=== PATIENT | female | born 1940 | race Caucasian/White ===

== ENCOUNTER → 2016-11-21 | Outpatient (REF) | payer MEDICARE ==
[2016-11-21 19:37] LABS: IMMUNOGLOBULIN G 602 MG/DL (681-1648); TOTAL PROTEIN 6.2 GM/DL (6.4-8.2)
[2016-11-21 20:01] LABS: IMMUNOGLOBULIN A 19.4 MG/DL (70-400); IMMUNOGLOBULIN M 18.2 MG/DL (40-230)
[2016-11-22 12:05] LABS: ALBUMIN 4.05 GM/DL (3.29-5.55); ALBUMIN % 65.3 % (55.8-66.1); GAMMA GLOBULIN % 8.8 % (11.1-18.8)
[2016-11-24 00:15] LABS: FREE LAMBDA LIGHT CHAINS SERUM 16.92 mg/L (5.71-26.30); KAPPA/LAMBDA RATIO SERUM 67.38 (0.26-1.65)
== END ==
LOC: M LAB REF 16:50
PROVIDERS: ATTEND Internal Medicine Medical Oncology
DX: D47.2 Monoclonal gammopathy (principal)

== ENCOUNTER → 2017-03-21 | Outpatient (REF) | payer MEDICARE ==
[2017-03-21 17:51] LABS: IMMUNOGLOBULIN G 506 MG/DL (681-1648); TOTAL PROTEIN 6.1 GM/DL (6.4-8.2)
[2017-03-21 18:40] LABS: IMMUNOGLOBULIN A 19.8 MG/DL (70-400)
[2017-03-21 18:41] LABS: IMMUNOGLOBULIN M 17.5 MG/DL (40-230)
[2017-03-22 10:06] LABS: ALBUMIN 3.89 GM/DL (3.29-5.55); ALBUMIN % 63.8 % (55.8-66.1); GAMMA GLOBULIN % 8.9 % (11.1-18.8)
[2017-03-24 00:06] LABS: FREE KAPPA LIGHT CHAINS SERUM 955.2 mg/L (3.3-19.4); FREE LAMBDA LIGHT CHAINS SERUM 16.8 mg/L (5.7-26.3); KAPPA/LAMBDA RATIO SERUM 56.86 (0.26-1.65)
== END ==
LOC: M LAB REF 16:48
PROVIDERS: ATTEND Internal Medicine Medical Oncology
DX: D47.2 Monoclonal gammopathy (principal)

== ENCOUNTER → 2017-07-08 | Outpatient (CLI) | payer MEDICARE ==
--- NOTE | 2017-07-08 13:51 | REP ---
WHOLE BODY BONE SCAN: Following the intravenous administration of 22 millicuries technetium 99m MDP, the patient's whole body is imaged in the anterior and posterior projections with additional oblique images of the thoracic and pelvis regions performed as well as lateral views of calvarium, knees, and feet. Periarticular increased uptake at the knees and in the feet are compatible with arthritic changes. There is no focal area of increased or decreased radiotracer activity that would suggest the presence of osseous metastases. Renal and bladder activity are seen. IMPRESSION: Arthritic uptake in the knees and feet. No compelling scintigraphic evidence of osseous metastases. Signed by Gianni Jenkins MD 07/09/2017 07:54 P
== END ==
LOC: M RAD 10:00
PROVIDERS: ATTEND Orthopaedic Surgery
DX: C49.22 Malignant neoplasm of connective and soft tissue of left lower limb, including hip (principal)
CPT/HCPCS: 78306; A9503

== ENCOUNTER → 2017-09-30 | Outpatient (REF) | payer MEDICARE ==
[2017-09-30 14:51] LABS: IMMUNOGLOBULIN G 505 MG/DL (681-1648); TOTAL PROTEIN 6.1 GM/DL (6.4-8.2)
[2017-09-30 14:53] LABS: IMMUNOGLOBULIN A 17.6 MG/DL (70-400); IMMUNOGLOBULIN M 16.4 MG/DL (40-230)
[2017-10-02 14:19] LABS: ALBUMIN 3.67 GM/DL (3.29-5.55); ALBUMIN % 60.2 % (55.8-66.1); ALPHA-1-GLOBULIN % 5.5 % (2.9-4.9); ALPHA-2-GLOBULINS % 15.6 % (7.1-11.8); BETA-1-GLOBULINS % 5.5 % (4.7-7.2); BETA-2-GLOBULINS % 4.9 % (3.2-6.5); GAMMA GLOBULIN % 8.3 % (11.1-18.8)
[2017-10-02 14:20] LABS: ALPHA-1-GLOBULINS 0.34 GM/DL (0.17-0.41); ALPHA-2-GLOBULINS 0.95 GM/DL (0.42-0.99); BETA-1-GLOBULINS 0.34 GM/DL (0.28-0.60); GAMMA GLOBULINS 0.51 GM/DL (0.65-1.58)
[2017-10-03 00:06] LABS: FREE KAPPA LIGHT CHAINS SERUM 1061.6 mg/L (3.3-19.4); FREE LAMBDA LIGHT CHAINS SERUM 17.9 mg/L (5.7-26.3); KAPPA/LAMBDA RATIO SERUM 59.31 (0.26-1.65)
== END ==
LOC: M LAB REF 13:35
DX: D47.2 Monoclonal gammopathy (principal)
CPT/HCPCS: 84165

== ENCOUNTER → 2017-10-23 | Outpatient (REF) | payer MEDICARE | LOC: M LAB REF 16:47 | DX: D47.2 Monoclonal gammopathy (principal); D64.9 Anemia, unspecified | CPT/HCPCS: 88300 ==

== ENCOUNTER → 2017-11-04 | Outpatient (REF) | payer MEDICARE ==
[2017-11-05 17:13] LABS: TOTAL PROTEIN,RANDOM URINE 48.2 MG/DL (0.0-12.0); URINE TOTAL PROTEIN 48.2 MG/DL (0-12)
[2017-11-06 13:52] LABS: UPEP INTERPRETATION 2 M-SPIKES IN GAMMA; URINE VOLUME 1800 ML
== END ==
LOC: M LAB REF 11-05 15:55
DX: C90.00 Multiple myeloma not having achieved remission (principal)
CPT/HCPCS: 84166

== ENCOUNTER → 2017-11-05 | Outpatient (CLI) | payer MEDICARE | LOC: M PLARAD 13:55 | DX: C90.00 Multiple myeloma not having achieved remission (principal) | CPT/HCPCS: 78815 ==

== ENCOUNTER → 2017-11-15 | Outpatient (REF) | payer MEDICARE ==
[2017-11-15 14:31] LABS: FERRITIN 246 NG/ML (8-252); IRON (FE) 89 UG/DL (50-170); PERCENT SATURATION 29.4 % (13.2-45.0); TOTAL IRON BINDING CAPACITY 303 UG/DL (250-450)
== END ==
LOC: M LAB REF 13:45
DX: C90.00 Multiple myeloma not having achieved remission (principal)
CPT/HCPCS: 83550

== ENCOUNTER → 2018-01-21 | Outpatient (REF) | payer MEDICARE ==
[2018-01-21 14:16] LABS: FERRITIN 350 NG/ML (8-252); IRON (FE) 133 UG/DL (50-170); PERCENT SATURATION 49.1 % (13.2-45.0); TOTAL IRON BINDING CAPACITY 271 UG/DL (250-450)
== END ==
LOC: M LAB REF 13:39
DX: C90.00 Multiple myeloma not having achieved remission (principal)
CPT/HCPCS: 83550

== ENCOUNTER 2018-02-26 15:21 | Outpatient (CLI) | payer MEDICARE ==
[2018-02-26] MEDS: ACETAMINOPHEN TAB 650MG DOSE (2X325MG) PO (16:45)
[2018-02-26] MEDS: diphenhydrAMINE 25 MG CAP PO (16:45)
[2018-02-26 19:23] LABS: IMMEDIATE SPIN CROSSMATCH 1 2
== END 2018-02-26 22:18 | disposition home or self-care (01) ==
LOC: M OPCLI4PV 15:21 → M MSPAV 15:31 → M OPCLI4PV 22:18
PROVIDERS: Emergency Medicine Pediatric Emergency Medicine
DX: C90.00 Multiple myeloma not having achieved remission (principal); D64.9 Anemia, unspecified
CPT/HCPCS: 36430

== ENCOUNTER → 2018-03-06 | Outpatient (REF) | payer MEDICARE ==
[2018-03-06 17:39] LABS: INR 1.07; PROTHROMBIN TIME 14.1 SECONDS (12.4-14.5)
== END ==
LOC: M LAB REF 16:52
DX: C90.00 Multiple myeloma not having achieved remission (principal); Z79.01 Long term (current) use of anticoagulants
CPT/HCPCS: 85610

== ENCOUNTER 2018-03-12 16:16 | Outpatient (CLI) | payer MEDICARE ==
[2018-03-12] MEDS: ACETAMINOPHEN TAB 650MG DOSE (2X325MG) PO ×2 (17:46)
[2018-03-12] MEDS: diphenhydrAMINE 25 MG CAP PO ×2 (17:46)
[2018-03-12 18:08] LABS: IMMEDIATE SPIN CROSSMATCH 1 2
[2018-03-13] MEDS: SODIUM CHLORIDE 0.9% INJ 10 ML SYR IV ×2 (00:37)
[2018-03-13] MEDS ORDERED: SODIUM CHLORIDE 0.9% INJ 10 ML SYR IV ×2 (09:00)
== END 2018-03-13 00:40 | disposition home or self-care (01) ==
LOC: M OPCLI4PV 03-13 00:40 → M OPCLIPED 16:16 → M MSPAV 16:43
DX: D64.9 Anemia, unspecified (principal); C90.00 Multiple myeloma not having achieved remission; Z88.1 Allergy status to other antibiotic agents; N17.9 Acute kidney failure, unspecified
CPT/HCPCS: 36430

== ENCOUNTER → 2018-03-12 | Outpatient (REF) | payer MEDICARE ==
[2018-03-12 18:50] LABS: RETIC HEMOGLOBIN EQUIVALENT 37.4 pg (24-36); RETICULOCYTE # 126.5 10^9/L (17-77); RETICULOCYTE % 5.8 % (0.5-1.5)
[2018-03-12 19:08] LABS: IMMUNOGLOBULIN A 25.2 MG/DL (70-400); IMMUNOGLOBULIN G 488 MG/DL (681-1648); TOTAL PROTEIN 5.7 GM/DL (6.4-8.2)
[2018-03-12 19:25] LABS: IMMUNOGLOBULIN M 14.8 MG/DL (40-230)
[2018-03-13 12:57] LABS: ALBUMIN % 63.1 % (55.8-66.1); ALPHA-1-GLOBULINS 0.34 GM/DL (0.17-0.41); ALPHA-2-GLOBULINS 0.71 GM/DL (0.42-0.99); ALPHA-2-GLOBULINS % 12.5 % (7.1-11.8); BETA-1-GLOBULINS % 5.7 % (4.7-7.2); BETA-2-GLOBULINS % 4.6 % (3.2-6.5); GAMMA GLOBULIN % 8.1 % (11.1-18.8)
[2018-03-13 12:58] LABS: BETA-1-GLOBULINS 0.32 GM/DL (0.28-0.60); BETA-2-GLOBULINS 0.26 GM/DL (0.19-0.55); GAMMA GLOBULINS 0.46 GM/DL (0.65-1.58)
[2018-03-15 00:12] LABS: HAPTOGLOBIN < 10 mg/dL (34-200)
[2018-03-15 00:12] LABS: FREE KAPPA LIGHT CHAINS SERUM 137.6 mg/L (3.3-19.4); FREE LAMBDA LIGHT CHAINS SERUM 19.7 mg/L (5.7-26.3); KAPPA/LAMBDA RATIO SERUM 6.98 (0.26-1.65)
== END ==
LOC: M LAB REF 17:26
DX: C90.00 Multiple myeloma not having achieved remission (principal); Z88.1 Allergy status to other antibiotic agents

== ENCOUNTER → 2018-03-15 | Outpatient (REF) | payer MEDICARE | LOC: M LAB REF 13:30 | DX: C90.00 Multiple myeloma not having achieved remission (principal) | CPT/HCPCS: 82270 ==

== ENCOUNTER → 2018-03-27 | Outpatient (REF) | payer MEDICARE | LOC: M LAB REF 16:22 | DX: C90.00 Multiple myeloma not having achieved remission (principal) | CPT/HCPCS: 86334 ==

== ENCOUNTER → 2018-04-09 | Outpatient (REF) | payer MEDICARE ==
[2018-04-09 19:33] LABS: FERRITIN 807 NG/ML (8-252); IMMUNOGLOBULIN A 31.3 MG/DL (70-400); IMMUNOGLOBULIN G 480 MG/DL (681-1648); IRON (FE) 98 UG/DL (50-170); PERCENT SATURATION 38.9 % (13.2-45.0); TOTAL IRON BINDING CAPACITY 252 UG/DL (250-450); TOTAL PROTEIN 5.5 GM/DL (6.4-8.2)
[2018-04-09 19:57] LABS: IMMUNOGLOBULIN M 15.3 MG/DL (40-230)
[2018-04-10 12:02] LABS: ALBUMIN 3.44 GM/DL (3.29-5.55); ALBUMIN % 62.5 % (55.8-66.1); ALPHA-1-GLOBULINS 0.33 GM/DL (0.17-0.41); ALPHA-2-GLOBULINS 0.69 GM/DL (0.42-0.99); ALPHA-2-GLOBULINS % 12.5 % (7.1-11.8); BETA-1-GLOBULINS 0.29 GM/DL (0.28-0.60); BETA-1-GLOBULINS % 5.3 % (4.7-7.2); BETA-2-GLOBULINS 0.26 GM/DL (0.19-0.55); BETA-2-GLOBULINS % 4.8 % (3.2-6.5); GAMMA GLOBULIN % 8.9 % (11.1-18.8); GAMMA GLOBULINS 0.49 GM/DL (0.65-1.58)
[2018-04-12 00:06] LABS: FREE KAPPA LIGHT CHAINS SERUM 36.2 mg/L (3.3-19.4); FREE LAMBDA LIGHT CHAINS SERUM 18.5 mg/L (5.7-26.3); KAPPA/LAMBDA RATIO SERUM 1.96 (0.26-1.65)
== END ==
LOC: M LAB REF 17:36
DX: C90.00 Multiple myeloma not having achieved remission (principal)
CPT/HCPCS: 83550

== ENCOUNTER → 2018-04-11 | Outpatient (CLI) | payer MEDICARE ==
[2018-04-11 13:25] LABS: VITAMIN B12 LEVEL 251 PG/ML (247-911)
== END ==
LOC: M LAB 12:12
DX: R19.5 Other fecal abnormalities (principal)
CPT/HCPCS: 82607

== ENCOUNTER → 2018-04-14 | Outpatient (REF) | payer MEDICARE ==
[2018-04-14 14:08] LABS: VITAMIN B12 LEVEL 249 PG/ML
[2018-04-14 14:09] LABS: FOLATE 9.7 NG/ML
[2018-04-14 14:11] LABS: FERRITIN 788 NG/ML (8-252); IRON (FE) 82 UG/DL (50-170); PERCENT SATURATION 34.3 % (13.2-45.0); TOTAL IRON BINDING CAPACITY 239 UG/DL (250-450)
== END ==
LOC: M LAB REF 13:39
DX: D64.9 Anemia, unspecified (principal)
CPT/HCPCS: 82746

== ENCOUNTER 2018-04-17 08:27 | Outpatient (CLI) | payer MEDICARE ==
[2018-04-17] MEDS: ACETAMINOPHEN 500 MG TAB PO (09:15)
[2018-04-17 09:21] LABS: IMMEDIATE SPIN CROSSMATCH 1 1
[2018-04-17] MEDS: FUROSEMIDE 20 MG/2 ML VIAL (J1940) IV (11:22)
[2018-04-17] MEDS: SODIUM CHLORIDE 0.9% INJ 10 ML SYR IV (11:22)
== END 2018-04-17 11:45 | disposition home or self-care (01) ==
LOC: M INFU 08:27
DX: D64.9 Anemia, unspecified (principal); C90.00 Multiple myeloma not having achieved remission; Z98.84 Bariatric surgery status; Z88.1 Allergy status to other antibiotic agents; Z79.82 Long term (current) use of aspirin; Z79.899 Other long term (current) drug therapy
CPT/HCPCS: 36430

== ENCOUNTER → 2018-04-24 | Outpatient (REF) | payer MEDICARE ==
[2018-04-24 19:11] LABS: MAGNESIUM LEVEL 1.1 MG/DL (1.8-2.4)
== END ==
LOC: M LAB REF 17:40
DX: C90.00 Multiple myeloma not having achieved remission (principal)
CPT/HCPCS: 83735

== ENCOUNTER → 2018-05-07 | Outpatient (REF) | payer MEDICARE ==
[2018-05-07 20:26] LABS: IMMUNOGLOBULIN A 43.3 MG/DL (70-400); IMMUNOGLOBULIN G 489 MG/DL (681-1648); TOTAL PROTEIN 5.5 GM/DL (6.4-8.2)
[2018-05-08 11:52] LABS: ALBUMIN % 62.1 % (55.8-66.1); ALPHA-1-GLOBULIN % 6.4 % (2.9-4.9); ALPHA-2-GLOBULINS % 12.4 % (7.1-11.8); BETA-1-GLOBULINS % 5.3 % (4.7-7.2); BETA-2-GLOBULINS % 4.8 % (3.2-6.5)
[2018-05-08 11:53] LABS: ALBUMIN 3.42 GM/DL (3.29-5.55); ALPHA-1-GLOBULINS 0.35 GM/DL (0.17-0.41); ALPHA-2-GLOBULINS 0.68 GM/DL (0.42-0.99); BETA-1-GLOBULINS 0.29 GM/DL (0.28-0.60); BETA-2-GLOBULINS 0.26 GM/DL (0.19-0.55)
[2018-05-10 00:07] LABS: FREE KAPPA LIGHT CHAINS SERUM 33.7 mg/L (3.3-19.4); FREE LAMBDA LIGHT CHAINS SERUM 21.7 mg/L (5.7-26.3); KAPPA/LAMBDA RATIO SERUM 1.55 (0.26-1.65)
== END ==
LOC: M LAB REF 17:04
DX: C90.00 Multiple myeloma not having achieved remission (principal)
CPT/HCPCS: 84165

== ENCOUNTER → 2018-06-04 | Outpatient (REF) | payer MEDICARE ==
[2018-06-04 22:45] LABS: IMMUNOGLOBULIN G 581 MG/DL (681-1648); IMMUNOGLOBULIN M 21 MG/DL (40-230); TOTAL PROTEIN 5.3 GM/DL (6.4-8.2)
[2018-06-07 00:06] LABS: FREE KAPPA LIGHT CHAINS SERUM 31.7 mg/L (3.3-19.4); FREE LAMBDA LIGHT CHAINS SERUM 23.6 mg/L (5.7-26.3); KAPPA/LAMBDA RATIO SERUM 1.34 (0.26-1.65)
[2018-06-09 15:11] LABS: ALBUMIN % 58.4 % (55.8-66.1); ALPHA-1-GLOBULIN % 9.1 % (2.9-4.9); ALPHA-1-GLOBULINS 0.48 GM/DL (0.17-0.41); ALPHA-2-GLOBULINS 0.69 GM/DL (0.42-0.99); BETA-1-GLOBULINS % 3.7 % (4.7-7.2); BETA-2-GLOBULINS 0.26 GM/DL (0.19-0.55); BETA-2-GLOBULINS % 4.9 % (3.2-6.5); GAMMA GLOBULIN % 10.9 % (11.1-18.8); GAMMA GLOBULINS 0.58 GM/DL (0.65-1.58)
== END ==
LOC: M LAB REF 17:27
DX: C90.00 Multiple myeloma not having achieved remission (principal)
CPT/HCPCS: 84165

== ENCOUNTER → 2018-06-06 | Outpatient (CLI) | payer MEDICARE | LOC: M CARPUL 10:55 | DX: C90.00 Multiple myeloma not having achieved remission (principal); R53.83 Other fatigue; Z79.899 Other long term (current) drug therapy | CPT/HCPCS: 93306 ==

== ENCOUNTER 2018-06-10 10:21 | Day surgery (SDC) | payer MEDICARE ==
[~2018-06-10 10:21] MED LIST: LIDOCAINE 2% INJ 100 MG/5 ML SDV (FOR ANES.) As Ordered; PROPOFOL 200 MG/20 ML VIAL As Ordered; fentaNYL 100 MCG/2 ML INJECTION (J3010) As Ordered
[2018-06-10] MEDS: NS 1,000 ML IV (10:30)
[2018-06-10 11:03] LABS: HEMATOCRIT 32.7 % (36.0-47.0); HEMOGLOBIN 10.2 g/dl (12.0-15.5); MEAN CORPUSCULAR HGB CONC 31.2 g/dl (32.0-36.5); MEAN CORPUSCULAR VOLUME 105.8 fl (80.0-96.0); PLATELET COUNT, AUTOMATED 187 10^3/uL (150-450); RED BLOOD COUNT 3.09 10^6/uL (4.00-5.40); RED CELL DISTRIBUTION WIDTH 16.2 % (11.5-14.5)
[2018-06-10 11:15] LABS: INR 1.04; PROTHROMBIN TIME 13.7 SECONDS (12.1-14.4)
[2018-06-10] MEDS ORDERED: PROPOFOL 200 MG/20 ML VIAL As Ordered (12:06)
== END 2018-06-10 13:05 | disposition home or self-care (01) ==
LOC: M OPP 10:21
DX: D50.9 Iron deficiency anemia, unspecified (principal); R19.5 Other fecal abnormalities; K59.00 Constipation, unspecified; K64.8 Other hemorrhoids; R13.10 Dysphagia, unspecified; C90.00 Multiple myeloma not having achieved remission; Z92.21 Personal history of antineoplastic chemotherapy; K21.9 Gastro-esophageal reflux disease without esophagitis; E03.9 Hypothyroidism, unspecified; M79.7 Fibromyalgia; N18.9 Chronic kidney disease, unspecified; Z88.1 Allergy status to other antibiotic agents; Z79.82 Long term (current) use of aspirin; Z79.899 Other long term (current) drug therapy; Z80.8 Family history of malignant neoplasm of other organs or systems
CPT/HCPCS: 45378

== ENCOUNTER → 2018-07-22 | Outpatient (REF) | payer MEDICARE | LOC: M LAB REF 17:00 | DX: E85.9 Amyloidosis, unspecified (principal) | CPT/HCPCS: 88305; 88313 ==

== ENCOUNTER 2018-07-23 12:37 | Day surgery (SDC) | payer MEDICARE ==
[2018-07-23] MEDS ORDERED: MIDAZOLAM INJ 2 MG/2 ML VIAL (J2250) As Ordered ×2 (13:52)
[2018-07-23] MEDS ORDERED: fentaNYL 100 MCG/2 ML INJECTION (J3010) As Ordered (13:53)
[2018-07-23] MEDS ORDERED: MIDAZOLAM INJ 2 MG/2 ML VIAL (J2250) IV (15:00)
== END 2018-07-23 15:15 | disposition home or self-care (01) ==
LOC: M OPP 12:37
DX: I34.0 Nonrheumatic mitral (valve) insufficiency (principal); I42.9 Cardiomyopathy, unspecified; R94.31 Abnormal electrocardiogram [ECG] [EKG]; R06.02 Shortness of breath; R07.9 Chest pain, unspecified; E66.09 Other obesity due to excess calories; Z79.899 Other long term (current) drug therapy; Z88.8 Allergy status to other drugs, medicaments and biological substances
CPT/HCPCS: J2250

== ENCOUNTER 2018-08-01 11:52 | Observation (INO) | payer MEDICARE ==
[~2018-08-01] VITALS: Ht 165.1 cm; Wt 96.5 kg
[~2018-08-01 11:52] MED LIST changes: +ACYC400T PO; +ASPI1TAB15 PO; +CALC600T68 PO; +DEXA4TA PO; +DULO1CAP2; +DULO1CAP2 PO; +DULO1CAP3; +DULO1CAP3 PO; +EXCETAB80 PO; +FISH1000 PO; +GABA-1171 PO; +GABA-845; +GABA-845 PO; +HYDR-4514 PO; +IRON18TA PO; +IRON325T7 PO; +KLOR20TA42; +KLOR20TA42 PO; +LASI20TA3 PO; +LEVO112T2; +LEVO112T25 PO; -LIDOCAINE 2% INJ 100 MG/5 ML SDV (FOR ANES.) As Ordered; +MAG400TA PO; +NORC7.5T35; +NORC7.5T35 PO; +OMEP20CA3; +OMEP20CA3 PO; +POTA50TAB PO; +PROC20004 SC; -PROPOFOL 200 MG/20 ML VIAL As Ordered; +REVL10CA2 PO; +REVLIMID; +REVLIMID PO; +SODI325T9 PO; +TORS20TA2 PO; +VITA200015 PO; +VITA400C7 PO; +ZOFR4TAB14 SL; -fentaNYL 100 MCG/2 ML INJECTION (J3010) As Ordered
[2018-08-01] MEDS ORDERED: CALC600T68 PO (12:12)
[2018-08-01] MEDS ORDERED: PRIL20TA2 PO (12:12)
[2018-08-01 13:05] LABS: BASO % 0.6 % (0.0-1.0); EOS % 0.2 % (0.0-3.0); HEMATOCRIT 34.4 % (36.0-47.0); HEMOGLOBIN 11.1 g/dl (12.0-15.5); LYMPH # 0.5 10^3/uL (1.5-4.5); LYMPH % 10.8 % (24.0-44.0); MEAN CORPUSCULAR HEMOGLOBIN 31.2 pg (27.0-33.0); MEAN CORPUSCULAR HGB CONC 32.3 g/dl (32.0-36.5); MEAN CORPUSCULAR VOLUME 96.6 fl (80.0-96.0); MONO # 0.6 10^3/uL (0.0-0.8); MONO % 11.6 % (0.0-5.0); NEUTROPHILS # 3.8 10^3/uL (1.8-7.7); NEUTROPHILS % 76.4 % (36.0-66.0); PLATELET COUNT, AUTOMATED 203 10^3/uL (150-450); RED BLOOD COUNT 3.56 10^6/uL (4.00-5.40); WHITE BLOOD COUNT 4.9 10^3/uL (4.0-10.0)
[2018-08-01] MEDS ORDERED: NS 500 ML IV ONE (13:15)
[2018-08-01 13:22] LABS: ALBUMIN 3.1 GM/DL (3.2-5.2); ALT/SGPT 69 U/L (12-78); BILIRUBIN,DIRECT 0.4 MG/DL (0.0-0.2); BLOOD UREA NITROGEN 20 MG/DL (7-18); CALCIUM LEVEL 10.6 MG/DL (8.8-10.2); CARBON DIOXIDE LEVEL 23 MEQ/L (21-32); CHLORIDE LEVEL 106 MEQ/L (98-107); CK-MB VALUE MASS < 1.0 NG/ML (<3.6); CPK CREATINE PHOSPHOKINASE 20 U/L (26-192); CREATININE FOR GFR 1.11 MG/DL (0.55-1.30); GLOMERULAR FILTRATION RATE 50.9 (>39); GLUCOSE, FASTING 109 MG/DL (70-100); POTASSIUM SERUM 4.5 MEQ/L (3.5-5.1); SODIUM LEVEL 138 MEQ/L (136-145); TOTAL PROTEIN 5.5 GM/DL (6.4-8.2); TROPONIN I 0.02 NG/ML (< 0.10)
[2018-08-01] MEDS ORDERED: NS 1,000 ML IV ONE (15:15)
[2018-08-01] MEDS: NS 1,000 ML IV SCH ×2 (16:08→22:47)
[2018-08-01] MEDS ORDERED: ONDANSETRON 4MG/2ML VIAL (J2405) IV PRN (16:15)
[2018-08-01] MEDS ORDERED: CALC600T57 PO (16:30)
[2018-08-01] MEDS ORDERED: ACYC400T PO (16:30)
[2018-08-01] MEDS ORDERED: DECA4TAB PO (16:33)
[2018-08-01] MEDS ORDERED: MAGN400T2 PO (16:33)
[2018-08-01] MEDS ORDERED: DEXA4TA PO ×2 (16:33→17:10)
[2018-08-01] MEDS ORDERED: DULO1CAP3 PO (16:34)
--- NOTE | 2018-08-01 16:41 | HPE ---
DATE OF ADMISSION: 08/01/2018 PRIMARY CARE PROVIDER: Erich Fulton. ONCOLOGIST: Akila Villegas. NEPHROLOGY: Dr. Knox. STAND UP COMEDIAN: Dr. Jasso. HISTORY OF PRESENT ILLNESS: The patient is a 78-year-old female was sent to [facility] from the visual c developer office for hyptension. Patient had an office visit with the visual c developer, patient was found to have significant hypotension with symptoms, therefore patient was sent here for further evaluation. Patient has exertion intolerance. Patient has been dry heaving for some time, intermittent vomiting. Usually those GI symptoms occur first early in the morning that resulted in generalized poor oral intake. In the emergency room patient was found to have significant orthostatic hypotension with full resuscitation initiated and the hospitalist team is called for service. ALLERGIES: LEVAQUIN. PAST MEDICAL HISTORY: Multiple sclerosis. Fibromyalgia. Skin cancer of left leg with chronic wound. PAST SURGICAL HISTORY: Leg tumor removal. Hysterectomy. Ileogastric bypass. Cholecystectomy. SOCIAL HISTORY: Denied smoking. Drinks alcohol very rarely. No recreational drug use. REVIEW OF SYSTEMS: GENERAL; Denied any fever or chill but patient complained of dry heaving symptoms usually only in the morning resulted in poor oral intake. HEENT: No vision change or auditory changes. CARDIOVASCULAR: No chest pain, no palpitations. RESPIRATORY: Patient denied shortness of breath, denied cough or sputum production. GI: Dry heaving symptom usually early in the morning, intermittent vomiting. No abdominal pain. Denied any diarrhea. MUSCULOSKELETAL: Fibromyalgia, lower extremity usually tender to palpation. NEURO: No numbness or tingling. OBJECTIVE: Vital signs temperature is 97.6, pulse is 75, respirations 16, blood pressure 98/56, pulse ox 98% on room air. GENERAL: Pale, fatigue, awake, alert, and oriented times three. HEENT: Normocephalic, atraumatic, extraocular motor grossly intact. CARDIOVASCULAR: Positive S1, S2. Regular rate. LUNGS: Clear to auscultation bilaterally. ABDOMEN: Soft, non-tender, non-distended. Bowel sounds present. EXTREMITIES: Some tenderness to palpitation of bilateral lower extremities from her fibromyalgia. No significant swelling noted. LABORATORY DATA: WBC is 4.9, hemoglobin 11.1, hematocrit 34.4, platelet count is 203, sodium 138, potassium 4.5, chloride 108, carbon dioxide 23, BUN 20, creatinine 1.11. Glomerular filtration rate (GFR) 50.9, fasting glucose 109, calcium 10.6. Total bilirubin 1, direct bilirubin 0.4. AST 78, ALT 69, Alkaline phosphatase 149. Troponin I is 0.02, total protein 5.5, albumin 3.1, TSH is 1.74. ASSESSMENT AND PLAN: 1. Orthostatic hypotension. Patient admitted to PCU under observation status. Baseline history patient has been having poor oral intake resulted in severe dehydration that will lead to the orthostatic hypotension. Patient received IV bolus in the emergency room. Will continue with IV resuscitation. Will follow with the orthostatic measurements and patient will be followed by physical therapy for activity evaluation. 2. Multiple myeloma. Followed with Dr. Villegas in the outpatient setting previously. Patient could not tolerate chemotherapy due to the adverse side effect. Skin cancer at the lower extremity with history of chronic wound. Patient wound healed. 3. Deep vein thrombosis prophylaxis. On Heparin.
[2018-08-01 20:00] VITALS: BP 106/57
[2018-08-01 21:00] VITALS: BP 101/65
[2018-08-01] MEDS: GABAPENTIN 100 MG CAP PO SCH (21:00)
[2018-08-01] MEDS: ASPIRIN 81 MG ENTERIC TAB PO SCH (21:00)
[2018-08-01] MEDS: MAGNESIUM OXIDE 400 MG TAB (MAG-OX) PO SCH (21:00)
[2018-08-01] MEDS: K-PHOS ORIGINAL (POT.ACID PHOSPHATE) 500MG TAB PO SCH (21:00)
[2018-08-01] MEDS: VITAMIN E 400 INTERNATIONAL UNITS CAP PO SCH (21:01)
[2018-08-01] MEDS: HEPARIN SOD (PORCINE) 5000 UNITS/ML VIAL SC SCH (21:01)
[2018-08-01] MEDS: ACYCLOVIR 200 MG CAPSULE PO SCH (21:01)
[2018-08-01] MEDS: RAMELTEON 8 MG TAB (ROZEREM) PO SCH (22:47)
[2018-08-02] VITALS (9 sets, daily range): BP systolic 91–128; BP diastolic 51–77
[2018-08-02 04:54] LABS: HEMATOCRIT 24.3 % (36.0-47.0); MEAN CORPUSCULAR HEMOGLOBIN 30.8 pg (27.0-33.0); MEAN CORPUSCULAR HGB CONC 32.1 g/dl (32.0-36.5); PLATELET COUNT, AUTOMATED 139 10^3/uL (150-450); RED BLOOD COUNT 2.53 10^6/uL (4.00-5.40); WHITE BLOOD COUNT 2.7 10^3/uL (4.0-10.0)
[2018-08-02 05:04] LABS: HEMOGLOBIN 7.8 g/dl (12.0-15.5)
[2018-08-02 05:17] LABS: BLOOD UREA NITROGEN 14 MG/DL (7-18); CALCIUM LEVEL 8.7 MG/DL (8.8-10.2); CARBON DIOXIDE LEVEL 21 MEQ/L (21-32); CHLORIDE LEVEL 113 MEQ/L (98-107); CREATININE FOR GFR 0.72 MG/DL (0.55-1.30); GLOMERULAR FILTRATION RATE > 60.0 (>39); GLUCOSE, FASTING 84 MG/DL (70-100); MAGNESIUM LEVEL 1.7 MG/DL (1.8-2.4); POTASSIUM SERUM 3.6 MEQ/L (3.5-5.1); SODIUM LEVEL 142 MEQ/L (136-145)
[2018-08-02] MEDS: LEVOTHYROXINE 112MCG TABLET (0.112MG) PO SCH (06:20)
[2018-08-02] MEDS: NS 1,000 ML IV SCH ×2 (06:20→20:59)
[2018-08-02] MEDS: HEPARIN SOD (PORCINE) 5000 UNITS/ML VIAL SC SCH ×3 (06:20→20:58)
[2018-08-02 06:56] LABS: FERRITIN 801 NG/ML (8-252); IRON (FE) 96 UG/DL (50-170); PERCENT SATURATION 103.2 % (13.2-45.0); TOTAL IRON BINDING CAPACITY 93 UG/DL (250-450)
[2018-08-02] MEDS ORDERED: MAG SULF 1GM/100ML (MAG RUN) 1 GM in APPROPRIATE DILUENT 1 EA IV ONE (08:00)
[2018-08-02] MEDS: OMEPRAZOLE 20 MG CAP PO SCH (08:13)
[2018-08-02] MEDS: MAGNESIUM OXIDE 400 MG TAB (MAG-OX) PO SCH ×2 (08:14→20:58)
[2018-08-02] MEDS: DULoxetine 30 MG CAP (CYMBALTA) PO SCH (08:14)
[2018-08-02] MEDS: ACYCLOVIR 200 MG CAPSULE PO SCH ×2 (08:14→20:57)
[2018-08-02] MEDS ORDERED: PILL CRUSHER/CUTTER 1 EACH XX PRN (08:30)
[2018-08-02] MEDS ORDERED: DULoxetine 30 MG CAP (CYMBALTA) PO SCH (09:00)
[2018-08-02] MEDS: EXCEDRIN MIGRAINE TABLET PO PRN ×2 (12:35→20:58)
[2018-08-02] MEDS ORDERED: IBUPROFEN 800 MG TAB PO ONE (16:30)
[2018-08-02] MEDS: RAMELTEON 8 MG TAB (ROZEREM) PO SCH (20:57)
[2018-08-02] MEDS: ASPIRIN 81 MG ENTERIC TAB PO SCH (20:57)
[2018-08-02] MEDS: VITAMIN E 400 INTERNATIONAL UNITS CAP PO SCH (20:57)
[2018-08-02] MEDS: K-PHOS ORIGINAL (POT.ACID PHOSPHATE) 500MG TAB PO SCH (20:57)
[2018-08-02] MEDS: GABAPENTIN 100 MG CAP PO SCH (20:58)
[2018-08-03] MEDS: HEPARIN SOD (PORCINE) 5000 UNITS/ML VIAL SC SCH (05:41)
[2018-08-03] MEDS: LEVOTHYROXINE 112MCG TABLET (0.112MG) PO SCH (05:41)
[2018-08-03 05:59] LABS: HEMATOCRIT 26.4 % (36.0-47.0); HEMOGLOBIN 8.5 g/dl (12.0-15.5); MEAN CORPUSCULAR HEMOGLOBIN 31.1 pg (27.0-33.0); MEAN CORPUSCULAR HGB CONC 32.2 g/dl (32.0-36.5); MEAN CORPUSCULAR VOLUME 96.7 fl (80.0-96.0); PLATELET COUNT, AUTOMATED 155 10^3/uL (150-450); RED BLOOD COUNT 2.73 10^6/uL (4.00-5.40); WHITE BLOOD COUNT 3.2 10^3/uL (4.0-10.0)
[2018-08-03 06:00] VITALS: BP_SYST 106; BP_SYST 92; BP_SYST 98; BP_DIAS 58; BP_DIAS 62
[2018-08-03 06:20] LABS: BLOOD UREA NITROGEN 15 MG/DL (7-18); CALCIUM LEVEL 8.7 MG/DL (8.8-10.2); CARBON DIOXIDE LEVEL 21 MEQ/L (21-32); CHLORIDE LEVEL 114 MEQ/L (98-107); CREATININE FOR GFR 0.87 MG/DL (0.55-1.30); GLOMERULAR FILTRATION RATE > 60.0 (>39); GLUCOSE, FASTING 80 MG/DL (70-100); MAGNESIUM LEVEL 1.9 MG/DL (1.8-2.4); POTASSIUM SERUM 3.7 MEQ/L (3.5-5.1); SODIUM LEVEL 143 MEQ/L (136-145)
--- NOTE | 2018-08-03 06:28 | IPNPDOC ---
Text Note Date of Service The patient was seen on 08/02/18. NOTE SUBJECTIVE: Feels a little better but still very weak . No dizziness or light headedness. But says has no appetite. OBJECTIVE: Vital signs: as below. GENERAL: Pale, fatigue, awake, alert, and oriented times three. HEENT: Normocephalic, atraumatic, extraocular motor grossly intact. CARDIOVASCULAR: Positive S1, S2. Regular rate. LUNGS: Clear to auscultation bilaterally. ABDOMEN: Soft, non-tender, non-distended. Bowel sounds present. EXTREMITIES: Some tenderness to palpitation of bilateral lower extremities from her fibromyalgia. No significant swelling noted. 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 Patient had an office visit with the certified respiratory therapist, patient was found to have significant hypotension with symptoms, therefore patient was sent here for further evaluati on. Patient has exertion intolerance. Patient has been dry heaving for some time, intermittent vomiting. Usually those GI symptoms occur first early in the morning that resulted in generalized poor oral intake. In the emergency room patient was found to have significant orthostatic hypotension, hypercalcemia, with full resuscitation initiated and the hospitalist team is called for service. Hypotension due to dehydration from poor oral intake due to nausea and dry heaves. orthostats positive on presentation , now negative will decrease IVF Multiple myeloma [place] light chain myeloma with anemia and renal insufficiency 01/2018 with bone marrow aspiration and biopsy 09/2017 showing 16% plasma cells. Started carfilzomib/lenalidomide/dexamethasone chemotherapy 01/2018 with improvement in renal insufficiency and decrease in kappa light chains. Hypercalcemia possibly due to dehydration now resolved. Chronic Anemia, started epoetin injections 04/2018. Also on vitamin B12 injections for B12 deficiency. Her baseline Hb is around 9.0 Now hh low after hydration will consider prbc transfusion if drops below 7.0 Mitral valve prolapse with mod mitral regurgitation. will watch for fluid overload as may precipitate chf. Hypothyroid continue Synthroid fibromyalgia H/o ileogastric bypass. DVT prophylaxis in place. VS,Fishbone, I+O VS, Fishbone, I+O Laboratory Tests 08/01/18 12:16 Red Blood Count 3.56 L, Mean Corpuscular Volume 96.6 H, Mean Corpuscular Hemoglobin 31.2, Mean Corpuscular Hemoglobin Concent 32.3, Red Cell Distribution Width 21.2 H, Neutrophils (%) (Auto) 76.4 H, Lymphocytes (%) (Auto) 10.8 L, Monocytes (%) (Auto) 11.6 H, Eosinophils (%) (Auto) 0.2, Basophils (%) (Auto) 0.6, Neutrophils # (Auto) 3.8, Lymphocytes # (Auto) 0.5 L, Monocytes # (Auto) 0.6, Eosinophils # (Auto) 0.0, Basophils # (Auto) 0.0 08/01/18 12:58 08/02/18 04:20 Red Blood Count 2.53 L, Mean Corpuscular Volume 96.0, Mean Corpuscular Hemoglobin 30.8, Mean Corpuscular Hemoglobin Concent 32.1, Red Cell Distribution Width 21.1 H, Calcium Level 8.7 #L Vital Signs Date Time Temp Pulse Resp B/P (MAP) Pulse Ox O2 Delivery O2 Flow Rate FiO2 08/02/18 07:43 65 99/61 (74) 75 98/65 (76) 102 96/77 (83) 08/02/18 07:35 16 97 Room Air 08/02/18 04:00 97.7 I&O- Last 24 Hours up to 6 AM 08/02/18 06:00 Intake Total 4350 ml Output Total 500 ml Balance 3850 ml WALTER BAUMAN MD Aug 02, 2018 08:07
[2018-08-03] MEDS: DULoxetine 30 MG CAP (CYMBALTA) PO SCH (08:35)
[2018-08-03] MEDS: MAGNESIUM OXIDE 400 MG TAB (MAG-OX) PO SCH (08:35)
[2018-08-03] MEDS: OMEPRAZOLE 20 MG CAP PO SCH (08:35)
[2018-08-03] MEDS: ACYCLOVIR 200 MG CAPSULE PO SCH (08:35)
[2018-08-03] MEDS ORDERED: SODIUM CHLORIDE 0.9% INJ 10 ML SYR IV PRN (13:30)
--- NOTE | 2018-08-04 05:49 | DS.PDOC ---
Discharge Summary General Date of Admission Aug 01, 2018 at 16:08 Date of Discharge 08/03/18 Primary Care Physician: Erich Fulton MD Attending Physician: WALTER BAUMAN MD Discharge Summary PROCEDURES PERFORMED DURING STAY: [None]. DISCHARGE DIAGNOSES: Dehydration with hypotension [place] light chain Myeloma Mitral valve prolapse with moderate mitral regurgitation Fibromyalgia Hypothyroid Chronic anemia due to malignancy Vit B12 deficiency COMPLICATIONS/CHIEF COMPLAINT: Dehydration Orthostatic Hypotension. 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 Patient had an office visit with the title specialist, patient was found to have significant hypotension with symptoms, therefore patient was sent here for further evaluation. Patient has exertion intolerance. Patient has been dry heaving for some time, intermittent vomiting. Usually those GI symptoms occur first early in the morning that resulted in generalized poor oral intake. In the emergency room patient was found to have significant orthostatic hypotension, hypercalcemia, with full resuscitation initiated and the hospitalist team is called for service. Hypotension due to dehydration from poor oral intake due to nausea and dry heaves. orthostats positive on presentation , now negative after IV hydration Multiple myeloma [place] light chain myeloma with anemia and renal insufficiency 01/2018 with bone marrow aspiration and biopsy 09/2017 showing 16% plasma cells. Started carfilzomib/lenalidomide/dexamethasone chemotherapy 01/2018 with improvement in renal insufficiency and decrease in kappa light chains. Hypercalcemia possibly due to dehydration now resolved. Chronic Anemia, started epoetin injections 04/2018. Also on vitamin B12 injections for B12 deficiency. Her baseline Hb is around 9.0 Now hh low after hydration will consider prbc transfusion if drops below 7.0 Mitral valve prolapse with mod mitral regurgitation. will watch for fluid overload as may precipitate chf. Hypothyroid continue Synthroid fibromyalgia H/o ileogastric bypass. DISCHARGE MEDICATIONS: Please see below. ALLERGIES: Please see below. PHYSICAL EXAMINATION ON DISCHARGE: VITAL SIGNS: Please see below. GENERAL: Pale, fatigue, awake, alert, and oriented times three. HEENT: Normocephalic, atraumatic, extraocular motor grossly intact. CARDIOVASCULAR: Positive S1, S2. Regular rate. Systolic murmur present. LUNGS: Clear to auscultation bilaterally. ABDOMEN: Soft, non-tender, non-distended. Bowel sounds present. EXTREMITIES: Some tenderness to palpitation of bilateral lower extremities from her fibromyalgia. No significant swelling noted. LABORATORY DATA: Please see below. ACTIVITY: [As tolerated]. DIET: as tolerated DISPOSITION: 01 Home, Self-Care. DISCHARGE INSTRUCTIONS: 1. Follow up with Oncology as per schedule 2. Follo wup with PMD in 1 to 2 weeks. 3. Follow up Cardiology as per outpatient schedule DISCHARGE CONDITION: [Stable]. TIME SPENT ON DISCHARGE: Greater than 30 minutes. Vital Signs/I&Os Vital Signs Date Time Temp Pulse Resp B/P (MAP) Pulse Ox O2 Delivery O2 Flow Rate FiO2 08/03/18 06:00 97.6 66 18 106/62 (77) 97 Room Air I&O- Last 24 Hours up to 6 AM 08/04/18 06:00 Intake Total 650 ml Output Total 300 ml Balance 350 ml Laboratory Data Labs 24H Laboratory Tests 2 08/03/18 05:47: Nucleated Red Blood Cells % (auto) 0.0, Anion Gap 8, Glomerular Filtration Rate > 60.0, Blood Urea Nitrogen 15, Creatinine 0.87, Sodium Level 143, Potassium Level 3.7, Chloride Level 114H, Carbon Dioxide Level 21, Calcium Level 8.7L, Magnesium Level 1.9 CBC/BMP Laboratory Tests 08/03/18 05:47 Red Blood Count 2.73 L, Mean Corpuscular Volume 96.7 H, Mean Corpuscular Hemoglobin 31.1, Mean Corpuscular Hemoglobin Concent 32.2, Red Cell Distribution Width 21.6 H, Calcium Level 8.7 L Discharge Medications Scheduled (Calcium + D3 600-200 mg-Unit) 1 Tab Tab, 1 TAB PO DAILY, (Reported) Acyclovir (Acyclovir) 400 Mg Tab, 400 MG PO BID, (Reported) Aspirin (Aspirin) 81 Mg Tab, 81 MG PO QHS, (Reported) Dexamethasone (Decadron) 4 Mg Tab, 2 MG PO DAILY, (Reported) EXCEPT WEDNESDAYS Dexamethasone (Dexamethasone) 4 Mg Tab, 12 MG PO QWEEK, (Reported) WEDNESDAYS Duloxetine Hcl (Duloxetine HCl) 30 Mg Cap, 30 MG PO DAILY, (Reported) TAKES WITH 60MG TO TOTAL 90MG Duloxetine Hcl (Duloxetine HCl) 60 Mg Cap, 60 MG PO DAILY, (Reported) TAKES WITH 30MG TO TOTAL 90MG Gabapentin (Gabapentin) 100 Mg Cap, 100 MG PO QHS, (Reported) Levothyroxine Sodium (Levoxyl) 112 Mcg Tab, 112 MCG PO DAILY, (Reported) Magnesium Oxide (Magnesium Oxide) 400 Mg Tab, 800 MG PO BID, (Reported) Omeprazole Magnesium (Prilosec Otc) 20 Mg Tab, 20 MG PO DAILY, (Reported) Potassium Chloride (Klor-Con M20) 20 Meq Tabcr, 20 MEQ PO DAILY, (Reported) Potassium Phosphate Monobasic (K-Phos) 500 Mg Tab, 500 MG PO QHS, (Reported) Vitamin E (Vitamin E) 400 Unit Cap, 400 UNIT PO QHS, (Reported) Scheduled PRN (Hydrocodone Bitartrate/AC 7.5-325 mg) 1 Tab Tab, 1 TAB PO TID PRN for PAIN, (Reported) Allergies Coded Allergies: Levofloxacin (Verified Adverse Reaction, Mild, muscle spasm, 05/30/18) WALTER BAUMAN MD Aug 04, 2018 05:49
[2018-08-04] MEDS ORDERED: SODIUM CHLORIDE 0.9% INJ 10 ML SYR IV SCH (09:00)
[2018-08-07] MEDS ORDERED: CALC1CAP31 PO (15:10)
[2018-08-21] MEDS ORDERED: DEXA4TA PO (16:56)
[2018-09-04] MEDS ORDERED: DECA4TAB PO (14:00)
[2018-09-04] MEDS ORDERED: PRIL20TA2 PO (14:03)
[2018-09-04] MEDS ORDERED: POTA50TAB PO (14:04)
[2018-09-04] MEDS ORDERED: ACYC400T PO (14:24)
[2018-09-29] MEDS ORDERED: PROC10TA4 PO (18:04)
== END 2018-08-03 14:30 | disposition home or self-care (01) ==
LOC: M ED 11:52 → M ED INP 16:08 → M ICU 19:53 → M MSPAV 08-02 14:17
PROVIDERS: ADMIT Internal Medicine; ATTEND Internal Medicine Nephrology
DX: E86.0 Dehydration (principal); I95.9 Hypotension, unspecified; C90.00 Multiple myeloma not having achieved remission; I35.8 Other nonrheumatic aortic valve disorders; M79.7 Fibromyalgia; E03.9 Hypothyroidism, unspecified; D64.9 Anemia, unspecified; E53.8 Deficiency of other specified B group vitamins; Z79.82 Long term (current) use of aspirin; Z79.899 Other long term (current) drug therapy; Z88.8 Allergy status to other drugs, medicaments and biological substances
CPT/HCPCS: 80048; 80076; 82550; 82553; 82728; 83735; 84443; 84466; 84484; 85025; 85027; 96360; 96361; 96372; 97116; 97161; 99285; G0378; G8978; G8979; G8980; J3475

== ENCOUNTER → 2018-09-02 | Outpatient (REF) | payer MEDICARE ==
[2018-09-02 19:17] LABS: CORTISOL BASELINE 12.2 UG/DL (4.3-22.4)
== END ==
LOC: M LAB REF 17:30
DX: I95.9 Hypotension, unspecified (principal)
CPT/HCPCS: 82533

== ENCOUNTER → 2018-10-06 | Outpatient (REF) | payer MEDICARE ==
[~2018-10-06] MED LIST changes: +CALC1CAP31 PO; +CALC600T57 PO; +DECA4TAB PO; +MAGN400T2 PO; +POTA1TAB23 PO; +PRIL20TA2 PO; +PROC10TA4 PO
[2018-10-06 13:42] LABS: TOTAL PROTEIN,RANDOM URINE 9.1 MG/DL (0.0-12.0); URINE TOTAL PROTEIN 9.1 MG/DL (0-12)
[2018-10-09 15:58] LABS: UPEP INTERPRETATION NO M-SPIKE NOTED; URINE VOLUME 1400 ML
== END ==
LOC: M LAB REF 13:14
PROVIDERS: ATTEND Internal Medicine Medical Oncology
DX: N39.9 Disorder of urinary system, unspecified (principal)

== ENCOUNTER 2018-12-11 11:56 | Inpatient (IN) | payer MEDICARE ==
[~2018-12-11] VITALS: Ht 165.1 cm; Wt 67.6 kg
[2018-12-11] MEDS ORDERED: ELIQ5TAB PO (12:11)
[2018-12-11] MEDS ORDERED: DIGO0.12 PO (12:11)
[2018-12-11] MEDS ORDERED: POTA50TAB PO (12:11)
[2018-12-11] MEDS ORDERED: ASPI1TAB15 PO (12:11)
[2018-12-11] MEDS ORDERED: AMIO200T PO (12:11)
[2018-12-11] MEDS ORDERED: PROC5TA PO (12:11)
--- NOTE | 2018-12-11 13:43 | REP ---
PORTABLE CHEST X-RAY: Single view. HISTORY: Chest pain. COMPARISON CHEST X-RAY: November 10, 2018. FINDINGS: A right-sided Xbojwb-W-Tohf catheter is seen in the expected location of the internal jugular vein unchanged from November 10, 2018. There is an annular density superimposed on the heart suggesting a valvular replacement. EKG electrodes are seen. The patient is rotated somewhat to the right. Lung miles are clear. Heart is not enlarged. IMPRESSION: No active cardiopulmonary disease. Question valve replacement. Right-sided Lloiqg-A-Kejv catheter with its tip in the expected location of the internal jugular vein. Electronically Signed by Olayinka Ha MD 12/11/2018 03:10 P
[2018-12-11 14:15] LABS: BASO % 0.3 % (0.0-1.0); EOS % 0.3 % (0.0-3.0); HEMATOCRIT 34.6 % (36.0-47.0); HEMOGLOBIN 11.6 g/dl (12.0-15.5); LYMPH # 0.7 10^3/uL (1.5-4.5); MEAN CORPUSCULAR HEMOGLOBIN 33.6 pg (27.0-33.0); MEAN CORPUSCULAR HGB CONC 33.5 g/dl (32.0-36.5); MEAN CORPUSCULAR VOLUME 100.3 fl (80.0-96.0); MONO # 0.6 10^3/uL (0.0-0.8); MONO % 19.4 % (0.0-5.0); NEUTROPHILS % 59.7 % (36.0-66.0); PLATELET COUNT, AUTOMATED 163 10^3/uL (150-450); RED BLOOD COUNT 3.45 10^6/uL (4.00-5.40); WHITE BLOOD COUNT 3.3 10^3/uL (4.0-10.0)
[2018-12-11] MEDS ORDERED: ONDANSETRON 4MG/2ML VIAL (J2405) IV PRN (14:15)
[2018-12-11 14:30] LABS: INR 1.3; PROTHROMBIN TIME 16.4 SECONDS (12.1-14.4)
[2018-12-11 15:11] LABS: ALBUMIN 2.7 GM/DL (3.2-5.2); ALT/SGPT 31 U/L (12-78); BILIRUBIN,DIRECT 0.1 MG/DL (0.0-0.2); BILIRUBIN,TOTAL 0.6 MG/DL (0.2-1.0); BLOOD UREA NITROGEN 15 MG/DL (7-18); CALCIUM LEVEL 7.8 MG/DL (8.8-10.2); CARBON DIOXIDE LEVEL 22 MEQ/L (21-32); CHLORIDE LEVEL 107 MEQ/L (98-107); CK-MB VALUE MASS < 1.0 NG/ML (<3.6); CPK CREATINE PHOSPHOKINASE 52 U/L (26-192); CREATININE FOR GFR 0.82 MG/DL (0.55-1.30); GLOMERULAR FILTRATION RATE > 60.0 (>39); GLUCOSE, FASTING 86 MG/DL (70-100); LIPASE 185 U/L (73-393); MB/CK RELATIVE INDEX 1.92 (< OR =4); NT-PRO BNP 626 PG/ML (<450); POTASSIUM SERUM 4.4 MEQ/L (3.5-5.1); SODIUM LEVEL 136 MEQ/L (136-145); TOTAL PROTEIN 5.6 GM/DL (6.4-8.2); TROPONIN I 0.02 NG/ML (< 0.10)
[2018-12-11] MEDS ORDERED: ISOVUE-370 76% 125ML VIAL (Q9967 PER ML) As Ordered ONE (15:39)
[2018-12-11 16:22] LABS: DIGOXIN LEVEL 0.8 NG/ML (0.5-2.0)
--- NOTE | 2018-12-11 16:56 | REP ---
CT ANGIOGRAM CHEST: TECHNIQUE: Axial contrast enhanced images from the thoracic inlet to the upper abdomen using 100 mL Isovue 370 intravenous contrast material with multiplanar reformations. There is no CT evidence of pulmonary embolism. There is no thoracic aortic aneurysm or dissection. The heart is not enlarged. There is no pericardial effusion. There does appear to be mild fluid in the inferior aspect of the right major fissure. There is mild adjacent atelectatic change. There is slight elevation of the right hemidiaphragm. There is no mediastinal, hilar, or chest wall lymphadenopathy. However in the right inferior axillary region there is an oval fluid collection which measures 3.8 x 1.5 cm of uncertain significance. There is mild diffuse interstitial fibrosis. Patient has had a prior cholecystectomy. There is diffuse fatty infiltration of the liver. There are degenerative changes of the spine. IMPRESSION: No CT evidence of pulmonary embolism or aortic dissection. Mild fluid in the inferior aspect of the right major fissure with adjacent mild atelectatic change in the right lung base. There is slight elevation of the right hemidiaphragm. There is a nonspecific oval fluid collection in the right inferior axilla measuring 3.8 x 1.5 cm. Electronically Signed by Gianni Jenkins MD 12/11/2018 04:59 P
[2018-12-11] MEDS ORDERED: EXCE38TA PO (17:56)
[2018-12-11] MEDS ORDERED: PROC10TA4 PO (17:56)
[2018-12-11] MEDS ORDERED: KPHOS50TA PO (17:56)
[2018-12-11 18:40] LABS: INFLUENZA A AMPLIFICATION POSITIVE (NEGATIVE); INFLUENZA B AMPLIFICATION NEGATIVE (NEGATIVE)
[2018-12-11] MEDS ORDERED: ACETAMINOPHEN 325 MG TAB PO ONE (23:30)
[2018-12-12] MEDS ORDERED: PROCHLORPERAZINE 5 MG TAB (S0183) PO PRN (03:45)
[2018-12-12] MEDS ORDERED: ACETAMINOPHEN TAB 650MG DOSE (2X325MG) PO PRN (03:45)
[2018-12-12] MEDS ORDERED: BISACODYL 5 MG TAB PO PRN (03:45)
[2018-12-12] MEDS ORDERED: ANEXSIA, NORCO 7.5MG/325MG TABLET(HYDROCODONE/APAP) PO PRN (04:00)
[2018-12-12 05:48] LABS: BASO % 0.3 % (0.0-1.0); EOS % 0.9 % (0.0-3.0); HEMATOCRIT 32.5 % (36.0-47.0); LYMPH # 0.7 10^3/uL (1.5-4.5); LYMPH % 19.3 % (24.0-44.0); MEAN CORPUSCULAR HEMOGLOBIN 32.5 pg (27.0-33.0); MEAN CORPUSCULAR HGB CONC 33.8 g/dl (32.0-36.5); MEAN CORPUSCULAR VOLUME 96.2 fl (80.0-96.0); MONO # 0.7 10^3/uL (0.0-0.8); MONO % 20.2 % (0.0-5.0); PLATELET COUNT, AUTOMATED 177 10^3/uL (150-450); RED BLOOD COUNT 3.38 10^6/uL (4.00-5.40); WHITE BLOOD COUNT 3.4 10^3/uL (4.0-10.0)
[2018-12-12] MEDS: LEVOTHYROXINE 112MCG TABLET (0.112MG) PO SCH (05:55)
[2018-12-12 06:00] VITALS: BP 103/61
--- NOTE | 2018-12-12 06:21 | ECGEPIP ---
Stationary ECG Study [facility] - ED Test Date: 2018-12-11 Pat Name: JULIO CHILDERS Department: Room: - Gender: F Marketing Specialist: : [id number] Requested By: Daria Costa Order Number: [id number] Reading MD: Will Armas Measurements Intervals [place] Rate: 110 P: 34 SD: 172 QRS: -34 QRSD: 98 T: 83 QT: 333 QTc: 452 Interpretive Statements SINUS TACHYCARDIA POSSIBLE LEFT ATRIAL ENLARGEMENT LEFT AXIS DEVIATION LOW QRS VOLTAGE IN PRECORDIAL LEADS SEPTAL MYOCARDIAL INFARCTION, PROBABLY OLD SIMILAR TO 01/28/18 Electronically Signed On 12-12-2018 6:21:26 EDT by Will Armas
--- NOTE | 2018-12-12 06:30 | ECHO ---
DATE OF STUDY: 12/12/2018 REFERRING PHYSICIAN: Emergency room physician on assistant shift supervisor at verbal request of Dr. Benita Oneill INDICATION: Status post mitral valve repair. 2-D MEASUREMENTS: Ventricular septum: 0.79 cm Posterior wall: 0.82 cm Left ventricle diastole: 4.2 cm Left atrium: 4.3 cm Aortic root: 3.0 cm Inferior vena cava: 2.0 cm DOPPLER MEASUREMENTS: Aortic valve velocity: 123 cm/sec LVOT velocity: 91.6 cm/sec Trace mitral regurgitation No tricuspid regurgitation DESCRIPTION: The rhythm was sinus rhythm to mild sinus tachycardia. Image quality was fair. This was a 2-D, M-mode, color flow Doppler and pulse wave Doppler examination and included mitral annular tissue Doppler. CONCLUSIONS: 1. Status post mitral valve repair with mitral annular sewing ring. No mitral stenosis. Trace mitral regurgitation. 2. Normal left ventricle internal dimensions and wall thickness. Normal regional LV wall motion and wall thickening. Normal LV systolic function. LVEF 65% by visual estimate. Extensive fusion of the early rapid filling phase with the atrial filling phase at 96 beats per minute in the setting of status post mitral valve repair; therefore, unable to adequately assess LV diastolic function. 3. No vegetations on any of the cardiac valves. 4. No pericardial effusion. 5. Normal right ventricle size and systolic function. 6. Mild left atrial dilatation. Results of this echocardiogram Doppler were communicated to Dr. Benita Oneill via the hospitalist patient observation assistant cell phone.
[2018-12-12 06:38] LABS: BLOOD UREA NITROGEN 14 MG/DL (7-18); CALCIUM LEVEL 7.8 MG/DL (8.8-10.2); CARBON DIOXIDE LEVEL 23 MEQ/L (21-32); CHLORIDE LEVEL 105 MEQ/L (98-107); CREATININE FOR GFR 0.82 MG/DL (0.55-1.30); DIGOXIN LEVEL 0.6 NG/ML (0.5-2.0); GLOMERULAR FILTRATION RATE > 60.0 (>39); GLUCOSE, FASTING 88 MG/DL (70-100); MAGNESIUM LEVEL 1.9 MG/DL (1.8-2.4); POTASSIUM SERUM 2.9 MEQ/L (3.5-5.1); SODIUM LEVEL 137 MEQ/L (136-145)
[2018-12-12] MEDS ORDERED: POTASSIUM CHLORIDE 10 MEQ SR TABLET PO ONE ×2 (06:45→07:45)
--- NOTE | 2018-12-12 08:31 | HPE ---
DATE OF ADMISSION: 12/12/2018 PRIMARY CARE PROVIDER: Dr. Erich Fulton. HISTORY OF PRESENT ILLNESS: Patient is a 78-year-old female who presented to the emergency department earlier today with chief complaint of some difficulty breathing and feeling weak. Patient says last Saturday evening, she began feeling quite weak and run down. Over the next few days, she did experience a fever as high as 101. She slowly began to improve, however today she did have an episode of vomiting and felt even weaker so she was brought into the emergency room. Patient reports having surgery about 6 weeks ago to fix patient's mitral valve. Patient had a leaky mitral valve as reported by oncology. Patient went to [facility] for a cardiac catheterization and a placement of according to the patient's family a ring to tighten up the valve. Patient has not had any adverse effects from that procedure at this time. Patient in the emergency was found to be positive for influenza A. Patient states that she has started to feel slightly better, however, she is still feeling quite weak. Patient was in rehabilitation after her surgery and had just recently gotten home and was doing quite well before starting to feel ill about a week ago. Right now, patient denies any shortness of breath or chest pain. Patient also denies any nausea or vomiting at this time. She did have the one episode of vomiting which was clear to yellowy liquid but did not have any blood or coffee ground materials in it. Patient is coughing clear phlegm which also does not have any blood in it. PAST MEDICAL HISTORY: Multiple sclerosis. Fibromyalgia. Multiple myeloma. Skin cancer of the left leg with a chronic wound. PAST SURGICAL HISTORY: Skin cancer removal on left leg. Hysterectomy. Ileogastric bypass. Cholecystectomy. Mitral valve repair. ALLERGIES: LEVAQUIN. FAMILY HISTORY: Noncontributory. SOCIAL HISTORY: Denies smoking. Drink alcohol very rarely. No recreational drug use. Patient just recently was discharged from rehabilitation and was back living with her . REVIEW OF SYSTEMS: General: Patient had a fever on Saturday of 101 but denies any other fevers since then. She denies having chills. HEENT: The patient denies headache, runny nose or sore throat. Cardiovascular: Patient denies chest pain. Respiratory: Patient denies shortness of breath. Patient does endorse a cough as described above in history of present illness. Abdomen: Patient denies nausea or vomiting at this time. Did have one episode of vomiting previous. Patient denies abdominal pain. : Patient denies any pain or difficulty with urination. Neurological: Patient denies numbness or tingling in her extremities. Extremities: Patient denies pain or swelling in her extremities. Skin: Patient does feel a lump under her right breast in her skin which goes along with a scar from where she had chest tubes placed. Lymphatics: Patient denies any lumps or bumps in her neck. PHYSICAL EXAMINATION: Temperature 97.6, pulse 96, respiratory rate 17, blood pressure 104/65, pulse oximetry 96% on room air. General: Alert and oriented female patient who was lying on the stretcher in the emergency room when I walked in. Patient did not appear to be in any acute distress. HEENT: Normocephalic, atraumatic. Anicteric sclera. Moist mucous membranes. Neck: Supple with no lymphadenopathy. Cardiovascular: Regular rate and rhythm with a normal S1 and a normal S2. No murmurs auscultated. Respirations: Crackles heard at the right base, clear to auscultation in other lung miles. Abdomen was soft, nontender with normoactive bowel sounds in all four quadrants. Extremities: No pretibial edema. Radial and posterior tibial pulses are equal bilaterally. Neurological: Cranial nerves II-XII grossly intact bilaterally. Patient had 5/5 strength in upper and lower extremities bilaterally. Skin: There was a firm mobile mass under the right breast associated with a scar. This mass was also seen on CT. There was no overlying erythema or warmth coming from the area. LABORATORY: CBC: White blood cells 3.3, hemoglobin 11.6, hematocrit 34.6, platelet count 163. CMP: Sodium 136, potassium 4.4, chloride 107, bicarbonate 22, BUN 15, creatinine 0.82, glucose 86, calcium 7.8, total bilirubin 0.6, direct bilirubin 0.1, AST 73, ALT 31, alkaline phosphatase 108, total protein count 6, albumin 2.7. Total creatinine count is 52, CK-MB less than 1.0. CK-MB relative index 1.92. Troponin I 0.02. Lipase 185, TSH 3.9. NT Pro-B natruretic peptide 626. PT 16.4, INR 1.30. Digoxin level 0.8. Influenza A positive. Influenza B negative. IMAGING: A chest x-ray performed on 12/11/2018 showed no active cardiopulmonary disease. Question valve replacement. Right sided Shbrfv-I-[id number] catheter with its tip in the expected location of the internal jugular vein. A CT angiography of the chest performed on 12/11/[address] evidence of pulmonary embolism or aortic dissection. There is mild fluid in the inferior aspect of the right major fissure with adjacent mild atelectatic change in the right lung base. There is a slight elevation of the right hemidiaphragm. There is a nonspecific oval fluid collection in the right inferior axilla measuring 3.8 x 1.5 cm. ASSESSMENT AND PLAN: Patient is a 78-year-old female who presents to the emergency room with complaints of difficulty breathing and generalized weakness who was diagnosed with influenza A. 1. Influenza A. At this time, I do not believe Tamiflu will benefit the patient as the patient seems to have been having these symptoms for about a week at this time. Patient says that most of her flu-like symptoms have resolved and she is more dealing with weakness at this time than flu-like symptoms. We will continue to monitor with the patient. 2. Generalized weakness. Patient has a history of multiple myeloma and just had recent cardiac surgery. I believe the weakness is secondary to her influenza infection. I believe the patient will need physical therapy. Physical therapy consult has been placed. I believe the patient will need some sort of outpatient rehabilitation upon discharge. 3. Fibromyalgia. Will continue with patient's home medication. 4. Hypothyroidism. Will continue with patient's home medications. 5. Gastroesophageal reflux disease (GERD). We will continue with the patient's home medications. 6. Deep venous thrombosis (DVT) prophylaxis. Patient is on Eliquis. PLAN: Plan is to admit the patient to the medical/surgical floor for observation and for physical therapy consultation. Physical therapy will work with the patient and we will continue to monitor until she has been deemed safe for discharge and discharge has been set up. My faculty preceptor for this patient encounter was physically present during the encounter and was fully available. All aspects of the patient interview, examination, medical decision making process, and medical care plan development were reviewed and approved by the faculty preceptor. The faculty preceptor is aware and concurs with the plan as stated in the body of this note and will attest to such by his/her cosignature. I have both independently examined this patient as well as reviewed H and P. I have discussed in detail with the resident the findings and plan of treatment as documented in the residents note. HELENE
[2018-12-12] MEDS: OMEPRAZOLE 20 MG CAP PO SCH (08:42)
[2018-12-12] MEDS: AMIODARONE 200 MG TAB (PACERONE) PO SCH (08:42)
[2018-12-12] MEDS: ACYCLOVIR 200 MG CAPSULE PO SCH ×2 (08:43→20:31)
[2018-12-12] MEDS: APIXABAN 5 MG TAB (ELIQUIS) PO SCH ×2 (08:43→20:30)
[2018-12-12] MEDS: DULoxetine 30 MG CAP (CYMBALTA) PO SCH ×2 (08:43)
[2018-12-12] MEDS: MAGNESIUM OXIDE 400 MG TAB (MAG-OX) PO SCH ×2 (08:43→20:30)
[2018-12-12 14:00] VITALS: BP 104/64
[2018-12-12] MEDS: DIGOXIN 0.125 MG TAB PO SCH (20:30)
[2018-12-12] MEDS: K-PHOS ORIGINAL (POT.ACID PHOSPHATE) 500MG TAB PO SCH (20:30)
[2018-12-12] MEDS: POTASSIUM CHLORIDE 10 MEQ SR TABLET PO SCH (20:31)
[2018-12-12] MEDS: GABAPENTIN 100 MG CAP PO SCH (20:31)
[2018-12-12] MEDS: VITAMIN E 400 INTERNATIONAL UNITS CAP PO SCH (20:31)
[2018-12-12] MEDS: ASPIRIN 81 MG ENTERIC TAB PO SCH (20:31)
[2018-12-12 22:00] VITALS: BP 102/65
[2018-12-13] MEDS: LEVOTHYROXINE 112MCG TABLET (0.112MG) PO SCH (05:27)
[2018-12-13 05:47] LABS: BASO % 0.7 % (0.0-1.0); EOS % 1.1 % (0.0-3.0); HEMATOCRIT 31.2 % (36.0-47.0); HEMOGLOBIN 10.3 g/dl (12.0-15.5); LYMPH # 0.7 10^3/uL (1.5-4.5); LYMPH % 26.1 % (24.0-44.0); MEAN CORPUSCULAR HEMOGLOBIN 32.3 pg (27.0-33.0); MEAN CORPUSCULAR VOLUME 97.8 fl (80.0-96.0); MONO # 0.5 10^3/uL (0.0-0.8); MONO % 18.8 % (0.0-5.0); NEUTROPHILS # 1.4 10^3/uL (1.8-7.7); NEUTROPHILS % 52.9 % (36.0-66.0); PLATELET COUNT, AUTOMATED 158 10^3/uL (150-450); RED BLOOD COUNT 3.19 10^6/uL (4.00-5.40); WHITE BLOOD COUNT 2.7 10^3/uL (4.0-10.0)
[2018-12-13 06:00] VITALS: BP 103/53
[2018-12-13 06:07] LABS: BLOOD UREA NITROGEN 13 MG/DL (7-18); CALCIUM LEVEL 8.4 MG/DL (8.8-10.2); CARBON DIOXIDE LEVEL 24 MEQ/L (21-32); CHLORIDE LEVEL 109 MEQ/L (98-107); CREATININE FOR GFR 0.68 MG/DL (0.55-1.30); GLOMERULAR FILTRATION RATE > 60.0 (>39); GLUCOSE, FASTING 83 MG/DL (70-100); POTASSIUM SERUM 5.1 MEQ/L (3.5-5.1); SODIUM LEVEL 138 MEQ/L (136-145)
[2018-12-13] MEDS ORDERED: PNEUMOCOCCAL VACCINE 0.5ML SYRINGE(90732) PNEUMOVAX 23 IM ONE (09:00)
[2018-12-13] MEDS: OMEPRAZOLE 20 MG CAP PO SCH (09:03)
[2018-12-13] MEDS: ACYCLOVIR 200 MG CAPSULE PO SCH ×2 (09:03→20:56)
[2018-12-13] MEDS: APIXABAN 5 MG TAB (ELIQUIS) PO SCH ×2 (09:03→20:57)
[2018-12-13] MEDS: DULoxetine 30 MG CAP (CYMBALTA) PO SCH ×2 (09:04)
[2018-12-13] MEDS: MAGNESIUM OXIDE 400 MG TAB (MAG-OX) PO SCH ×2 (09:04→20:56)
[2018-12-13] MEDS: AMIODARONE 200 MG TAB (PACERONE) PO SCH (09:05)
[2018-12-13] MEDS ORDERED: PNEUMOCOCCAL VACCINE 0.5ML SYRINGE(90732) PNEUMOVAX 23 IM PRN (09:45)
[2018-12-13 13:40] LABS: CK-MB VALUE MASS < 1.0 NG/ML (<3.6); CPK CREATINE PHOSPHOKINASE 20 U/L (26-192); TROPONIN I < 0.02 NG/ML (< 0.10)
[2018-12-13 14:00] VITALS: BP 99/55
--- NOTE | 2018-12-13 16:43 | IPN ---
DATE: 12/13/2018 The patient is seen and examined. Reported feeling much better. Denies any chest pain, pressure or discomfort. Denies any fever or chills. Mild cough. VITAL SIGNS: Temperature 98.5, pulse 99, respirations 16, blood pressure 99/55, pulse oximetry 96% on room air. LABORATORY DATA: WBC 2.7, hemoglobin and hematocrit 10.3/31.2, platelets 158. Chemistry: Sodium 138, potassium 5.1, chloride 109, bicarbonate 24, BUN 13, creatinine 0.68, cardiac enzymes negative times two. PHYSICAL EXAMINATION: GENERAL: THe patient is comfortable, in no acute distress. HEENT: Normocephalic, atraumatic. PULMONARY: Minimal rhonchi bilaterally. CARDIAC: Regular S1, S2. ABDOMEN: Soft, nontender. EXTREMITIES: No edema in bilateral lower extremities. ASSESSMENT AND PLAN: This is a 78-year-old female patient with underlying medical history of multiple sclerosis, fibromyalgia, multiple myeloma, and also valvular heart disease, recently underwent mitral valve repair, not on chemotherapy recently. The patient was recently discharged from rehabilitation, presented with shortness of breath, weak and cough productive of yellow phlegm for the past 5 days and found to have influenza A. 1. Influenza A. Symptoms have been present for about a week. The patient is not a candidate for Tamiflu. We will monitor closely. The patient's symptoms are much improved. Supportive care. 2. Generalized weakness and deconditioning. Physical therapy (PT). 3. History of multiple myeloma and recent influenza and recent surgery. Physical therapy (PT) has been ordered. Needs outpatient followup with oncologist. 4. Fibromyalgia. Continue home medication. 5. Hypothyroidism. Followup thyroid profile. Continue current medications. 6. Suspected paroxysmal atrial fibrillation. Continue Eliquis and digoxin. Continue amiodarone as ordered. 7. Gastroesophageal reflux disease (GERD). Continue home medications. Continue proton pump inhibitor. 8. Valvular heart disease with recent repair. Echo has been appreciated during this admission. 9. Deep vein thrombosis (DVT) prophylaxis. The patient is on Eliquis. DISPOSITION: Pending clinical improvement, physical therapy (PT). The patient feels much better, likely discharge in the next 24 hours.
[2018-12-13] MEDS: VITAMIN E 400 INTERNATIONAL UNITS CAP PO SCH (20:56)
[2018-12-13] MEDS: POTASSIUM CHLORIDE 10 MEQ SR TABLET PO SCH (20:56)
[2018-12-13] MEDS: K-PHOS ORIGINAL (POT.ACID PHOSPHATE) 500MG TAB PO SCH (20:56)
[2018-12-13] MEDS: GABAPENTIN 100 MG CAP PO SCH (20:56)
[2018-12-13] MEDS: DIGOXIN 0.125 MG TAB PO SCH (20:57)
[2018-12-13] MEDS: ASPIRIN 81 MG ENTERIC TAB PO SCH (20:57)
[2018-12-13 22:00] VITALS: BP 99/52
[2018-12-14] MEDS: LEVOTHYROXINE 112MCG TABLET (0.112MG) PO SCH (05:57)
[2018-12-14 05:58] LABS: BASO % 0.3 % (0.0-1.0); EOS % 1.2 % (0.0-3.0); HEMATOCRIT 29.8 % (36.0-47.0); LYMPH # 0.8 10^3/uL (1.5-4.5); LYMPH % 25.1 % (24.0-44.0); MEAN CORPUSCULAR HEMOGLOBIN 32.5 pg (27.0-33.0); MEAN CORPUSCULAR HGB CONC 33.6 g/dl (32.0-36.5); MEAN CORPUSCULAR VOLUME 96.8 fl (80.0-96.0); MONO # 0.6 10^3/uL (0.0-0.8); MONO % 18.7 % (0.0-5.0); NEUTROPHILS # 1.8 10^3/uL (1.8-7.7); NEUTROPHILS % 54.7 % (36.0-66.0); PLATELET COUNT, AUTOMATED 183 10^3/uL (150-450); RED BLOOD COUNT 3.08 10^6/uL (4.00-5.40); WHITE BLOOD COUNT 3.3 10^3/uL (4.0-10.0)
[2018-12-14 06:00] VITALS: BP 106/58
[2018-12-14 06:48] LABS: BLOOD UREA NITROGEN 14 MG/DL (7-18); CALCIUM LEVEL 8.2 MG/DL (8.8-10.2); CARBON DIOXIDE LEVEL 24 MEQ/L (21-32); CHLORIDE LEVEL 109 MEQ/L (98-107); CREATININE FOR GFR 0.69 MG/DL (0.55-1.30); FREE THYROXINE INDEX 4.3 % (1.3-4.8); GLOMERULAR FILTRATION RATE > 60.0 (>39); GLUCOSE, FASTING 78 MG/DL (70-100); MAGNESIUM LEVEL 1.9 MG/DL (1.8-2.4); POTASSIUM SERUM 4.5 MEQ/L (3.5-5.1); SODIUM LEVEL 139 MEQ/L (136-145); T UPTAKE 38 % (30-39); THYROXINE (T4) 11.3 UG/DL (4.5-12.0)
[2018-12-14] MEDS: AMIODARONE 200 MG TAB (PACERONE) PO SCH (08:17)
[2018-12-14] MEDS: DULoxetine 30 MG CAP (CYMBALTA) PO SCH ×2 (08:17)
[2018-12-14] MEDS: OMEPRAZOLE 20 MG CAP PO SCH (08:17)
[2018-12-14] MEDS: ACYCLOVIR 200 MG CAPSULE PO SCH ×2 (08:17→20:39)
[2018-12-14] MEDS: APIXABAN 5 MG TAB (ELIQUIS) PO SCH ×2 (08:17→20:39)
[2018-12-14] MEDS: MAGNESIUM OXIDE 400 MG TAB (MAG-OX) PO SCH ×2 (08:18→20:39)
[2018-12-14 14:00] VITALS: BP 104/63
--- NOTE | 2018-12-14 14:58 | IPNPDOC ---
Text Note Date of Service The patient was seen on 12/14/18. NOTE The patient is seen and examined. Reported feeling much better. Denies any chest pain, pressure or discomfort. Denies any fever or chills. able to ambulate PHYSICAL EXAMINATION: GENERAL: THe patient is comfortable, in no acute distress. HEENT: Normocephalic, atraumatic. PULMONARY: Minimal rhonchi bilaterally. CARDIAC: Regular S1, S2. ABDOMEN: Soft, nontender. EXTREMITIES: No edema in bilateral lower extremities. ASSESSMENT AND PLAN: This is a 78-year-old female patient with underlying medical history of multiple sclerosis, fibromyalgia, multiple myeloma, and also valvular heart disease, recently underwent mitral valve repair, not on chemotherapy recently. The patient was recently discharged from rehabilitation, presented with shortness of breath, weak and cough productive of yellow phlegm for the past 5 days and found to have influenza A. 1. Influenza A. Symptoms have been present for about a week. The patient is not a candidate for Tamiflu. We will monitor closely. The patient's symptoms are much improved. Supportive care. 2. Generalized weakness and deconditioning. Physical therapy (PT). 3. History of multiple myeloma and recent influenza and recent surgery. Physical therapy (PT) has been ordered. Needs outpatient followup with oncologist. 4. Fibromyalgia. Continue home medication. 5. Hypothyroidism. Followup thyroid profile. Continue current medications. 6. Suspected paroxysmal atrial fibrillation. Continue Eliquis and digoxin. Continue amiodarone as ordered. 7. Gastroesophageal reflux disease (GERD). Continue home medications. Continue proton pump inhibitor. 8. Valvular heart disease with recent repair. Echo has been appreciated during this admission. 9. Deep vein thrombosis (DVT) prophylaxis. The patient is on Eliquis. DISPOSITION: Pending clinical improvement, physical therapy (PT). The patient feels much better, likely discharge in the next 24 hours. VS,Fishbone, I+O VS, Fishbone, I+O Laboratory Tests 12/14/18 05:26 Red Blood Count 3.08 L, Mean Corpuscular Volume 96.8 H, Mean Corpuscular Hemoglobin 32.5, Mean Corpuscular Hemoglobin Concent 33.6, Red Cell Distribution Width 17.6 H, Neutrophils (%) (Auto) 54.7, Lymphocytes (%) (Auto) 25.1, Monocytes (%) (Auto) 18.7 H, Eosinophils (%) (Auto) 1.2, Basophils (%) (Auto) 0.3, Neutrophils # (Auto) 1.8, Lymphocytes # (Auto) 0.8 L, Monocytes # (Auto) 0.6, Eosinophils # (Auto) 0.0, Basophils # (Auto) 0.0, Calcium Level 8.2 L Vital Signs Date Time Temp Pulse Resp B/P (MAP) Pulse Ox O2 Delivery O2 Flow Rate FiO2 12/14/18 06:00 98.2 94 15 106/58 (74) 100 12/11/18 12:02 Room Air I&O- Last 24 Hours up to 6 AM 12/14/18 06:00 Intake Total 1160 ml Output Total 800 ml Balance 360 ml SYDNEE COTTON MD Dec 14, 2018 14:58
[2018-12-14] MEDS: K-PHOS ORIGINAL (POT.ACID PHOSPHATE) 500MG TAB PO SCH (20:38)
[2018-12-14] MEDS: DIGOXIN 0.125 MG TAB PO SCH (20:39)
[2018-12-14] MEDS: GABAPENTIN 100 MG CAP PO SCH (20:39)
[2018-12-14] MEDS: ASPIRIN 81 MG ENTERIC TAB PO SCH (20:39)
[2018-12-14] MEDS: VITAMIN E 400 INTERNATIONAL UNITS CAP PO SCH (20:39)
[2018-12-14] MEDS: POTASSIUM CHLORIDE 10 MEQ SR TABLET PO SCH (20:39)
[2018-12-14 22:00] VITALS: BP 106/58
[2018-12-15] MEDS: LEVOTHYROXINE 112MCG TABLET (0.112MG) PO SCH (05:24)
[2018-12-15 05:52] LABS: BASO % 0.3 % (0.0-1.0); EOS % 1.1 % (0.0-3.0); HEMATOCRIT 29.7 % (36.0-47.0); HEMOGLOBIN 9.9 g/dl (12.0-15.5); LYMPH # 0.7 10^3/uL (1.5-4.5); LYMPH % 19.6 % (24.0-44.0); MEAN CORPUSCULAR HEMOGLOBIN 32.5 pg (27.0-33.0); MEAN CORPUSCULAR HGB CONC 33.3 g/dl (32.0-36.5); MEAN CORPUSCULAR VOLUME 97.4 fl (80.0-96.0); MONO # 0.7 10^3/uL (0.0-0.8); MONO % 19.3 % (0.0-5.0); NEUTROPHILS # 2.1 10^3/uL (1.8-7.7); NEUTROPHILS % 59.1 % (36.0-66.0); PLATELET COUNT, AUTOMATED 204 10^3/uL (150-450); RED BLOOD COUNT 3.05 10^6/uL (4.00-5.40); WHITE BLOOD COUNT 3.5 10^3/uL (4.0-10.0)
[2018-12-15 06:00] VITALS: BP 93/55
[2018-12-15 06:24] LABS: BLOOD UREA NITROGEN 16 MG/DL (7-18); CALCIUM LEVEL 8.5 MG/DL (8.8-10.2); CARBON DIOXIDE LEVEL 25 MEQ/L (21-32); CHLORIDE LEVEL 110 MEQ/L (98-107); CREATININE FOR GFR 0.74 MG/DL (0.55-1.30); GLOMERULAR FILTRATION RATE > 60.0 (>39); GLUCOSE, FASTING 82 MG/DL (70-100); MAGNESIUM LEVEL 1.8 MG/DL (1.8-2.4); POTASSIUM SERUM 4.5 MEQ/L (3.5-5.1); SODIUM LEVEL 141 MEQ/L (136-145)
[2018-12-15] MEDS: AMIODARONE 200 MG TAB (PACERONE) PO SCH (08:41)
[2018-12-15] MEDS: ACYCLOVIR 200 MG CAPSULE PO SCH (08:41)
[2018-12-15] MEDS: MAGNESIUM OXIDE 400 MG TAB (MAG-OX) PO SCH (08:41)
[2018-12-15] MEDS: OMEPRAZOLE 20 MG CAP PO SCH (08:42)
[2018-12-15] MEDS: DULoxetine 30 MG CAP (CYMBALTA) PO SCH ×2 (08:42→08:43)
[2018-12-15] MEDS: APIXABAN 5 MG TAB (ELIQUIS) PO SCH (08:42)
[2018-12-15] MEDS ORDERED: KEFL500C17 PO (11:27)
--- NOTE | 2018-12-15 16:13 | DSES ---
DATE OF ADMISSION: 12/12/2018 DATE OF DISCHARGE: 12/15/2018 PRIMARY CARE PROVIDER: Erich Fulton FINAL DIAGNOSES: Influenza A. Generalized weakness. Deconditioning. History of multiple myeloma. Fibromyalgia. Hypothyroidism. Suspected paroxysmal atrial fibrillation. Gastroesophageal reflux disease (GERD). Valvular heart disease with recent repair. Urinary tract infection (UTI). HISTORY OF PRESENT ILLNESS: This is a 78-year-old female patient with underlying medical history of multiple sclerosis, fibromyalgia, multiple myeloma, history of skin cancer, valvular heart disease with recent repair, presented to [facility] with complaints of shortness of breath and feeling weak. Patient stated that on Saturday prior to admission, patient has been feeling weak, reported fever of 101, which has been slow to improve, reported episode of vomiting, brought to the emergency room. Patient had valvular heart disease with surgery about 6 weeks ago to fix patient's mitral valve at [facility] ([facility]), was sent to short-term rehab, was recently discharged from short-term rehab. In the emergency room, the patient was found to have influenza A. Given generalized weakness, coughing, shortness of breath, patient was admitted to the hospital for further observation, supportive care. HOSPITAL COURSE: Patient not a candidate for Tamiflu given patient is already 5 days out of onset of symptoms. Supportive care, physical therapy has been ordered. Patient's home medication was continued. Patient's condition generally improved. He was reporting some urinary frequency and dysuria, showing positive urinalysis (UA). Oral antibiotics were sent to the pharmacy. Electrolytes were also supplemented. Currently the patient is tolerating oral, passed physical therapy with normal electrolytes, ready to be discharged for further care as an outpatient. VITAL SIGNS: Temperature 98, pulse 94, respirations 18, blood pressure 106/58, pulse oximetry 99% on room air. LABORATORY: WBC 3.5, hemoglobin and hematocrit 9.9 over 29.7, platelets 204. Chemistry: Sodium 141, potassium 4.5, chloride 110, bicarbonate 25, BUN 16, creatinine 0.74. GENERAL: Patient frail, in no acute distress. HEENT: Normocephalic, atraumatic. PULMONARY: Bilaterally clear. CARDIAC: Regular, S1, S2. ABDOMEN: Soft, nontender. Positive bowel sounds. EXTREMITIES: No clubbing, cyanosis, or edema. DISCHARGE MEDICATIONS: - Keflex 500 mg by mouth twice a day for 3 days - acyclovir 400 mg by mouth twice a day - amiodarone 200 mg by mouth daily - Eliquis 5 mg by mouth twice a day - aspirin 81 mg by mouth nightly - digoxin 125 mcg by mouth nightly - duloxetine 90 mg by mouth daily - Excedrin PM nightly as needed - gabapentin 100 mg by mouth nightly - hydrocodone bitartrate acetaminophen 7.5/325 mg one tablet by mouth three times a day as needed - levothyroxine 112 mcg by mouth daily - magnesium oxide 800 mg by mouth twice a day - Prilosec 20 mg by mouth daily - potassium chloride 10 mEq by mouth nightly - potassium phosphate 500 mg by mouth nightly - prochlorperazine 10 mg by mouth every 6 hours as needed - vitamin E 400 units by mouth nightly DISCHARGE INSTRUCTIONS: Please see primary care provider in 7 days. Please see oncologist in 10 days for further treatment. Encourage oral intake. Return to the hospital if symptoms worsen.
== END 2018-12-15 14:49 | disposition home or self-care (01) | DRG 194 ==
LOC: M ED 11:56 → M ED INP 12-12 03:44 → M MSPAV 12-12 04:50
PROVIDERS: ADMIT Internal Medicine; ATTEND Hospitalist
DX: J10.1 Influenza due to other identified influenza virus with other respiratory manifestations (principal); N39.0 Urinary tract infection, site not specified; C90.00 Multiple myeloma not having achieved remission; M79.7 Fibromyalgia; E03.9 Hypothyroidism, unspecified; I48.0 Paroxysmal atrial fibrillation; K21.9 Gastro-esophageal reflux disease without esophagitis; G35 Multiple sclerosis; Z79.899 Other long term (current) drug therapy

== ENCOUNTER → 2019-03-16 | Outpatient (CLI) | payer MEDICARE ==
[~2019-03-16] MED LIST changes: +AMIO200T PO; +CALC1TAB8 PO; -CALC600T68 PO; +DIGO0.12 PO; +ELIQ5TAB PO; +EXCE38TA PO; +FERR325T82 PO; -IRON325T7 PO; +KEFL500C17 PO; +KPHOS50TA PO; +NORC1TAB8; +NORC1TAB8 PO; -NORC7.5T35; -NORC7.5T35 PO; +PROC5TA PO; +[UNRECOGNIZED DRUG - CODE] PO
--- NOTE | 2019-03-16 13:15 | REP ---
Skeletal survey: Comparison is 06/14/2015. Calvarium: AP lateral views: There are no punched out lytic lesions. No change from the prior study. Cervical thoracic and lumbar spine AP and lateral views: There are no punched out lytic lesions. There is degenerative disc disease in the cervical spine, thoracic spine and lumbar spine, not significantly changed. There is thoracic scoliosis convex left, unchanged. There has been interval placement of a right IJ central venous catheter and cardiac valve. AP pelvis: There are no punched out lytic lesions. Bilateral humeri and bilateral femurs,: There are no punched out lytic lesions. There are numerous pelvic calcifications, unchanged, likely phleboliths. Impression: No change from the prior study. No punched out lytic lesions are identified. Electronically Signed by Gianni Ortega MD 03/16/2019 01:06 P
== END ==
LOC: M RAD 11:22
PROVIDERS: ATTEND Internal Medicine Medical Oncology
DX: Z85.79 Personal history of other malignant neoplasms of lymphoid, hematopoietic and related tissues (principal)

== ENCOUNTER → 2019-04-17 | Outpatient (CLI) | payer MEDICARE ==
[~2019-04-17] MED LIST changes: -DULO1CAP2; -DULO1CAP2 PO; -DULO1CAP3; -DULO1CAP3 PO; +DULO1CAP5; +DULO1CAP5 PO; +DULO1CAP6; +DULO1CAP6 PO; -OMEP20CA3; -OMEP20CA3 PO; +OMEP20CA4; +OMEP20CA4 PO; +PROHANCE 279.3MG/ML 15ML VIAL (A9576) As Ordered ONE
--- NOTE | 2019-04-17 15:51 | REPVR ---
EXAM: MR Lumbar Spine Without and With Contrast. EXAM DATE/TIME: 04/17/2019 1:03 PM CLINICAL HISTORY: 78 years old, female; Condition or disease; Other: Multiple myloma; Additional info: Radicular RT leg pain, multiple myloma TECHNIQUE: Imaging protocol: Multiplanar magnetic resonance images of the lumbar spine without and with intravenous contrast. Contrast material: PROHANCE;Contrast volume: 14 ml;Contrast route: IV; COMPARISON: No relevant prior studies available. FINDINGS: Vertebrae: Unremarkable. Spinal cord: Normal signal. No cord compression. L1-L2: No significant disc disease. No significant spinal stenosis. L2-L3: There is disc space narrowing and desiccation. There are moderate degenerative end plate changes at this level. There is a moderate disc bulge with a small superimposed broad based central disc herniation. There is moderate bilateral neural foraminal narrowing. There is facet arthropathy and ligamentum flavum hypertrophy. There is mild spinal canal stenosis. L3-L4: There is a small left paracentral disc protrusion. There is facet arthropathy and ligamentum flavum hypertrophy. There is mild left-sided neuroforaminal narrowing. L4-L5: There is a moderate disc bulge with a small superimposed central disc herniation. Disc bulging extends into both neural foramen causing mild/moderate bilateral neural foraminal narrowing, right worse than leftThere is facet arthropathy and ligamentum flavum hypertrophy. There is moderate transverse spinal canal stenosis. L5-S1: There is disc space narrowing and desiccation. There are moderate degenerative end plate changes at this level. There is mild disc bulging. Disc bulging extends into both neural foramen causing mild/moderate bilateral neural foraminal narrowing. There is facet arthropathy and ligamentum flavum hypertrophy. Soft tissues: Unremarkable. IMPRESSION: Multilevel degenerative changes causing variable degrees of spinal canal and neuroforaminal narrowing as described above. Electronically signed by: Sudeep Barraza On 04/17/2019 15:51:20 PM
== END ==
LOC: M RAD 12:59
PROVIDERS: ATTEND Internal Medicine Medical Oncology
DX: M79.604 Pain in right leg (principal); C90.00 Multiple myeloma not having achieved remission
CPT/HCPCS: 72158; A9576

== ENCOUNTER 2019-06-07 18:45 | Inpatient (IN) | payer MEDICARE ==
[~2019-06-07] VITALS: Ht 165.1 cm; Wt 76.7 kg
[~2019-06-07 18:45] MED LIST changes: -PROHANCE 279.3MG/ML 15ML VIAL (A9576) As Ordered ONE
[2019-06-07 20:45] VITALS: BP 101/58
[2019-06-07] MEDS ORDERED: APIXABAN 5 MG TAB (ELIQUIS) PO SCH (21:00)
[2019-06-07] MEDS: MAGNESIUM OXIDE 400 MG TAB (MAG-OX) PO SCH (21:00)
[2019-06-07] MEDS ORDERED: MAALOX 30 ML SUSP *UDC PO PRN (22:00)
[2019-06-07] MEDS ORDERED: MOM 30ML SUSPENSION UDC PO PRN (22:00)
[2019-06-07] MEDS ORDERED: MORPHINE 4 MG/ML 1ML VIAL/SYRINGE (J2270) IV ONE ×2 (22:00→22:45)
[2019-06-07] MEDS ORDERED: ACETAMINOPHEN TAB 650MG DOSE (2X325MG) PO PRN (22:00)
[2019-06-07] MEDS ORDERED: MORPHINE 4 MG/ML 1ML VIAL/SYRINGE (J2270) As Ordered ONE (22:04)
[2019-06-07] MEDS ORDERED: AMIO200T PO (23:06)
[2019-06-07] MEDS ORDERED: NITROFURANTOIN (MACROBID) 100 MG CAP PO SCH (23:15)
[2019-06-07] MEDS ORDERED: OMEPRAZOLE 20 MG CAP PO ONE (23:15)
[2019-06-07] MEDS: DOCUSATE SODIUM 100 MG CAP PO SCH (23:33)
[2019-06-07] MEDS: traMADol 50 MG TAB PO PRN (23:34)
[2019-06-07 23:59] VITALS: BP 95/53
[2019-06-08] VITALS (18 sets, daily range): BP systolic 88–105; BP diastolic 48–61; O2SAT 89–94
[2019-06-08] MEDS ORDERED: CIPROFLOXACIN 500 MG TAB PO ONE (00:15)
[2019-06-08] MEDS: GABAPENTIN 100 MG CAP PO SCH ×2 (00:39→20:08)
--- NOTE | 2019-06-08 00:47 | HPEPDOC ---
General Date of Admission 06/07/19 Date of Service: Jun 07, [address] Garcia- Orthopedic Surgeon consult/manage Attending Physician: CARLO PERDOMO DO Chief Complaint The patient is a 79-year-old female admitted with a reason for visit of Left Hip Fracture. History of Present Illness 79 year old elderly female arrives to [facility] ED via EMS transport from [facility] after she had mechanical fall while she was cleaning her b athroom and she tripped over her room that was slanted landing on her left side. She reports she doesn't remember losing consciousness or hitting her head on the floor, but does complain of minor head pain on the left side. She is currently taking a request 5 mg twice a day for atrial fibrillation. She has significant medical history of Atrial fibrillation, multiple myeloma in remission, skin canc er removed, fibromyalgia, valvular heart disease, short bowel, varicose veins, skin cancer, hypothyroidism, GERD, neuropathy. Dr. Garcia- Orthopedic Surgeon consult/manage-spoke to @[phone] he will speak with patient and her family 06/08/19 with plans for surgery Saturday (06/09/19)afternoon depending on patient's clinical condition. Due to patients current condition of left femoral neck fracture, co-morbidities with the potential for her health to decompensate rapidly she will be admitted to PCU telemetry with continuous pulse oximetry under Hospitalist services. Home Medications Scheduled Amiodarone HCl (Amiodarone HCl) 200 Mg Tablet, 200 MG PO DAILY, (Reported) Apixaban (Eliquis) 5 Mg Tab, 5 MG PO BID, (Reported) Duloxetine Hcl (Duloxetine HCl) 30 Mg Cap, 30 MG PO DAILY, (Reported) TAKES WITH 60MG TO TOTAL 90MG Duloxetine Hcl (Duloxetine HCl) 60 Mg Cap, 60 MG PO DAILY, (Reported) TAKES WITH 30MG TO TOTAL 90MG Gabapentin (Gabapentin) 100 Mg Cap, 100 MG PO QHS, (Reported) Levothyroxine Sodium (Levoxyl) 112 Mcg Tab, 112 MCG PO DAILY, (Reported) Magnesium Oxide (Magnesium Oxide) 400 Mg Tab, 800 MG PO BID, (Reported) Omeprazole Magnesium (Prilosec Otc) 20 Mg Tab, 20 MG PO DAILY, (Reported) Potassium Chloride (Potassium Chloride) 10 Meq Tab, 10 MEQ PO QHS, (Reported) Potassium Phosphate Monobasic (K-Phos Original) 500 Mg Tab, 500 MG PO QHS, (Reported) Vitamin E Mixed (Vitamin E) 400 Unit Capsule, 400 UNIT PO QHS, (Reported) Allergies Coded Allergies: levofloxacin (Verified Adverse Reaction, Intermediate, muscle spasm, 12/18/18) Past Medical History Medical History Atrial fibrillation, multiple myeloma in remission, skin cancer removed, fibromyalgia, valvular heart disease, short bowel, varicose veins, skin cancer, hypothyroidism, GERD, neuropathy Surgical History Skin cancer removal, foot surgery, varicose vein stripping, cholecystectomy, partial hysterectomy, shorten small bowel surgery, cardiac valve replacement Social History * Smoker: Denies Alcohol: Denies Drugs: denies Recent Travel/Sick Contacts: Denies: Recent travel, Recent sick contacts Psychosocial History: [place] and [place] A-FIB/CHADSVASC A-FIB History Current/History of A-Fib/PAF?: Yes Current PO Anticoag Therapy: Yes Age/Risk Factor Scoring CHADSVASC: CHADSVASC Response (Comments) Value Age Risk Factor Age >/= 75 years old 2 Gender Risk Factor Female 1 Hx of CHF No 0 Hx of HTN No 0 Hx of Stroke/TIA/or VTE No 0 Hx of Diabetes No 0 Hx of Vascular Disease No 0 Total 3 Treatment Treatment ordered: Apixaban (on hold due to upcoming surgery) Other anticoagulant ordered: Heparin 5000 IU TID ordered Reason Anticoagulant not given: Recent/upcomin procedure (fractured left femur s/p mechanical fall) Review of Systems Constitutional: Reports: Weakness Eyes: Reports: Pain (10 out of 10 left hip) ENT: Denies: Head Aches, Ear Pain, Dysphagia, Sinus Congestion, Post Nasal Drip, Sore Throat, Epistaxis, Other Symptoms Skin: Denies: Rash, Lesions, Jaundice, Bruising, Itching, Dry, Breakdown, Nail Changes, Other Pulmonary: Denies: Dyspnea, Cough, Pleuritic Chest Pain, Other Symptoms Cardiovascular: Reports: Edema Genitourinary: Reports: Other Symptoms (catheter); Denies: Dysuria, Frequency, Incontinence, Hematuria, Retention Endocrine: Denies: Polydipsia, Polyphagia, Polyuria, Heat Intolerance, Cold Intolerance, Other Endocrine Sx Musculoskeletal: Reports: Leg Pain (left hip and thigh) Neurological: Reports: Weakness Psych: Reports: Anxiety Physical Examination General Exam: Positive: Alert, Cooperative, Moderate Distress (pain, 10 out of 10. Morphine 2 mg given slow IV push. Pain decreased, 6 out of 10) Eye Exam: Positive: PERRLA, Conjunctiva & lids normal ENT Exam: Positive: Atraumatic, Pharynx Normal, Tongue Midline Neck Exam: Positive: Supple, +2 carotid pulse wo bruit Chest Exam: Positive: Clear to auscultation, Normal air movement Heart Exam: Positive: Irregular Rhythm (Regular), Normal S1, Normal S2 Telemetry: Positive: Atrial fibrillation Abdomen Exam: Positive: Normal bowel sounds, Soft, Other (16 Fr Indwelling Fol ey Catheter (admitted with it-from [facility])) Extremity Exam: Positive: Tenderness (left hip/thigh), Swelling (left hip/thigh) Skin Exam: Positive: Nl turgor and temperature Neuro Exam: Positive: Normal Speech Psych Exam: Positive: Mental status NL, Oriented x 3 Vital Signs Vital Signs Date Time Temp Pulse Resp B/P (MAP) Pulse Ox O2 Delivery O2 Flow Rate FiO2 06/07/19 20:30 18 06/07/19 20:45 97.1 79 101/58 (72) 94 Laboratory Tests 2 06/08/19 05:04: Nucleated Red Blood Cells % (auto) 0.0, Anion Gap 4L, Glomerular Filtration Rate > 60.0, Blood Urea Nitrogen 14, Creatinine 0.69, Sodium Level 139, Potassium Level 3.5, Chloride Level 109H, Carbon Dioxide Level 26, Calcium Level 9.7, Aspartate Amino Transf (AST/SGOT) 98H, Alanine Aminotransferase (ALT/SGPT) 88H, Alkaline Phosphatase 85, Total Bilirubin 0.8, Total Protein 5.7L, Albumin 2.8L, Magnesium Level 1.6L, Albumin/Globulin Ratio 0.97L Height (in): 65 Weight (kg): 74.1 BMI (kg): 27.2 Laboratory Data Labs 24H Vital Signs Date Time Temp Pulse Resp B/P (MAP) Pulse Ox O2 Delivery O2 Flow Rate FiO2 06/08/19 08:12 97.7 83 18 94/56 92 06/08/19 07:42 97.7 83 18 94/56 92 06/08/19 06:46 18 06/08/19 06:36 18 06/08/19 06:30 94/56 (69) 06/08/19 06:00 92 06/08/19 05:00 93 06/08/19 04:00 91 06/08/19 04:00 97.7 83 16 88/51 (63) 94 06/08/19 04:00 18 06/08/19 03:00 89 06/08/19 02:00 92 06/08/19 01:40 18 06/08/19 01:00 91 06/08/19 00:43 18 06/08/19 00:00 91 06/07/19 23:59 97.5 88 16 95/53 (67) 94 06/07/19 23:34 18 06/07/19 22:56 18 06/07/19 22:48 18 06/07/19 22:46 18 06/07/19 20:45 97.1 79 18 101/58 (72) 94 06/07/19 20:30 18 Intake & Output 06/08/19 06:00 Intake Total 300 ml Output Total 600 ml Balance -300 ml Laboratory Tests 06/08/19 05:04: White Blood Count 4.6, Red Blood Count 3.38L, Hemoglobin 10.9L, Hematocrit 34.0L, Mean Corpuscular Volume 100.6H, Mean Corpuscular Hemoglobin 32.2, Mean Corpuscular Hemoglobin Concent 32.1, Red Cell Distribution Width 13.4, Platelet Count 121L, Nucleated Red Blood Cells % (auto) 0.0, Blood Urea Nitrogen 14, Creatinine 0.69, Sodium Level 139, Potassium Level 3.5, Chloride Level 109H, Carbon Dioxide Level 26, Calcium Level 9.7, Aspartate Amino Transf (AST/SGOT) 98H, Alanine Aminotransferase (ALT/SGPT) 88H, Alkaline Phosphatase 85, Total Bilirubin 0.8, Total Protein 5.7L, Albumin 2.8L, Anion Gap 4L, Glomerular Filtration Rate > 60.0, Fasting Glucose 111H, Magnesium Level 1.6L, Albumin/Glob ulin Ratio 0.97L Current Medications Medications (Trade) Dose Ordered Sig/Shira Route PRN Reason Start Time Stop Time Status Last Admin Dose Admin Docusate Sodium (Colace) 100 mg BID PO 06/07/19 21:00 06/07/19 23:33 100 MG Gabapentin (Neurontin) 100 mg QHS PO 06/07/19 21:00 06/08/19 00:39 100 MG Heparin Sodium (Porcine) (Heparin) 5,000 units Q8H SQ 06/08/19 06:00 06/08/19 23:55 06/08/19 06:36 5,000 UNITS Lidocaine (Lidoderm Patch) 1 patch DAILY TD 06/08/19 04:45 06/08/19 04:52 1 PATCH Morphine Sulfate (Morphine Sulfate Inj) 2 mg Q3HP PRN IV PAIN7-10 06/08/19 00:45 06/08/19 06:36 2 MG Tramadol HCl (Ultram) 50 mg Q6HP PRN PO MODERATE PAIN (PS 5-7) 06/07/19 23:15 06/08/19 07:42 50 MG CBC/BMP Laboratory Tests 06/08/19 05:04: White Blood Count 4.6, Red Blood Count 3.38L, Hemoglobin 10.9L, Hematocrit 34.0L, Mean Corpuscular Volume 100.6H, Mean Corpuscular Hemoglobin 32.2, Mean Corpuscular Hemoglobin Concent 32.1, Red Cell Distribution Width 13.4, Platelet Count 121L, Nucleated Red Blood Cells % (auto) 0.0, Blood Urea Nitrogen 14, Creatinine 0.69, Sodium Level 139, Potassium Level 3.5, Chloride Level 109H, Carbon Dioxide Level 26, Calcium Level 9.7, Aspartate Amino Transf (AST/SGOT) 98H, Alanine Aminotransferase (ALT/SGPT) 88H, Alkaline Phosphatase 85, Total Bilirubin 0.8, Total Protein 5.7L, Albumin 2.8L, Anion Gap 4L, Glomerular Filtration Rate > 60.0, Fasting Glucose 111H, Magnesium Level 1.6L, Albumin/Globulin Ratio 0.97L Laboratory Tests 06/08/19 05:04 Red Blood Count 3.38 L, Mean Corpuscular Volume 100.6 H, Mean Corpuscular Hemoglobin 32.2, Mean Corpuscular Hemoglobin Concent 32.1, Red Cell Distribution Width 13.4, Calcium Level 9.7, Aspartate Amino Transf (AST/SGOT) 98 H, Alanine Aminotransferase (ALT/SGPT) 88 H, Alkaline Phosphatase 85, Total Bilirubin 0.8, Total Protein 5.7 L, Albumin 2.8 L Microbiology Urinalysis at [facility] shows acute urinary tract infection: Clarity hazy, specific gravity 1.010, bacteria 3+ large calcium oxalate 1+ WBC, 1-3, leukocyte esterase 25, epithelial, few RAD Interpretation STUDY: CT Head w/o IV contrast from from [place]: No fracture or acute hemorrhage. Left hip x-ray/left knee: Displaced, transverse femoral neck fracture of left hip Assessment/Plan 79 year old elderly female arrives to [facility] ED via EMS transport from [facility] after she had mechanical fall while she was cleaning her bathroom and she tripped over her room that was slanted landing on her left side. She reports she doesn't remember losing consciousness or hitting her head on the floor, but does complain of minor head pain on the left side. She is currently taking a request 5 mg twice a day for atrial fibrillation. Left hip/thigh pain, acute, status post fall at home for one level to the next- acute Plan Telemetry with continuous pulse oximetry. Pain control, morphine 2 mg Slow IV every 3 hours as needed for pain. 8 through 10: Ultram 50 mg 1 by mouth every 6 hours as needed for pain 4-7; lidocaine patch topical to left thigh every 12 hours scheduled and then remove for 12 hours for pain; acetaminophen 650 mg by mouth every 4 hours as needed for pain. 13 and/or fever. Monitor labs. The CBC, CMP, UA, PT, INR, magnesium, lactic acid Monitor weight, I&O's, Melton care. Maintain Melton. The patient is immobile. Orthopedic surgery referral/consultation manage completed. Spoke to orthopedic surgeon, Dr. Garcia. He will speak with patient's family in the morning and decide which surgery options would be available for patient and schedule patient for surgery possibly as early as 06/09/2019 in the evening. Patient's Eliquis on hold. We'll start heparin injection. Nothing by mouth after breakfast, 06/09/2019 for even surgery Acute urinary tract infectionacute Start ciprofloxacin 500 mg by mouth twice a day Mechanical fallacute. PT/ OT to evaluate gait imbalance treate appropriately Atrial fibrillationchronic. Continue amiodarone 20 mg daily; hold the Eliquis 5 mg twice a day Low-salt, no salt diet Continue magnesium oxide 400 mg 2 tablets twice a day and: Vitamin D 400 mg 1 capsule daily Valvular heart diseasechronic. Potassium chloride oral 10 mEq a day by mouth; K Pro 500 mg daily Hypothyroidismchronic. TSH monitoring. Continue with thyroxine 112 g daily by mouth on empty stomach. GERDchronic. Continue probably sick 20 mg by mouth daily Fibromyalgiachronic. Continued duloxetine 90 mg by mouth daily (patient is taking 30 mg capsules and 60 mg capsules to make up 90); gabapentin 100 mg by mouth daily Prognosis: Fair DVT prophylaxis: Heparin 5000 IUs 3 times a day; SUSSY hose and SCDs BLE, alternating. Discharge: Pending (may benefit from rehabilitation inpatient on discharge) Problems (1) Fracture of femoral neck, left Status: Acute Response to Treatment: Worse Problem Specific Plan: Monitor Clinically Plan / VTE VTE Prophylaxis Ordered?: Yes VTE Exclusion Mechanical Proph: Slick Lower Ex DVT VTE Exclusion Pharmacological: N/A:VTE Prophy Ordered Plan / Urinary Catheter Urinary Catheter: Other Catheter: (direct admit with Indwelling Melton catheter in place) Plan IVF: Initiate (06/09/2019 for surgery) Diet: Make NPO (on 06/09/2019 after breakfast for surgery) Activity: Bedrest Therapy: PT, OT Medications: Bowel Regimen, Decrease pain Meds (Has taken a lot of Morphine will decrease frequency and amount) Diagnostics: Check Labs, Repeat Labs in AM, Xrays, CT, EKG Anticipated Discharge: Home JOSE LANDRY Jun 07, 2019 22:27
[2019-06-08] MEDS: MORPHINE 4 MG/ML 1ML VIAL/SYRINGE (J2270) IV PRN ×3 (01:40→09:36)
[2019-06-08] MEDS: LIDOCAINE 5% (LIDODERM) PATCH TD SCH (04:52)
[2019-06-08 05:37] LABS: HEMOGLOBIN 10.9 g/dl (12.0-15.5); MEAN CORPUSCULAR HEMOGLOBIN 32.2 pg (27.0-33.0); MEAN CORPUSCULAR HGB CONC 32.1 g/dl (32.0-36.5); MEAN CORPUSCULAR VOLUME 100.6 fl (80.0-96.0); PLATELET COUNT, AUTOMATED 121 10^3/uL (150-450); RED BLOOD COUNT 3.38 10^6/uL (4.00-5.40); WHITE BLOOD COUNT 4.6 10^3/uL (4.0-10.0)
[2019-06-08 06:00] LABS: ALBUMIN 2.8 GM/DL (3.2-5.2); ALT/SGPT 88 U/L (12-78); BILIRUBIN,TOTAL 0.8 MG/DL (0.2-1.0); BLOOD UREA NITROGEN 14 MG/DL (7-18); CALCIUM LEVEL 9.7 MG/DL (8.8-10.2); CARBON DIOXIDE LEVEL 26 MEQ/L (21-32); CHLORIDE LEVEL 109 MEQ/L (98-107); CREATININE FOR GFR 0.69 MG/DL (0.55-1.30); GLOMERULAR FILTRATION RATE > 60.0 (>39); GLUCOSE, FASTING 111 MG/DL (70-100); MAGNESIUM LEVEL 1.6 MG/DL (1.8-2.4); POTASSIUM SERUM 3.5 MEQ/L (3.5-5.1); SODIUM LEVEL 139 MEQ/L (136-145); TOTAL PROTEIN 5.7 GM/DL (6.4-8.2)
[2019-06-08] MEDS ORDERED: LEVOTHYROXINE 112MCG TABLET (0.112MG) PO SCH (06:00)
[2019-06-08] MEDS ORDERED: HEPARIN SOD (PORCINE) 5000 UNITS/ML VIAL SQ SCH (06:00)
[2019-06-08] MEDS: traMADol 50 MG TAB PO PRN ×3 (07:42→20:09)
[2019-06-08] MEDS ORDERED: MAGNESIUM OXIDE 400 MG TAB (MAG-OX) PO SCH (09:00)
[2019-06-08] MEDS ORDERED: AMIODARONE 200 MG TAB (PACERONE) PO SCH (09:00)
[2019-06-08] MEDS ORDERED: DULoxetine 30 MG CAP (CYMBALTA) PO SCH ×2 (09:00)
--- NOTE | 2019-06-08 09:56 | REP ---
AP pelvis single view: There is a fracture of the left femoral neck with cephalic migration of the distal fracture fragment. No other pelvic fracture is identified. There are surgical clips in the right inguinal area. There transversely oriented surgical wire sutures across the lower abdomen. The patient is rotated. Impression: Left femoral neck fracture as described. No other pelvic fracture. Electronically Signed by Gianni Ortega MD 06/08/2019 09:47 A
--- NOTE | 2019-06-08 09:58 | REP ---
Knee two views: There is no fracture or dislocation. There is demineralization. There is no hemarthrosis. There is patellofemoral osteoarthritis. Impression: No fracture or dislocation. Electronically Signed by Gianni Ortega MD 06/08/2019 09:49 A
[2019-06-08] MEDS ORDERED: SLF 3 ML SYR IV PRN (10:45)
[2019-06-08] MEDS: PERCOCET 5MG/325MG TAB PO PRN ×3 (10:53→23:43)
[2019-06-08] MEDS: AMIODARONE 200 MG TAB (PACERONE) PO SCH (10:54)
[2019-06-08] MEDS: LEVOTHYROXINE 112MCG TABLET (0.112MG) PO SCH (10:54)
[2019-06-08] MEDS: DOCUSATE SODIUM 100 MG CAP PO SCH ×2 (10:55→20:08)
[2019-06-08] MEDS: OMEPRAZOLE 20 MG CAP PO SCH (10:55)
[2019-06-08] MEDS: DULoxetine 30 MG CAP (CYMBALTA) PO SCH (10:55)
[2019-06-08] MEDS: MAGNESIUM OXIDE 400 MG TAB (MAG-OX) PO SCH ×2 (10:56→20:08)
--- NOTE | 2019-06-08 11:25 | CR ---
DATE OF CONSULTATION: 06/08/2019 CHIEF COMPLAINT: Left hip pain. This is a pleasant 79-year-old female who was admitted to the hospital as a transfer from [facility] with left hip pain. The patient states she was at home when she tripped and fell and immediately suffered sharp severe 10 out of 10 left hip pain. The pain was made worse with movement, alleviated with rest, unable to ambulate. She denies any pain elsewhere in her body. The patient is currently taking Eliquis 5 mg twice a day for atrial fibrillation. The patient has a significant past medical history for atrial fibrillation, multiple myeloma in remission, skin cancer removal, fibromyalgia, valvular heart disease, short bowel disease, varicose veins, skin cancer, hypothyroidism, gastroesophageal reflux disease (GERD) and neuropathy. She denies any other fevers, chills, nausea or vomiting. HOME MEDICATIONS: The patient is on amiodarone, Eliquis 5 mg, duloxetine, gabapentin, levothyroxine, magnesium oxide, omeprazole, potassium chloride and potassium phosphate, and vitamin E. ALLERGIES: The patient has allergies to LEVOFLOXACIN. PAST MEDICAL HISTORY: The patient has a past medical history of: Atrial fibrillation. Multiple myeloma in remission. Skin cancer removal. Fibromyalgia. Valvular heart disease. Short bowel disease. Varicose veins. Skin cancer. Hypothyroidism. GERD. Neuropathy. SURGICAL HISTORY: Skin cancer removal. Foot surgery. Varicose vein stripping. Cholecystectomy. Partial hysterectomy. Shortened bowel syndrome surgery. Cardiac valve replacement. SOCIAL HISTORY: The patient denies smoking, alcohol and drugs. Lives at home with her . REVIEW OF SYSTEMS: A complete 10 system review was conducted. Pertinent positives and negatives as in the HPI. All other systems negative. PHYSICAL EXAMINATION: Patient is awake, alert and oriented, breathing well on room air. Well dressed, appropriate affect. Bilateral upper extremities no tenderness to palpation. Full active range of motion of her shoulders, elbows, wrists and hands. Radial pulse 2+. Skin is intact. Sensation intact to light touch in superficial sensory branch, radial nerve, median nerve and ulnar nerve. Positive AIN, PIN, and ulnar motor nerve function. No swelling or ecchymosis. Right lower extremity no tenderness to palpation. Full range of motion of the hip, knee, ankle and foot. Posterior tibial pulse 2+, regular rate, skin intact. No swelling or ecchymosis. No tenderness to palpation. Positive extensor hallucis longus (EHL), flexor hallucis longus (FHL), tibialis, gastroc motor function. Sensation is intact to light touch in superficial, peroneal, deep peroneal, sural, saphenous, and tibial distributions. Left leg: Positive log roll. Tenderness to palpation about the hip. There is tenderness to palpation about the knee as well. No tenderness to palpation about the ankle or foot. Positive EHL, FHL, tibialis, and gastroc motor function. Posterior tibial pulse is 2+, regular rate. Skin is intact. There is ecchymosis anteriorly over the knee. No lacerations present. Posterior tibial pulses 2+, regular rate. Imaging reviewed, AP of the pelvis along with x-rays of the hip, femur and knee, shows an acute displaced subcapital femoral neck fracture. Significant OA of left hip. No signs of any osseous lesions down the femur. No fractures or issues about the knee. DIAGNOSIS: Left femoral neck fracture. I discussed with the patient at great length that in order to get the patient ambulating we need to do a hemiarthroplasty versus total hip arthroplasty. The patient states that she had some mild hip pain to begin with and she is quite active. Therefore given her activity level and significant osteoarthritis, I think the best thing to get her moving is actually a total hip arthroplasty. We will plan to proceed with this on Saturday afternoon. The patient will be nothing by mouth at midnight. Workup and pain control. We will hold her Eliquis as of now. We can restart this postoperatively. Will work on pain control. She can be bedrest, non-weightbearing left lower extremity. All questions and concerns were answered and addressed with the patient. Consent was obtained for shannon versus total hip arthroplasty of the left side. Risks and benefits especially including but not limited to infection, blood loss, deep vein thrombosis (DVT) and dislocations. The patient expressed understanding and agreed with this plan. HELENE
[2019-06-08] MEDS ORDERED: MORPHINE 4 MG/ML 1ML VIAL/SYRINGE (J2270) IV PRN (11:30)
--- NOTE | 2019-06-08 12:39 | IPNPDOC ---
Subjective Date Seen The patient was seen on 06/08/19. Subjective Chief Complaint/HPI Complains of severe pain in the left hip. denies any fever or chills, denies any SOB , denies any leg swelling, denies any chest pain or palpitation, denies any abdominal pain , nausea or vomiting or diarrhea Objective Physical Examination General Exam: Positive: Alert, Cooperative, No Acute Distress Eye Exam: Positive: PERRLA, Conjunctiva & lids normal, EOMI; Negative: Sclera icteric ENT Exam: Positive: Atraumatic, Mucous membr. moist/pink, Pharynx Normal Neck Exam: Positive: Supple; Negative: JVD, thyromegaly Chest Exam: Positive: Clear to auscultation, Normal air movement Heart Exam: Positive: Tachycardic, Regular Rhythm, Normal S1, Normal S2; Negative: Murmurs, Rubs Telemetry: Positive: Sinus, Tachycardia Abdomen Exam: Positive: Normal bowel sounds, Soft; Negative: Tenderness, Hepatospenomegaly Extremity Exam: Positive: Normal pulses; Negative: Clubbing, Cyanosis, Edema Skin Exam: Positive: Nl turgor and temperature; Negative: Rash, Breakdown Assessment /Plan Assessment Medical Clearance patient has h/o Mitral regurgitation and CHF but valve has been repaired in oct this year, no signs of CHF now. No history of DM or CKD or CVA or TIA No symptoms of angina or regular chest pain Her activity is limited by knee pain. EKG in sinus rhythm She moderate cardiac risk for the proposed procedure. At present she is medically optimized for surgery. Mechanical fall She tripped over the handle of a mop fracture left femoral neck planned for surgery on 06/09/19 continue morphine and Percocet for pain control. Paroxysmal A fib now in sinus rhythm continue amiodarone hold eliquis Chronic hypotension patient always with Bps in 90s . She is asymptomatic. 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 Now in clinical remission off treatment after complications in spring 2018. Fibromyalgia continue cymbalta and gabapentin. Hypothyroid continue synthroid Macrocytic anemia diagnosed 2017, multifactorial, treated at least on one occasion with erythropoietin. The anemia emerged after completing 5 months of Chemo follows with hematology stable at this time. B12 deficiency status post ileal surgery on monthly B12 injections. Plan/VTE VTE Prophylaxis Ordered?: Yes Plan Medications: Bowel Regimen, Increase Pain Meds Anticipated Discharge: Home VS, I&O, 24H, Fishbone Vital Signs/I&O Vital Signs Date Time Temp Pulse Resp B/P (MAP) Pulse Ox O2 Delivery O2 Flow Rate FiO2 06/08/19 08:12 97.7 83 18 94/56 92 I&O- Last 24 Hours up to 6 AM 06/08/19 06:00 Intake Total 300 ml Output Total 600 ml Balance -300 ml Laboratory Data 24H LABS Laboratory Tests 2 06/08/19 05:04: Nucleated Red Blood Cells % (auto) 0.0, Anion Gap 4L, Glomerular Filtration Rate > 60.0, Blood Urea Nitrogen 14, Creatinine 0.69, Sodium Level 139, Potassium Level 3.5, Chloride Level 109H, Carbon Dioxide Level 26, Calcium Level 9.7, Aspartate Amino Transf (AST/SGOT) 98H, Alanine Aminotransferase (ALT/SGPT) 88H, Alkaline Phosphatase 85, Total Bilirubin 0.8, Total Protein 5.7L, Albumin 2.8L, Magnesium Level 1.6L, Albumin/Globulin Ratio 0.97L CBC/BMP Laboratory Tests 06/08/19 05:04 Red Blood Count 3.38 L, Mean Corpuscular Volume 100.6 H, Mean Corpuscular Hemoglobin 32.2, Mean Corpuscular Hemoglobin Concent 32.1, Red Cell Distribution Width 13.4, Calcium Level 9.7, Aspartate Amino Transf (AST/SGOT) 98 H, Alanine Aminotransferase (ALT/SGPT) 88 H, Alkaline Phosphatase 85, Total Bilirubin 0.8, Total Protein 5.7 L, Albumin 2.8 L WALTER BAUMAN MD Jun 08, 2019 08:29
--- NOTE | 2019-06-08 12:58 | REP ---
Left femur three views There is a fracture of the left femoral neck with cephalic migration of the distal fracture fragment. No other femur fracture is identified. There are no calcifications or foreign bodies. Electronically Signed by Gianni Ortega MD 06/08/2019 12:49 P
--- NOTE | 2019-06-08 12:58 | REP ---
The left hip six views: There is a fracture of the femoral neck with cephalad migration of the distal fracture fragment. There is no dislocation. No femoral head deformity. Electronically Signed by Gianni Ortega MD 06/08/2019 12:49 P
[2019-06-08] MEDS: SLF 3 ML SYR IV SCH ×2 (14:03→20:09)
[2019-06-09] VITALS (25 sets, daily range): BP systolic 88–113; BP diastolic 50–61; O2SAT 89–96
[2019-06-09] MEDS: traMADol 50 MG TAB PO PRN (02:23)
[2019-06-09] MEDS: SLF 3 ML SYR IV SCH ×3 (05:05→22:00)
[2019-06-09 05:42] LABS: BASO % 0.7 % (0.0-1.0); EOS # 0.2 10^3/uL (0.0-0.5); EOS % 2.8 % (0.0-3.0); HEMATOCRIT 32.9 % (36.0-47.0); HEMOGLOBIN 10.5 g/dl (12.0-15.5); LYMPH # 0.4 10^3/uL (1.5-5.0); LYMPH % 6.6 % (24.0-44.0); MEAN CORPUSCULAR HEMOGLOBIN 31.4 pg (27.0-33.0); MEAN CORPUSCULAR HGB CONC 31.9 g/dl (32.0-36.5); MEAN CORPUSCULAR VOLUME 98.5 fl (80.0-96.0); MONO # 0.8 10^3/uL (0.0-0.8); MONO % 13.8 % (0.0-5.0); NEUTROPHILS # 4.6 10^3/uL (1.5-8.5); NEUTROPHILS % 75.9 % (36.0-66.0); PLATELET COUNT, AUTOMATED 109 10^3/uL (150-450); RED BLOOD COUNT 3.34 10^6/uL (4.00-5.40); WHITE BLOOD COUNT 6.1 10^3/uL (4.0-10.0)
[2019-06-09] MEDS: PERCOCET 5MG/325MG TAB PO PRN (05:44)
[2019-06-09 05:56] LABS: BLOOD UREA NITROGEN 14 MG/DL (7-18); CALCIUM LEVEL 9.6 MG/DL (8.8-10.2); CARBON DIOXIDE LEVEL 26 MEQ/L (21-32); CHLORIDE LEVEL 104 MEQ/L (98-107); CREATININE FOR GFR 0.66 MG/DL (0.55-1.30); GLOMERULAR FILTRATION RATE > 60.0 (>39); GLUCOSE, FASTING 97 MG/DL (70-100); POTASSIUM SERUM 3.6 MEQ/L (3.5-5.1); SODIUM LEVEL 135 MEQ/L (136-145)
[2019-06-09] MEDS: LEVOTHYROXINE 112MCG TABLET (0.112MG) PO SCH (07:36)
[2019-06-09] MEDS: LIDOCAINE 5% (LIDODERM) PATCH TD SCH (07:36)
[2019-06-09] MEDS: DULoxetine 30 MG CAP (CYMBALTA) PO SCH (07:36)
[2019-06-09] MEDS: MAGNESIUM OXIDE 400 MG TAB (MAG-OX) PO SCH (07:37)
[2019-06-09] MEDS: OMEPRAZOLE 20 MG CAP PO SCH (07:37)
[2019-06-09] MEDS: AMIODARONE 200 MG TAB (PACERONE) PO SCH (07:37)
[2019-06-09] MEDS: DOCUSATE SODIUM 100 MG CAP PO SCH (07:37)
[2019-06-09] MEDS: MORPHINE 4 MG/ML 1ML VIAL/SYRINGE (J2270) IV PRN ×2 (08:26→11:51)
[2019-06-09] MEDS ORDERED: MORPHINE 4 MG/ML 1ML VIAL/SYRINGE (J2270) IV ONE (11:00)
--- NOTE | 2019-06-09 11:02 | IPNPDOC ---
Subjective Date Seen The patient was seen on 06/09/19. Subjective Chief Complaint/HPI Patient is complaining of pain in his left hip is scheduled for surgery today General: Denies: ROS Unobtainable, Chills, Night Sweats, Fatigue, Malaise, Normal Appetite, Other Symptoms Constitutional: Denies: Chills, Fever, Malaise, Night Sweats, Weakness, Fatigue, Weight Loss, Lethargy, Other Eyes: Denies: Pain, Vision change, Conjunctivae inflammation, Eyelid inflammation, Redness, Other ENT: Denies: Head Aches, Ear Pain, Dysphagia, Sinus Congestion, Post Nasal Drip, Sore Throat, Epistaxis, Other Symptoms Skin: Denies: Rash, Lesions, Jaundice, Bruising, Itching, Dry, Breakdown, Nail Changes, Other Pulmonary: Denies: Dyspnea, Cough, Pleuritic Chest Pain, Other Symptoms Cardiovascular: Denies: Chest Pain, Palpitations, Orthopnea, Paroxysmal Noc. Dyspnea, Edema, Lt Headedness, Other Symptoms Gastrointestinal: Denies: Nausea, Vomiting, Abdominal Pain, Diarrhea, Constipation, Melena, Hematochezia, Other Symptoms Musculoskeletal: Reports: Other Symptoms (() Neurological: Denies: Weakness, Numbness, Incoordination, Change in speech, Confusion, Seizures, Other Symptoms Objective Physical Examination Eye Exam: Positive: EOMI, Sclera icteric Neck Exam: Positive: Supple, thyromegaly Chest Exam: Positive: Clear to auscultation, Normal air movement Heart Exam: Positive: Tachycardic, Regular Rhythm, Normal S1, Normal S2 Telemetry: Positive: Sinus, Tachycardia Abdomen Exam: Positive: Normal bowel sounds, Soft Extremity Exam: Positive: Normal pulses, Other (positive tenderness at the left hip on palpation) Skin Exam: Positive: Nl turgor and temperature Neuro Exam: Positive: Normal Speech Psych Exam: Positive: Mental status NL, Oriented x 3 Assessment /Plan Problems (1) Fracture of femoral neck, left Status: Acute Response to Treatment: Worse Problem Specific Plan: Monitor Clinically Problem Text: Pain management Bed rest Scheduled for surgery today Further, as per orthopedic (2) Multiple myeloma Status: Chronic Problem Text: presented with anemia and renal insufficiency January 2018, BM BX positive for 16% plasma cells,, mini monoclonal M spike on SPEP, serum free kappa 2800, kappa lambda 84. Now in clinical remission off treatment after complications in spring 2018. (3) Fibromyalgia Status: Chronic Problem Text: (4) Atrial fibrillation Status: Chronic Problem Text: In sinus rhythm Continue amiodarone hold eliquis for sx (5) B12 deficiency Onset Date: Unknown Status: Chronic Problem Text: B12 deficiency status post ileal surgery on monthly B12 injections. (6) Anemia Onset Date: ~ 2018 Status: Chronic Problem Text: Macrocytic anemia diagnosed 2018, multifactorial, treated at least on one occasion with erythropoietin. The anemia emerged after completing 5 months of Chemo follows with hematology stable at this time. Plan/VTE VTE Prophylaxis Ordered?: Yes VTE Exclusion Pharmacological: N/A:VTE Prophy Ordered Plan/Urinary Catheter Urinary Catheter: Other Catheter: (direct admit with Indwelling Melton catheter in place) Plan IVF: Initiate (06/09/2019 for surgery) Diet: Make NPO (on 06/09/2019 after breakfast for surgery) Activity: Bedrest Therapy: PT, OT Medications: Bowel Regimen, Increase Pain Meds Diagnostics: Check Labs, Repeat Labs in AM, Xrays, CT, EKG Anticipated Discharge: Home VS, I&O, 24H, [facility] Vital Signs/I&O Vital Signs Date Time Temp Pulse Resp B/P (MAP) Pulse Ox O2 Delivery O2 Flow Rate FiO2 06/09/19 09:00 92 Room Air 06/09/19 08:36 18 06/09/19 08:00 97.0 77 98/52 (67) I&O- Last 24 Hours up to 6 AM 06/09/19 06:00 Intake Total 930 ml Output Total 750 ml Balance 180 ml Laboratory Data 24H LABS Laboratory Tests 2 06/09/19 04:52: Immature Granulocyte % (Auto) 0.2, White Blood Count 6.1, Red Blood Count 3.34L, Hemoglobin 10.5L, Hematocrit 32.9L, Mean Corpuscular Volume 98.5H, Mean Corpuscular Hemoglobin 31.4, Mean Corpuscular Hemoglobin Concent 31.9L, Red Cell Distribution Width 13.4, Platelet Count 109L, Neutrophils (%) (Auto) 75.9H, Lymphocytes (%) (Auto) 6.6L, Monocytes (%) (Auto) 13.8H, Eosinophils (%) (Auto) 2.8, Basophils (%) (Auto) 0.7, Neutrophils # (Auto) 4.6, Lymphocytes # (Auto) 0.4L, Monocytes # (Auto) 0.8, Eosinophils # (Auto) 0.2, Basophils # (Auto) 0.0, Nucleated Red Blood Cells % (auto) 0.0, Anion Gap 5L, Glomerular Filtration Rate > 60.0, Blood Urea Nitrogen 14, Creatinine 0.66, Sodium Level 135L, Potassium Level 3.6, Chloride Level 104, Carbon Dioxide Level 26, Calcium Level 9.6 CBC/BMP Laboratory Tests 06/09/19 04:52 Red Blood Count 3.34 L, Mean Corpuscular Volume 98.5 H, Mean Corpuscular Hemoglobin 31.4, Mean Corpuscular Hemoglobin Concent 31.9 L, Red Cell Distribution Width 13.4, Neutrophils (%) (Auto) 75.9 H, Lymphocytes (%) (Auto) 6.6 L, Monocytes (%) (Auto) 13.8 H, Eosinophils (%) (Auto) 2.8, Basophils (%) (Auto) 0.7, Neutrophils # (Auto) 4.6, Lymphocytes # (Auto) 0.4 L, Monocytes # (Auto) 0.8, Eosinophils # (Auto) 0.2, Basophils # (Auto) 0.0, Calcium Level 9.6 YIMI VENCES MD Jun 09, 2019 11:02
[2019-06-09] MEDS ORDERED: PROPOFOL 200 MG/20 ML VIAL As Ordered ONE (14:47)
[2019-06-09] MEDS ORDERED: ceFAZolin 1GM INJ (J0690 PER 500MG) As Ordered ONE (15:29)
[2019-06-09] MEDS ORDERED: EPINEPHrine INJ 1 MG/ML 1ML AMP As Ordered ONE ×2 (15:29→18:49)
[2019-06-09] MEDS ORDERED: BUPIVACAINE/EPIN 0.25% 30 ML VIAL As Ordered ONE (15:29)
[2019-06-09] MEDS ORDERED: TRANEXAMIC ACID 100 MG/ML 10ML VIAL As Ordered ONE ×2 (15:29→18:49)
[2019-06-09] MEDS ORDERED: LIDOCAINE 2% INJ 100 MG/5 ML SDV (FOR ANES.) As Ordered ONE (15:36)
[2019-06-09] MEDS ORDERED: MIDAZOLAM INJ 2 MG/2 ML VIAL (J2250) As Ordered ONE (15:37)
[2019-06-09] MEDS ORDERED: PROPOFOL 500 MG/50 ML VIAL As Ordered ONE (15:37)
[2019-06-09] MEDS ORDERED: fentaNYL 100 MCG/2 ML INJECTION (J3010) As Ordered ONE (15:37)
[2019-06-09] MEDS ORDERED: ONDANSETRON 4MG/2ML VIAL (J2405) As Ordered ONE (15:37)
[2019-06-09] MEDS ORDERED: dexameTHASONE 4 MG/ML 1ML VIAL (J1100) As Ordered ONE (15:37)
[2019-06-09] MEDS ORDERED: ceFAZolin 2 GM/D5W 50 ML IV BAG (J0690 PER 500MG) As Ordered ONE (15:49)
[2019-06-09] MEDS ORDERED: BUPIVACAINE LIPOSOME/PF 1.3% 20ML VIAL (13.3MG/ML)(EXPAREL)(C9290 PER1MG) As Ordered ONE (15:58)
[2019-06-09] MEDS ORDERED: ROCURONIUM BROMIDE 50 MG/5 ML VIAL As Ordered ONE (16:05)
[2019-06-09] MEDS ORDERED: PHENYLephrine HCL 500 MCG/5 ML (100MCG/ML) SYRINGE (J2370) As Ordered ONE ×2 (16:46→17:41)
[2019-06-09] MEDS ORDERED: SUGAMMADEX SODIUM 500 MG/5 ML VIAL (BRIDION) As Ordered ONE (18:28)
[2019-06-09] MEDS ORDERED: ACETAMINOPHEN 1000MG 100ML IV BTL (OFIRMEV) (J0131 PER 10MG) As Ordered ONE (18:37)
[2019-06-09] MEDS ORDERED: oxyCODONE 5MG TAB PO PRN (19:00)
[2019-06-09] MEDS ORDERED: ONDANSETRON 4MG/2ML VIAL (J2405) IV PRN (19:00)
[2019-06-09] MEDS ORDERED: fentaNYL 100 MCG/2 ML INJECTION (J3010) IV PRN (19:00)
[2019-06-09] MEDS ORDERED: LR 1,000 ML IV SCH (19:00)
--- NOTE | 2019-06-09 20:36 | REP ---
PELVIS: Two AP views of the pelvis are performed. There is a total left hip prosthesis. Visualized osseous structures are intact. The superior aspect of the pelvis is not visualized. Metallic clips are seen in the right inguinal region. Multiple phleboliths are seen in the pelvis. Electronically Signed by Gianni Jenkins MD 06/11/2019 04:37 P
[2019-06-10] VITALS (9 sets, daily range): BP systolic 90–97; BP diastolic 50–59; O2SAT 93–96
[2019-06-10] MEDS: GABAPENTIN 100 MG CAP PO SCH (00:05)
[2019-06-10] MEDS: MAGNESIUM OXIDE 400 MG TAB (MAG-OX) PO SCH ×2 (00:05→08:03)
[2019-06-10] MEDS: DOCUSATE SODIUM 100 MG CAP PO SCH ×2 (00:06→08:03)
[2019-06-10] MEDS: ceFAZolin SOD 1 GM in D5W MINI-BAG PLUS 50 ML IV SCH ×2 (00:06→08:01)
[2019-06-10 05:22] LABS: BASO % 0.2 % (0.0-1.0); EOS % 0.1 % (0.0-3.0); HEMATOCRIT 30.4 % (36.0-47.0); LYMPH # 0.5 10^3/uL (1.5-5.0); LYMPH % 4.5 % (24.0-44.0); MEAN CORPUSCULAR HEMOGLOBIN 31.6 pg (27.0-33.0); MEAN CORPUSCULAR HGB CONC 32.9 g/dl (32.0-36.5); MEAN CORPUSCULAR VOLUME 96.2 fl (80.0-96.0); MONO # 1.3 10^3/uL (0.0-0.8); MONO % 11.8 % (0.0-5.0); RED BLOOD COUNT 3.16 10^6/uL (4.00-5.40); WHITE BLOOD COUNT 10.8 10^3/uL (4.0-10.0)
[2019-06-10 05:47] LABS: PLATELET COUNT, AUTOMATED 91 10^3/uL (150-450)
[2019-06-10 05:49] LABS: BLOOD UREA NITROGEN 14 MG/DL (7-18); CALCIUM LEVEL 9.6 MG/DL (8.8-10.2); CARBON DIOXIDE LEVEL 25 MEQ/L (21-32); CHLORIDE LEVEL 104 MEQ/L (98-107); CREATININE FOR GFR 0.65 MG/DL (0.55-1.30); GLOMERULAR FILTRATION RATE > 60.0 (>39); GLUCOSE, FASTING 105 MG/DL (70-100); SODIUM LEVEL 136 MEQ/L (136-145)
[2019-06-10] MEDS: SLF 3 ML SYR IV SCH ×2 (05:58→14:00)
[2019-06-10] MEDS ORDERED: traMADol 50 MG TAB PO PRN (07:00)
[2019-06-10] MEDS: LEVOTHYROXINE 112MCG TABLET (0.112MG) PO SCH (08:01)
[2019-06-10] MEDS: LIDOCAINE 5% (LIDODERM) PATCH TD SCH (08:01)
[2019-06-10] MEDS: AMIODARONE 200 MG TAB (PACERONE) PO SCH (08:02)
[2019-06-10] MEDS: traMADol 50 MG TAB PO PRN ×2 (08:02→13:02)
[2019-06-10] MEDS: OMEPRAZOLE 20 MG CAP PO SCH (08:03)
[2019-06-10] MEDS: DULoxetine 30 MG CAP (CYMBALTA) PO SCH (08:04)
[2019-06-10] MEDS ORDERED: MIRALAX *UNIT DOSE* 17GM PACKET PO SCH (09:00)
--- NOTE | 2019-06-10 10:19 | IPNPDOC ---
Subjective Date Seen The patient was seen on 06/10/19. Subjective Chief Complaint/HPI Patient feeling much better. Pain is much improved status post ORIF left hip Constitutional: Denies: Chills, Fever, Malaise, Night Sweats, Weakness, Fatigue, Weight Loss, Lethargy, Other Pulmonary: Denies: Dyspnea, Cough, Pleuritic Chest Pain, Other Symptoms Cardiovascular: Denies: Chest Pain, Palpitations, Orthopnea, Paroxysmal Noc. Dyspnea, Edema, Lt Headedness, Other Symptoms Gastrointestinal: Denies: Nausea, Vomiting, Abdominal Pain, Diarrhea, Cons tipation, Melena, Hematochezia, Other Symptoms Musculoskeletal: Reports: Other Symptoms (mild to moderate pain at the surgical site) Neurological: Denies: Weakness, Numbness, Incoordination, Change in speech, Confusion, Seizures, Other Symptoms Psych: Denies: Mood Normal, Anxiety, Depression, Memory Issues, Thoughts of Self Harm, Anger, Thoughts of Harming Other, Other Psych Objective Physical Examination Eye Exam: Positive: EOMI, Sclera icteric Neck Exam: Positive: Supple, thyromegaly Chest Exam: Positive: Clear to auscultation, Normal air movement Heart Exam: Positive: Tachycardic, Regular Rhythm, Normal S1, Normal S2 Telemetry: Positive: Sinus, Tachycardia Abdomen Exam: Positive: Normal bowel sounds, Soft Extremity Exam: Positive: Normal pulses, Other (positive tenderness at the left hip on palpation) Skin Exam: Positive: Nl turgor and temperature Neuro Exam: Positive: Normal Speech Psych Exam: Positive: Mental status NL, Oriented x 3 Assessment /Plan Problems (1) Fracture of femoral neck, left Status: Acute Response to Treatment: Worse Problem Specific Plan: Monitor Clinically Problem Text: Status post ORIF of left hip Postop day #1 Continue pain management Physical therapy in progress Possible transfer to rehabilitation once cleared by orthopedic (2) Multiple myeloma Status: Chronic Problem Text: presented with anemia and renal insufficiency January 2018, BM BX positive for 16% plasma cells,, mini monoclonal M spike on SPEP, serum free kappa 2800, kappa lambda 84. Now in clinical remission off treatment after complications in spring 2018. (3) Fibromyalgia Status: Chronic Problem Text: (4) Atrial fibrillation Status: Chronic Problem Text: In sinus rhythm Continue amiodarone hold eliquis for sx (5) B12 deficiency Onset Date: Unknown Status: Chronic Problem Text: B12 deficiency status post ileal surgery on monthly B12 injections. (6) Anemia Onset Date: ~ 2018 Status: Chronic Problem Text: Macrocytic anemia diagnosed 2018, multifactorial, treated at least on one occasion with erythropoietin. The anemia emerged after completing 5 months of Chemo follows with hematology stable at this time. (7) Thrombocytopenia Status: Chronic Problem Text: Etiology unknown Patient is not on aspirin or Plavix . We'll continue monitoring closely Plan/VTE VTE Prophylaxis Ordered?: Yes VTE Exclusion Pharmacological: N/A:VTE Prophy Ordered Plan/Urinary Catheter Urinary Catheter: Other Catheter: (direct admit with Indwelling Melton catheter in place) Plan IVF: Initiate (06/09/2019 for surgery) Diet: Make NPO (on 06/09/2019 after breakfast for surgery) Activity: Bedrest Therapy: PT, OT Medications: Bowel Regimen, Increase Pain Meds Diagnostics: Check Labs, Repeat Labs in AM, Xrays, CT, EKG Anticipated Discharge: Home VS, I&O, 24H, [facility] Vital Signs/I&O Vital Signs Date Time Temp Pulse Resp B/P (MAP) Pulse Ox O2 Delivery O2 Flow Rate FiO2 06/10/19 08:32 18 06/10/19 08:02 1.0 06/10/19 08:00 98.9 90 95/52 (66) 92 06/09/19 15:00 Room Air I&O- Last 24 Hours up to 6 AM 06/10/19 06:00 Intake Total 1544 ml Output Total 1500 ml Balance 44 ml Laboratory Data 24H LABS Laboratory Tests 2 06/09/19 18:30: POC pH (Misc Panel) 7.348L, POC Base Excess (Misc Panel) 1.0, POC Saturated Percent O2 (Misc) 33L, POC pO2 (Misc Panel) 22.0*L, POC pCO2 (Misc Panel) 48.5H, POC HCO3 (Misc Panel) 26.7H, POC Glucose (Misc Panel) 113H, POC Sodium (Misc Panel) 134L, POC Potassium (Misc Panel) 3.9, POC Total CO2 (Misc Panel) 28.0H, POC Ionized Calcium (Misc Panel) 5.8H, POC Hemoglobin (Calculated)(Misc) 8.8L, POC Hematocrit (Misc Panel) 26.0L 06/10/19 04:53: Immature Granulocyte % (Auto) 0.4, White Blood Count 10.8H, Red Blood Count 3.16L, Hemoglobin 10.0L, Hematocrit 30.4L, Mean Corpuscular Volume 96.2H, Mean Corpuscular Hemoglobin 31.6, Mean Corpuscular Hemoglobin Concent 32.9, Red Cell Distribution Width 13.6, Platelet Count 91L, Neutrophils (%) (Auto) 83.0H, Lymphocytes (%) (Auto) 4.5L, Monocytes (%) (Auto) 11.8H, Eosinophils (%) (Auto) 0.1, Basophils (%) (Auto) 0.2, Neutrophils # (Auto) 9.0H, Lymphocytes # (Auto) 0.5L, Monocytes # (Auto) 1.3H, Eosinophils # (Auto) 0.0, Basophils # (Auto) 0.0, Nucleated Red Blood Cells % (auto) 0.0, Immature Platelet Fraction 6.9, Anion Gap 7L, Glomerular Filtration Rate > 60.0, Blood Urea Nitrogen 14, Creatinine 0.65, Sodium Level 136, Potassium Level 4.0, Chloride Level 104, Carbon Dioxide Level 25, Calcium Level 9.6 CBC/BMP Laboratory Tests 06/10/19 04:53 Red Blood Count 3.16 L, Mean Corpuscular Volume 96.2 H, Mean Corpuscular Hemoglobin 31.6, Mean Corpuscular Hemoglobin Concent 32.9, Red Cell Distribution Width 13.6, Neutrophils (%) (Auto) 83.0 H, Lymphocytes (%) (Auto) 4.5 L, Monocytes (%) (Auto) 11.8 H, Eosinophils (%) (Auto) 0.1, Basophils (%) (Auto) 0.2, Neutrophils # (Auto) 9.0 H, Lymphocytes # (Auto) 0.5 L, Monocytes # (Auto) 1.3 H, Eosinophils # (Auto) 0.0, Basophils # (Auto) 0.0, Calcium Level 9.6 YIMI VENCES MD Jun 10, 2019 10:19
--- NOTE | 2019-06-10 10:22 | REP ---
Left hip two views postoperative study: There is a total hip arthroplasty. The components are tightly applied and in satisfactory positions alignment. Electronically Signed by Gianni Ortega MD 06/10/2019 10:14 A
--- NOTE | 2019-06-10 10:32 | ECGEPIP ---
[facility] Test Date: 2019-06-09 Pat Name: JULIO CHILDERS Department: Room: [place] [address] Gender: Female Second Operator: SEBASTIEN : 1940 Requested By: Fer Hylton Order Number: [id number] Reading MD: Nazario Hopkins Measurements Intervals Lena Rate: 85 P: 50 NC: 174 QRS: -44 QRSD: 108 T: 72 QT: 346 QTc: 413 Interpretive Statements SINUS RHYTHM MARKED LEFT AXIS DEVIATION SEPTAL MYOCARDIAL INFARCTION, OF INDETERMINATE AGE Nonspecific T wave abnormality Similar to tracing done 12-11-18 with decreased rate Electronically Signed on 06-10-2019 10:32:45 EDT by Nazario Hopkins
[2019-06-10] MEDS ORDERED: TRAM50TA2 PO ×2 (10:53→10:54)
[2019-06-10] MEDS ORDERED: PEG1POW PO (10:53)
[2019-06-10] MEDS ORDERED: MYLASSUD PO (10:53)
[2019-06-10] MEDS ORDERED: ACET1TAB55 PO (10:53)
[2019-06-10] MEDS ORDERED: COLA100C5 PO (10:53)
--- NOTE | 2019-06-10 11:03 | RO ---
DATE OF PROCEDURE: 06/09/2019 PREPROCEDURE DIAGNOSIS: Left femoral neck fracture. POSTPROCEDURE DIAGNOSIS: Left femoral neck fracture. SURGEON: Solitario Garcia MD INDUSTRIAL RELATIONS REPRESENTATIVE: PATRIA Serrano, who was instrumental during retraction and agsoto portions of the procedure. ANESTHESIA: General. ANTIBIOTICS: 2 grams of Ancef. ESTIMATED BLOOD LOSS: 500 mL. COMPLICATIONS: None. IMPLANTS: 54 cup with a posterior lip insert, size 7 femoral stem and a 1.5 mm neck and 32 head. OPERATIVE INDICATION: This is a 79-year-old female who is in remission from multiple myeloma, suffered a left femoral neck fracture, and we discussed hemiarthroplasty. Due to the patient's high activity level and moderate/severe osteoarthritic changes, we recommended total hip replacement. We consented the patient with risks and benefits that included, but not limited to dislocation, infection, damage to surrounding structures and she understood. DESCRIPTION OF PROCEDURE: The patient was brought back to the operating room and placed supine on the table. She underwent general anesthesia, at which point she was put in the lateral decubitus position with the left side up. At which point, she was prepped and draped to the left hip in the usual fashion. A time out was had. We then made a sharp incision directly over the greater trochanter down to the IT band. We incised the IT band along with gluteus mark proximally. We used the Charnley retractor at this point. We removed the synovium from the lateral trochanter, exposing the gluteus medius, vastus lateralis. We then elevated the vastus lateralis while doing gluteus medius peel to the level of the trochanter and then cutting towards the stem through the gluteus minimus, elevating the capsule along with it. We then placed blunt retractors around the underside of the remaining femoral neck and made a femoral neck cut and that was removed. We then used the corkscrew to remove the femoral head. We then placed our inferior, anterior and posterior retractors surrounding the acetabulum and removing the labrum. We then started reaming, starting with a 48. We used this to medialize. Once adequate medialization, we started upsizing and ended up with a 53 reamer that was trialed and had a good fit. At which point, we inserted the acetabulum. We inserted two screws in the posterior and superior quadrants, 20 mm in length. We then inserted the posterior lip poly liner, malleted it into place until it was secure. We then turned our attention to the femur, flexing it and externally rotating it off the table. To present the femur, we used the femoral elevator and blunt Mila. We then used the canal finder and the lateralizer to lateralize. We then sequentially hand reamed up to a 7. We then broached sequentially up to a 7, we felt that this would fit well. We trialed a 7 with a neutral 1.5 mm neck and a 32 head. We felt this provided excellent stability, as it did not dislocate or shuck on examination. We then dislocated the hip, removed the trial components and inserted the femoral stem 7 and the 32 head. We reduced the hip. We were happy with our stability. We then closed the capsule through the bone tunnels, along with the gluteus medius. At which point, we continued to irrigate the wound. We used Exparel deep in the capsule. We used TXA as well. We then closed the IT band with 0 Vicryl, subcutaneous tissue with 2-0 Vicryl and nathaniel for skin. Placed the bandage. She was awoken from anesthesia, placed in a hip abduction brace and taken to the postanesthesia care unit (PACU) in stable condition. At which point, we got x-rays that demonstrated adequate alignment of total hip prosthesis. POSTOPERATIVE PLAN: The patient will have antibiotics, pain control and be weightbearing as tolerated with abduction pillow while in bed. Otherwise, we will see the patient back in 2 weeks in the clinic where she will have suture removal and skin check. HELENE
--- NOTE | 2019-06-10 14:32 | DS.PDOC ---
Discharge Summary General Date of Admission Jun 07, 2019 at 22:00 Date of Discharge 06/10/19 Attending Physician: YIMI VENCES MD Discharge Summary PROCEDURES PERFORMED DURING STAY: None. ADMITTING DIAGNOSES: 1. Left femoral neck fracture, atrial fibrillation, fall, fibromyalgia. DISCHARGE DIAGNOSES: 1. Left femoral neck fracture, atrial fibrillation, fall, fibromyalgia. COMPLICATIONS/CHIEF COMPLAINT: Atrial Fibrillation,Fall,Fibromyalgia,Fracture Of. HISTORY OF PRESENT ILLNESS: 79 year old elderly female arrives to [facility] via EMS transport from [facility] after she had mechanical fall while she was cleaning her bathroom and she tripped over her room that was slanted landing on her left side. She reports she doesn't remember losing consciousness or hitting her head on the floor, but does complain of minor head pain on the left side. She is currently taking a request 5 mg twice a day for atrial fibrillation. She has significant medical history of Atrial fibrillation, multiple myeloma in remission, skin cancer removed, fibromyalgia, valvular heart disease, short bowel, varicose veins, skin cancer, hypothyroidism, GERD, neuropathy. Dr. Garcia- Orthopedic Surgeon consult/manage-spoke to @[phone] he will speak with patient and her family 06/08/19 with plans for surgery Saturday (06/09/19)afternoon depending on patient's clinical condition. Due to patients current condition of left femoral neck fracture, co-morbidities with the potential for her health to decompensate rapidly she will be admitted to PCU telemetry with continuous pulse oximetry under Hospitalist services.. HOSPITAL COURSE: Patient was admitted with the femoral neck fracture on the left side. Patient initially was placed on bedrest started on pain management with morphine sulfate and Zofran when necessary for nausea, vomiting. Patient seen by orthopedic and was scheduled for surgery. Patient had ORIF of left hip done yesterday and physical therapy was started this morning. Patient is tolerating physical therapy very well and can be discharged to AIU for further care. Patient remained stable during her stay in the hospital and all the home meds were continued as well. Patient will be discharged to AIU today on all current medications and intensive physical therapy as per ARU protocol.. DISCHARGE MEDICATIONS: Please see below. ALLERGIES: Please see below. PHYSICAL EXAMINATION ON DISCHARGE: VITAL SIGNS: Please see below. GENERAL: Within normal limits HEENT: PERRLA extra ocular muscles intact NECK: Supple CARDIOVASCULAR EXAMINATION: S1, S2, regular RESPIRATORY EXAMINATION: Clear to A&P ABDOMINAL EXAMINATION: Benign EXTREMITIES: No clubbing, cyanosis, edema. Dressing of the left leg SKIN: Normal NEUROLOGICAL EXAMINATION: Normal PSYCHIATRIC EXAMINATION: Normal LABORATORY DATA: Please see below. IMAGING: X-ray of left femur fracture of the neck of left-sided femur PROGNOSIS: Good ACTIVITY: As per physical therapy. DIET: As tolerated DISCHARGE PLAN: [Discharged to ARU DISPOSITION: ARU DISCHARGE INSTRUCTIONS: 1. As per discharge instruction. ITEMS TO FOLLOWUP ON ON OUTPATIENT: 1. Follow with orthopedics 1-2 weeks. DISCHARGE CONDITION: Stable. TIME SPENT ON DISCHARGE: 35 minutes. Vital Signs/I&Os Vital Signs Date Time Temp Pulse Resp B/P (MAP) Pulse Ox O2 Delivery O2 Flow Rate FiO2 06/10/19 13:32 18 06/10/19 12:00 98.6 97 94/50 (65) 95 06/10/19 11:00 Room Air 06/10/19 08:02 1.0 I&O- Last 24 Hours up to 6 AM 06/10/19 06:00 Intake Total 1544 ml Output Total 1500 ml Balance 44 ml Laboratory Data Labs 24H Laboratory Tests 2 06/09/19 18:30: POC pH (Misc Panel) 7.348L, POC Base Excess (Misc Panel) 1.0, POC Saturated Percent O2 (Misc) 33L, POC pO2 (Misc Panel) 22.0*L, POC pCO2 (Misc Panel) 48.5H, POC HCO3 (Misc Panel) 26.7H, POC Glucose (Misc Panel) 113H, POC Sodium (Misc Panel) 134L, POC Potassium (Misc Panel) 3.9, POC Total CO2 (Misc Panel) 28.0H, POC Ionized Calcium (Misc Panel) 5.8H, POC Hemoglobin (Calculated)(Misc) 8.8L, POC Hematocrit (Misc Panel) 26.0L 06/10/19 04:53: Immature Granulocyte % (Auto) 0.4, White Blood Count 10.8H, Red Blood Count 3.16L, Hemoglobin 10.0L, Hematocrit 30.4L, Mean Corpuscular Volume 96.2H, Mean Corpuscular Hemoglobin 31.6, Mean Corpuscular Hemoglobin Concent 32.9, Red Cell Distribution Width 13.6, Platelet Count 91L, Neutrophils (%) (Auto) 83.0H, Lymphocytes (%) (Auto) 4.5L, Monocytes (%) (Auto) 11.8H, Eosinophils (%) (Auto) 0.1, Basophils (%) (Auto) 0.2, Neutrophils # (Auto) 9.0H, Lymphocytes # (Auto) 0.5L, Monocytes # (Auto) 1.3H, Eosinophils # (Auto) 0.0, Basophils # (Auto) 0.0, Nucleated Red Blood Cells % (auto) 0.0, Immature Platelet Fraction 6.9, Anion Gap 7L, Glomerular Filtration Rate > 60.0, Blood Urea Nitrogen 14, Creatinine 0.65, Sodium Level 136, Potassium Level 4.0, Chloride Level 104, Carbon Dioxide Level 25, Calcium Level 9.6 CBC/BMP Laboratory Tests 06/10/19 04:53 Red Blood Count 3.16 L, Mean Corpuscular Volume 96.2 H, Mean Corpuscular Hemoglobin 31.6, Mean Corpuscular Hemoglobin Concent 32.9, Red Cell Distribution Width 13.6, Neutrophils (%) (Auto) 83.0 H, Lymphocytes (%) (Auto) 4.5 L, Monocytes (%) (Auto) 11.8 H, Eosinophils (%) (Auto) 0.1, Basophils (%) (Auto) 0.2, Neutrophils # (Auto) 9.0 H, Lymphocytes # (Auto) 0.5 L, Monocytes # (Auto) 1.3 H, Eosinophils # (Auto) 0.0, Basophils # (Auto) 0.0, Calcium Level 9.6 Discharge Medications Scheduled Amiodarone HCl (Amiodarone HCl) 200 Mg Tablet, 200 MG PO DAILY, (Reported) Apixaban (Eliquis) 5 Mg Tab, 5 MG PO BID, (Reported) Docusate Sodium (Colace) 100 Mg Capsule, 100 MG PO BID Duloxetine Hcl (Duloxetine HCl) 30 Mg Cap, 30 MG PO DAILY, (Reported) TAKES WITH 60MG TO TOTAL 90MG Duloxetine Hcl (Duloxetine HCl) 60 Mg Cap, 60 MG PO DAILY, (Reported) TAKES WITH 30MG TO TOTAL 90MG Gabapentin (Gabapentin) 100 Mg Cap, 100 MG PO QHS, (Reported) Levothyroxine Sodium (Levoxyl) 112 Mcg Tab, 112 MCG PO DAILY, (Reported) Magnesium Oxide (Magnesium Oxide) 400 Mg Tab, 800 MG PO BID, (Reported) Omeprazole Magnesium (Prilosec Otc) 20 Mg Tab, 20 MG PO DAILY, (Reported) Polyethylene Glycol 3350 (Polyethylene Glycol 3350) 17 Gm Powd.pack, 1 PKT PO DAILY Potassium Chloride (Potassium Chloride) 10 Meq Tab, 10 MEQ PO QHS, (Reported) Potassium Phosphate Monobasic (K-Phos Original) 500 Mg Tab, 500 MG PO QHS, (Reported) Vitamin E Mixed (Vitamin E) 400 Unit Capsule, 400 UNIT PO QHS, (Reported) Scheduled PRN Acetaminophen (Acetaminophen) 325 Mg Tablet, 650 MG PO Q4H PRN for PAIN OR FEVER Aluminum/Magnesium/Simeth (Mag-Al Plus Suspension) 30 Ml Oral.susp, 30 ML PO DAILY PRN for DYSPEPSIA Tramadol HCl (Tramadol HCl) 50 Mg Tablet, 50 MG PO Q4HP PRN for MODERATE PAIN (PS 5-7) Tramadol HCl (Tramadol HCl) 50 Mg Tablet, 100 MG PO Q6HP PRN for SEVERE PAIN (PS 8-10) Allergies Coded Allergies: levofloxacin (Verified Adverse Reaction, Intermediate, muscle spasm, 12/18/18) YIMI VENCES MD Jun 10, 2019 14:32
[2019-06-10] MEDS ORDERED: RIVAROXABAN 10 MG TAB (XARELTO) PO SCH (18:00)
== END 2019-06-10 15:04 | DRG 470 ==
LOC: M PCU 22:00
PROVIDERS: ADMIT Internal Medicine; ATTEND Internal Medicine
PROC: 30233N1 Transfusion of Nonautologous Red Blood Cells into Peripheral Vein, Percutaneous Approach (ICD-10-PCS; 2019-06-09)
PROC: 0SRB0JZ Replacement of Left Hip Joint with Synthetic Substitute, Open Approach (ICD-10-PCS; principal; 2019-06-09 16:45)
DX: S72.002A Fracture of unspecified part of neck of left femur, initial encounter for closed fracture (principal); C90.01 Multiple myeloma in remission; M79.7 Fibromyalgia; I48.0 Paroxysmal atrial fibrillation; E03.9 Hypothyroidism, unspecified; K21.9 Gastro-esophageal reflux disease without esophagitis; Z85.828 Personal history of other malignant neoplasm of skin; Z79.899 Other long term (current) drug therapy; G62.9 Polyneuropathy, unspecified; E53.8 Deficiency of other specified B group vitamins; D64.9 Anemia, unspecified; D69.6 Thrombocytopenia, unspecified

== ENCOUNTER 2019-06-10 15:15 | Inpatient (IN) | payer MEDICARE ==
[~2019-06-10] VITALS: Ht 165.1 cm; Wt 78.5 kg
[~2019-06-10 15:15] MED LIST changes: +ACET1TAB55 PO; +COLA100C5 PO; +MYLASSUD PO; +PEG1POW PO; +TRAM50TA2 PO
[2019-06-10 15:20] VITALS: BP 109/59
[2019-06-10] MEDS ORDERED: oxyCODONE 5MG TAB PO PRN (17:30)
[2019-06-10] MEDS ORDERED: BISACODYL 10 MG SUPP PR PRN (17:30)
--- NOTE | 2019-06-10 17:55 | HPEPDOC ---
Chief Radiologic Technologist Note DATE OF ADMISSION: 06/10/19 SOURCE OF ADMISSION INFORMATION: patient and [facility] records CHIEF COMPLAINT: hip fracture s/p THR HISTORY OF PRESENT ILLNESS: 79F pmh Afib, multiple myeloma in remission, fibromyalgia, hypothyroidism, GERD, short bowel disease, valvular replacement who fell onto her left side at home without presyncopal symptoms then transported from [facility] to [facility] ED on 06/07/19 with left leg pain and difficulty walking. Xrays showed, fracture of the left femoral neck with cephalic migration of the distal fracture fragment. She was evaluated by orthopedic surgery who recommended a total hip replacement which was performed on 06/09/19 from a posterior-lateral approach and made WBAT with hip precautions post-operatively. She had post-op leukocytosis with mild hyponatremia on day of surgery, and difficulty with pain management. She was evaluated by therapy found to be well below her prior level of function for mobility and ADL management and deemed medically appropriate for discharge to ARU on 06/10/19. REVIEW OF SYSTEMS: The following is a completed review of systems and has been reviewed. Review of systems otherwise unremarkable. PAIN: Patient self reports left hip pain EYES: No recent vision changes EARS, NOSE, & THROAT: No throat pain, or dysphagia, or rhinorrhea CARDIOVASCULAR: Denies chest pain or palpitations PULMONARY: Denies shortness of breath GASTROINTESTINAL: Denies constipation/diarrhea GENITOURINARY: denies dysuria MUSCULOSKELETAL: left hip fracture NEUROLOGICAL:no tremor or seizure activity HEMATOLOGICAL: +anemia SKIN: surgical incision PSYCHIATRIC: Unremarkable All other review of systems found to be negative. PAST MEDICAL HISTORY: as per HPI PAST SURGICAL HISTORY: Skin cancer removal, foot surgery, varicose vein stripping, cholecystectomy, partial hysterectomy, cardiac valve replacement ALLERGIES: Please see below. MEDICATIONS: Please see below. SOCIAL HISTORY: No etoh, smoking, or illicit drugs DIET: regular PHYSICAL EXAMINATION: VITAL SIGNS: Please see below. GENERAL: Pleasant and cooperative. No acute distress. HEENT: PERRL. Extraocular movements intact. Clear conjunctiva CARDIOVASCULAR: Regular rate and rhythm. No murmurs, rubs, or gallops LUNGS: Clear to auscultation bilaterally. No wheezes. No rhonchi ABDOMEN: Soft, nontender, nondistended. Positive bowel sounds. Normal active bowel sounds NEUROLOGICAL: Alert and oriented times three. Cranial nerves II through XII grossly intact. Sensation grossly intact in all 4 extremities including 1st web space of left dorsal foot EXTREMITIES: 5\5 strength bilateral upper extremities. 5\5 strength right lower extremity. 5/5 strength in left ankle Df, EHL and PF (limited due to surgery) SKIN: left hip incision without induration, mild swelling and ecchymosis LABORATORY DATA: Please see below. IMAGING:Imaging documentation personally reviewed by record FUNCTIONAL STATUS: Premorbid: Independent with all activities of daily life as well as mobility On Admission: Max-Total assist for functional transfers and standing and ADL management GOALS: Mod-I household distances for ambulation, functional transfers, supervision dressing, bathing, Mod-I toileting. assess for DME needs, medical o ptimization ASSESSMENT:79-year-old F with past medical history of fibromyalgia, who presents status post left hip fracture resulting in a left THR. PLAN: 1. Rehab: PT strengthen/stretch/maintain bilat LE maintain total hip precautions, advance gait and improve endurance, may consider trial of platform walker OT- strengthen/stretch/maintain bilat UE maintain total hip precautions for ADL management 2. Neuro: pmh fibromyalgia c/u Cymbalta 3. Cardio: Afib with valvular replacmenet on Eliquis, c/u Amdiodarone- medicine consulted to assist in management 4. Resp: encourage incentive spiroemtry, monitor for infectio 5. Ortho: s/p left hip fracture s/p total hip arthroplasty with THR, hip precautions, ortho consulted 6. Endo: pmh hypothyroidism c/u synthroid 7. GI ppx: omeprazole 8. DVT ppx: Eliquis and TEDs 9. Pain: Oxycodone 5mg q4h prn, Tylenol standing, on Cymbalta, c/u lidoderm patch and ice, evening Gabapentin 100mg, avoid Tramadol while on Cymbalta to prevent serotonin syndrome 10. Dispo: TBD POST ADMISSION PHYSICIAN EVALUATION: Medical and functional status: Description of medical status, medical assessm ent: As above. Rehabilitation diagnosis and current and prior cold morbid medical conditions as above. Risk of complications and plans to mitigate them as above. Description of functional status current status is as above. Prior status as above. Status compared to preadmission: There are no clinically significant differences between the patient's current status and the information described on the preadmission screening document. Treatment plan anticipated: Treatment plan is as described above. Required disciplines including physical therapy, occupational therapy, others as noted above Intensity of services: 3 hours a day, 6 days a week. Special considerations: There are no specific special or safety considerations that would likely preclude immediate implementation of an intensive re habilitation program or subsequently influence the plan of care ATTESTATION: Considering all the information above, it is my best judgment that this patient requires intensive rehabilitation therapy as described above and an inpatient hospital environment due to the complexity of nursing, medical, and rehabilitation needs required by the patient. Furthermore, this patient can reas onably be expected to participate in an benefit from an inpatient rehabilitation stay with an interdisciplinary team approach to the delivery of rehabilitation care under the direction and supervision of rehabilitation physician PROGNOSIS: Excellent ESTIMATED LENGTH OF STAY:21-24 days. PROJECTED DISCHARGE DESTINATION: Home with family support and any durable medical equipment required to increase functional safety and mobility TIME SPENT COUNSELING AND COORDINATING INITIAL CARE: Greater than 70 minutes. Vital Signs Vital Signs Date Time Temp Pulse Resp B/P (MAP) Pulse Ox O2 Delivery O2 Flow Rate FiO2 06/10/19 15:20 98.5 92 20 109/59 (76) 93 Home Medications Scheduled Amiodarone HCl (Amiodarone HCl) 200 Mg Tablet, 200 MG PO DAILY, (Reported) Apixaban (Eliquis) 5 Mg Tab, 5 MG PO BID, (Reported) Docusate Sodium (Colace) 100 Mg Capsule, 100 MG PO BID Duloxetine Hcl (Duloxetine HCl) 30 Mg Cap, 30 MG PO DAILY, (Reported) TAKES WITH 60MG TO TOTAL 90MG Duloxetine Hcl (Duloxetine HCl) 60 Mg Cap, 60 MG PO DAILY, (Reported) TAKES WITH 30MG TO TOTAL 90MG Gabapentin (Gabapentin) 100 Mg Cap, 100 MG PO QHS, (Reported) Levothyroxine Sodium (Levoxyl) 112 Mcg Tab, 112 MCG PO DAILY, (Reported) Magnesium Oxide (Magnesium Oxide) 400 Mg Tab, 800 MG PO BID, (Reported) Omeprazole Magnesium (Prilosec Otc) 20 Mg Tab, 20 MG PO DAILY, (Reported) Polyethylene Glycol 3350 (Polyethylene Glycol 3350) 17 Gm Powd.pack, 1 PKT PO DAILY Potassium Chloride (Potassium Chloride) 10 Meq Tab, 10 MEQ PO QHS, (Reported) Potassium Phosphate Monobasic (K-Phos Original) 500 Mg Tab, 500 MG PO QHS, (Reported) Vitamin E Mixed (Vitamin E) 400 Unit Capsule, 400 UNIT PO QHS, (Reported) Scheduled PRN Acetaminophen (Acetaminophen) 325 Mg Tablet, 650 MG PO Q4H PRN for PAIN OR FEVER Aluminum/Magnesium/Simeth (Mag-Al Plus Suspension) 30 Ml Oral.susp, 30 ML PO DAILY PRN for DYSPEPSIA Tramadol HCl (Tramadol HCl) 50 Mg Tablet, 50 MG PO Q4HP PRN for MODERATE PAIN (PS 5-7) Tramadol HCl (Tramadol HCl) 50 Mg Tablet, 100 MG PO Q6HP PRN for SEVERE PAIN (PS 8-10) Allergies Coded Allergies: levofloxacin (Verified Adverse Reaction, Intermediate, muscle spasm, 12/18/18) A-FIB/CHADSVASC A-FIB History Current/History of A-Fib/PAF?: Yes Current PO Anticoag Therapy: Yes SUNITA URRUTIA MD Jun 10, 2019 17:55
[2019-06-10 20:00] VITALS: BP 93/60
[2019-06-10] MEDS: SENNA 8.6 MG TAB (SENOKOT) PO SCH (20:30)
[2019-06-10] MEDS: GABAPENTIN 100 MG CAP PO SCH (20:30)
[2019-06-10] MEDS: BACLOFEN 5MG PER 1/2 TABLET PO SCH (20:30)
[2019-06-10] MEDS: APIXABAN 5 MG TAB (ELIQUIS) PO SCH (20:30)
[2019-06-10] MEDS: DOCUSATE SODIUM 100 MG CAP PO SCH (20:30)
[2019-06-10] MEDS: ACETAMINOPHEN 500 MG TAB PO SCH (20:31)
[2019-06-10] MEDS: POTASSIUM CHLORIDE 10 MEQ SR TABLET PO SCH (20:31)
[2019-06-10] MEDS: MAGNESIUM OXIDE 400 MG TAB (MAG-OX) PO SCH (20:31)
[2019-06-10] MEDS: **NOTE PATIENT COMMENT** MISC XX SCH (20:31)
[2019-06-10 20:40] VITALS: BP 108/68
[2019-06-11 06:00] VITALS: BP 89/49
[2019-06-11] MEDS: LEVOTHYROXINE 112MCG TABLET (0.112MG) PO SCH (06:07)
[2019-06-11 06:12] VITALS: BP 102/60
[2019-06-11 07:09] LABS: BASO % 0.2 % (0.0-1.0); EOS # 0.1 10^3/uL (0.0-0.5); EOS % 0.8 % (0.0-3.0); HEMOGLOBIN 9.6 g/dl (12.0-15.5); LYMPH # 0.5 10^3/uL (1.5-5.0); LYMPH % 5.6 % (24.0-44.0); MEAN CORPUSCULAR HEMOGLOBIN 32.2 pg (27.0-33.0); MEAN CORPUSCULAR HGB CONC 33.1 g/dl (32.0-36.5); MEAN CORPUSCULAR VOLUME 97.3 fl (80.0-96.0); MONO # 1.7 10^3/uL (0.0-0.8); MONO % 18.2 % (0.0-5.0); NEUTROPHILS # 6.8 10^3/uL (1.5-8.5); NEUTROPHILS % 74.8 % (36.0-66.0); RED BLOOD COUNT 2.98 10^6/uL (4.00-5.40); WHITE BLOOD COUNT 9.1 10^3/uL (4.0-10.0)
[2019-06-11 07:11] LABS: PLATELET COUNT, AUTOMATED 91 10^3/uL (150-450)
[2019-06-11 07:34] LABS: ALBUMIN 2.3 GM/DL (3.2-5.2); ALT/SGPT 29 U/L (12-78); BILIRUBIN,TOTAL 0.8 MG/DL (0.2-1.0); BLOOD UREA NITROGEN 18 MG/DL (7-18); CALCIUM LEVEL 10.3 MG/DL (8.8-10.2); CARBON DIOXIDE LEVEL 27 MEQ/L (21-32); CHLORIDE LEVEL 100 MEQ/L (98-107); CREATININE FOR GFR 0.71 MG/DL (0.55-1.30); GLOMERULAR FILTRATION RATE > 60.0 (>39); GLUCOSE, FASTING 95 MG/DL (70-100); POTASSIUM SERUM 4.4 MEQ/L (3.5-5.1); SODIUM LEVEL 134 MEQ/L (136-145); TOTAL PROTEIN 5.3 GM/DL (6.4-8.2)
[2019-06-11] MEDS: DULoxetine 30 MG CAP (CYMBALTA) PO SCH (08:55)
[2019-06-11] MEDS: FERROUS GLUCONATE 324 MG TAB PO SCH (08:55)
[2019-06-11] MEDS: OMEPRAZOLE 20 MG CAP PO SCH (08:55)
[2019-06-11] MEDS: APIXABAN 5 MG TAB (ELIQUIS) PO SCH ×2 (08:55→20:29)
[2019-06-11] MEDS: LIDOCAINE 5% (LIDODERM) PATCH TD SCH (08:55)
[2019-06-11] MEDS: ACETAMINOPHEN 500 MG TAB PO SCH ×3 (08:55→20:29)
[2019-06-11] MEDS: MAGNESIUM OXIDE 400 MG TAB (MAG-OX) PO SCH ×2 (08:55→20:29)
[2019-06-11] MEDS: BACLOFEN 5MG PER 1/2 TABLET PO SCH (08:55)
[2019-06-11] MEDS: AMIODARONE 200 MG TAB (PACERONE) PO SCH (08:55)
[2019-06-11] MEDS: DOCUSATE SODIUM 100 MG CAP PO SCH ×2 (08:55→20:28)
[2019-06-11] MEDS ORDERED: BACLOFEN 5MG PER 1/2 TABLET PO PRN (09:15)
--- NOTE | 2019-06-11 10:50 | IPNPDOC ---
PM&R Progress Note DATE OF SERVICE: Jun 11, 2019 Operator Maintainer Progress Note Subjective: Patient repros she had difficulty sleeping and woke up due to pain, but feels better overall this morning. She is still constipated. REVIEW OF SYSTEMS: The following is a completed review of systems and has been reviewed. Review of systems otherwise unremarkable. PAIN: Patient self reports left hip pain EYES: No recent vision changes EARS, NOSE, & THROAT: No throat pain, or dysphagia, or rhinorrhea CARDIOVASCULAR: Denies chest pain or palpitations PULMONARY: Denies shortness of breath GASTROINTESTINAL: +constipation GENITOURINARY: denies dysuria MUSCULOSKELETAL: left hip fracture NEUROLOGICAL:no tremor or seizure activity HEMATOLOGICAL: +anemia SKIN: surgical incision PSYCHIATRIC: Unremarkable All other review of systems found to be negative. PHYSICAL EXAMINATION: VITAL SIGNS: Please see below. GENERAL: Pleasant and cooperative. No acute distress. HEENT: PERRL. Extraocular movements intact. Clear conjunctiva CARDIOVASCULAR: Regular rate and rhythm. No murmurs, rubs, or gallops LUNGS: Clear to auscultation bilaterally. No wheezes. No rhonchi ABDOMEN: Soft, nontender, nondistended. Positive bowel sounds. Normal active bowel sounds NEUROLOGICAL: Alert and oriented times three. Cranial nerves II through XII grossly intact. Sensation grossly intact in all 4 extremities including 1st web space of left dorsal foot EXTREMITIES: 5\5 strength bilateral upper extremities. 5\5 strength right lower extremity. 5/5 strength in left ankle Df, EHL and PF (limited due to surgery) SKIN: left hip incision without induration, mild swelling and ecchymosis ASSESSMENT:79-year-old F with past medical history of fibromyalgia, who presents status post left hip fracture resulting in a left THR. PLAN: 1. Rehab: PT strengthen/stretch/maintain bilat LE maintain total hip precautions, advance gait and improve endurance, may consider trial of platform walker OT- strengthen/stretch/maintain bilat UE maintain total hip precautions for ADL management 2. Neuro: pmh fibromyalgia c/u Cymbalta 3. Cardio: Afib with valvular replacmenet on Eliquis, c/u Amdiodarone- medicine consulted to assist in management 4. Resp: encourage incentive spiroemtry, monitor for infectio 5. Ortho: s/p left hip fracture s/p total hip arthroplasty with THR, hip precau tions, ortho consulted 6. Endo: pmh hypothyroidism c/u synthroid 7. GI ppx: omeprazole, optimize bowel care, will give lactulose followed by suppository 8. DVT ppx: Eliquis and TEDs 9. Pain: Oxycodone 5mg q4h prn, Tylenol standing, on Cymbalta, c/u lidoderm patch and ice, evening Gabapentin 100mg, avoid Tramadol while on Cymbalta to prevent serotonin syndrome, baclofen BID prn muscle spasm 10. Dispo: TBD Allergies Coded Allergies: levofloxacin (Verified Adverse Reaction, Intermediate, muscle spasm, 12/18/18) Vital Signs Vital Signs Date Time Temp Pulse Resp B/P (MAP) Pulse Ox O2 Delivery O2 Flow Rate FiO2 06/11/19 06:12 102/60 (74) 06/11/19 06:00 97.8 78 18 95 Laboratory Data CBC/BMP Laboratory Tests 06/11/19 06:33 Red Blood Count 2.98 L, Mean Corpuscular Volume 97.3 H, Mean Corpuscular Hemoglobin 32.2, Mean Corpuscular Hemoglobin Concent 33.1, Red Cell Distribution Width 13.7, Neutrophils (%) (Auto) 74.8 H, Lymphocytes (%) (Auto) 5.6 L, Monocytes (%) (Auto) 18.2 H, Eosinophils (%) (Auto) 0.8, Basophils (%) (Auto) 0.2, Neutrophils # (Auto) 6.8, Lymphocytes # (Auto) 0.5 L, Monocytes # (Auto) 1.7 H, Eosinophils # (Auto) 0.1, Basophils # (Auto) 0.0, Calcium Level 10.3 H, Aspartate Amino Transf (AST/SGOT) 31, Alanine Aminotransferase (ALT/SGPT) 29, Alkaline Phosphatase 98, Total Bilirubin 0.8, Total Protein 5.3 L, Albumin 2.3 L Labs 24H Laboratory Tests 2 06/11/19 06:33: Immature Granulocyte % (Auto) 0.4, White Blood Count 9.1, Red Blood Count 2.98L, Hemoglobin 9.6L, Hematocrit 29.0L, Mean Corpuscular Volume 97.3H, Mean Corpuscular Hemoglobin 32.2, Mean Corpuscular Hemoglobin Concent 33.1, Red Cell Distribution Width 13.7, Platelet Count 91L, Neutrophils (%) (Auto) 74.8H, Lymphocytes (%) (Auto) 5.6L, Monocytes (%) (Auto) 18.2H, Eosinophils (%) (Auto) 0.8, Basophils (%) (Auto) 0.2, Neutrophils # (Auto) 6.8, Lymphocytes # (Auto) 0.5L, Monocytes # (Auto) 1.7H, Eosinophils # (Auto) 0.1, Basophils # (Auto) 0.0, Nucleated Red Blood Cells % (auto) 0.0, Immature Platelet Fraction 9.1, Anion Gap 7L, Glomerular Filtration Rate > 60.0, Blood Urea Nitrogen 18, Creatinine 0.71, Sodium Level 134L, Potassium Level 4.4, Chloride Level 100, Carbon Dioxide Level 27, Calcium Level 10.3H, Aspartate Amino Transf (AST/SGOT) 31, Alanine Aminotransferase (ALT/SGPT) 29, Alkaline Phosphatase 98, Total Bilirubin 0.8, Total Protein 5.3L, Albumin 2.3L, Albumin/Globulin Ratio 0.77L Current Medications Current Medications Current Medications Medications (Trade) Dose Ordered Sig/Shira Route PRN Reason Start Time Stop Time Status Last Admin Dose Admin Acetaminophen (Tylenol Tab) 1,000 mg TID PO 06/10/19 21:00 06/11/19 08:55 Amiodarone HCl (Pacerone, Cordarone) 200 mg DAILY PO 06/11/19 09:00 06/11/19 08:55 Apixaban (Eliquis) 5 mg BID PO 06/10/19 21:00 06/11/19 08:55 Baclofen (Lioresal) 5 mg BID PO 06/10/19 21:00 06/11/19 09:02 DC 06/11/19 08:55 Baclofen (Lioresal) 5 mg BID PRN PO SPASMS 06/11/19 09:15 Bisacodyl (Dulcolax Suppository) 10 mg DAILYPRN PRN MA CONSTIPATION 06/10/19 17:30 Docusate Sodium (Colace) 100 mg BID PO 06/10/19 21:00 06/11/19 08:55 Duloxetine HCl (Cymbalta) 90 mg DAILY PO 06/11/19 09:00 06/11/19 08:55 Ferrous Gluconate (Fergon) 324 mg DAILY PO 06/11/19 09:00 06/11/19 08:55 Gabapentin (Neurontin) 100 mg QHS PO 06/10/19 21:00 06/10/19 20:30 Levothyroxine Sodium (Synthroid) 112 mcg DAILY@06 PO 06/11/19 06:00 06/11/19 06:07 Lidocaine (Lidoderm Patch) 1 patch DAILY TD 06/11/19 09:00 06/11/19 08:55 Magnesium Hydroxide (Milk Of Magnesia) 30 ml DAILYPRN PRN PO CONSTIPATION 06/10/19 17:30 Magnesium Oxide (Mag-Ox) 800 mg BID PO 06/10/19 21:00 06/11/19 08:55 Non-Formulary Medication ( See Comment Field Below ) REMOVE LIDODERM PATCH DAILY@21 XX 06/10/19 21:00 06/10/19 20:31 Omeprazole (PriLOSEC) 20 mg DAILY PO 06/11/19 09:00 06/11/19 08:55 Oxycodone HCl (Roxicodone, Oxyir) 5 mg Q4HP PRN PO PAIN 06/10/19 17:30 Oxycodone HCl (Roxicodone, Oxyir) 10 mg Q4HP PRN PO SEVERE PAIN (PS 8-10) 06/10/19 17:30 06/11/19 09:02 DC 06/10/19 18:04 Potassium Chloride (Micro-K Extencaps) 10 meq QHS PO 06/10/19 21:00 06/10/19 20:31 Senna (Senokot) 1 tab QHS PO 06/10/19 21:00 06/10/19 20:30 SUNITA URRUTIA MD Jun 11, 2019 10:50
--- NOTE | 2019-06-11 12:06 | CR.PDOC ---
General Date of Consultation: Jun 11, 2019 Referring Provider: Brenda Cortez DO Attending Physician: YIMI VENCES MD Consultation REASON FOR CONSULTATION/CHIEF COMPLAINT: Medical management. HISTORY OF PRESENT ILLNESS: This is 79 years old white female with past medical history of atrial fibrillation, multiple myeloma in remission skin cancer removed fibromyalgia along with her heart disease short bowel syndrome, varicose veins, hypothyroidism, GERD, neuropathy, was recently admitted with a fall and fracture of the left hip. Patient had a left hip ORIF done and was sent to ARU. for rehabilitation . Patient complains of pain at the left hip on the rehabilitation. Otherwise no other new complaints. No chest pain, shortness of breath, nausea, vomiting, diarrhea, etc.. ALLERGIES: Please see below. HOME MEDICATIONS: Please see below. PAST MEDICAL HISTORY: A. fib, multiple myeloma skin cancer, fibromyalgia, valvular heart disease short bowel syndrome, varicose veins, hypothyroidism PAST SURGICAL HISTORY: Status post ischial cancer removal, foot surgery, medical management stripping, cholecystectomy, partial hysterectomy, small bowel short and surgery cardiac valve replacement FAMILY HISTORY: No significant family history Hereditary Diseases: None Unexpected deaths due to medical reasons: SOCIAL HISTORY: Marital status and/or living arrangements: , with children. Lives with her aspirin Employment: Retired Tobacco use:No ETOH: No Illicit drug use: No IV drug use: No Other relevant social factors: None REVIEW OF SYSTEMS: CONSTITUTIONAL: No fever, headache. HEENT: No eyes, ear, nose problem. CARDIOVASCULAR: [Chest pain or shortness of breath. RESPIRATORY: Cough or shortness of breath. GENITOURINARY: No dysuria or frequency. MUSCULOSKELETAL: [Plating of pain in her left hip. GASTROINTESTINAL: , No nausea, vomiting, diarrhea. SKIN: No rash rash. NEUROLOGICAL: [No motor or sensory weakness. PSYCHIATRIC: No depression or anxiety. ENDOCRINE: History of hypothyroidism. HEMATOLOGIC/LYMPHATIC: None. ALLERGIC/IMMUNOLOGIC: Complaints. PHYSICAL EXAMINATION: VITAL SIGNS: Please see below. GENERAL APPEARANCE: Alert, awake 3, in no apparent distress. HEENT: PERRLA. Extraocular muscles intact. RESPIRATORY: Clear to A&P. CARDIOVASCULAR: S1, S2, regular. ABDOMEN: , Soft, nontender, bowel sound present. EXTREMITIES: No clubbing, cyanosis, edema. NEUROLOGICAL: . No focal motor sensory deficit. PSYCHIATRIC: No anxiety, depression. LABORATORY DATA: Please see below. ASSESSMENT/PLAN: #1 status post left hip arthroplasty #2. Chronic A. fib #3 chronic valvular heart disease #4 hypothyroidism # 5. GERD #6. Fibromyalgia Patient admitted to acute rehabilitation unit for physical therapy after left hip arthroplasty Physical therapy is in progress Pain management as per orders Will review patient's meds and renewed as needed Continue home meds Thank you for calling this consult, , will follow patient closely with you Vital Signs/I&O Vital Signs Date Time Temp Pulse Resp B/P (MAP) Pulse Ox O2 Delivery O2 Flow Rate FiO2 06/11/19 06:12 102/60 (74) 06/11/19 06:00 97.8 78 18 95 I&O- Last 24 Hours up to 6 AM 06/11/19 06:00 Intake Total 300 ml Output Total 0 ml Balance 300 ml Laboratory Data Labs 24H Laboratory Tests 2 06/11/19 06:33: Immature Granulocyte % (Auto) 0.4, White Blood Count 9.1, Red Blood Count 2.98L, Hemoglobin 9.6L, Hematocrit 29.0L, Mean Corpuscular Volume 97.3H, Mean Corpuscular Hemoglobin 32.2, Mean Corpuscular Hemoglobin Concent 33.1, Red Cell Distribution Width 13.7, Platelet Count 91L, Neutrophils (%) (Auto) 74.8H, Lymphocytes (%) (Auto) 5.6L, Monocytes (%) (Auto) 18.2H, Eosinophils (%) (Auto) 0.8, Basophils (%) (Auto) 0.2, Neutrophils # (Auto) 6.8, Lymphocytes # (Auto) 0.5L, Monocytes # (Auto) 1.7H, Eosinophils # (Auto) 0.1, Basophils # (Auto) 0.0, Nucleated Red Blood Cells % (auto) 0.0, Immature Platelet Fraction 9.1, Anion Gap 7L, Glomerular Filtration Rate > 60.0, Blood Urea Nitrogen 18, Creatinine 0.71, Sodium Level 134L, Potassium Level 4.4, Chloride Level 100, Carbon Dioxide Level 27, Calcium Level 10.3H, Aspartate Amino Transf (AST/SGOT) 31, Alanine Aminotransferase (ALT/SGPT) 29, Alkaline Phosphatase 98, Total Bilirubin 0.8, Total Protein 5.3L, Albumin 2.3L, Albumin/Globulin Ratio 0.77L CBC/BMP Laboratory Tests 06/11/19 06:33 Red Blood Count 2.98 L, Mean Corpuscular Volume 97.3 H, Mean Corpuscular Hemoglobin 32.2, Mean Corpuscular Hemoglobin Concent 33.1, Red Cell Distribution Width 13.7, Neutrophils (%) (Auto) 74.8 H, Lymphocytes (%) (Auto) 5.6 L, Monocytes (%) (Auto) 18.2 H, Eosinophils (%) (Auto) 0.8, Basophils (%) (Auto) 0.2, Neutrophils # (Auto) 6.8, Lymphocytes # (Auto) 0.5 L, Monocytes # (Auto) 1.7 H, Eosinophils # (Auto) 0.1, Basophils # (Auto) 0.0, Calcium Level 10.3 H, Aspartate Amino Transf (AST/SGOT) 31, Alanine Aminotransferase (ALT/SGPT) 29, Alkaline Phosphatase 98, Total Bilirubin 0.8, Total Protein 5.3 L, Albumin 2.3 L Allergies Coded Allergies: levofloxacin (Verified Adverse Reaction, Intermediate, muscle spasm, 12/18/18) Home Medications Scheduled Amiodarone HCl (Amiodarone HCl) 200 Mg Tablet, 200 MG PO DAILY, (Reported) Apixaban (Eliquis) 5 Mg Tab, 5 MG PO BID, (Reported) Docusate Sodium (Colace) 100 Mg Capsule, 100 MG PO BID, #30 Duloxetine Hcl (Duloxetine HCl) 30 Mg Cap, 30 MG PO DAILY, (Reported) TAKES WITH 60MG TO TOTAL 90MG Duloxetine Hcl (Duloxetine HCl) 60 Mg Cap, 60 MG PO DAILY, (Reported) TAKES WITH 30MG TO TOTAL 90MG Gabapentin (Gabapentin) 100 Mg Cap, 100 MG PO QHS, (Reported) Levothyroxine Sodium (Levoxyl) 112 Mcg Tab, 112 MCG PO DAILY, (Reported) Magnesium Oxide (Magnesium Oxide) 400 Mg Tab, 800 MG PO BID, (Reported) Omeprazole Magnesium (Prilosec Otc) 20 Mg Tab, 20 MG PO DAILY, (Reported) Polyethylene Glycol 3350 (Polyethylene Glycol 3350) 17 Gm Powd.pack, 1 PKT PO DAILY, #30 Potassium Chloride (Potassium Chloride) 10 Meq Tab, 10 MEQ PO QHS, (Reported) Potassium Phosphate Monobasic (K-Phos Original) 500 Mg Tab, 500 MG PO QHS, (Reported) Vitamin E Mixed (Vitamin E) 400 Unit Capsule, 400 UNIT PO QHS, (Reported) Scheduled PRN Acetaminophen (Acetaminophen) 325 Mg Tablet, 650 MG PO Q4H PRN for PAIN OR FEVER, #30 Aluminum/Magnesium/Simeth (Mag-Al Plus Suspension) 30 Ml Oral.susp, 30 ML PO DAILY PRN for DYSPEPSIA, #120 Tramadol HCl (Tramadol HCl) 50 Mg Tablet, 50 MG PO Q4HP PRN for MODERATE PAIN (PS 5-7), #30 Tramadol HCl (Tramadol HCl) 50 Mg Tablet, 100 MG PO Q6HP PRN for SEVERE PAIN (PS 8-10), #30 YIMI VENCES MD Jun 11, 2019 12:06
[2019-06-11] MEDS: oxyCODONE 5MG TAB PO PRN (13:00)
[2019-06-11] MEDS: MOM 30ML SUSPENSION UDC PO PRN (13:00)
[2019-06-11 14:00] VITALS: BP_SYST 108; BP_SYST 115; BP_DIAS 64; BP_DIAS 80
[2019-06-11] MEDS ORDERED: LACTULOSE 20 GM/30 ML SYRUP UD PO ONE (16:00)
[2019-06-11] MEDS ORDERED: BISACODYL 10 MG SUPP PR ONE (19:00)
[2019-06-11 20:00] VITALS: BP 93/54
[2019-06-11] MEDS: POTASSIUM CHLORIDE 10 MEQ SR TABLET PO SCH (20:29)
[2019-06-11] MEDS: SENNA 8.6 MG TAB (SENOKOT) PO SCH (20:29)
[2019-06-11] MEDS: GABAPENTIN 100 MG CAP PO SCH (20:29)
[2019-06-11] MEDS: **NOTE PATIENT COMMENT** MISC XX SCH (21:00)
[2019-06-11 21:20] VITALS: BP 98/50
[2019-06-12] MEDS: oxyCODONE 5MG TAB PO PRN (06:01)
[2019-06-12] MEDS: LEVOTHYROXINE 112MCG TABLET (0.112MG) PO SCH (06:01)
[2019-06-12 06:22] VITALS: BP 122/66
[2019-06-12 07:25] LABS: BASO % 0.2 % (0.0-1.0); EOS # 0.1 10^3/uL (0.0-0.5); EOS % 1.1 % (0.0-3.0); HEMATOCRIT 28.9 % (36.0-47.0); HEMOGLOBIN 9.7 g/dl (12.0-15.5); LYMPH # 0.4 10^3/uL (1.5-5.0); LYMPH % 4.6 % (24.0-44.0); MEAN CORPUSCULAR HEMOGLOBIN 32.7 pg (27.0-33.0); MEAN CORPUSCULAR HGB CONC 33.6 g/dl (32.0-36.5); MEAN CORPUSCULAR VOLUME 97.3 fl (80.0-96.0); MONO # 1.4 10^3/uL (0.0-0.8); MONO % 16.7 % (0.0-5.0); NEUTROPHILS # 6.5 10^3/uL (1.5-8.5); PLATELET COUNT, AUTOMATED 116 10^3/uL (150-450); RED BLOOD COUNT 2.97 10^6/uL (4.00-5.40); WHITE BLOOD COUNT 8.4 10^3/uL (4.0-10.0)
[2019-06-12 07:46] LABS: BLOOD UREA NITROGEN 21 MG/DL (7-18); CALCIUM LEVEL 10.6 MG/DL (8.8-10.2); CARBON DIOXIDE LEVEL 27 MEQ/L (21-32); CHLORIDE LEVEL 99 MEQ/L (98-107); GLOMERULAR FILTRATION RATE > 60.0 (>39); GLUCOSE, FASTING 92 MG/DL (70-100); SODIUM LEVEL 134 MEQ/L (136-145)
[2019-06-12] MEDS: MAGNESIUM OXIDE 400 MG TAB (MAG-OX) PO SCH ×2 (09:09→21:27)
[2019-06-12] MEDS: DOCUSATE SODIUM 100 MG CAP PO SCH ×3 (09:09→21:26)
[2019-06-12] MEDS: LIDOCAINE 5% (LIDODERM) PATCH TD SCH (09:09)
[2019-06-12] MEDS: ACETAMINOPHEN 500 MG TAB PO SCH ×3 (09:10→21:26)
[2019-06-12] MEDS: FERROUS GLUCONATE 324 MG TAB PO SCH (09:10)
[2019-06-12] MEDS: OMEPRAZOLE 20 MG CAP PO SCH (09:10)
[2019-06-12] MEDS: AMIODARONE 200 MG TAB (PACERONE) PO SCH (09:10)
[2019-06-12] MEDS: APIXABAN 5 MG TAB (ELIQUIS) PO SCH ×2 (09:11→21:26)
[2019-06-12] MEDS: DULoxetine 30 MG CAP (CYMBALTA) PO SCH (09:11)
[2019-06-12] MEDS: BISACODYL 5 MG TAB PO SCH (12:00)
[2019-06-12] MEDS ORDERED: ONDANSETRON 4 MG ORAL DISINTEGRATING TAB (Q0162 PER 1MG) PO ONE (12:00)
[2019-06-12 14:33] VITALS: BP 108/60
[2019-06-12 20:00] VITALS: BP 116/59
[2019-06-12] MEDS: **NOTE PATIENT COMMENT** MISC XX SCH (21:00)
[2019-06-12] MEDS: GABAPENTIN 100 MG CAP PO SCH (21:26)
[2019-06-12] MEDS: POTASSIUM CHLORIDE 10 MEQ SR TABLET PO SCH (21:26)
[2019-06-12] MEDS: SENNA 8.6 MG TAB (SENOKOT) PO SCH (21:26)
[2019-06-13 04:00] VITALS: BP 99/57
[2019-06-13] MEDS: LEVOTHYROXINE 112MCG TABLET (0.112MG) PO SCH (06:01)
[2019-06-13] MEDS: FERROUS GLUCONATE 324 MG TAB PO SCH (09:01)
[2019-06-13] MEDS: LIDOCAINE 5% (LIDODERM) PATCH TD SCH (09:01)
[2019-06-13] MEDS: APIXABAN 5 MG TAB (ELIQUIS) PO SCH ×2 (09:01→22:16)
[2019-06-13] MEDS: OMEPRAZOLE 20 MG CAP PO SCH (09:01)
[2019-06-13] MEDS: BISACODYL 5 MG TAB PO SCH (09:01)
[2019-06-13] MEDS: DOCUSATE SODIUM 100 MG CAP PO SCH ×3 (09:01→22:15)
[2019-06-13] MEDS: DULoxetine 30 MG CAP (CYMBALTA) PO SCH (09:02)
[2019-06-13] MEDS: MAGNESIUM OXIDE 400 MG TAB (MAG-OX) PO SCH ×2 (09:02→22:16)
[2019-06-13] MEDS: ACETAMINOPHEN 500 MG TAB PO SCH ×3 (09:02→22:15)
[2019-06-13] MEDS: AMIODARONE 200 MG TAB (PACERONE) PO SCH (09:02)
[2019-06-13 14:00] VITALS: BP 95/51
[2019-06-13 20:00] VITALS: BP 97/55
[2019-06-13] MEDS: **NOTE PATIENT COMMENT** MISC XX SCH (21:00)
[2019-06-13] MEDS: GABAPENTIN 100 MG CAP PO SCH (22:15)
[2019-06-13] MEDS: POTASSIUM CHLORIDE 10 MEQ SR TABLET PO SCH (22:15)
[2019-06-13] MEDS: SENNA 8.6 MG TAB (SENOKOT) PO SCH (22:16)
[2019-06-14] MEDS: LEVOTHYROXINE 112MCG TABLET (0.112MG) PO SCH (05:23)
[2019-06-14 05:39] VITALS: BP 102/60
[2019-06-14] MEDS: DULoxetine 30 MG CAP (CYMBALTA) PO SCH (08:15)
[2019-06-14] MEDS: BISACODYL 5 MG TAB PO SCH ×2 (08:15→08:19)
[2019-06-14] MEDS: ACETAMINOPHEN 500 MG TAB PO SCH ×3 (08:15→21:51)
[2019-06-14] MEDS: DOCUSATE SODIUM 100 MG CAP PO SCH ×3 (08:15→21:50)
[2019-06-14] MEDS: AMIODARONE 200 MG TAB (PACERONE) PO SCH (08:16)
[2019-06-14] MEDS: FERROUS GLUCONATE 324 MG TAB PO SCH (08:16)
[2019-06-14] MEDS: OMEPRAZOLE 20 MG CAP PO SCH (08:16)
[2019-06-14] MEDS: LIDOCAINE 5% (LIDODERM) PATCH TD SCH (08:16)
[2019-06-14] MEDS: APIXABAN 5 MG TAB (ELIQUIS) PO SCH ×2 (08:16→21:50)
[2019-06-14] MEDS: MAGNESIUM OXIDE 400 MG TAB (MAG-OX) PO SCH ×2 (08:16→21:51)
--- NOTE | 2019-06-14 13:43 | IPNPDOC ---
Subjective Date Seen The patient was seen on 06/14/19. Subjective Chief Complaint/HPI Patient is comfortable lying in bed, offers no new complaints. is at bedside General: Denies: ROS Unobtainable, Chills, Night Sweats, Fatigue, Malaise, Normal Appetite, Other Symptoms Constitutional: Denies: Chills, Fever, Malaise, Night Sweats, Weakness, Fatigue, Weight Loss, Lethargy, Other Skin: Denies: Rash, Lesions, Jaundice, Bruising, Itching, Dry, Breakdown, Nail Changes, Other Pulmonary: Denies: Dyspnea, Cough, Pleuritic Chest Pain, Other Symptoms Cardiovascular: Denies: Chest Pain, Palpitations, Orthopnea, Paroxysmal Noc. Dyspnea, Edema, Lt Headedness, Other Symptoms Gastrointestinal: Denies: Nausea, Vomiting, Abdominal Pain, Diarrhea, Constipation, Melena, Hematochezia, Other Symptoms Musculoskeletal: Denies: Neck Pain, Back Pain, Shoulder Pain, Arm Pain, Hand Pain, Leg Pain, Foot Pain, Joint Pain, Muscle Pain, Spasms, Other Symptoms Neurological: Denies: Weakness, Numbness, Incoordination, Change in speech, Confusion, Seizures, Other Symptoms Psych: Denies: Mood Normal, Anxiety, Depression, Memory Issues, Thoughts of Stephanie f Harm, Anger, Thoughts of Harming Other, Other Psych Objective Physical Examination General Exam: Positive: Alert, Cooperative Eye Exam: Positive: PERRLA, Conjunctiva & lids normal ENT Exam: Positive: Atraumatic, Mucous membr. moist/pink Chest Exam: Positive: Clear to auscultation, Normal air movement Heart Exam: Positive: Rate Normal, Normal S1, Normal S2 Abdomen Exam: Positive: Normal bowel sounds, Soft Extremity Exam: Positive: Normal pulses Skin Exam: Positive: Nl turgor and temperature Neuro Exam: Positive: Normal Gait, Strength at 5/5 X4 ext, Sensation Intact Assessment /Plan Problems (1) Fracture of femoral neck, left Status: Acute Problem Text: Left hip fracture Status post left total hip replacement Pain management and oxycodone Physical therapy in progress Patient slowly is improving on left hip function and mobility Further, as per physical therapy (2) Multiple myeloma Status: Chronic Problem Text: Stable (3) Fibromyalgia Status: Chronic Problem Text: Stable (4) Atrial fibrillation Status: Chronic Problem Text: Rate is under control Continue amiodarone Plan/VTE VTE Prophylaxis Ordered?: Yes VS, I&O, 24H, Fishbone Vital Signs/I&O Vital Signs Date Time Temp Pulse Resp B/P (MAP) Pulse Ox O2 Delivery O2 Flow Rate FiO2 06/14/19 05:39 102/60 (74) 06/14/19 04:00 97.9 71 18 97 I&O- Last 24 Hours up to 6 AM 06/14/19 06:00 Intake Total 840 ml Balance 840 ml YIMI VENCES MD Jun 14, 2019 13:43
[2019-06-14 14:00] VITALS: BP 107/59
[2019-06-14 20:00] VITALS: BP 95/51
[2019-06-14] MEDS: SENNA 8.6 MG TAB (SENOKOT) PO SCH (21:50)
[2019-06-14] MEDS: POTASSIUM CHLORIDE 10 MEQ SR TABLET PO SCH (21:50)
[2019-06-14] MEDS: GABAPENTIN 100 MG CAP PO SCH (21:50)
[2019-06-14] MEDS: **NOTE PATIENT COMMENT** MISC XX SCH (21:51)
[2019-06-15] MEDS: LEVOTHYROXINE 112MCG TABLET (0.112MG) PO SCH (05:39)
[2019-06-15 06:00] VITALS: BP 92/53
[2019-06-15 06:51] LABS: BASO % 0.6 % (0.0-1.0); EOS # 0.1 10^3/uL (0.0-0.5); EOS % 2.4 % (0.0-3.0); HEMATOCRIT 26.7 % (36.0-47.0); HEMOGLOBIN 8.6 g/dl (12.0-15.5); LYMPH # 0.6 10^3/uL (1.5-5.0); LYMPH % 12.2 % (24.0-44.0); MEAN CORPUSCULAR HEMOGLOBIN 31.2 pg (27.0-33.0); MEAN CORPUSCULAR HGB CONC 32.2 g/dl (32.0-36.5); MEAN CORPUSCULAR VOLUME 96.7 fl (80.0-96.0); MONO % 20.6 % (0.0-5.0); NEUTROPHILS # 2.9 10^3/uL (1.5-8.5); NEUTROPHILS % 62.9 % (36.0-66.0); PLATELET COUNT, AUTOMATED 224 10^3/uL (150-450); RED BLOOD COUNT 2.76 10^6/uL (4.00-5.40); WHITE BLOOD COUNT 4.7 10^3/uL (4.0-10.0)
[2019-06-15 07:09] LABS: BLOOD UREA NITROGEN 26 MG/DL (7-18); CALCIUM LEVEL 10.3 MG/DL (8.8-10.2); CARBON DIOXIDE LEVEL 23 MEQ/L (21-32); CHLORIDE LEVEL 107 MEQ/L (98-107); CREATININE FOR GFR 0.63 MG/DL (0.55-1.30); GLOMERULAR FILTRATION RATE > 60.0 (>39); GLUCOSE, FASTING 84 MG/DL (70-100); POTASSIUM SERUM 3.5 MEQ/L (3.5-5.1); SODIUM LEVEL 137 MEQ/L (136-145)
[2019-06-15] MEDS: APIXABAN 5 MG TAB (ELIQUIS) PO SCH ×2 (09:50→21:27)
[2019-06-15] MEDS: BISACODYL 5 MG TAB PO SCH (09:50)
[2019-06-15] MEDS: AMIODARONE 200 MG TAB (PACERONE) PO SCH (09:50)
[2019-06-15] MEDS: MAGNESIUM OXIDE 400 MG TAB (MAG-OX) PO SCH ×2 (09:50→21:26)
[2019-06-15] MEDS: DOCUSATE SODIUM 100 MG CAP PO SCH ×3 (09:50→21:26)
[2019-06-15] MEDS: DULoxetine 30 MG CAP (CYMBALTA) PO SCH (09:51)
[2019-06-15] MEDS: ACETAMINOPHEN 500 MG TAB PO SCH ×3 (09:51→21:27)
[2019-06-15] MEDS: OMEPRAZOLE 20 MG CAP PO SCH (09:51)
[2019-06-15] MEDS: FERROUS GLUCONATE 324 MG TAB PO SCH (09:51)
[2019-06-15] MEDS: LIDOCAINE 5% (LIDODERM) PATCH TD SCH (09:52)
[2019-06-15 14:00] VITALS: BP 109/60
--- NOTE | 2019-06-15 14:13 | IPNPDOC ---
PM&R Progress Note DATE OF SERVICE: Jun 12, 2019 [employer] Supervisor Progress Note Subjective: Patient reporting she feels nauseous and still feels like she needs to have a bowel movement. REVIEW OF SYSTEMS: The following is a completed review of systems and has been reviewed. Review of systems otherwise unremarkable. PAIN: Patient self reports left hip pain EYES: No recent vision changes EARS, NOSE, & THROAT: No throat pain, or dysphagia, or rhinorrhea CARDIOVASCULAR: Denies chest pain or palpitations PULMONARY: Denies shortness of breath GASTROINTESTINAL: +constipation GENITOURINARY: denies dysuria MUSCULOSKELETAL: left hip fracture NEUROLOGICAL:no tremor or seizure activity HEMATOLOGICAL: +anemia SKIN: surgical incision PSYCHIATRIC: Unremarkable All other review of systems found to be negative. PHYSICAL EXAMINATION: VITAL SIGNS: Please see below. GENERAL: Pleasant and cooperative. No acute distress. HEENT: PERRL. Extraocular movements intact. Clear conjunctiva CARDIOVASCULAR: Regular rate and rhythm. No murmurs, rubs, or gallops LUNGS: Clear to auscultation bilaterally. No wheezes. No rhonchi ABDOMEN: Soft, nontender, nondistended. Positive bowel sounds. Normal active bowel sounds NEUROLOGICAL: Alert and oriented times three. Cranial nerves II through XII grossly intact. Sensation grossly intact in all 4 extremities including 1st web space of left dorsal foot EXTREMITIES: 5\5 strength bilateral upper extremities. 5\5 strength right lower extremity. 5/5 strength in left ankle Df, EHL and PF (limited due to surgery) SKIN: left hip incision without induration, mild swelling and ecchymosis ASSESSMENT:79-year-old F with past medical history of fibromyalgia, who presents status post left hip fracture resulting in a left THR. PLAN: 1. Rehab: PT strengthen/stretch/maintain bilat LE maintain total hip precautions, advance gait and improve endurance, may consider trial of platform walker OT- strengthen/stretch/maintain bilat UE maintain total hip precautions for ADL management 2. Neuro: pmh fibromyalgia c/u Cymbalta 3. Cardio: Afib with valvular replacmenet on Eliquis, c/u Amdiodarone- medicine consulted to assist in management 4. Resp: encourage incentive spiroemtry, monitor for infectio 5. Ortho: s/p left hip fracture s/p total hip arthroplasty with THR, hip precautions, ortho consulted 6. Endo: pmh hypothyroidism c/u synthroid 7. GI ppx: omeprazole, optimize bowel care, will give lactulose followed by suppository 8. DVT ppx: Eliquis and TEDs 9. Pain: Oxycodone 5mg q4h prn, Tylenol standing, on Cymbalta, c/u lidoderm patch and ice, evening Gabapentin 100mg, avoid Tramadol while on Cymbalta to prevent serotonin syndrome, baclofen BID prn muscle spasm 10. Dispo: TBD Allergies Coded Allergies: levofloxacin (Verified Adverse Reaction, Intermediate, muscle spasm, 12/18/18) Vital Signs Vital Signs Date Time Temp Pulse Resp B/P (MAP) Pulse Ox O2 Delivery O2 Flow Rate FiO2 06/15/19 10:17 18 06/15/19 06:00 98.1 75 92/53 (66) 97 Laboratory Data CBC/BMP Laboratory Tests 06/15/19 06:17 Red Blood Count 2.76 L, Mean Corpuscular Volume 96.7 H, Mean Corpuscular Hemog lobin 31.2, Mean Corpuscular Hemoglobin Concent 32.2, Red Cell Distribution Width 13.6, Neutrophils (%) (Auto) 62.9, Lymphocytes (%) (Auto) 12.2 L, Monocytes (%) (Auto) 20.6 H, Eosinophils (%) (Auto) 2.4, Basophils (%) (Auto) 0.6, Neutrophils # (Auto) 2.9, Lymphocytes # (Auto) 0.6 L, Monocytes # (Auto) 1.0 H, Eosinophils # (Auto) 0.1, Basophils # (Auto) 0.0, Calcium Level 10.3 H Labs 24H Laboratory Tests 2 06/15/19 06:17: Immature Granulocyte % (Auto) 1.3, White Blood Count 4.7, Red Blood Count 2.76L, Hemoglobin 8.6L, Hematocrit 26.7L, Mean Corpuscular Volume 96.7H, Mean Corpuscular Hemoglobin 31.2, Mean Corpuscular Hemoglobin Concent 32.2, Red Cell Distribution Width 13.6, Platelet Count 224, Neutrophils (%) (Auto) 62.9, Lymphocytes (%) (Auto) 12.2L, Monocytes (%) (Auto) 20.6H, Eosinophils (%) (Auto) 2.4, Basophils (%) (Auto) 0.6, Neutrophils # (Auto) 2.9, Lymphocytes # (Auto) 0.6L, Monocytes # (Auto) 1.0H, Eosinophils # (Auto) 0.1, Basophils # (Auto) 0.0, Nucleated Red Blood Cells % (auto) 0.0, Anion Gap 7L, Glomerular Filtration Rate > 60.0, Blood Urea Nitrogen 26H, Creatinine 0.63, Sodium Level 137, Potassium Level 3.5, Chloride Level 107, Carbon Dioxide Level 23, Calcium Level 10.3H Current Medications Current Medications Current Medications Medications (Trade) Dose Ordered Sig/Shira Route PRN Reason Start Time Stop Time Status Last Admin Dose Admin Acetaminophen (Tylenol Tab) 1,000 mg TID PO 06/10/19 21:00 06/15/19 09:51 Amiodarone HCl (Pacerone, Cordarone) 200 mg DAILY PO 06/11/19 09:00 06/15/19 09:50 Apixaban (Eliquis) 5 mg BID PO 06/10/19 21:00 06/15/19 09:50 Baclofen (Lioresal) 5 mg BID PO 06/10/19 21:00 06/11/19 09:02 DC 06/11/19 08:55 Baclofen (Lioresal) 5 mg BID PRN PO SPASMS 06/11/19 09:15 06/15/19 08:46 DC 06/14/19 21:51 Bisacodyl (Dulcolax Suppository) 10 mg DAILYPRN PRN [place] CONSTIPATION 06/10/19 17:30 Bisacodyl (Dulcolax Tab) 5 mg DAILY PO 06/12/19 09:00 06/15/19 09:50 Docusate Sodium (Colace) 100 mg BID PO 06/10/19 21:00 06/12/19 11:51 DC 06/12/19 09:09 Docusate Sodium (Colace) 100 mg TID PO 06/12/19 16:00 06/15/19 09:50 Duloxetine HCl (Cymbalta) 90 mg DAILY PO 06/11/19 09:00 06/15/19 09:51 Ferrous Gluconate (Fergon) 324 mg DAILY PO 06/11/19 09:00 06/15/19 09:51 Gabapentin (Neurontin) 100 mg QHS PO 06/10/19 21:00 06/14/19 21:50 Levothyroxine Sodium (Synthroid) 112 mcg DAILY@06 PO 06/11/19 06:00 06/15/19 05:39 Lidocaine (Lidoderm Patch) 1 patch DAILY TD 06/11/19 09:00 06/15/19 09:52 Magnesium Hydroxide (Milk Of Magnesia) 30 ml DAILYPRN PRN PO CONSTIPATION 06/10/19 17:30 06/11/19 13:00 Magnesium Oxide (Mag-Ox) 800 mg BID PO 06/10/19 21:00 06/15/19 09:50 Non-Formulary Medication ( See Comment Field Below ) REMOVE LIDODERM PATCH DAILY@21 XX 06/10/19 21:00 06/14/19 21:51 Omeprazole (PriLOSEC) 20 mg DAILY PO 06/11/19 09:00 06/15/19 09:51 Oxycodone HCl (Roxicodone, Oxyir) 5 mg Q4HP PRN PO PAIN 06/10/19 17:30 06/15/19 08:46 DC 06/12/19 06:01 Oxycodone HCl (Roxicodone, Oxyir) 10 mg Q4HP PRN PO SEVERE PAIN (PS 8-10) 06/10/19 17:30 06/11/19 09:02 DC 06/10/19 18:04 Potassium Chloride (Micro-K Extencaps) 10 meq QHS PO 06/10/19 21:00 06/14/19 21:50 Senna (Senokot) 1 tab QHS PO 06/10/19 21:00 06/14/19 21:50 SUNITA URRUTIA MD Jun 15, 2019 14:13
--- NOTE | 2019-06-15 14:14 | IPNPDOC ---
PM&R Progress Note DATE OF SERVICE: Jun 15, 2019 [employer] Supervisor Progress Note Subjective: Patient reporting she has hip pain, but is able to participate in therapy. She did not realize she has prn pain medications she can ask for. REVIEW OF SYSTEMS: The following is a completed review of systems and has been reviewed. Review of systems otherwise unremarkable. PAIN: Patient self reports left hip pain EYES: No recent vision changes EARS, NOSE, & THROAT: No throat pain, or dysphagia, or rhinorrhea CARDIOVASCULAR: Denies chest pain or palpitations PULMONARY: Denies shortness of breath GASTROINTESTINAL: +constipation (resolved) GENITOURINARY: denies dysuria MUSCULOSKELETAL: left hip fracture NEUROLOGICAL:no tremor or seizure activity HEMATOLOGICAL: +anemia SKIN: surgical incision PSYCHIATRIC: Unremarkable All other review of systems found to be negative. PHYSICAL EXAMINATION: VITAL SIGNS: Please see below. GENERAL: Pleasant and cooperative. No acute distress. HEENT: PERRL. Extraocular movements intact. Clear conjunctiva CARDIOVASCULAR: Regular rate and rhythm. No murmurs, rubs, or gallops LUNGS: Clear to auscultation bilaterally. No wheezes. No rhonchi ABDOMEN: Soft, nontender, nondistended. Positive bowel sounds. Normal active bowel sounds NEUROLOGICAL: Alert and oriented times three. Cranial nerves II through XII grossly intact. Sensation grossly intact in all 4 extremities including 1st web space of left dorsal foot EXTREMITIES: 5\5 strength bilateral upper extremities. 5\5 strength right lower extremity. 5/5 strength in left ankle Df, EHL and PF (limited due to surgery) SKIN: left hip incision without induration, mild swelling and ecchymosis ASSESSMENT:79-year-old F with past medical history of fibromyalgia, who presents status post left hip fracture resulting in a left THR. PLAN: 1. Rehab: PT strengthen/stretch/maintain bilat LE maintain total hip precautions, advance gait and improve endurance, walking with RW OT- strengthen/stretch/maintain bilat UE maintain total hip precautions for ADL management 2. Neuro: pmh fibromyalgia c/u Cymbalta 3. Cardio: Afib with valvular replacmenet on Eliquis, c/u Amdiodarone- medicine consulted to assist in management 4. Resp: encourage incentive spiroemtry, monitor for infectio 5. Ortho: s/p left hip fracture s/p total hip arthroplasty with THR, hip precautions, ortho consulted 6. Endo: pmh hypothyroidism c/u synthroid 7. GI ppx: omeprazole, optimize bowel care, will give lactulose followed by suppository 8. DVT ppx: Eliquis and TEDs 9. Pain: Oxycodone 5mg q4h prn, Tylenol standing, on Cymbalta, c/u lidoderm patch and ice, evening Gabapentin 100mg, avoid Tramadol while on Cymbalta to prevent serotonin syndrome, baclofen BID prn muscle spasm 10. Dispo: TBD Allergies Coded Allergies: levofloxacin (Verified Adverse Reaction, Intermediate, muscle spasm, 12/18/18) Vital Signs Vital Signs Date Time Temp Pulse Resp B/P (MAP) Pulse Ox O2 Delivery O2 Flow Rate FiO2 06/15/19 10:17 18 06/15/19 06:00 98.1 75 92/53 (66) 97 Laboratory Data CBC/BMP Laboratory Tests 06/15/19 06:17 Red Blood Count 2.76 L, Mean Corpuscular Volume 96.7 H, Mean Corpuscular Hemoglobin 31.2, Mean Corpuscular Hemoglobin Concent 32.2, Red Cell Distribution Width 13.6, Neutrophils (%) (Auto) 62.9, Lymphocytes (%) (Auto) 12.2 L, Monocytes (%) (Auto) 20.6 H, Eosinophils (%) (Auto) 2.4, Basophils (%) (Auto) 0.6, Neutrophils # (Auto) 2.9, Lymphocytes # (Auto) 0.6 L, Monocytes # (Auto) 1.0 H, Eosinophils # (Auto) 0.1, Basophils # (Auto) 0.0, Calcium Level 10.3 H Labs 24H Laboratory Tests 2 06/15/19 06:17: Immature Granulocyte % (Auto) 1.3, White Blood Count 4.7, Red Blood Count 2.76L, Hemoglobin 8.6L, Hematocrit 26.7L, Mean Corpuscular Volume 96.7H, Mean Corpuscular Hemoglobin 31.2, Mean Corpuscular Hemoglobin Concent 32.2, Red Cell Distribution Width 13.6, Platelet Count 224, Neutrophils (%) (Auto) 62.9, Lymphocytes (%) (Auto) 12.2L, Monocytes (%) (Auto) 20.6H, Eosinophils (%) (Auto) 2.4, Basophils (%) (Auto) 0.6, Neutrophils # (Auto) 2.9, Lymphocytes # (Auto) 0.6L, Monocytes # (Auto) 1.0H, Eosinophils # (Auto) 0.1, Basophils # (Auto) 0.0, Nucleated Red Blood Cells % (auto) 0.0, Anion Gap 7L, Glomerular Filtration Rate > 60.0, Blood Urea Nitrogen 26H, Creatinine 0.63, Sodium Level 137, Potassium Level 3.5, Chloride Level 107, Carbon Dioxide Level 23, Calcium Level 10.3H Current Medications Current Medications Current Medications Medications (Trade) Dose Ordered Sig/Shira Route PRN Reason Start Time Stop Time Status Last Admin Dose Admin Acetaminophen (Tylenol Tab) 1,000 mg TID PO 06/10/19 21:00 06/15/19 09:51 Amiodarone HCl (Pacerone, Cordarone) 200 mg DAILY PO 06/11/19 09:00 06/15/19 09:50 Apixaban (Eliquis) 5 mg BID PO 06/10/19 21:00 06/15/19 09:50 Baclofen (Lioresal) 5 mg BID PO 06/10/19 21:00 06/11/19 09:02 DC 06/11/19 08:55 Baclofen (Lioresal) 5 mg BID PRN PO SPASMS 06/11/19 09:15 06/15/19 08:46 DC 06/14/19 21:51 Bisacodyl (Dulcolax Suppository) 10 mg DAILYPRN PRN [place] CONSTIPATION 06/10/19 17:30 Bisacodyl (Dulcolax Tab) 5 mg DAILY PO 06/12/19 09:00 06/15/19 09:50 Docusate Sodium (Colace) 100 mg BID PO 06/10/19 21:00 06/12/19 11:51 DC 06/12/19 09:09 Docusate Sodium (Colace) 100 mg TID PO 06/12/19 16:00 06/15/19 09:50 Duloxetine HCl (Cymbalta) 90 mg DAILY PO 06/11/19 09:00 06/15/19 09:51 Ferrous Gluconate (Fergon) 324 mg DAILY PO 06/11/19 09:00 06/15/19 09:51 Gabapentin (Neurontin) 100 mg QHS PO 06/10/19 21:00 06/14/19 21:50 Levothyroxine Sodium (Synthroid) 112 mcg DAILY@06 PO 06/11/19 06:00 06/15/19 05:39 Lidocaine (Lidoderm Patch) 1 patch DAILY TD 06/11/19 09:00 06/15/19 09:52 Magnesium Hydroxide (Milk Of Magnesia) 30 ml DAILYPRN PRN PO CONSTIPATION 06/10/19 17:30 06/11/19 13:00 Magnesium Oxide (Mag-Ox) 800 mg BID PO 06/10/19 21:00 06/15/19 09:50 Non-Formulary Medication ( See Comment Field Below ) REMOVE LIDODERM PATCH DAILY@21 XX 06/10/19 21:00 06/14/19 21:51 Omeprazole (PriLOSEC) 20 mg DAILY PO 06/11/19 09:00 06/15/19 09:51 Oxycodone HCl (Roxicodone, Oxyir) 5 mg Q4HP PRN PO PAIN 06/10/19 17:30 06/15/19 08:46 DC 06/12/19 06:01 Oxycodone HCl (Roxicodone, Oxyir) 10 mg Q4HP PRN PO SEVERE PAIN (PS 8-10) 06/10/19 17:30 06/11/19 09:02 DC 06/10/19 18:04 Potassium Chloride (Micro-K Extencaps) 10 meq QHS PO 06/10/19 21:00 06/14/19 21:50 Senna (Senokot) 1 tab QHS PO 06/10/19 21:00 06/14/19 21:50 SUNITA URRUTIA MD Jun 15, 2019 14:14
[2019-06-15 20:00] VITALS: BP 94/49
[2019-06-15] MEDS: GABAPENTIN 100 MG CAP PO SCH (21:26)
[2019-06-15] MEDS: POTASSIUM CHLORIDE 10 MEQ SR TABLET PO SCH (21:26)
[2019-06-15] MEDS: SENNA 8.6 MG TAB (SENOKOT) PO SCH (21:26)
[2019-06-15] MEDS: oxyCODONE 5MG TAB PO PRN (21:27)
[2019-06-15] MEDS: **NOTE PATIENT COMMENT** MISC XX SCH (21:43)
[2019-06-16] MEDS: LEVOTHYROXINE 112MCG TABLET (0.112MG) PO SCH (05:49)
[2019-06-16 06:05] VITALS: BP 102/54
[2019-06-16] MEDS: BISACODYL 5 MG TAB PO SCH (07:45)
[2019-06-16] MEDS: oxyCODONE 5MG TAB PO PRN ×3 (07:45→21:46)
[2019-06-16] MEDS: AMIODARONE 200 MG TAB (PACERONE) PO SCH (07:46)
[2019-06-16] MEDS: DOCUSATE SODIUM 100 MG CAP PO SCH ×3 (07:46→20:35)
[2019-06-16] MEDS: OMEPRAZOLE 20 MG CAP PO SCH (07:46)
[2019-06-16] MEDS: DULoxetine 30 MG CAP (CYMBALTA) PO SCH (07:46)
[2019-06-16] MEDS: APIXABAN 5 MG TAB (ELIQUIS) PO SCH ×2 (07:46→20:34)
[2019-06-16] MEDS: MAGNESIUM OXIDE 400 MG TAB (MAG-OX) PO SCH ×2 (07:47→20:33)
[2019-06-16] MEDS: ACETAMINOPHEN 500 MG TAB PO SCH ×3 (07:47→20:35)
[2019-06-16] MEDS: LIDOCAINE 5% (LIDODERM) PATCH TD SCH (07:48)
[2019-06-16] MEDS: FERROUS GLUCONATE 324 MG TAB PO SCH (07:48)
[2019-06-16 07:58] LABS: BASO % 0.6 % (0.0-1.0); EOS # 0.1 10^3/uL (0.0-0.5); EOS % 2.4 % (0.0-3.0); HEMATOCRIT 26.9 % (36.0-47.0); HEMOGLOBIN 8.6 g/dl (12.0-15.5); LYMPH # 0.7 10^3/uL (1.5-5.0); MEAN CORPUSCULAR HEMOGLOBIN 30.8 pg (27.0-33.0); MEAN CORPUSCULAR VOLUME 96.4 fl (80.0-96.0); MONO # 0.9 10^3/uL (0.0-0.8); MONO % 18.4 % (0.0-5.0); NEUTROPHILS # 3.2 10^3/uL (1.5-8.5); NEUTROPHILS % 63.2 % (36.0-66.0); PLATELET COUNT, AUTOMATED 274 10^3/uL (150-450); RED BLOOD COUNT 2.79 10^6/uL (4.00-5.40); WHITE BLOOD COUNT 5.1 10^3/uL (4.0-10.0)
[2019-06-16 14:00] VITALS: BP 106/55
[2019-06-16 20:00] VITALS: BP 110/60
[2019-06-16] MEDS: POTASSIUM CHLORIDE 10 MEQ SR TABLET PO SCH (20:34)
[2019-06-16] MEDS: GABAPENTIN 100 MG CAP PO SCH (20:35)
[2019-06-16] MEDS: SENNA 8.6 MG TAB (SENOKOT) PO SCH (20:35)
[2019-06-16] MEDS: **NOTE PATIENT COMMENT** MISC XX SCH (20:36)
[2019-06-17] MEDS: LEVOTHYROXINE 112MCG TABLET (0.112MG) PO SCH (05:59)
[2019-06-17 06:00] VITALS: BP 92/51
[2019-06-17 06:39] LABS: HEMATOCRIT 27.1 % (36.0-47.0); HEMOGLOBIN 8.8 g/dl (12.0-15.5); MEAN CORPUSCULAR HEMOGLOBIN 32.4 pg (27.0-33.0); MEAN CORPUSCULAR HGB CONC 32.5 g/dl (32.0-36.5); MEAN CORPUSCULAR VOLUME 99.6 fl (80.0-96.0); PLATELET COUNT, AUTOMATED 285 10^3/uL (150-450); RED BLOOD COUNT 2.72 10^6/uL (4.00-5.40); WHITE BLOOD COUNT 5.3 10^3/uL (4.0-10.0)
[2019-06-17] MEDS: DOCUSATE SODIUM 100 MG CAP PO SCH ×3 (08:19→21:41)
[2019-06-17] MEDS: FERROUS GLUCONATE 324 MG TAB PO SCH ×2 (08:19→21:41)
[2019-06-17] MEDS: DULoxetine 30 MG CAP (CYMBALTA) PO SCH (08:19)
[2019-06-17] MEDS: BISACODYL 5 MG TAB PO SCH (08:19)
[2019-06-17] MEDS: AMIODARONE 200 MG TAB (PACERONE) PO SCH (08:19)
[2019-06-17] MEDS: LIDOCAINE 5% (LIDODERM) PATCH TD SCH (08:19)
[2019-06-17] MEDS: OMEPRAZOLE 20 MG CAP PO SCH (08:20)
[2019-06-17] MEDS: ACETAMINOPHEN 500 MG TAB PO SCH ×3 (08:20→21:42)
[2019-06-17] MEDS: APIXABAN 5 MG TAB (ELIQUIS) PO SCH ×2 (08:20→21:41)
[2019-06-17] MEDS: MAGNESIUM OXIDE 400 MG TAB (MAG-OX) PO SCH ×2 (08:20→21:41)
[2019-06-17] MEDS ORDERED: SODIUM CHLORIDE 0.9% INJ 10 ML SYR IV SCH (09:00)
[2019-06-17] MEDS: GABAPENTIN 100 MG CAP PO SCH ×3 (12:40→21:41)
--- NOTE | 2019-06-17 13:47 | IPNPDOC ---
Text Note Date of Service The patient was seen on 06/17/19. NOTE Subjective: Patient was seen and examined at the bedside. Currently, patient reports that she's feeling well and has progressed with physical therapy. She denies any chest pain, shortness of breath or palpitation. She denies nausea, vomiting, abdominal pain or diarrhea. Objective: Vitals (See below) General: Lying in bed, no acute distress, comfortable, AAOx3 HEENT: NC, AT CVS: +S1S2 Lungs: Fair air entry b/l, -w/r/r Abdomen: Soft, ND, NT Extremities: - Edema, - Calf tenderness Assessment and plan: Fracture of left femoral neck - s/p total left hip arthroplasty 06/09/2019 - Pain control and physical therapy in the direction of orthopedic surgery and ARU Multiple Myeloma - Chronic - Follows with outpatient provider Fibromyalgia - c/w Duloxetine Atrial fibrillation - Patient appears to be rate/rhythm control - c/w Amiodarone - c/w Eliquis Hypothyroidism - c/w Levothyroxine Neuropathy - c/w Gabapentin GI prophylaxis - c/w Omeprazole DVT prophylaxis - c/w full anticoagulation with Eliquis VS,Fishbone, I+O VS, Fishbone, I+O Laboratory Tests 06/17/19 06:18 Red Blood Count 2.72 L, Mean Corpuscular Volume 99.6 H, Mean Corpuscular Hemoglobin 32.4, Mean Corpuscular Hemoglobin Concent 32.5, Red Cell Distribution Width 14.1 Vital Signs Date Time Temp Pulse Resp B/P (MAP) Pulse Ox O2 Delivery O2 Flow Rate FiO2 06/17/19 06:00 97.5 76 18 92/51 (65) 98 I&O- Last 24 Hours up to 6 AM 06/17/19 06:00 Intake Total 1160 ml Balance 1160 ml JASKARAN GOODEN MD Jun 17, 2019 13:47
[2019-06-17 14:00] VITALS: BP 99/58
--- NOTE | 2019-06-17 18:23 | IPNPDOC ---
PM&R Progress Note DATE OF SERVICE: Jun 16, 2019 [employer] Progress Note Subjective: Patient reporting she is feeling ok, is able to participate in therapy, still having pain. REVIEW OF SYSTEMS: The following is a completed review of systems and has been reviewed. Review of systems otherwise unremarkable. PAIN: Patient self reports left hip pain EYES: No recent vision changes EARS, NOSE, & THROAT: No throat pain, or dysphagia, or rhinorrhea CARDIOVASCULAR: Denies chest pain or palpitations PULMONARY: Denies shortness of breath GASTROINTESTINAL: +constipation (resolved) GENITOURINARY: denies dysuria MUSCULOSKELETAL: left hip fracture NEUROLOGICAL:no tremor or seizure activity HEMATOLOGICAL: +anemia SKIN: surgical incision PSYCHIATRIC: Unremarkable All other review of systems found to be negative. PHYSICAL EXAMINATION: VITAL SIGNS: Please see below. GENERAL: Pleasant and cooperative. No acute distress. HEENT: PERRL. Extraocular movements intact. Clear conjunctiva CARDIOVASCULAR: Regular rate and rhythm. No murmurs, rubs, or gallops LUNGS: Clear to auscultation bilaterally. No wheezes. No rhonchi ABDOMEN: Soft, nontender, nondistended. Positive bowel sounds. Normal active bowel sounds NEUROLOGICAL: Alert and oriented times three. Cranial nerves II through XII grossly intact. Sensation grossly intact in all 4 extremities including 1st web space of left dorsal foot EXTREMITIES: 5\5 strength bilateral upper extremities. 5\5 strength right lower extremity. 5/5 strength in left ankle Df, EHL and PF (limited due to surgery) SKIN: left hip incision without induration, mild swelling and ecchymosis ASSESSMENT:79-year-old F with past medical history of fibromyalgia, who presents status post left hip fracture resulting in a left THR. PLAN: 1. Rehab: PT strengthen/stretch/maintain bilat LE maintain total hip precau tions, advance gait and improve endurance, walking with RW OT- strengthen/stretch/maintain bilat UE maintain total hip precautions for ADL management 2. Neuro: pmh fibromyalgia c/u Cymbalta 3. Cardio: Afib with valvular replacmenet on Eliquis, c/u Amdiodarone- medicine consulted to assist in management 4. Resp: encourage incentive spiroemtry, monitor for infectio 5. Ortho: s/p left hip fracture s/p total hip arthroplasty with THR, hip precautions, ortho consulted 6. Endo: pmh hypothyroidism c/u synthroid 7. GI ppx: omeprazole, optimize bowel care, will give lactulose followed by suppository 8. DVT ppx: Eliquis and TEDs 9. Pain: Oxycodone 5mg q4h prn, Tylenol standing, on Cymbalta, c/u lidoderm patch and ice, evening Gabapentin 100mg, avoid Tramadol while on Cymbalta to prevent serotonin syndrome, baclofen BID prn muscle spasm 10. Dispo: 06/26/19 to home, progressing towards goals Allergies Coded Allergies: levofloxacin (Verified Adverse Reaction, Intermediate, muscle spasm, 12/18/18) Vital Signs Vital Signs Date Time Temp Pulse Resp B/P (MAP) Pulse Ox O2 Delivery O2 Flow Rate FiO2 06/17/19 14:00 97.6 77 18 99/58 (72) 98 Laboratory Data CBC/BMP Laboratory Tests 06/17/19 06:18 Red Blood Count 2.72 L, Mean Corpuscular Volume 99.6 H, Mean Corpuscular Hemog lobin 32.4, Mean Corpuscular Hemoglobin Concent 32.5, Red Cell Distribution Width 14.1 Labs 24H Laboratory Tests 2 06/17/19 06:18: Nucleated Red Blood Cells % (auto) 0.0 Current Medications Current Medications Current Medications Medications (Trade) Dose Ordered Sig/Shira Route PRN Reason Start Time Stop Time Status Last Admin Dose Admin Acetaminophen (Tylenol Tab) 1,000 mg TID PO 06/10/19 21:00 06/17/19 15:37 Amiodarone HCl (Pacerone, Cordarone) 200 mg DAILY PO 06/11/19 09:00 06/17/19 08:19 Apixaban (Eliquis) 5 mg BID PO 06/10/19 21:00 06/17/19 08:20 Baclofen (Lioresal) 5 mg BID PO 06/10/19 21:00 06/11/19 09:02 DC 06/11/19 08:55 Baclofen (Lioresal) 5 mg BID PRN PO SPASMS 06/11/19 09:15 06/15/19 08:46 DC 06/14/19 21:51 Bisacodyl (Dulcolax Suppository) 10 mg DAILYPRN PRN [place] CONSTIPATION 06/10/19 17:30 Bisacodyl (Dulcolax Tab) 5 mg DAILY PO 06/12/19 09:00 06/17/19 08:19 Docusate Sodium (Colace) 100 mg BID PO 06/10/19 21:00 06/12/19 11:51 DC 06/12/19 09:09 Docusate Sodium (Colace) 100 mg TID PO 06/12/19 16:00 06/17/19 15:37 Duloxetine HCl (Cymbalta) 90 mg DAILY PO 06/11/19 09:00 06/17/19 08:19 Ferrous Gluconate (Fergon) 324 mg BID PO 06/17/19 21:00 Ferrous Gluconate (Fergon) 324 mg DAILY PO 06/11/19 09:00 06/17/19 09:47 DC 06/17/19 08:19 Gabapentin (Neurontin) 100 mg QHS PO 06/10/19 21:00 06/17/19 12:25 DC 06/16/19 20:35 Gabapentin (Neurontin) 100 mg TID PO 06/17/19 09:00 06/17/19 15:37 Heparin Sodium (Heparin (Flush)) 500 units Q30D IV 06/17/19 09:00 06/17/19 08:20 Levothyroxine Sodium (Synthroid) 112 mcg DAILY@06 PO 06/11/19 06:00 06/17/19 05:59 Lidocaine (Lidoderm Patch) 1 patch DAILY TD 06/11/19 09:00 06/17/19 08:19 Magnesium Hydroxide (Milk Of Magnesia) 30 ml DAILYPRN PRN PO CONSTIPATION 06/10/19 17:30 06/11/19 13:00 Magnesium Oxide (Mag-Ox) 800 mg BID PO 06/10/19 21:00 06/17/19 08:20 Miscellaneous (Unresolved Clarification Entry) SEE LABEL COMMENTS DAILY XX 06/16/19 09:00 06/17/19 13:24 DC Miscellaneous (Unresolved Clarification Entry) SEE LABEL COMMENTS DAILY XX 06/17/19 09:00 06/17/19 13:44 DC Non-Formulary Medication ( See Comment Field Below ) REMOVE LIDODERM PATCH DAILY@21 XX 06/10/19 21:00 06/16/19 20:36 Omeprazole (PriLOSEC) 20 mg DAILY PO 06/11/19 09:00 06/17/19 08:20 Oxycodone HCl (Roxicodone, Oxyir) 5 mg Q4HP PRN PO PAIN 06/10/19 17:30 06/15/19 08:46 DC 06/12/19 06:01 Oxycodone HCl (Roxicodone, Oxyir) 5 mg Q6HP PRN PO PAIN 06/15/19 14:30 06/16/19 21:46 Oxycodone HCl (Roxicodone, Oxyir) 10 mg Q4HP PRN PO SEVERE PAIN (PS 8-10) 06/10/19 17:30 06/11/19 09:02 DC 06/10/19 18:04 Potassium Chloride (Micro-K Extencaps) 10 meq QHS PO 06/10/19 21:00 06/16/19 20:34 Senna (Senokot) 1 tab QHS PO 06/10/19 21:00 06/15/19 21:26 Sodium Chloride (Saline Lock Flush) 10 ml Q30D IV 06/17/19 09:00 06/17/19 08:20 SUNITA URRUTIA MD Jun 17, 2019 18:23
--- NOTE | 2019-06-17 18:25 | IPNPDOC ---
PM&R Progress Note DATE OF SERVICE: Jun 17, 2019 [employer] Teacher Progress Note Subjective: Patient reporting she had a bowel movement yesterday and feels she is coming along in therapy. She denies dizziness and is open to trying Gabapentin during the day. REVIEW OF SYSTEMS: The following is a completed review of systems and has been reviewed. Review of systems otherwise unremarkable. PAIN: Patient self reports left hip pain EYES: No recent vision changes EARS, NOSE, & THROAT: No throat pain, or dysphagia, or rhinorrhea CARDIOVASCULAR: Denies chest pain or palpitations PULMONARY: Denies shortness of breath GASTROINTESTINAL: +constipation (resolved) GENITOURINARY: denies dysuria MUSCULOSKELETAL: left hip fracture NEUROLOGICAL:no tremor or seizure activity HEMATOLOGICAL: +anemia SKIN: surgical incision PSYCHIATRIC: Unremarkable All other review of systems found to be negative. PHYSICAL EXAMINATION: VITAL SIGNS: Please see below. GENERAL: Pleasant and cooperative. No acute distress. HEENT: PERRL. Extraocular movements intact. Clear conjunctiva CARDIOVASCULAR: Regular rate and rhythm. No murmurs, rubs, or gallops LUNGS: Clear to auscultation bilaterally. No wheezes. No rhonchi ABDOMEN: Soft, nontender, nondistended. Positive bowel sounds. Normal active bowel sounds NEUROLOGICAL: Alert and oriented times three. Cranial nerves II through XII grossly intact. Sensation grossly intact in all 4 extremities including 1st web space of left dorsal foot EXTREMITIES: 5\5 strength bilateral upper extremities. 5\5 strength right lower extremity. 5/5 strength in left ankle Df, EHL and PF (limited due to surgery) SKIN: left hip incision without induration, mild swelling and ecchymosis ASSESSMENT:79-year-old F with past medical history of fibromyalgia, who presents status post left hip fracture resulting in a left THR. PLAN: 1. Rehab: PT strengthen/stretch/maintain bilat LE maintain total hip precautions, advance gait and improve endurance, walking with RW OT- strengthen/stretch/maintain bilat UE maintain total hip precautions for ADL management 2. Neuro: pmh fibromyalgia c/u Cymbalta 3. Cardio: Afib with valvular replacement on Eliquis, c/u Amdiodarone- medicine consulted to assist in management -patient denies feeling dizzy stating she has a hx of low BPs 4. Resp: encourage incentive spiroemtry, monitor for infectio 5. Ortho: s/p left hip fracture s/p total hip arthroplasty with THR, hip precautions, ortho consulted 6. Endo: pmh hypothyroidism c/u synthroid 7. GI ppx: omeprazole, optimize bowel care, will give lactulose followed by suppository 8. DVT ppx: Eliquis and TEDs 9. Pain: Oxycodone 5mg q4h prn, Tylenol standing, on Cymbalta, c/u lidoderm patch and ice, -will increase Gabapentin 100mg to TID -baclofen BID prn muscle spasm 10. Heme: pst-op anemia- patient with sanguinous drainage overnight, Hgb stable will recheck tomorrow 10. Dispo: 06/26/19 to home, progressing towards goals Allergies Coded Allergies: levofloxacin (Verified Adverse Reaction, Intermediate, muscle spasm, 12/18/18) Vital Signs Vital Signs Date Time Temp Pulse Resp B/P (MAP) Pulse Ox O2 Delivery O2 Flow Rate FiO2 06/17/19 14:00 97.6 77 18 99/58 (72) 98 Laboratory Data CBC/BMP Laboratory Tests 06/17/19 06:18 Red Blood Count 2.72 L, Mean Corpuscular Volume 99.6 H, Mean Corpuscular Hemoglobin 32.4, Mean Corpuscular Hemoglobin Concent 32.5, Red Cell Distribution Width 14.1 Labs 24H Laboratory Tests 2 06/17/19 06:18: Nucleated Red Blood Cells % (auto) 0.0 Current Medications Current Medications Current Medications Medications (Trade) Dose Ordered Sig/Shira Route PRN Reason Start Time Stop Time Status Last Admin Dose Admin Acetaminophen (Tylenol Tab) 1,000 mg TID PO 06/10/19 21:00 06/17/19 15:37 Amiodarone HCl (Pacerone, Cordarone) 200 mg DAILY PO 06/11/19 09:00 06/17/19 08:19 Apixaban (Eliquis) 5 mg BID PO 06/10/19 21:00 06/17/19 08:20 Baclofen (Lioresal) 5 mg BID PO 06/10/19 21:00 06/11/19 09:02 DC 06/11/19 08:55 Baclofen (Lioresal) 5 mg BID PRN PO SPASMS 06/11/19 09:15 06/15/19 08:46 DC 06/14/19 21:51 Bisacodyl (Dulcolax Suppository) 10 mg DAILYPRN PRN [place] CONSTIPATION 06/10/19 17:30 Bisacodyl (Dulcolax Tab) 5 mg DAILY PO 06/12/19 09:00 06/17/19 08:19 Docusate Sodium (Colace) 100 mg BID PO 06/10/19 21:00 06/12/19 11:51 DC 06/12/19 09:09 Docusate Sodium (Colace) 100 mg TID PO 06/12/19 16:00 06/17/19 15:37 Duloxetine HCl (Cymbalta) 90 mg DAILY PO 06/11/19 09:00 06/17/19 08:19 Ferrous Gluconate (Fergon) 324 mg BID PO 06/17/19 21:00 Ferrous Gluconate (Fergon) 324 mg DAILY PO 06/11/19 09:00 06/17/19 09:47 DC 06/17/19 08:19 Gabapentin (Neurontin) 100 mg QHS PO 06/10/19 21:00 06/17/19 12:25 DC 06/16/19 20:35 Gabapentin (Neurontin) 100 mg TID PO 06/17/19 09:00 06/17/19 15:37 Heparin Sodium (Heparin (Flush)) 500 units Q30D IV 06/17/19 09:00 06/17/19 08:20 Levothyroxine Sodium (Synthroid) 112 mcg DAILY@06 PO 06/11/19 06:00 06/17/19 05:59 Lidocaine (Lidoderm Patch) 1 patch DAILY TD 06/11/19 09:00 06/17/19 08:19 Magnesium Hydroxide (Milk Of Magnesia) 30 ml DAILYPRN PRN PO CONSTIPATION 06/10/19 17:30 06/11/19 13:00 Magnesium Oxide (Mag-Ox) 800 mg BID PO 06/10/19 21:00 06/17/19 08:20 Miscellaneous (Unresolved Clarification Entry) SEE LABEL COMMENTS DAILY XX 06/16/19 09:00 06/17/19 13:24 DC Miscellaneous (Unresolved Clarification Entry) SEE LABEL COMMENTS DAILY XX 06/17/19 09:00 06/17/19 13:44 DC Non-Formulary Medication ( See Comment Field Below ) REMOVE LIDODERM PATCH DAILY@21 XX 06/10/19 21:00 06/16/19 20:36 Omeprazole (PriLOSEC) 20 mg DAILY PO 06/11/19 09:00 06/17/19 08:20 Oxycodone HCl (Roxicodone, Oxyir) 5 mg Q4HP PRN PO PAIN 06/10/19 17:30 06/15/19 08:46 DC 06/12/19 06:01 Oxycodone HCl (Roxicodone, Oxyir) 5 mg Q6HP PRN PO PAIN 06/15/19 14:30 06/16/19 21:46 Oxycodone HCl (Roxicodone, Oxyir) 10 mg Q4HP PRN PO SEVERE PAIN (PS 8-10) 06/10/19 17:30 06/11/19 09:02 DC 06/10/19 18:04 Potassium Chloride (Micro-K Extencaps) 10 meq QHS PO 06/10/19 21:00 06/16/19 20:34 Senna (Senokot) 1 tab QHS PO 06/10/19 21:00 06/15/19 21:26 Sodium Chloride (Saline Lock Flush) 10 ml Q30D IV 06/17/19 09:00 06/17/19 08:20 SUNITA URRUTIA MD Jun 17, 2019 18:25
[2019-06-17 20:00] VITALS: BP 90/52
[2019-06-17] MEDS: POTASSIUM CHLORIDE 10 MEQ SR TABLET PO SCH (21:41)
[2019-06-17] MEDS: SENNA 8.6 MG TAB (SENOKOT) PO SCH (21:41)
[2019-06-17] MEDS: **NOTE PATIENT COMMENT** MISC XX SCH (21:42)
[2019-06-17] MEDS: oxyCODONE 5MG TAB PO PRN (21:46)
[2019-06-18 04:00] VITALS: BP 92/54
[2019-06-18] MEDS: LEVOTHYROXINE 112MCG TABLET (0.112MG) PO SCH (06:41)
[2019-06-18] MEDS: OMEPRAZOLE 20 MG CAP PO SCH (09:22)
[2019-06-18] MEDS: DULoxetine 30 MG CAP (CYMBALTA) PO SCH (09:22)
[2019-06-18] MEDS: MAGNESIUM OXIDE 400 MG TAB (MAG-OX) PO SCH ×2 (09:22→20:22)
[2019-06-18] MEDS: GABAPENTIN 100 MG CAP PO SCH ×3 (09:22→20:23)
[2019-06-18] MEDS: BISACODYL 5 MG TAB PO SCH (09:23)
[2019-06-18] MEDS: LIDOCAINE 5% (LIDODERM) PATCH TD SCH (09:23)
[2019-06-18] MEDS: FERROUS GLUCONATE 324 MG TAB PO SCH ×2 (09:23→20:23)
[2019-06-18] MEDS: ACETAMINOPHEN 500 MG TAB PO SCH ×3 (09:23→20:23)
[2019-06-18] MEDS: APIXABAN 5 MG TAB (ELIQUIS) PO SCH ×2 (09:23→20:23)
[2019-06-18] MEDS: DOCUSATE SODIUM 100 MG CAP PO SCH ×3 (09:23→20:24)
[2019-06-18] MEDS: AMIODARONE 200 MG TAB (PACERONE) PO SCH (09:23)
[2019-06-18] MEDS: oxyCODONE 5MG TAB PO SCH ×2 (12:33→20:23)
[2019-06-18 14:00] VITALS: BP 111/53
[2019-06-18 20:00] VITALS: BP 90/52
[2019-06-18] MEDS: SENNA 8.6 MG TAB (SENOKOT) PO SCH (20:23)
[2019-06-18] MEDS: **NOTE PATIENT COMMENT** MISC XX SCH (20:23)
[2019-06-18] MEDS: POTASSIUM CHLORIDE 10 MEQ SR TABLET PO SCH (20:24)
[2019-06-19] MEDS: oxyCODONE 5MG TAB PO PRN ×2 (02:09→14:49)
[2019-06-19 06:00] VITALS: BP 94/58
[2019-06-19] MEDS: LEVOTHYROXINE 112MCG TABLET (0.112MG) PO SCH (06:02)
[2019-06-19 06:22] LABS: BASO % 0.6 % (0.0-1.0); EOS # 0.2 10^3/uL (0.0-0.5); EOS % 3.3 % (0.0-3.0); HEMATOCRIT 25.8 % (36.0-47.0); HEMOGLOBIN 8.3 g/dl (12.0-15.5); LYMPH # 0.8 10^3/uL (1.5-5.0); LYMPH % 15.9 % (24.0-44.0); MEAN CORPUSCULAR HEMOGLOBIN 32.5 pg (27.0-33.0); MEAN CORPUSCULAR HGB CONC 32.2 g/dl (32.0-36.5); MEAN CORPUSCULAR VOLUME 101.2 fl (80.0-96.0); MONO # 0.8 10^3/uL (0.0-0.8); MONO % 15.9 % (0.0-5.0); NEUTROPHILS # 3.2 10^3/uL (1.5-8.5); NEUTROPHILS % 62.6 % (36.0-66.0); PLATELET COUNT, AUTOMATED 304 10^3/uL (150-450); RED BLOOD COUNT 2.55 10^6/uL (4.00-5.40); WHITE BLOOD COUNT 5.2 10^3/uL (4.0-10.0)
[2019-06-19 06:53] LABS: BLOOD UREA NITROGEN 24 MG/DL (7-18); CALCIUM LEVEL 10.3 MG/DL (8.8-10.2); CARBON DIOXIDE LEVEL 27 MEQ/L (21-32); CHLORIDE LEVEL 109 MEQ/L (98-107); CREATININE FOR GFR 0.81 MG/DL (0.55-1.30); GLOMERULAR FILTRATION RATE > 60.0 (>39); GLUCOSE, FASTING 74 MG/DL (70-100); POTASSIUM SERUM 4.2 MEQ/L (3.5-5.1); SODIUM LEVEL 142 MEQ/L (136-145)
[2019-06-19] MEDS: DOCUSATE SODIUM 100 MG CAP PO SCH ×3 (09:35→21:41)
[2019-06-19] MEDS: ACETAMINOPHEN 500 MG TAB PO SCH ×3 (09:36→21:40)
[2019-06-19] MEDS: oxyCODONE 5MG TAB PO SCH ×2 (09:36→18:09)
[2019-06-19] MEDS: GABAPENTIN 100 MG CAP PO SCH ×3 (09:36→21:40)
[2019-06-19] MEDS: MAGNESIUM OXIDE 400 MG TAB (MAG-OX) PO SCH ×2 (09:36→21:40)
[2019-06-19] MEDS: FERROUS GLUCONATE 324 MG TAB PO SCH ×2 (09:37→21:40)
[2019-06-19] MEDS: APIXABAN 5 MG TAB (ELIQUIS) PO SCH ×2 (09:37→21:40)
[2019-06-19] MEDS: DULoxetine 30 MG CAP (CYMBALTA) PO SCH (09:37)
[2019-06-19] MEDS: OMEPRAZOLE 20 MG CAP PO SCH (09:37)
[2019-06-19] MEDS: AMIODARONE 200 MG TAB (PACERONE) PO SCH (09:37)
[2019-06-19] MEDS: LIDOCAINE 5% (LIDODERM) PATCH TD SCH (09:37)
[2019-06-19] MEDS: BISACODYL 5 MG TAB PO SCH (09:37)
--- NOTE | 2019-06-19 11:39 | IPNPDOC ---
PM&R Progress Note DATE OF SERVICE: Jun 18, 2019 Legal Editor Progress Note Subjective: Patient seen walking in therapy stating she would like to take Oxycodone at 8 am and 8pm scheduled and maybe once during the day. She reports improvement in endurance, but still struggling with pain. REVIEW OF SYSTEMS: The following is a completed review of systems and has been reviewed. Review of systems otherwise unremarkable. PAIN: Patient self reports left hip pain EYES: No recent vision changes EARS, NOSE, & THROAT: No throat pain, or dysphagia, or rhinorrhea CARDIOVASCULAR: Denies chest pain or palpitations PULMONARY: Denies shortness of breath GASTROINTESTINAL: +constipation (resolved) GENITOURINARY: denies dysuria MUSCULOSKELETAL: left hip fracture NEUROLOGICAL:no tremor or seizure activity HEMATOLOGICAL: +anemia SKIN: surgical incision PSYCHIATRIC: Unremarkable All other review of systems found to be negative. PHYSICAL EXAMINATION: VITAL SIGNS: Please see below. GENERAL: Pleasant and cooperative. No acute distress. HEENT: PERRL. Extraocular movements intact. Clear conjunctiva CARDIOVASCULAR: Regular rate and rhythm. No murmurs, rubs, or gallops LUNGS: Clear to auscultation bilaterally. No wheezes. No rhonchi ABDOMEN: Soft, nontender, nondistended. Positive bowel sounds. Normal active bowel sounds NEUROLOGICAL: Alert and oriented times three. Cranial nerves II through XII grossly intact. Sensation grossly intact in all 4 extremities including 1st web space of left dorsal foot EXTREMITIES: 5\5 strength bilateral upper extremities. 5\5 strength right lower extremity. 5/5 strength in left ankle Df, EHL and PF (limited due to surgery) SKIN: left hip incision without induration, mild swelling and ecchymosis ASSESSMENT:79-year-old F with past medical history of fibromyalgia, who presents status post left hip fracture resulting in a left THR. PLAN: 1. Rehab: PT strengthen/stretch/maintain bilat LE maintain total hip precautions, advance gait and improve endurance, walking with RW, room privileges with OT- strengthen/stretch/maintain bilat UE maintain total hip precautions for ADL management 2. Neuro: pmh fibromyalgia c/u Cymbalta 3. Cardio: Afib with valvular replacement on Eliquis, c/u Amdiodarone- medicine consulted to assist in management -patient denies feeling dizzy stating she has a hx of low BPs 4. Resp: encourage incentive spiroemtry, monitor for infectio 5. Ortho: s/p left hip fracture s/p total hip arthroplasty with THR, hip precautions, ortho consulted 6. Endo: pmh hypothyroidism c/u synthroid 7. GI ppx: omeprazole, optimize bowel care, will give lactulose followed by suppository 8. DVT ppx: Eliquis and TEDs 9. Pain: Oxycodone 5mg q6h prn and schedule 8am and 8pm, Tylenol standing, c/u Cymbalta, c/u lidoderm patch and ice, -c/u Gabapentin 100mg TID -baclofen BID prn muscle spasm 10. Heme: pst-op anemia- Hgb stable, FOBT ordered, will consider transfusion if <8 10. Dispo: 06/26/19 to home, progressing towards goals Allergies Coded Allergies: levofloxacin (Verified Adverse Reaction, Intermediate, muscle spasm, 12/18/18) Vital Signs Vital Signs Date Time Temp Pulse Resp B/P (MAP) Pulse Ox O2 Delivery O2 Flow Rate FiO2 06/19/19 10:06 16 06/19/19 06:00 97.2 78 94/58 (70) 97 Laboratory Data CBC/BMP Laboratory Tests 06/19/19 06:00 Red Blood Count 2.55 L, Mean Corpuscular Volume 101.2 H, Mean Corpuscular Hemoglobin 32.5, Mean Corpuscular Hemoglobin Concent 32.2, Red Cell Distribution Width 14.6 H, Neutrophils (%) (Auto) 62.6, Lymphocytes (%) (Auto) 15.9 L, Monocytes (%) (Auto) 15.9 H, Eosinophils (%) (Auto) 3.3 H, Basophils (%) (Auto) 0.6, Neutrophils # (Auto) 3.2, Lymphocytes # (Auto) 0.8 L, Monocytes # (Auto) 0.8, Eosinophils # (Auto) 0.2, Basophils # (Auto) 0.0, Calcium Level 10.3 H Labs 24H Laboratory Tests 2 06/19/19 06:00: Immature Granulocyte % (Auto) 1.7, White Blood Count 5.2, Red Blood Count 2.55L, Hemoglobin 8.3L, Hematocrit 25.8L, Mean Corpuscular Volume 101.2H, Mean C orpuscular Hemoglobin 32.5, Mean Corpuscular Hemoglobin Concent 32.2, Red Cell Distribution Width 14.6H, Platelet Count 304, Neutrophils (%) (Auto) 62.6, Lymphocytes (%) (Auto) 15.9L, Monocytes (%) (Auto) 15.9H, Eosinophils (%) (Auto) 3.3H, Basophils (%) (Auto) 0.6, Neutrophils # (Auto) 3.2, Lymphocytes # (Auto) 0.8L, Monocytes # (Auto) 0.8, Eosinophils # (Auto) 0.2, Basophils # (Auto) 0.0, Nucleated Red Blood Cells % (auto) 0.0, Anion Gap 6L, Glomerular Filtration Rate > 60.0, Blood Urea Nitrogen 24H, Creatinine 0.81, Sodium Level 142, Potassium Level 4.2, Chloride Level 109H, Carbon Dioxide Level 27, Calcium Level 10.3H Current Medications Current Medications Current Medications Medications (Trade) Dose Ordered Sig/Shira Route PRN Reason Start Time Stop Time Status Last Admin Dose Admin Acetaminophen (Tylenol Tab) 1,000 mg TID PO 06/10/19 21:00 06/19/19 09:36 Amiodarone HCl (Pacerone, Cordarone) 200 mg DAILY PO 06/11/19 09:00 06/19/19 09:37 Apixaban (Eliquis) 5 mg BID PO 06/10/19 21:00 06/19/19 09:37 Baclofen (Lioresal) 5 mg BID PO 06/10/19 21:00 06/11/19 09:02 DC 06/11/19 08:55 Baclofen (Lioresal) 5 mg BID PRN PO SPASMS 06/11/19 09:15 06/15/19 08:46 DC 06/14/19 21:51 Bisacodyl (Dulcolax Suppository) 10 mg DAILYPRN PRN [place] CONSTIPATION 06/10/19 17:30 Bisacodyl (Dulcolax Tab) 5 mg DAILY PO 06/12/19 09:00 06/19/19 09:37 Docusate Sodium (Colace) 100 mg BID PO 06/10/19 21:00 06/12/19 11:51 DC 06/12/19 09:09 Docusate Sodium (Colace) 100 mg TID PO 06/12/19 16:00 06/19/19 09:35 Duloxetine HCl (Cymbalta) 90 mg DAILY PO 06/11/19 09:00 06/19/19 09:37 Ferrous Gluconate (Fergon) 324 mg BID PO 06/17/19 21:00 06/19/19 09:37 Ferrous Gluconate (Fergon) 324 mg DAILY PO 06/11/19 09:00 06/17/19 09:47 DC 06/17/19 08:19 Gabapentin (Neurontin) 100 mg QHS PO 06/10/19 21:00 06/17/19 12:25 DC 06/16/19 20:35 Gabapentin (Neurontin) 100 mg TID PO 06/17/19 09:00 06/19/19 09:36 Heparin Sodium (Heparin (Flush)) 500 units Q30D IV 06/17/19 09:00 06/17/19 08:20 Levothyroxine Sodium (Synthroid) 112 mcg DAILY@06 PO 06/11/19 06:00 06/19/19 06:02 Lidocaine (Lidoderm Patch) 1 patch DAILY TD 06/11/19 09:00 06/19/19 09:37 Magnesium Hydroxide (Milk Of Magnesia) 30 ml DAILYPRN PRN PO CONSTIPATION 06/10/19 17:30 06/11/19 13:00 Magnesium Oxide (Mag-Ox) 800 mg BID PO 06/10/19 21:00 06/19/19 09:36 Miscellaneous (Unresolved Clarification Entry) SEE LABEL COMMENTS DAILY XX 06/16/19 09:00 06/17/19 13:24 DC Miscellaneous (Unresolved Clarification Entry) SEE LABEL COMMENTS DAILY XX 06/17/19 09:00 06/17/19 13:44 DC Non-Formulary Medication ( See Comment Field Below ) REMOVE LIDODERM PATCH DAILY@21 XX 06/10/19 21:00 06/18/19 20:23 Omeprazole (PriLOSEC) 20 mg DAILY PO 06/11/19 09:00 06/19/19 09:37 Oxycodone HCl (Roxicodone, Oxyir) 5 mg BID@0800,2000 PO 06/18/19 11:30 06/19/19 09:36 Oxycodone HCl (Roxicodone, Oxyir) 5 mg Q4HP PRN PO PAIN 06/10/19 17:30 06/15/19 08:46 DC 06/12/19 06:01 Oxycodone HCl (Roxicodone, Oxyir) 5 mg Q6HP PRN PO PAIN 06/15/19 14:30 06/19/19 02:09 Oxycodone HCl (Roxicodone, Oxyir) 10 mg Q4HP PRN PO SEVERE PAIN (PS 8-10) 06/10/19 17:30 06/11/19 09:02 DC 06/10/19 18:04 Potassium Chloride (Micro-K Extencaps) 10 meq QHS PO 06/10/19 21:00 06/18/19 20:24 Senna (Senokot) 1 tab QHS PO 06/10/19 21:00 06/18/19 20:23 Sodium Chloride (Saline Lock Flush) 10 ml Q30D IV 06/17/19 09:00 06/17/19 08:20 SUNITA URRUTIA MD Jun 19, 2019 11:39
--- NOTE | 2019-06-19 11:45 | IPNPDOC ---
PM&R Progress Note DATE OF SERVICE: Jun 19, 2019 [employer] Sharpshooter Progress Note Subjective: Patient seen this morning stating her leg pain is much worse after having moves around more yesterday. She denies dizziness, fever, or chills. REVIEW OF SYSTEMS: The following is a completed review of systems and has been reviewed. Review of systems otherwise unremarkable. PAIN: Patient self reports left hip pain EYES: No recent vision changes EARS, NOSE, & THROAT: No throat pain, or dysphagia, or rhinorrhea CARDIOVASCULAR: Denies chest pain or palpitations PULMONARY: Denies shortness of breath GASTROINTESTINAL: +constipation (resolved) GENITOURINARY: denies dysuria MUSCULOSKELETAL: left hip fracture NEUROLOGICAL:no tremor or seizure activity HEMATOLOGICAL: +anemia SKIN: surgical incision PSYCHIATRIC: Unremarkable All other review of systems found to be negative. PHYSICAL EXAMINATION: VITAL SIGNS: Please see below. GENERAL: Pleasant and cooperative. No acute distress. HEENT: PERRL. Extraocular movements intact. Clear conjunctiva CARDIOVASCULAR: Regular rate and rhythm. No murmurs, rubs, or gallops LUNGS: Clear to auscultation bilaterally. No wheezes. No rhonchi ABDOMEN: Soft, nontender, nondistended. Positive bowel sounds. Normal active bowel sounds NEUROLOGICAL: Alert and oriented times three. Cranial nerves II through XII grossly intact. Sensation grossly intact in all 4 extremities including 1st web space of left dorsal foot EXTREMITIES: 5\5 strength bilateral upper extremities. 5\5 strength right lower extremity. 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 PLAN: 1. Rehab: PT strengthen/stretch/maintain bilat LE maintain total hip precautions, advance gait and improve endurance, walking with RW, room privileges with OT- strengthen/stretch/maintain bilat UE maintain total hip precautions for ADL management 2. Neuro: pmh fibromyalgia c/u Cymbalta 3. Cardio: Afib with valvular replacement on Eliquis, c/u Amdiodarone- medicine consulted to assist in management -patient denies feeling dizzy stating she has a hx of low BPs 4. Resp: encourage incentive spirometry, monitor for infection 5. Ortho: s/p left hip fracture s/p total hip arthroplasty with THR, hip precautions, ortho consulted -US of hip ordered today to r/o hematoma -X-ray ordered today to r/o fracture given worsening pain 6. Endo: pmh hypothyroidism c/u synthroid 7. GI ppx: omeprazole, optimize bowel care, will give lactulose followed by suppository 8. DVT ppx: Eliquis and TEDs - Doppler ordered today to r/o DVT given worsening pain 9. Pain: Oxycodone 5mg q6h prn and schedule 8am and 8pm, Tylenol standing, c/u Cymbalta, c/u lidoderm patch and ice, -c/u Gabapentin 100mg TID -patient denying muscle spasms, baclofen d/c'd 10. Heme: post-op anemia- Hgb stable, FOBT ordered, will consider transfusion if <8 10. Dispo: 06/26/19 to home, progressing towards goals Allergies Coded Allergies: levofloxacin (Verified Adverse Reaction, Intermediate, muscle spasm, 12/18/18) Vital Signs Vital Signs Date Time Temp Pulse Resp B/P (MAP) Pulse Ox O2 Delivery O2 Flow Rate FiO2 06/19/19 10:06 16 06/19/19 06:00 97.2 78 94/58 (70) 97 Laboratory Data CBC/BMP Laboratory Tests 06/19/19 06:00 Red Blood Count 2.55 L, Mean Corpuscular Volume 101.2 H, Mean Corpuscular Hemoglobin 32.5, Mean Corpuscular Hemoglobin Concent 32.2, Red Cell Distribution Width 14.6 H, Neutrophils (%) (Auto) 62.6, Lymphocytes (%) (Auto) 15.9 L, Monocytes (%) (Auto) 15.9 H, Eosinophils (%) (Auto) 3.3 H, Basophils (%) (Auto) 0.6, Neutrophils # (Auto) 3.2, Lymphocytes # (Auto) 0.8 L, Monocytes # (Auto) 0.8, Eosinophils # (Auto) 0.2, Basophils # (Auto) 0.0, Calcium Level 10.3 H Labs 24H Laboratory Tests 2 06/19/19 06:00: Immature Granulocyte % (Auto) 1.7, White Blood Count 5.2, Red Blood Count 2.55L, Hemoglobin 8.3L, Hematocrit 25.8L, Mean Corpuscular Volume 101.2H, Mean Corpuscular Hemoglobin 32.5, Mean Corpuscular Hemoglobin Concent 32.2, Red Cell Distribution Width 14.6H, Platelet Count 304, Neutrophils (%) (Auto) 62.6, Lymph ocytes (%) (Auto) 15.9L, Monocytes (%) (Auto) 15.9H, Eosinophils (%) (Auto) 3.3H, Basophils (%) (Auto) 0.6, Neutrophils # (Auto) 3.2, Lymphocytes # (Auto) 0.8L, Monocytes # (Auto) 0.8, Eosinophils # (Auto) 0.2, Basophils # (Auto) 0.0, Nucleated Red Blood Cells % (auto) 0.0, Anion Gap 6L, Glomerular Filtration Rate > 60.0, Blood Urea Nitrogen 24H, Creatinine 0.81, Sodium Level 142, Potassium Level 4.2, Chloride Level 109H, Carbon Dioxide Level 27, Calcium Level 10.3H Current Medications Current Medications Current Medications Medications (Trade) Dose Ordered Sig/Shira Route PRN Reason Start Time Stop Time Status Last Admin Dose Admin Acetaminophen (Tylenol Tab) 1,000 mg TID PO 06/10/19 21:00 06/19/19 09:36 Amiodarone HCl (Pacerone, Cordarone) 200 mg DAILY PO 06/11/19 09:00 06/19/19 09:37 Apixaban (Eliquis) 5 mg BID PO 06/10/19 21:00 06/19/19 09:37 Baclofen (Lioresal) 5 mg BID PO 06/10/19 21:00 06/11/19 09:02 DC 06/11/19 08:55 Baclofen (Lioresal) 5 mg BID PRN PO SPASMS 06/11/19 09:15 06/15/19 08:46 DC 06/14/19 21:51 Bisacodyl (Dulcolax Suppository) 10 mg DAILYPRN PRN [place] CONSTIPATION 06/10/19 17:30 Bisacodyl (Dulcolax Tab) 5 mg DAILY PO 06/12/19 09:00 06/19/19 09:37 Docusate Sodium (Colace) 100 mg BID PO 06/10/19 21:00 06/12/19 11:51 DC 06/12/19 09:09 Docusate Sodium (Colace) 100 mg TID PO 06/12/19 16:00 06/19/19 09:35 Duloxetine HCl (Cymbalta) 90 mg DAILY PO 06/11/19 09:00 06/19/19 09:37 Ferrous Gluconate (Fergon) 324 mg BID PO 06/17/19 21:00 06/19/19 09:37 Ferrous Gluconate (Fergon) 324 mg DAILY PO 06/11/19 09:00 06/17/19 09:47 DC 06/17/19 08:19 Gabapentin (Neurontin) 100 mg QHS PO 06/10/19 21:00 06/17/19 12:25 DC 06/16/19 20:35 Gabapentin (Neurontin) 100 mg TID PO 06/17/19 09:00 06/19/19 09:36 Heparin Sodium (Heparin (Flush)) 500 units Q30D IV 06/17/19 09:00 06/17/19 08:20 Levothyroxine Sodium (Synthroid) 112 mcg DAILY@06 PO 06/11/19 06:00 06/19/19 06:02 Lidocaine (Lidoderm Patch) 1 patch DAILY TD 06/11/19 09:00 06/19/19 09:37 Magnesium Hydroxide (Milk Of Magnesia) 30 ml DAILYPRN PRN PO CONSTIPATION 06/10/19 17:30 06/11/19 13:00 Magnesium Oxide (Mag-Ox) 800 mg BID PO 06/10/19 21:00 06/19/19 09:36 Miscellaneous (Unresolved Clarification Entry) SEE LABEL COMMENTS DAILY XX 06/16/19 09:00 06/17/19 13:24 DC Miscellaneous (Unresolved Clarification Entry) SEE LABEL COMMENTS DAILY XX 06/17/19 09:00 06/17/19 13:44 DC Non-Formulary Medication ( See Comment Field Below ) REMOVE LIDODERM PATCH DAILY@21 XX 06/10/19 21:00 06/18/19 20:23 Omeprazole (PriLOSEC) 20 mg DAILY PO 06/11/19 09:00 06/19/19 09:37 Oxycodone HCl (Roxicodone, Oxyir) 5 mg BID@0800,1999 PO 06/18/19 11:30 06/19/19 09:36 Oxycodone HCl (Roxicodone, Oxyir) 5 mg Q4HP PRN PO PAIN 06/10/19 17:30 06/15/19 08:46 DC 06/12/19 06:01 Oxycodone HCl (Roxicodone, Oxyir) 5 mg Q6HP PRN PO PAIN 06/15/19 14:30 06/19/19 02:09 Oxycodone HCl (Roxicodone, Oxyir) 10 mg Q4HP PRN PO SEVERE PAIN (PS 8-10) 06/10/19 17:30 06/11/19 09:02 DC 06/10/19 18:04 Potassium Chloride (Micro-K Extencaps) 10 meq QHS PO 06/10/19 21:00 06/18/19 20:24 Senna (Senokot) 1 tab QHS PO 06/10/19 21:00 06/18/19 20:23 Sodium Chloride (Saline Lock Flush) 10 ml Q30D IV 06/17/19 09:00 06/17/19 08:20 SUNITA URRUTIA MD Jun 19, 2019 11:45
[2019-06-19 11:52] LABS: C REACTIVE PROTEIN QUANTITATIV 0.55 MG/DL (0.00-0.30)
--- NOTE | 2019-06-19 13:46 | REP ---
LEFT HIP, TWO VIEWS: Two views of the left hip are performed. There is a total hip prosthesis in good position. The structures are well aligned and intact. Metallic skin nathaniel are seen laterally. Unreviewed
[2019-06-19 14:00] VITALS: BP 105/58
[2019-06-19 14:40] LABS: ERYTHROCYTE SEDIMENTATION RATE 37 mm/hr (0-30)
--- NOTE | 2019-06-19 15:29 | IPNPDOC ---
Text Note Date of Service The patient was seen on 06/19/19. NOTE Subjective: Patient was seen and examined at the bedside. Patient has been progressing well with physical therapy. Denies any chest pain, shortness breath, palpitations. Upon awakening this morning patient had reported that she experienced diffuse body aches and reported that she has been having swelling around her legs and left thigh. . She denies any urinary discomfort. Objective: Vitals (See below) General: Lying in bed, no acute distress, comfortable, AAOx3 HEENT: NC, AT CVS: +S1S2 Lungs: Fair air entry b/l, no appreciable wheezing, rhonchi or rales Abdomen: Soft, nondistended and nontender Extremities: 2+ edema bilaterally , - Calf tenderness Assessment and plan: Fracture of left femoral neck - s/p total left hip arthroplasty 06/09/2019 - Pain control and physical therapy in the direction of orthopedic surgery and ARU Bilateral lower extremity edema - ECHO 11/2018: Preserved ejection fraction, unable to evaluate diastolic function - Will give single dose of Furosemide - Will evaluate urine output Multiple Myeloma - Chronic - Follows with outpatient provider Fibromyalgia - c/w Duloxetine Atrial fibrillation - Patient appears to be rate/rhythm control - c/w Amiodarone - c/w Eliquis Hypothyroidism - c/w Levothyroxine Neuropathy - c/w Gabapentin GI prophylaxis - c/w Omeprazole DVT prophylaxis - c/w full anticoagulation with Eliquis VS,Fishbone, I+O VS, Fishbone, I+O Laboratory Tests 06/19/19 06:00 Red Blood Count 2.55 L, Mean Corpuscular Volume 101.2 H, Mean Corpuscular Hemoglobin 32.5, Mean Corpuscular Hemoglobin Concent 32.2, Red Cell Distribution Width 14.6 H, Neutrophils (%) (Auto) 62.6, Lymphocytes (%) (Auto) 15.9 L, Monocytes (%) (Auto) 15.9 H, Eosinophils (%) (Auto) 3.3 H, Basophils (%) (Auto) 0.6, Neutrophils # (Auto) 3.2, Lymphocytes # (Auto) 0.8 L, Monocytes # (Auto) 0.8, Eosinophils # (Auto) 0.2, Basophils # (Auto) 0.0, Calcium Level 10.3 H Vital Signs Date Time Temp Pulse Resp B/P (MAP) Pulse Ox O2 Delivery O2 Flow Rate FiO2 06/19/19 14:49 16 06/19/19 06:00 97.2 78 94/58 (04) 97 I&O- Last 24 Hours up to 6 AM 06/19/19 06:00 Intake Total 1410 ml Output Total 401 ml Balance 1009 ml JASKARAN GOODEN MD Jun 19, 2019 15:29
[2019-06-19] MEDS ORDERED: FUROSEMIDE 40 MG TAB PO ONE (16:00)
[2019-06-19 20:00] VITALS: BP 97/52
--- NOTE | 2019-06-19 20:13 | REP ---
LEFT LOWER EXTREMITY DOPPLER VENOUS ULTRASOUND: 06/19/2019. Comparison: None. Technique: The deep venous system of the left lower extremity is evaluated with pimentel scale imaging, compression ultrasound, color imaging and duplex Doppler interrogation. Examination from the groin through the popliteal fossa into the proximal calf. Findings: There is full compressibility from the common femoral vein in the inguinal region through the popliteal vein. Color imaging confirms patency throughout the course of the deep venous system. There is respiratory variation and augmented flow at all levels. Impression: 1. No Doppler venous ultrasound evidence of DVT in the left lower extremity. Electronically Signed by Trace Kaur MD 06/19/2019 08:05 P
--- NOTE | 2019-06-19 20:33 | REP ---
LEFT LOWER EXTREMITY NONVASCULAR ULTRASOUND (HIP): 06/19/2019. Clinical history: Evaluate for hematoma. Status post left total hip arthroplasty after femoral neck fracture. Findings: Palpable area was scanned at the left hip. There is a complex hypoechoic area with size difficult to measure because of the overlying dressing at the wound site from hip surgery. However, the area is at least 4.4 cm transverse and likely much large. A 6.2 x 2.5 cm length by depth are seen for that portion that can be imaged. Impression: 1. Evidence suggestive of an hematoma in subcutaneous tissues adjacent to the left hip near the surgical site. Incompletely evaluated due to the postoperative dressing in place. At least 6.2 x 2.5 x 4.4 cm, but certainly could be much larger as the dressing over the wound from surgery obscures. Electronically Signed by Trace Kaur MD 06/20/2019 07:49 A
[2019-06-19] MEDS: SENNA 8.6 MG TAB (SENOKOT) PO SCH (21:40)
[2019-06-19] MEDS: **NOTE PATIENT COMMENT** MISC XX SCH (21:41)
[2019-06-19] MEDS: POTASSIUM CHLORIDE 10 MEQ SR TABLET PO SCH (21:41)
[2019-06-20] MEDS: oxyCODONE 5MG TAB PO PRN (00:50)
[2019-06-20 04:00] VITALS: BP 88/53
[2019-06-20] MEDS: oxyCODONE 5MG TAB PO SCH ×3 (06:39→18:18)
[2019-06-20] MEDS: MOM 30ML SUSPENSION UDC PO PRN (06:39)
[2019-06-20] MEDS: LEVOTHYROXINE 112MCG TABLET (0.112MG) PO SCH (06:39)
[2019-06-20 06:51] VITALS: BP 108/68
[2019-06-20] MEDS: MAGNESIUM OXIDE 400 MG TAB (MAG-OX) PO SCH ×2 (08:38→21:32)
[2019-06-20] MEDS: ACETAMINOPHEN 500 MG TAB PO SCH ×3 (08:38→21:31)
[2019-06-20] MEDS: FERROUS GLUCONATE 324 MG TAB PO SCH ×2 (08:38→21:31)
[2019-06-20] MEDS: GABAPENTIN 100 MG CAP PO SCH ×3 (08:38→21:31)
[2019-06-20] MEDS: BISACODYL 5 MG TAB PO SCH (08:38)
[2019-06-20] MEDS: DULoxetine 30 MG CAP (CYMBALTA) PO SCH (08:38)
[2019-06-20] MEDS: OMEPRAZOLE 20 MG CAP PO SCH (08:38)
[2019-06-20] MEDS: DOCUSATE SODIUM 100 MG CAP PO SCH ×3 (08:38→21:31)
[2019-06-20] MEDS: APIXABAN 5 MG TAB (ELIQUIS) PO SCH ×2 (08:38→21:31)
[2019-06-20] MEDS: LIDOCAINE 5% (LIDODERM) PATCH TD SCH (08:39)
[2019-06-20] MEDS: AMIODARONE 200 MG TAB (PACERONE) PO SCH (08:39)
[2019-06-20 13:37] LABS: BLOOD UREA NITROGEN 27 MG/DL (7-18); CALCIUM LEVEL 10.7 MG/DL (8.8-10.2); CARBON DIOXIDE LEVEL 28 MEQ/L (21-32); CHLORIDE LEVEL 105 MEQ/L (98-107); CREATININE FOR GFR 0.85 MG/DL (0.55-1.30); GLOMERULAR FILTRATION RATE > 60.0 (>39); GLUCOSE, FASTING 93 MG/DL (70-100); MAGNESIUM LEVEL 1.8 MG/DL (1.8-2.4); POTASSIUM SERUM 5.4 MEQ/L (3.5-5.1); SODIUM LEVEL 138 MEQ/L (136-145)
[2019-06-20 14:00] VITALS: BP 94/51
[2019-06-20] MEDS ORDERED: FUROSEMIDE 20 MG TAB PO ONE (14:15)
[2019-06-20 20:00] VITALS: BP 98/58
[2019-06-20] MEDS: SENNA 8.6 MG TAB (SENOKOT) PO SCH (21:31)
[2019-06-20] MEDS: **NOTE PATIENT COMMENT** MISC XX SCH (21:32)
[2019-06-21] MEDS: oxyCODONE 5MG TAB PO PRN (01:50)
[2019-06-21 04:00] VITALS: BP 95/69
[2019-06-21 06:00] VITALS: BP 95/56
[2019-06-21] MEDS: LEVOTHYROXINE 112MCG TABLET (0.112MG) PO SCH (06:19)
[2019-06-21] MEDS: MOM 30ML SUSPENSION UDC PO PRN (06:19)
[2019-06-21] MEDS: oxyCODONE 5MG TAB PO SCH ×3 (06:20→18:26)
[2019-06-21] MEDS: OMEPRAZOLE 20 MG CAP PO SCH (07:31)
[2019-06-21] MEDS: DULoxetine 30 MG CAP (CYMBALTA) PO SCH (07:31)
[2019-06-21] MEDS: ACETAMINOPHEN 500 MG TAB PO SCH ×3 (07:32→20:05)
[2019-06-21] MEDS: FERROUS GLUCONATE 324 MG TAB PO SCH ×2 (07:32→20:05)
[2019-06-21] MEDS: DOCUSATE SODIUM 100 MG CAP PO SCH ×3 (07:32→20:05)
[2019-06-21] MEDS: MAGNESIUM OXIDE 400 MG TAB (MAG-OX) PO SCH ×2 (07:32→20:05)
[2019-06-21] MEDS: APIXABAN 5 MG TAB (ELIQUIS) PO SCH ×2 (07:32→20:05)
[2019-06-21] MEDS: LIDOCAINE 5% (LIDODERM) PATCH TD SCH (07:32)
[2019-06-21] MEDS: AMIODARONE 200 MG TAB (PACERONE) PO SCH (07:32)
[2019-06-21] MEDS: GABAPENTIN 100 MG CAP PO SCH ×3 (07:32→20:04)
[2019-06-21] MEDS: BISACODYL 5 MG TAB PO SCH (07:32)
[2019-06-21 09:37] LABS: BLOOD UREA NITROGEN 27 MG/DL (7-18); CALCIUM LEVEL 10.4 MG/DL (8.8-10.2); CARBON DIOXIDE LEVEL 28 MEQ/L (21-32); CHLORIDE LEVEL 104 MEQ/L (98-107); GLOMERULAR FILTRATION RATE > 60.0 (>39); GLUCOSE, FASTING 100 MG/DL (70-100); POTASSIUM SERUM 3.6 MEQ/L (3.5-5.1); SODIUM LEVEL 138 MEQ/L (136-145)
[2019-06-21 14:00] VITALS: BP 99/58
--- NOTE | 2019-06-21 14:22 | IPNPDOC ---
Text Note Date of Service The patient was seen on 06/21/19. NOTE Subjective: Patient was seen and examined at the bedside. Patient is still reporting swelling of her lower extremity. She denies any chest pain, shortness of breath or palpitations. She denies nausea, vomiting, has been working with physical therapy and reported that she has been using a ramp. Objective: Vitals (See below) General: Lying in bed, no acute distress, comfortable, AAOx3 HEENT: NC, AT CVS: +S1S2 Lungs: There does not appear to be any auscultated rhonchi, rales or wheezing and air entry. Does appear to be fair bilaterally Abdomen: Abdomen is without distention or tenderness and remains off Extremities: Lower extremities do reveal 2+ pitting edema bilaterally, - Calf tenderness Assessment and plan: Fracture of left femoral neck - s/p total left hip arthroplasty 06/09/2019 - Pain control and physical therapy in the direction of orthopedic surgery and ARU Bilateral lower extremity edema - ECHO 11/2018: Preserved ejection fraction, unable to evaluate diastolic function - History. Patient has had significant diuresis - c/w Furosemide dosed based on urine output - Will restart potassium supplementation Multiple Myeloma - Chronic - Follows with outpatient provider Fibromyalgia - c/w Duloxetine Atrial fibrillation - Patient appears to be rate/rhythm control - c/w Amiodarone - c/w Eliquis Hypothyroidism - c/w Levothyroxine Neuropathy - c/w Gabapentin GI prophylaxis - c/w Omeprazole DVT prophylaxis - c/w full anticoagulation with Eliquis VS,Fishbone, I+O VS, Fishbone, I+O Laboratory Tests 06/21/19 08:57 Calcium Level 10.4 H Vital Signs Date Time Temp Pulse Resp B/P (MAP) Pulse Ox O2 Delivery O2 Flow Rate FiO2 06/21/19 14:00 97.7 75 18 99/58 (72) 98 I&O- Last 24 Hours up to 6 AM 06/21/19 06:00 Intake Total 960 ml Output Total 2101 ml Balance -1141 ml JASKARAN GOODEN MD Jun 21, 2019 14:22
[2019-06-21] MEDS ORDERED: FUROSEMIDE 20 MG TAB PO ONE (15:00)
[2019-06-21 20:00] VITALS: BP 100/59
[2019-06-21] MEDS: SENNA 8.6 MG TAB (SENOKOT) PO SCH (20:04)
[2019-06-21] MEDS: POTASSIUM CHLORIDE 10 MEQ SR TABLET PO SCH (20:05)
[2019-06-21] MEDS: **NOTE PATIENT COMMENT** MISC XX SCH (20:10)
[2019-06-22] MEDS: LEVOTHYROXINE 112MCG TABLET (0.112MG) PO SCH (05:51)
[2019-06-22 05:52] VITALS: BP 102/54
[2019-06-22] MEDS: oxyCODONE 5MG TAB PO SCH ×3 (05:57→18:31)
[2019-06-22 06:00] VITALS: BP 90/58
[2019-06-22 07:23] LABS: BLOOD UREA NITROGEN 25 MG/DL (7-18); CALCIUM LEVEL 10.5 MG/DL (8.8-10.2); CARBON DIOXIDE LEVEL 27 MEQ/L (21-32); CHLORIDE LEVEL 108 MEQ/L (98-107); CREATININE FOR GFR 0.65 MG/DL (0.55-1.30); GLOMERULAR FILTRATION RATE > 60.0 (>39); GLUCOSE, FASTING 88 MG/DL (70-100); MAGNESIUM LEVEL 1.8 MG/DL (1.8-2.4); POTASSIUM SERUM 3.7 MEQ/L (3.5-5.1); SODIUM LEVEL 140 MEQ/L (136-145)
[2019-06-22] MEDS: BISACODYL 5 MG TAB PO SCH (09:00)
[2019-06-22] MEDS: MAGNESIUM OXIDE 400 MG TAB (MAG-OX) PO SCH ×2 (09:08→20:12)
[2019-06-22] MEDS: ACETAMINOPHEN 500 MG TAB PO SCH ×3 (09:09→20:12)
[2019-06-22] MEDS: DOCUSATE SODIUM 100 MG CAP PO SCH ×3 (09:09→20:11)
[2019-06-22] MEDS: FERROUS GLUCONATE 324 MG TAB PO SCH ×2 (09:09→20:11)
[2019-06-22] MEDS: GABAPENTIN 100 MG CAP PO SCH ×3 (09:09→20:11)
[2019-06-22] MEDS: OMEPRAZOLE 20 MG CAP PO SCH (09:09)
[2019-06-22] MEDS: APIXABAN 5 MG TAB (ELIQUIS) PO SCH ×2 (09:09→20:11)
[2019-06-22] MEDS: DULoxetine 30 MG CAP (CYMBALTA) PO SCH (09:09)
[2019-06-22] MEDS: AMIODARONE 200 MG TAB (PACERONE) PO SCH (09:09)
[2019-06-22] MEDS: LIDOCAINE 5% (LIDODERM) PATCH TD SCH (09:10)
[2019-06-22 14:00] VITALS: BP 105/62
[2019-06-22 19:48] VITALS: BP 98/50
[2019-06-22] MEDS: SENNA 8.6 MG TAB (SENOKOT) PO SCH (20:11)
[2019-06-22] MEDS: POTASSIUM CHLORIDE 10 MEQ SR TABLET PO SCH (20:11)
[2019-06-22] MEDS: **NOTE PATIENT COMMENT** MISC XX SCH (20:12)
[2019-06-23] MEDS: LEVOTHYROXINE 112MCG TABLET (0.112MG) PO SCH (05:56)
[2019-06-23] MEDS: oxyCODONE 5MG TAB PO SCH ×3 (05:57→20:55)
[2019-06-23 06:05] VITALS: BP 123/66
[2019-06-23 06:31] LABS: BASO % 0.6 % (0.0-1.0); EOS # 0.2 10^3/uL (0.0-0.5); EOS % 3.1 % (0.0-3.0); HEMATOCRIT 29.8 % (36.0-47.0); HEMOGLOBIN 9.6 g/dl (12.0-15.5); LYMPH # 0.8 10^3/uL (1.5-5.0); LYMPH % 14.6 % (24.0-44.0); MEAN CORPUSCULAR HEMOGLOBIN 32.4 pg (27.0-33.0); MEAN CORPUSCULAR HGB CONC 32.2 g/dl (32.0-36.5); MEAN CORPUSCULAR VOLUME 100.7 fl (80.0-96.0); MONO # 0.6 10^3/uL (0.0-0.8); MONO % 11.3 % (0.0-5.0); NEUTROPHILS # 3.8 10^3/uL (1.5-8.5); NEUTROPHILS % 69.7 % (36.0-66.0); PLATELET COUNT, AUTOMATED 324 10^3/uL (150-450); RED BLOOD COUNT 2.96 10^6/uL (4.00-5.40); WHITE BLOOD COUNT 5.4 10^3/uL (4.0-10.0)
[2019-06-23] MEDS: DULoxetine 30 MG CAP (CYMBALTA) PO SCH (08:08)
[2019-06-23] MEDS: OMEPRAZOLE 20 MG CAP PO SCH (08:08)
[2019-06-23] MEDS: BISACODYL 5 MG TAB PO SCH (08:08)
[2019-06-23] MEDS: DOCUSATE SODIUM 100 MG CAP PO SCH ×3 (08:09→20:56)
[2019-06-23] MEDS: FERROUS GLUCONATE 324 MG TAB PO SCH ×2 (08:09→20:55)
[2019-06-23] MEDS: AMIODARONE 200 MG TAB (PACERONE) PO SCH (08:09)
[2019-06-23] MEDS: MAGNESIUM OXIDE 400 MG TAB (MAG-OX) PO SCH ×2 (08:09→20:56)
[2019-06-23] MEDS: ACETAMINOPHEN 500 MG TAB PO SCH ×3 (08:09→20:55)
[2019-06-23] MEDS: APIXABAN 5 MG TAB (ELIQUIS) PO SCH ×2 (08:09→20:54)
[2019-06-23] MEDS: GABAPENTIN 100 MG CAP PO SCH ×3 (08:09→20:56)
[2019-06-23] MEDS: LIDOCAINE 5% (LIDODERM) PATCH TD SCH (08:10)
[2019-06-23] MEDS ORDERED: FERR32TA PO (09:28)
[2019-06-23] MEDS ORDERED: GABA-1171 PO (09:28)
[2019-06-23] MEDS ORDERED: OXYCO5TA PO (09:28)
--- NOTE | 2019-06-23 12:25 | IPNPDOC ---
PM&R Progress Note DATE OF SERVICE: Jun 22, 2019 Rn Clinical Review Progress Note Subjective: Patient seen this morning in therapy and later in the kitchen working on cooking with her . She reports she still has pain, but is very mobile and eager to go home soon. REVIEW OF SYSTEMS: The following is a completed review of systems and has been reviewed. Review of systems otherwise unremarkable. PAIN: Patient self reports left hip pain EYES: No recent vision changes EARS, NOSE, & THROAT: No throat pain, or dysphagia, or rhinorrhea CARDIOVASCULAR: Denies chest pain or palpitations PULMONARY: Denies shortness of breath GASTROINTESTINAL: +constipation (resolved) GENITOURINARY: denies dysuria MUSCULOSKELETAL: left hip fracture NEUROLOGICAL:no tremor or seizure activity HEMATOLOGICAL: +anemia SKIN: surgical incision PSYCHIATRIC: Unremarkable All other review of systems found to be negative. PHYSICAL EXAMINATION: VITAL SIGNS: Please see below. GENERAL: Pleasant and cooperative. No acute distress. HEENT: PERRL. Extraocular movements intact. Clear conjunctiva CARDIOVASCULAR: Regular rate and rhythm. No murmurs, rubs, or gallops LUNGS: Clear to auscultation bilaterally. No wheezes. No rhonchi ABDOMEN: Soft, nontender, nondistended. Positive bowel sounds. Normal active bowel sounds NEUROLOGICAL: Alert and oriented times three. Cranial nerves II through XII grossly intact. Sensation grossly intact in all 4 extremities including 1st web space of left dorsal foot EXTREMITIES: 5\5 strength bilateral upper extremities. 5\5 strength right lower extremity. 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 PLAN: 1. Rehab: PT strengthen/stretch/maintain bilat LE maintain total hip precautions, advance gait and improve endurance, walking with RW, room privileges with OT- strengthen/stretch/maintain bilat UE maintain total hip precautions for ADL management 2. Neuro: pmh fibromyalgia c/u Cymbalta 3. Cardio: Afib with valvular replacement on Eliquis, c/u Amdiodarone- medicine consulted to assist in management -patient denies feeling dizzy stating she has a hx of low BPs 4. Resp: encourage incentive spirometry, monitor for infection 5. Ortho: s/p left hip fracture s/p total hip arthroplasty with THR, hip precautions, ortho consulted -US of hip +hematoma, ortho aware, no further intervention -X-ray negative for fracture, ortho reviewed 6. Endo: pmh hypothyroidism c/u synthroid 7. GI ppx: omeprazole, optimize bowel care, will give lactulose followed by supp ository 8. DVT ppx: Eliquis and TEDs - Doppler LLE negative for DVTs 9. Pain: Oxycodone 5mg q6h prn and schedule 8am and 8pm, Tylenol standing, c/u Cymbalta, c/u lidoderm patch and ice, -c/u Gabapentin 100mg TID -patient denying muscle spasms, baclofen d/c'd 10. Heme: post-op anemia- Hgb stable, FOBT negative 10. Dispo: 06/26/19 to home, progressing towards goals Allergies Coded Allergies: levofloxacin (Verified Adverse Reaction, Intermediate, muscle spasm, 12/18/18) Vital Signs Vital Signs Date Time Temp Pulse Resp B/P (MAP) Pulse Ox O2 Delivery O2 Flow Rate FiO2 06/23/19 11:51 20 06/23/19 06:05 97.2 71 123/66 (85) 99 Laboratory Data CBC/BMP Laboratory Tests 06/23/19 06:14 Red Blood Count 2.96 L, Mean Corpuscular Volume 100.7 H, Mean Corpuscular Hem oglobin 32.4, Mean Corpuscular Hemoglobin Concent 32.2, Red Cell Distribution Width 15.6 H, Neutrophils (%) (Auto) 69.7 H, Lymphocytes (%) (Auto) 14.6 L, Monocytes (%) (Auto) 11.3 H, Eosinophils (%) (Auto) 3.1 H, Basophils (%) (Auto) 0.6, Neutrophils # (Auto) 3.8, Lymphocytes # (Auto) 0.8 L, Monocytes # (Auto) 0.6, Eosinophils # (Auto) 0.2, Basophils # (Auto) 0.0 Labs 24H Laboratory Tests 2 06/23/19 06:14: Immature Granulocyte % (Auto) 0.7, White Blood Count 5.4, Red Blood Count 2.96L, Hemoglobin 9.6L, Hematocrit 29.8L, Mean Corpuscular Volume 100.7H, Mean Corpuscular Hemoglobin 32.4, Mean Corpuscular Hemoglobin Concent 32.2, Red Cell Distribution Width 15.6H, Platelet Count 324, Neutrophils (%) (Auto) 69.7H, Lymphocytes (%) (Auto) 14.6L, Monocytes (%) (Auto) 11.3H, Eosinophils (%) (Auto) 3.1H, Basophils (%) (Auto) 0.6, Neutrophils # (Auto) 3.8, Lymphocytes # (Auto) 0.8L, Monocytes # (Auto) 0.6, Eosinophils # (Auto) 0.2, Basophils # (Auto) 0.0, Nucleated Red Blood Cells % (auto) 0.0 Microbiology Microbiology 06/21/19 Stool Occult Blood (SAIMA) - Final, Complete Current Medications Current Medications Current Medications Medications (Trade) Dose Ordered Sig/Shira Route PRN Reason Start Time Stop Time Status Last Admin Dose Admin Acetaminophen (Tylenol Tab) 1,000 mg TID PO 06/10/19 21:00 06/23/19 08:09 Amiodarone HCl (Pacerone, Cordarone) 200 mg DAILY PO 06/11/19 09:00 06/23/19 08:09 Apixaban (Eliquis) 5 mg BID PO 06/10/19 21:00 06/23/19 08:09 Baclofen (Lioresal) 5 mg BID PO 06/10/19 21:00 06/11/19 09:02 DC 06/11/19 08:55 Baclofen (Lioresal) 5 mg BID PRN PO SPASMS 06/11/19 09:15 06/15/19 08:46 DC 06/14/19 21:51 Bisacodyl (Dulcolax Suppository) 10 mg DAILYPRN PRN [place] CONSTIPATION 06/10/19 17:30 Bisacodyl (Dulcolax Tab) 5 mg DAILY PO 06/12/19 09:00 06/23/19 08:08 Docusate Sodium (Colace) 100 mg BID PO 06/10/19 21:00 06/12/19 11:51 DC 06/12/19 09:09 Docusate Sodium (Colace) 100 mg TID PO 06/12/19 16:00 06/23/19 08:09 Duloxetine HCl (Cymbalta) 90 mg DAILY PO 06/11/19 09:00 06/23/19 08:08 Ferrous Gluconate (Fergon) 324 mg BID PO 06/17/19 21:00 06/23/19 08:09 Ferrous Gluconate (Fergon) 324 mg DAILY PO 06/11/19 09:00 06/17/19 09:47 DC 06/17/19 08:19 Gabapentin (Neurontin) 100 mg QHS PO 06/10/19 21:00 06/17/19 12:25 DC 06/16/19 20:35 Gabapentin (Neurontin) 100 mg TID PO 06/17/19 09:00 06/23/19 08:09 Heparin Sodium (Heparin (Flush)) 500 units Q30D IV 06/17/19 09:00 06/17/19 08:20 Levothyroxine Sodium (Synthroid) 112 mcg DAILY@06 PO 06/11/19 06:00 06/23/19 05:56 Lidocaine (Lidoderm Patch) 1 patch DAILY TD 06/11/19 09:00 06/23/19 08:10 Magnesium Hydroxide (Milk Of Magnesia) 30 ml DAILYPRN PRN PO CONSTIPATION 06/10/19 17:30 06/21/19 06:19 Magnesium Oxide (Mag-Ox) 800 mg BID PO 06/10/19 21:00 06/23/19 08:09 Miscellaneous (Unresolved Clarification Entry) SEE LABEL COMMENTS DAILY XX 06/16/19 09:00 06/17/19 13:24 DC Miscellaneous (Unresolved Clarification Entry) SEE LABEL COMMENTS DAILY XX 06/17/19 09:00 06/17/19 13:44 DC Non-Formulary Medication ( See Comment Field Below ) REMOVE LIDODERM PATCH DAILY@21 XX 06/10/19 21:00 06/22/19 20:12 Omeprazole (PriLOSEC) 20 mg DAILY PO 06/11/19 09:00 06/23/19 08:08 Oxycodone HCl (Roxicodone, Oxyir) 5 mg BID@0800,1999 PO 06/18/19 11:30 06/19/19 14:40 DC 06/19/19 09:36 Oxycodone HCl (Roxicodone, Oxyir) 5 mg Q4HP PRN PO PAIN 06/10/19 17:30 06/15/19 08:46 DC 06/12/19 06:01 Oxycodone HCl (Roxicodone, Oxyir) 5 mg Q6HP PRN PO PAIN 06/15/19 14:30 06/21/19 01:50 Oxycodone HCl (Roxicodone, Oxyir) 5 mg TID@0700,1200,1900 PO 06/19/19 19:00 06/23/19 11:51 Oxycodone HCl (Roxicodone, Oxyir) 10 mg Q4HP PRN PO SEVERE PAIN (PS 8-10) 06/10/19 17:30 06/11/19 09:02 DC 06/10/19 18:04 Potassium Chloride (Micro-K Extencaps) 10 meq QHS PO 06/10/19 21:00 06/20/19 14:09 DC 06/19/19 21:41 Potassium Chloride (Micro-K Extencaps) 10 meq QHS PO 06/21/19 21:00 06/22/19 20:11 Senna (Senokot) 1 tab QHS PO 06/10/19 21:00 06/22/19 20:11 Sodium Chloride (Saline Lock Flush) 10 ml Q30D IV 06/17/19 09:00 06/17/19 08:20 SUNITA URRUTIA MD Jun 23, 2019 12:25
--- NOTE | 2019-06-23 12:26 | IPNPDOC ---
PM&R Progress Note DATE OF SERVICE: Jun 23, 2019 Post Closing Specialist Progress Note Subjective: REVIEW OF SYSTEMS: The following is a completed review of systems and has been reviewed. Review of systems otherwise unremarkable. PAIN: Patient self reports left hip pain EYES: No recent vision changes EARS, NOSE, & THROAT: No throat pain, or dysphagia, or rhinorrhea CARDIOVASCULAR: Denies chest pain or palpitations PULMONARY: Denies shortness of breath GASTROINTESTINAL: +constipation (resolved) GENITOURINARY: denies dysuria MUSCULOSKELETAL: left hip fracture NEUROLOGICAL:no tremor or seizure activity HEMATOLOGICAL: +anemia SKIN: surgical incision PSYCHIATRIC: Unremarkable All other review of systems found to be negative. PHYSICAL EXAMINATION: VITAL SIGNS: Please see below. GENERAL: Pleasant and cooperative. No acute distress. HEENT: PERRL. Extraocular movements intact. Clear conjunctiva CARDIOVASCULAR: Regular rate and rhythm. No murmurs, rubs, or gallops LUNGS: Clear to auscultation bilaterally. No wheezes. No rhonchi ABDOMEN: Soft, nontender, nondistended. Positive bowel sounds. Normal active bowel sounds NEUROLOGICAL: Alert and oriented times three. Cranial nerves II through XII grossly intact. Sensation grossly intact in all 4 extremities including 1st web space of left dorsal foot EXTREMITIES: 5\5 strength bilateral upper extremities. 5\5 strength right lower extremity. 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 PLAN: 1. Rehab: PT strengthen/stretch/maintain bilat LE maintain total hip precautions, advance gait and improve endurance, walking with RW, room pr ivileges with OT- strengthen/stretch/maintain bilat UE maintain total hip precautions for ADL management 2. Neuro: pmh fibromyalgia c/u Cymbalta 3. Cardio: Afib with valvular replacement on Eliquis, c/u Amdiodarone- medicine consulted to assist in management -patient denies feeling dizzy stating she has a hx of low BPs 4. Resp: encourage incentive spirometry, monitor for infection 5. Ortho: s/p left hip fracture s/p total hip arthroplasty with THR, hip precautions, ortho consulted -US of hip +hematoma, ortho aware, no further intervention -X-ray negative for fracture, ortho reviewed 6. Endo: pmh hypothyroidism c/u synthroid 7. GI ppx: omeprazole, optimize bowel care, will give lactulose followed by suppository 8. DVT ppx: Eliquis and TEDs - Doppler LLE negative for DVTs 9. Pain: Oxycodone 5mg q6h prn and schedule 8am and 8pm, Tylenol standing, c/u Cymbalta, c/u lidoderm patch and ice, -c/u Gabapentin 100mg TID -patient denying muscle spasms, baclofen d/c'd 10. Heme: post-op anemia- Hgb stable, FOBT negative 10. Dispo: 06/26/19 to home, progressing towards goals Allergies Coded Allergies: levofloxacin (Verified Adverse Reaction, Intermediate, muscle spasm, 12/18/18) Vital Signs Vital Signs Date Time Temp Pulse Resp B/P (MAP) Pulse Ox O2 Delivery O2 Flow Rate FiO2 06/23/19 11:51 20 06/23/19 06:05 97.2 71 123/66 (85) 99 Laboratory Data CBC/BMP Laboratory Tests 06/23/19 06:14 Red Blood Count 2.96 L, Mean Corpuscular Volume 100.7 H, Mean Corpuscular Hemoglobin 32.4, Mean Corpuscular Hemoglobin Concent 32.2, Red Cell Distribution Width 15.6 H, Neutrophils (%) (Auto) 69.7 H, Lymphocytes (%) (Auto) 14.6 L, Monocytes (%) (Auto) 11.3 H, Eosinophils (%) (Auto) 3.1 H, Basophils (%) (Auto) 0.6, Neutrophils # (Auto) 3.8, Lymphocytes # (Auto) 0.8 L, Monocytes # (Auto) 0.6, Eosinophils # (Auto) 0.2, Basophils # (Auto) 0.0 Labs 24H Laboratory Tests 2 06/23/19 06:14: Immature Granulocyte % (Auto) 0.7, White Blood Count 5.4, Red Blood Count 2.96L, Hemoglobin 9.6L, Hematocrit 29.8L, Mean Corpuscular Volume 100.7H, Mean Corpuscular Hemoglobin 32.4, Mean Corpuscular Hemoglobin Concent 32.2, Red Cell Distribution Width 15.6H, Platelet Count 324, Neutrophils (%) (Auto) 69.7H, Lymphocytes (%) (Auto) 14.6L, Monocytes (%) (Auto) 11.3H, Eosinophils (%) (Auto) 3.1H, Basophils (%) (Auto) 0.6, Neutrophils # (Auto) 3.8, Lymphocytes # (Auto) 0.8L, Monocytes # (Auto) 0.6, Eosinophils # (Auto) 0.2, Basophils # (Auto) 0.0, Nucleated Red Blood Cells % (auto) 0.0 Microbiology Microbiology 06/21/19 Stool Occult Blood (SAIMA) - Final, Complete Current Medications Current Medications Current Medications Medications (Trade) Dose Ordered Sig/Shira Route PRN Reason Start Time Stop Time Status Last Admin Dose Admin Acetaminophen (Tylenol Tab) 1,000 mg TID PO 06/10/19 21:00 06/23/19 08:09 Amiodarone HCl (Pacerone, Cordarone) 200 mg DAILY PO 06/11/19 09:00 06/23/19 08:09 Apixaban (Eliquis) 5 mg BID PO 06/10/19 21:00 06/23/19 08:09 Baclofen (Lioresal) 5 mg BID PO 06/10/19 21:00 06/11/19 09:02 DC 06/11/19 08:55 Baclofen (Lioresal) 5 mg BID PRN PO SPASMS 06/11/19 09:15 06/15/19 08:46 DC 06/14/19 21:51 Bisacodyl (Dulcolax Suppository) 10 mg DAILYPRN PRN [place] CONSTIPATION 06/10/19 17:30 Bisacodyl (Dulcolax Tab) 5 mg DAILY PO 06/12/19 09:00 06/23/19 08:08 Docusate Sodium (Colace) 100 mg BID PO 06/10/19 21:00 06/12/19 11:51 DC 06/12/19 09:09 Docusate Sodium (Colace) 100 mg TID PO 06/12/19 16:00 06/23/19 08:09 Duloxetine HCl (Cymbalta) 90 mg DAILY PO 06/11/19 09:00 06/23/19 08:08 Ferrous Gluconate (Fergon) 324 mg BID PO 06/17/19 21:00 06/23/19 08:09 Ferrous Gluconate (Fergon) 324 mg DAILY PO 06/11/19 09:00 06/17/19 09:47 DC 06/17/19 08:19 Gabapentin (Neurontin) 100 mg QHS PO 06/10/19 21:00 06/17/19 12:25 DC 06/16/19 20:35 Gabapentin (Neurontin) 100 mg TID PO 06/17/19 09:00 06/23/19 08:09 Heparin Sodium (Heparin (Flush)) 500 units Q30D IV 06/17/19 09:00 06/17/19 08:20 Levothyroxine Sodium (Synthroid) 112 mcg DAILY@06 PO 06/11/19 06:00 06/23/19 05:56 Lidocaine (Lidoderm Patch) 1 patch DAILY TD 06/11/19 09:00 06/23/19 08:10 Magnesium Hydroxide (Milk Of Magnesia) 30 ml DAILYPRN PRN PO CONSTIPATION 06/10/19 17:30 06/21/19 06:19 Magnesium Oxide (Mag-Ox) 800 mg BID PO 06/10/19 21:00 06/23/19 08:09 Miscellaneous (Unresolved Clarification Entry) SEE LABEL COMMENTS DAILY XX 06/16/19 09:00 06/17/19 13:24 DC Miscellaneous (Unresolved Clarification Entry) SEE LABEL COMMENTS DAILY XX 06/17/19 09:00 06/17/19 13:44 DC Non-Formulary Medication ( See Comment Field Below ) REMOVE LIDODERM PATCH DAILY@21 XX 06/10/19 21:00 06/22/19 20:12 Omeprazole (PriLOSEC) 20 mg DAILY PO 06/11/19 09:00 06/23/19 08:08 Oxycodone HCl (Roxicodone, Oxyir) 5 mg BID@08,1999 PO 06/18/19 11:30 06/19/19 14:40 DC 06/19/19 09:36 Oxycodone HCl (Roxicodone, Oxyir) 5 mg Q4HP PRN PO PAIN 06/10/19 17:30 06/15/19 08:46 DC 06/12/19 06:01 Oxycodone HCl (Roxicodone, Oxyir) 5 mg Q6HP PRN PO PAIN 06/15/19 14:30 06/21/19 01:50 Oxycodone HCl (Roxicodone, Oxyir) 5 mg TID@0700,1200,1900 PO 06/19/19 19:00 06/23/19 11:51 Oxycodone HCl (Roxicodone, Oxyir) 10 mg Q4HP PRN PO SEVERE PAIN (PS 8-10) 06/10/19 17:30 06/11/19 09:02 DC 06/10/19 18:04 Potassium Chloride (Micro-K Extencaps) 10 meq QHS PO 06/10/19 21:00 06/20/19 14:09 DC 06/19/19 21:41 Potassium Chloride (Micro-K Extencaps) 10 meq QHS PO 06/21/19 21:00 06/22/19 20:11 Senna (Senokot) 1 tab QHS PO 06/10/19 21:00 06/22/19 20:11 Sodium Chloride (Saline Lock Flush) 10 ml Q30D IV 06/17/19 09:00 06/17/19 08:20 SUNITA URRUTIA MD Jun 23, 2019 12:26
[2019-06-23 14:00] VITALS: BP 92/53
[2019-06-23 19:50] VITALS: BP 95/58
[2019-06-23] MEDS: SENNA 8.6 MG TAB (SENOKOT) PO SCH (20:54)
[2019-06-23] MEDS: POTASSIUM CHLORIDE 10 MEQ SR TABLET PO SCH (20:56)
[2019-06-23] MEDS: **NOTE PATIENT COMMENT** MISC XX SCH (20:56)
[2019-06-24] MEDS: oxyCODONE 5MG TAB PO SCH (05:58)
[2019-06-24] MEDS: LEVOTHYROXINE 112MCG TABLET (0.112MG) PO SCH (05:58)
[2019-06-24 06:02] VITALS: BP 101/55
[2019-06-24] MEDS: FERROUS GLUCONATE 324 MG TAB PO SCH (08:13)
[2019-06-24] MEDS: ACETAMINOPHEN 500 MG TAB PO SCH (08:13)
[2019-06-24] MEDS: BISACODYL 5 MG TAB PO SCH (08:13)
[2019-06-24] MEDS: APIXABAN 5 MG TAB (ELIQUIS) PO SCH (08:13)
[2019-06-24] MEDS: LIDOCAINE 5% (LIDODERM) PATCH TD SCH (08:13)
[2019-06-24] MEDS: OMEPRAZOLE 20 MG CAP PO SCH (08:13)
[2019-06-24] MEDS: DOCUSATE SODIUM 100 MG CAP PO SCH (08:13)
[2019-06-24] MEDS: DULoxetine 30 MG CAP (CYMBALTA) PO SCH (08:13)
[2019-06-24] MEDS: GABAPENTIN 100 MG CAP PO SCH (08:13)
[2019-06-24] MEDS: MAGNESIUM OXIDE 400 MG TAB (MAG-OX) PO SCH (08:13)
[2019-06-24] MEDS: AMIODARONE 200 MG TAB (PACERONE) PO SCH (08:13)
== END 2019-06-24 10:40 | disposition home or self-care (01) | DRG 560 ==
LOC: M PM&R 15:15
PROVIDERS: ADMIT Physical Medicine & Rehabilitation; ATTEND Physical Medicine & Rehabilitation
DX: S72.042D Displaced fracture of base of neck of left femur, subsequent encounter for closed fracture with routine healing (principal); C90.01 Multiple myeloma in remission; I48.20 Chronic atrial fibrillation, unspecified; M79.7 Fibromyalgia; E03.9 Hypothyroidism, unspecified; K21.9 Gastro-esophageal reflux disease without esophagitis; Z95.2 Presence of prosthetic heart valve; W18.09XD Striking against other object with subsequent fall, subsequent encounter; Y92.009 Unspecified place in unspecified non-institutional (private) residence as the place of occurrence of the external cause; Z96.642 Presence of left artificial hip joint; D64.9 Anemia, unspecified; Z85.828 Personal history of other malignant neoplasm of skin; Z90.49 Acquired absence of other specified parts of digestive tract; Z79.01 Long term (current) use of anticoagulants; Z79.899 Other long term (current) drug therapy; Z88.1 Allergy status to other antibiotic agents; G62.9 Polyneuropathy, unspecified

== ENCOUNTER → 2019-10-01 | Outpatient (REF) | payer MEDICARE ==
[~2019-10-01] MED LIST changes: -DIGO0.12 PO; +DIGO0.123 PO; +FERR32TA PO; +OMEP1CAP73; +OMEP1CAP73 PO; -OMEP20CA4; -OMEP20CA4 PO; +OXYCO5TA PO; +VITA-298 PO; -[UNRECOGNIZED DRUG - CODE] PO
[2019-10-01 18:59] LABS: ALBUMIN 3.1 GM/DL (3.2-5.2); CALCIUM LEVEL 9.8 MG/DL (8.8-10.2); CREATININE FOR GFR 0.97 MG/DL (0.55-1.30); GLOMERULAR FILTRATION RATE 59.3 (>39); MAGNESIUM LEVEL 1.9 MG/DL (1.8-2.4); POTASSIUM SERUM 3.4 MEQ/L (3.5-5.1)
== END ==
LOC: M LAB REF 17:52
PROVIDERS: ATTEND Internal Medicine Nephrology
DX: N18.2 Chronic kidney disease, stage 2 (mild) (principal); E83.42 Hypomagnesemia

== ENCOUNTER 2019-11-12 11:17 | Emergency (ER) | payer MEDICARE ==
[~2019-11-12] VITALS: Ht 165.1 cm; Wt 68.2 kg
[~2019-11-12 11:17] MED LIST changes: +CVS5CHW2 PO; +LIDO2.5C15 TOP; +MELO15TA28 PO
--- NOTE | 2019-11-12 12:01 | REP ---
Clinical: Trauma. Fall. Anticoagulation therapy. Findings: Age-related atrophy and microvascular ischemic changes are appreciated. The ventricles and sulci are symmetric. Jenkins-white differentiation is maintained. There is no evidence for acute intracranial hemorrhage, mass/mass effect, pathology or infarction. No extra-axial fluid collection. Calvarium is intact. Paranasal sinuses and mastoid air cells are clear. Impression: Age related atrophy and microvascular ischemic changes. No acute intracranial hemorrhage, infarction, or mass/mass effect. Electronically Signed by Andreas Vann MD 11/12/2019 11:52 A
--- NOTE | 2019-11-12 12:04 | REP ---
CT study of the cervical spine without contrast: History: History of a fall. Technique: Helical scanning is acquired and overlapping 2 mm high resolution axial images were generated and reviewed at bone and soft tissue window settings. Coronal and sagittal multiplanar re-formations images are generated. CT findings: There is mild degenerative spondylosis change with degenerative disc changes most pronounced at C6-7. Minimal facet hypertrophy is seen in the mid cervical spine. There is no evidence of cervical spine element fracture. No skull base fracture is seen. Cervical vertebral body heights are preserved. Alignment is normal. Facet joints are normally aligned bilaterally at each cervical level on multiplanar re-formations images. There is no evidence of intraspinal or paraspinal hematoma. No extra vertebral abnormality is seen. There is a right-sided central venous catheter in place in the internal jugular vein. Impression: Negative CT study of the cervical spine without contrast. No fracture seen. Electronically Signed by Olayinka Ha MD 11/12/2019 11:55 A
[2019-11-12 12:23] LABS: HEMATOCRIT 36.3 % (36.0-47.0); HEMOGLOBIN 11.6 g/dl (12.0-15.5); MEAN CORPUSCULAR HEMOGLOBIN 30.5 pg (27.0-33.0); MEAN CORPUSCULAR VOLUME 95.5 fl (80.0-96.0); PLATELET COUNT, AUTOMATED 165 10^3/uL (150-450); WHITE BLOOD COUNT 6.8 10^3/uL (4.0-10.0)
[2019-11-12 12:43] LABS: ALBUMIN 2.9 GM/DL (3.2-5.2); BILIRUBIN,TOTAL 0.5 MG/DL (0.2-1.0); CALCIUM LEVEL 10.1 MG/DL (8.8-10.2); CREATININE FOR GFR 1.02 MG/DL (0.55-1.30); GLOMERULAR FILTRATION RATE 55.9 (>39); POTASSIUM SERUM 4.9 MEQ/L (3.5-5.1); TOTAL PROTEIN 5.3 GM/DL (6.4-8.2)
[2019-11-12 13:39] VITALS: O2SAT 96
[2019-11-12 14:03] VITALS: BP 101/58
--- NOTE | 2019-11-12 18:46 | ECGEPIP ---
[facility] - ED Test Date: 2019-11-12 Pat Name: JULIO CHILDERS Department: Room: - Gender: Female [employer] Feeder: ines : 1940 Requested By: Daria Costa Order Number: [id number] Reading MD: Will Armas Measurements Intervals [place] Rate: 73 P: 44 ME: 177 QRS: -28 QRSD: 122 T: 72 QT: 395 QTc: 436 Interpretive Statements SINUS RHYTHM LEFT AXIS DEVIATION SEPTAL MYOCARDIAL INFARCTION, OF INDETERMINATE AGE SIMILAR TO 06/09/19 Electronically Signed on 11-12-2019 18:46:36 EST by Will Armas
== END 2019-11-12 14:07 | disposition home or self-care (01) ==
LOC: M ED 11:17 → EDBD 11:17 → M ED 14:07
DX: R55 Syncope and collapse (principal); S00.83XA Contusion of other part of head, initial encounter; W01.10XA Fall on same level from slipping, tripping and stumbling with subsequent striking against unspecified object, initial encounter; Y92.89 Other specified places as the place of occurrence of the external cause; Y93.01 Activity, walking, marching and hiking; Y99.9 Unspecified external cause status; Z85.89 Personal history of malignant neoplasm of other organs and systems; Z95.4 Presence of other heart-valve replacement; D64.9 Anemia, unspecified; M85.80 Other specified disorders of bone density and structure, unspecified site; Z79.01 Long term (current) use of anticoagulants; Z79.899 Other long term (current) drug therapy; Z88.8 Allergy status to other drugs, medicaments and biological substances

== ENCOUNTER → 2020-09-14 | Outpatient (CLI) | payer MEDICARE ==
[~2020-09-14] MED LIST changes: +ACET-907 PO; -AMIO200T PO; +AMIO200T3 PO; +ASPI-546 PO; -ASPI1TAB15 PO; +MELA1TAB9 PO; +MORP-69 PO; +MORP15TASA PO; +PACE200T PO; +PERC5TAB12 PO; +POTA10CA32 PO; -PROC5TA PO; +PROC5TAB57 PO; +XARE10TA PO; +[UNRECOGNIZED DRUG - OTHER] PO
== END ==
LOC: M LABSMTC 09:47
PROVIDERS: ATTEND Anesthesiology
DX: Z01.812 Encounter for preprocedural laboratory examination (principal); Z20.828 Contact with and (suspected) exposure to other viral communicable diseases

== ENCOUNTER 2020-09-19 08:48 | Inpatient (IN) | payer MEDICARE ==
[~2020-09-19] VITALS: Ht 160 cm; Wt 84.8 kg
[~2020-09-19 08:48] MED LIST changes: -ACET-907 PO; +LIDOCAINE 1% MDV 20ML VIAL SQ PRN; +LR 1,000 ML IV ONE; -MELA1TAB9 PO; +MIDAZOLAM INJ 2MG/2ML VIAL (J2250 PER 1MG) IV PRN; -MORP-69 PO; -MORP15TASA PO; -PERC5TAB12 PO; -POTA10CA32 PO; -XARE10TA PO; -[UNRECOGNIZED DRUG - OTHER] PO; +ceFAZolin SOD 2 GM in IV 1 EA IV ONE; +fentaNYL 100 MCG/2 ML INJECTION (J3010) IV PRN
--- NOTE | 2020-09-19 10:11 | IPN ---
PROGRESS NOTE DATE: 09/19/2020 SUBJECTIVE: Patient is seen and examined. She wishes to go ahead with a right total knee arthroplasty. She understands the nature of this, the risks of bleeding, infection, damage to nerves, vessels, persistent pain, wear, loosening, blood clots, medical problems, among others. A preop clearance was obtained.
[2020-09-19] MEDS ORDERED: EPINEPHrine INJ 1 MG/ML 1ML AMP XX ONE ×2 (10:30→12:10)
[2020-09-19] MEDS ORDERED: ROPIvacaine 0.5% 30ML INJECTION (J2795 PER 1MG) XX ONE (10:30)
[2020-09-19] MEDS ORDERED: dexameTHASONE 10MG/1ML VIAL PRES.FREE (J1100 PER 1MG) XX ONE (10:30)
[2020-09-19] MEDS ORDERED: fentaNYL 100 MCG/2 ML INJECTION (J3010) As Ordered ONE (11:58)
[2020-09-19] MEDS ORDERED: propofoL 200 MG/20 ML VIAL As Ordered ONE (11:58)
[2020-09-19] MEDS ORDERED: MIDAZOLAM INJ 2MG/2ML VIAL (J2250 PER 1MG) As Ordered ONE (11:58)
[2020-09-19] MEDS ORDERED: PHENYLephrine HCL 500 MCG/5 ML (100MCG/ML) SYRINGE (J2370) As Ordered ONE (11:58)
[2020-09-19] MEDS ORDERED: TRANEXAMIC ACID 100 MG/ML 10ML VIAL XX ONE (12:09)
[2020-09-19] MEDS ORDERED: BUPIVACAINE LIPOSOME/PF 1.3% 20ML VIAL (13.3MG/ML)(EXPAREL)(C9290 PER1MG) XX ONE (12:11)
[2020-09-19] MEDS ORDERED: BUPIVACAINE HCL 0.25% 10ML VIAL XX ONE (12:13)
[2020-09-19] MEDS ORDERED: ePHEDrine SULFATE 25 MG/5 ML(5MG/ML) SYRINGE As Ordered ONE (12:15)
[2020-09-19] MEDS ORDERED: fentaNYL 100 MCG/2 ML INJECTION (J3010) IV PRN (13:30)
[2020-09-19] MEDS ORDERED: MORPHINE 4 MG/ML 1ML VIAL/SYRINGE (J2270) IV PRN (13:30)
[2020-09-19] MEDS ORDERED: MORPHINE 2 MG/ML 1ML VIAL (J2270) IV PRN (13:30)
[2020-09-19] MEDS ORDERED: LR 1,000 ML IV SCH (13:30)
[2020-09-19] MEDS ORDERED: ACETAMINOPHEN TAB 650MG DOSE (2X325MG) PO PRN (13:30)
[2020-09-19] MEDS ORDERED: METOCLOPRAMIDE INJ 10MG/2ML VIAL (J2765 PER 1) IV PRN (13:30)
[2020-09-19] MEDS ORDERED: ONDANSETRON 4MG/2ML VIAL IV PRN ×2 (13:30)
--- NOTE | 2020-09-19 13:36 | RO ---
OPERATIVE NOTE DATE OF OPERATION: 09/19/2020 PREOPERATIVE DIAGNOSIS: Right knee osteoarthritis. POSTOPERATIVE DIAGNOSIS: Right knee osteoarthritis. PROCEDURE: Right total knee arthroplasty using an Attune posterior stabilized rotating platform, size 4 femur, size 5 tibia, 8 polyethylene, 35 patellar button. SURGEON: Delta Fulton MD COLOR CONTROL SUPERVISOR: Ricky Ramirez PA-C ANESTHESIA: Spinal. EBL: 50. COMPLICATIONS: None. PROCEDURE: The patient was taken to the operating room and placed in the supine position after spinal anesthesia was induced. The right lower extremity was prepped and draped in the usual sterile fashion. A time out was performed. Tourniquet was inflated. A longitudinal incision was made over the anterior aspect of the knee. Sharp dissection was carried down through subcutaneous tissue. A medial parapatellar arthrotomy was performed per routine. I everted the patella, flexed the knee up and removed any osteophytes. I used the canal-initiating reamer on the femoral side followed by the intramedullary guide set at the appropriate amount of valgus and 9 mm cut. This was pinned in place and the distal femoral cut was made. The femur was sized to be 4 so the drill holes were placed in the end of the femur. The cutting block was secured and remaining four cuts were made. I removed the excess bone. I removed osteophytes and then prepared the tibia. The tibial alignment guide was placed in appropriate amount of posterior slope and valgus. This was pinned in place and the proximal tibia cut was removed removing about 4 mm from the low side. I then used the software engineering manager to remove soft tissue and osteophytes from either side of the knee. The box cutting guide was then secured and the remaining three cuts were made removing this bone and the remainder of the PCL. I then used a spacer block and decided that likely a size 8 would be appropriate in flexion/extension with excellent alignment and stability. The tibial tray was prepared. The size 5 fit nicely. This was pinned in place, drilled and broached. The trial components were then placed and the femur fit nicely. The size 8 polyethylene posterior stabilized had excellent alignment and stability. I then free- hand cut the patella, removing about 7 mm of bone, sized to be a 35. The drill holes were placed and the drill holes were placed in the end of the femur. The patella tracked quite nicely. I had to do a slight lateral release. I then removed the trial components after drilling the end of the femur and irrigated copiously. I placed Exparel in the deep tissues and posterior capsule but aspirating first. Once the surfaces were dry and the assistant manager retail prepared the bone cement with moderate technique I then cemented in the components removing excess bone cement. I held the patella in place with a clamp. The wound was copiously irrigated, the TXA was placed and the deep layer was closed with interrupted #1 Vicryl suture and running Stratafix. I did do a final deep irrigation followed by final closure. It was noted that her tissues were fairly friable, particularly along where the medial release had been performed distally but I was able to get a good repair. We then irrigated, closed the subcu with 2-0 Vicryl and the skin with nathaniel. Once the cement had hardened we deflated the tourniquet. She was taken to the recovery room in stable condition. There were no known complications. The plan will be routine postop. The assistant manager retail was instrumental in holding retractors and assisting in mixing the bone cement and assisting in wound closure.
--- NOTE | 2020-09-19 14:00 | REP ---
INDICATION: POST OP IN PACU 0 COMPARISON: None. TECHNIQUE: AP and cross-table lateral views. FINDINGS: Normal appearance and positioning to the femoral and tibial components. Overlying postsurgical changes and skin nathaniel noted. IMPRESSION: Status post right knee replacement. Satisfactory positioning. <Electronically signed by Andreas Vann > 09/19/20 [id number]
[2020-09-19] MEDS ORDERED: oxyCODONE 5MG TAB As Ordered ONE (14:31)
[2020-09-19] MEDS: oxyCODONE 5MG TAB PO PRN ×2 (14:34→15:04)
[2020-09-19] MEDS ORDERED: MORPHINE 10 MG/ML 1ML VIAL (J2270) As Ordered ONE (14:48)
[2020-09-19] MEDS: MORPHINE 2 MG/ML 1ML VIAL (J2270) IV PRN ×5 (14:54→15:21)
--- NOTE | 2020-09-19 15:06 | CR.PDOC ---
General Date of Consultation: Sep 19, 2020 Consultation REASON FOR CONSULTATION/CHIEF COMPLAINT: Right knee arthroplasty HISTORY OF PRESENT ILLNESS: Patient is 79F pmh Afib, multiple myeloma in [place] ssion, fibromyalgia, hypothyroidism, GERD, short bowel disease, valvular replacement presented to the hospital for elective right knee replacement. The surgery was done on 09/19/20. Patient denied fever, chills, nausea, vomiting, diarrhea or dysuria ALLERGIES: Please see below. HOME MEDICATIONS: Please see below. PAST MEDICAL HISTORY: Afib, multiple myeloma in remission, fibromyalgia, hypothyroidism, GERD, short bowel disease, valvular replacement PAST SURGICAL HISTORY: Skin cancer removal, foot surgery, varicose vein stripping, cholecystectomy, partial hysterectomy, cardiac valve replacement FAMILY HISTORY: I personally reviewed family history and found to be present SOCIAL HISTORY: No etoh, smoking, or illicit drugs REVIEW OF SYSTEMS: 10 point review system negative except as listed above PHYSICAL EXAMINATION: VITAL SIGNS: Please see below. GENERAL: Pleasant and cooperative. No acute distress. HEENT: PERRL. Extraocular movements intact. Clear conjunctiva CARDIOVASCULAR: Regular rate and rhythm. No murmurs, rubs, or gallops LUNGS: Clear to auscultation bilaterally. No wheezes. No rhonchi ABDOMEN: Soft, nontender, nondistended. Positive bowel sounds. Normal active bowel sounds NEUROLOGICAL: Alert and oriented times three. Cranial nerves II through XII grossly intact. Sensation grossly intact in all 4 extremities including 1st web space of left dorsal foot EXTREMITIES: Right knee flexion and extension limited, pulsations intact LABORATORY DATA: Please see below. ASSESSMENT/PLAN: Patient is 79F pmh Afib, multiple myeloma in remission, fibromyalgia, hypothyroidism, GERD, short bowel disease, valvular replacement presented to the hospital for elective right knee replacement. The surgery was done on 09/19/20. Patient denied fever, chills, nausea, vomiting, diarrhea or dysuria Status post right arthroplasty Anticoagulation per Ortho team Pain management Multiple Myeloma - Chronic - Follows with outpatient provider Fibromyalgia - c/w Duloxetine Atrial fibrillation - Patient appears to be rate/rhythm control - c/w Amiodarone Continue xarelto Hypothyroidism - c/w Levothyroxine Neuropathy - c/w Gabapentin GI prophylaxis - c/w Omeprazole Vital Signs/I&O Vital Signs Date Time Temp Pulse Resp B/P (MAP) Pulse Ox O2 Delivery O2 Flow Rate FiO2 09/19/20 14:54 98.9 71 16 106/59 97 Room Air 3.0 Allergies Coded Allergies: thiopental (Unverified Allergy, Severe, anaphylaxis, 09/02/20) levofloxacin (Verified Adverse Reaction, Intermediate, muscle spasm, 09/02/20) propofol (Verified Adverse Reaction, Intermediate, irritable, 09/02/20) Home Medications Scheduled Amiodarone HCl (Amiodarone HCl) 200 Mg Tablet, 200 MG PO DAILY, (Reported) Apixaban (Eliquis) 5 Mg Tab, 5 MG PO BID, (Reported) Docusate Sodium (Colace) 100 Mg Capsule, 100 MG PO BID, #30 Duloxetine Hcl (Duloxetine HCl) 60 Mg Cap, 60 MG PO DAILY, (Reported) Ferrous Gluconate (Ferrous Gluconate) 324 Mg Tablet, 324 MG PO BID, #60 Gabapentin (Gabapentin) 100 Mg Capsule, 100 MG PO TID, #90 Levothyroxine Sodium (Levoxyl) 112 Mcg Tab, 112 MCG PO DAILY, (Reported) Lidocaine/Prilocaine (Lidocaine-Prilocaine Cream) 2.5%/2.5% Cream..g., 1 DOSE TOP ASDIRECTED, #30 Apply dime size to port area. Do not rub in, cover with saran wrap to protect clothing. Magnesium Oxide (Magnesium Oxide) 400 Mg Tab, 800 MG PO BID, (Reported) Melatonin (Melatonin) 5 Mg Tab.chew, 2 TAB PO QPM for sleep for 30 Days, #30 (Reported) Omeprazole Magnesium (Prilosec Otc) 20 Mg Tab, 20 MG PO DAILY, (Reported) Vitamin E Mixed (Vitamin E) 400 Unit Capsule, 400 UNIT PO QHS, (Reported) Scheduled PRN Acetaminophen (Acetaminophen) 325 Mg Tablet, 650 MG PO Q4H PRN for PAIN OR FEVER, #30 CARLO PERDOMO DO Sep 19, 2020 15:06
[2020-09-19] MEDS: LR 1,000 ML IV SCH (15:14)
[2020-09-19] MEDS ORDERED: EMLA CREAM 5GM TUBE (LIDOCAINE/PRILOCAINE) TOP SCH (15:15)
[2020-09-19 15:45] VITALS: BP 101/64
[2020-09-19 16:45] VITALS: BP 103/65
[2020-09-19] MEDS: PERCOCET 5MG/325MG TAB PO PRN ×2 (17:23→22:41)
[2020-09-19 17:45] VITALS: BP 103/67
[2020-09-19 18:45] VITALS: BP 103/67
[2020-09-19] MEDS: ceFAZolin SOD 2 GM in IV 1 EA IV SCH (20:13)
[2020-09-19] MEDS: GABAPENTIN 100 MG CAP PO SCH (20:14)
[2020-09-19] MEDS: FERROUS GLUCONATE 324 MG TAB PO SCH (20:14)
[2020-09-19] MEDS: MAGNESIUM OXIDE 400 MG TAB (MAG-OX) PO SCH (20:14)
[2020-09-19] MEDS: DOCUSATE SODIUM 100MG CAPSULE PO SCH (20:14)
[2020-09-19] MEDS ORDERED: RAMELTEON 8 MG TAB (ROZEREM) PO SCH (21:00)
[2020-09-19 22:00] VITALS: BP 110/68
[2020-09-20 02:00] VITALS: BP 110/70
[2020-09-20] MEDS: LR 1,000 ML IV SCH (03:48)
[2020-09-20] MEDS: PERCOCET 5MG/325MG TAB PO PRN ×2 (04:25→10:15)
[2020-09-20] MEDS: ceFAZolin SOD 2 GM in IV 1 EA IV SCH (04:25)
[2020-09-20 06:00] VITALS: BP 107/66
[2020-09-20] MEDS ORDERED: MORPHINE 4 MG/ML 1ML VIAL/SYRINGE (J2270) IV ONE (06:00)
[2020-09-20] MEDS ORDERED: LEVOTHYROXINE 112MCG TABLET (0.112MG) PO SCH (06:00)
[2020-09-20] MEDS ORDERED: PERC5TAB12 PO (06:43)
[2020-09-20] MEDS ORDERED: XARE10TA PO (06:43)
[2020-09-20 06:45] LABS: HEMATOCRIT 32.9 % (36.0-47.0); HEMOGLOBIN 10.7 g/dl (12.0-15.5); MEAN CORPUSCULAR HEMOGLOBIN 31.8 pg (27.0-33.0); MEAN CORPUSCULAR HGB CONC 32.5 g/dl (32.0-36.5); MEAN CORPUSCULAR VOLUME 97.6 fl (80.0-96.0); PLATELET COUNT, AUTOMATED 112 10^3/uL (150-450); RED BLOOD COUNT 3.37 10^6/uL (4.00-5.40); WHITE BLOOD COUNT 7.8 10^3/uL (4.0-10.0)
[2020-09-20] MEDS: FERROUS GLUCONATE 324 MG TAB PO SCH (08:16)
[2020-09-20] MEDS: DOCUSATE SODIUM 100MG CAPSULE PO SCH (08:16)
[2020-09-20] MEDS: GABAPENTIN 100 MG CAP PO SCH (08:16)
[2020-09-20] MEDS: MAGNESIUM OXIDE 400 MG TAB (MAG-OX) PO SCH (08:17)
[2020-09-20] MEDS ORDERED: OMEPRAZOLE 20 MG CAP PO SCH (09:00)
[2020-09-20] MEDS ORDERED: MIRALAX *UNIT DOSE* 17GM PACKET PO SCH (09:00)
[2020-09-20] MEDS ORDERED: MORPHINE 15 MG SA TAB PO SCH (09:00)
[2020-09-20] MEDS ORDERED: APIXABAN 5 MG TAB (ELIQUIS) PO SCH (09:00)
[2020-09-20] MEDS ORDERED: AMIODARONE 200 MG TAB (PACERONE) PO SCH (09:00)
[2020-09-20 10:00] VITALS: BP 100/55
[2020-09-20] MEDS ORDERED: KETOROLAC 30 MG/ML 1ML VIAL IV ONE (11:30)
[2020-09-20] MEDS ORDERED: tiZANidine 4 MG TAB PO ONE (12:00)
[2020-09-20] MEDS ORDERED: MORP15TASA PO (12:46)
[2020-09-20 14:00] VITALS: BP 91/52
[2020-09-20] MEDS ORDERED: RIVAROXABAN 10 MG TAB (XARELTO) PO SCH (18:00)
[2020-09-21] MEDS ORDERED: [UNRECOGNIZED DRUG - OTHER] PO (04:13)
[2020-09-21] MEDS ORDERED: COLA100C5 PO (05:42)
[2020-09-21] MEDS ORDERED: GABA-1171 PO (05:42)
[2020-09-21] MEDS ORDERED: FERR32TA PO (05:42)
[2020-09-21] MEDS ORDERED: ACET-907 PO (05:42)
[2020-09-21] MEDS ORDERED: POTA10CA32 PO (05:46)
[2020-09-21] MEDS ORDERED: MELA1TAB9 PO (05:46)
[2020-09-21] MEDS ORDERED: AMIO200T3 PO (05:46)
[2020-09-21] MEDS ORDERED: PERC5TAB12 PO (05:46)
[2020-09-21] MEDS ORDERED: MORP-69 PO (05:46)
--- NOTE | 2020-09-21 09:20 | HPE ---
HISTORY AND PHYSICAL DATE OF ADMISSION: 09/19/2020 ATTENDING PHYSICIAN: Dr. Delta Fulton CHIEF COMPLAINT: Right knee pain and stiffness. HISTORY OF PRESENT ILLNESS: The patient is a pleasant, 80-year-old female with progressively worsening right knee pain and stiffness. She failed to improve with conservative measures. She continues to have symptoms with weightbearing activities and activities of daily living. She has consented for an elective right total knee arthroplasty with Dr. Fulton for her continued symptoms. CURRENT MEDICATIONS: - Cymbalta 60 mg daily - Eliquis 5 mg daily - Melatonin 10 mg every evening - Iron 65 mg daily - Vitamin E 400 units daily - Prilosec 20.6 mg daily - Tramadol 50 mg every 4-6 hours as needed for pain - Pacerone 100 mg daily - Gabapentin 100 mg three times daily - Magnesium 400 mg daily ALLERGIES: 1. LEVAQUIN 2. SODIUM PENTOTHAL CHRONIC MEDICAL CONDITIONS: 1. Fibromyalgia 2. Multi-joint arthritis 3. Gastroesophageal reflux disease 4. Thyroid disease 5. Multiple myeloma 6. Osteoarthritis 7. Heart disease PAST SURGICAL HISTORY: 1. Partial hysterectomy 2. Cholecystectomy 3. Vein stripping 4. Cardiac bypass 5. Hemorrhoidectomy SOCIAL HISTORY: The patient is a former smoker and occasionally consumed alcohol. REVIEW OF SYSTEMS: The patient denies fevers, chills, nausea, vomiting or diarrhea. She denies chest pain, shortness of breath, lightheadedness, dizziness or headaches. She denies any recent upper respiratory or urinary tract infection symptoms. She denies any abdominal pain. She does continue to have right knee pain with weightbearing activities and activities of daily living. PHYSICAL EXAMINATION: GENERAL: Well-nourished, well-developed female in no apparent distress. She is alert, oriented and cooperative. Mood and affect are appropriate. VITAL SIGNS: Height is 5 foot 3-1/2 inches, weight 190.8 pounds, temperature is 97.3, blood pressure 110/88, heart rate 80, respirations are 14. NECK: Supple without lymphadenopathy. HEART: Regular rate and rhythm. LUNGS: Clear to auscultation bilaterally. Breathing is regular and non-labored. ABDOMEN: Soft and nontender with bowel sounds present. MUSCULOSKELETAL: Right knee exhibits no gross abnormalities. Skin is intact. She is ambulating today with the use of a walker favoring the right lower extremity. The patient can extend knee to about 2 degrees and flexes to 95 degrees. Right lower extremity strength is 5/5. No hip irritability elicited with range of motion testing. Calf is soft and nontender without evidence of deep vein thrombosis (DVT). She is neurovascularly intact distally. She does have tenderness to palpation along the medial joint line. LABORATORY DATA: Chest x-ray: No acute pulmonary disease. Right knee x-ray: Notable for end-stage degenerative changes. EKG: Normal sinus rhythm with left atrial (LA) conduction disturbance with left axis, incomplete left bundle branch block with strain pattern, left ventricular hypertrophy (LVH). Could rule out prior septal infarction. There are also somatic artifacts. Comprehensive metabolic profile: Fasting glucose 91, BUN elevated at 22, creatinine 0.93, GFR greater than 60, sodium 142, potassium 4.2, chloride elevated 112, carbon dioxide 27, anion gap decreased at 3, calcium elevated at 10.4. AST 21, ALT 32, alkaline phosphatase elevated at 126, total bilirubin 0.6, total protein 6.7, albumin 3.7, albumin/globulin ratio 1.2. Complete blood count: ESR 10, WBCs decreased at 3.6, RBCs 4.23, hemoglobin 12.8, hematocrit 41, platelets 166. Prothrombin time elevated at 14.3. INR 1.09. IMPRESSION: Right knee osteoarthritis with x-rays notable for end-stage degenerative changes. PLAN: The patient has consented for an elective right total knee arthroplasty with Dr. Fulton. Medical optimization pending with Dr. Erich Fulton. Patient will use her Bactroban and Hibiclens as directed. She will be NPO after midnight the night prior to surgery unless directed to take any medications with a small sip of water the morning of her surgery. She does understand she will follow her primary healthcare market consultant's recommendations on how to take her daily medications including her Eliquis.
--- NOTE | 2020-09-22 11:28 | DSES ---
DISCHARGE SUMMARY DATE OF ADMISSION: 09/19/2020 DATE OF DISCHARGE: 09/20/2020 ATTENDING PHYSICIAN: Delta Fulton M.D. ADMITTING DIAGNOSIS: Right knee osteoarthritis. OTHER DIAGNOSES: 1. Fibromyalgia. 2. Gastroesophageal reflux disease. 3. Thyroid disease. 4. Multiple myeloma. 5. Osteoarthritis. 6. Heart disease. DISCHARGE DIAGNOSIS: Right knee osteoarthritis status post right total knee arthroplasty. HISTORY: Patient is a pleasant 80-year-old female with progressively worsening right knee pain and stiffness. She failed to improve with conservative measures. She continued to have symptoms with weightbearing activities and activities of daily living. She consented for an elective right total knee arthroplasty with Dr. Fulton for her continued symptoms. OPERATION PERFORMED: Right total knee arthroplasty. HOSPITAL COURSE: The patient underwent a right total knee arthroplasty under spinal anesthesia which was uneventful. Her hospital course was without complication and she was up with physical therapy per their protocol weightbearing as tolerated on the right lower extremity. Patient was discharged on oral pain medications and will resume her pre-operative medications and diet. Patient will use her thromboembolic deterrent stockings and take her anticoagulant post-operatively to prevent deep venous thrombosis. Patient will follow up in our office in 12-14 days for wound check and staple removal. She is encouraged to contact our office sooner if there is any increase in pain, redness, drainage, numbness or tingling in the extremity, fever greater than 101 degrees or any other concerns. Please see medical records for additional details. Co-Signer: Delta Fulton MD
== END 2020-09-20 16:20 | disposition home or self-care (01) | DRG 470 ==
LOC: M OR 08:48 → M MS5PR 15:35
PROVIDERS: ADMIT Orthopaedic Surgery; ATTEND Orthopaedic Surgery
PROC: 0SRC0J9 Replacement of Right Knee Joint with Synthetic Substitute, Cemented, Open Approach (ICD-10-PCS; principal; 2020-09-19 11:45)
DX: M17.11 Unilateral primary osteoarthritis, right knee (principal); C90.00 Multiple myeloma not having achieved remission; Z79.899 Other long term (current) drug therapy; Z79.01 Long term (current) use of anticoagulants; Z88.8 Allergy status to other drugs, medicaments and biological substances; M79.7 Fibromyalgia; K21.9 Gastro-esophageal reflux disease without esophagitis; Z87.891 Personal history of nicotine dependence; I48.91 Unspecified atrial fibrillation; G62.9 Polyneuropathy, unspecified; E03.9 Hypothyroidism, unspecified

== ENCOUNTER 2020-09-21 03:46 | Inpatient (IN) | payer MEDICARE ==
[~2020-09-21] VITALS: Ht 165.1 cm; Wt 90.1 kg
[~2020-09-21 03:46] MED LIST changes: -LIDOCAINE 1% MDV 20ML VIAL SQ PRN; -LR 1,000 ML IV ONE; -MIDAZOLAM INJ 2MG/2ML VIAL (J2250 PER 1MG) IV PRN; +MORP15TASA PO; +PERC5TAB12 PO; +XARE10TA PO; -ceFAZolin SOD 2 GM in IV 1 EA IV ONE; -fentaNYL 100 MCG/2 ML INJECTION (J3010) IV PRN
[2020-09-21] MEDS ORDERED: [UNRECOGNIZED DRUG - OTHER] PO (04:13)
[2020-09-21 05:23] LABS: BASO % 0.3 % (0.0-1.0); EOS # 0.1 10^3/uL (0.0-0.5); EOS % 0.5 % (0.0-3.0); HEMATOCRIT 32.8 % (36.0-47.0); HEMOGLOBIN 10.4 g/dl (12.0-15.5); LYMPH # 0.6 10^3/uL (1.5-5.0); LYMPH % 5.9 % (24.0-44.0); MEAN CORPUSCULAR HEMOGLOBIN 31.7 pg (27.0-33.0); MEAN CORPUSCULAR HGB CONC 31.7 g/dl (32.0-36.5); MONO # 1.6 10^3/uL (0.0-0.8); NEUTROPHILS # 7.6 10^3/uL (1.5-8.5); NEUTROPHILS % 76.9 % (36.0-66.0); PLATELET COUNT, AUTOMATED 102 10^3/uL (150-450); RED BLOOD COUNT 3.28 10^6/uL (4.00-5.40); WHITE BLOOD COUNT 9.9 10^3/uL (4.0-10.0)
[2020-09-21] MEDS ORDERED: MORPHINE 2 MG/ML 1ML VIAL (J2270) IV ONE (05:30)
[2020-09-21] MEDS ORDERED: ACET-907 PO (05:42)
[2020-09-21] MEDS ORDERED: COLA100C5 PO (05:42)
[2020-09-21] MEDS ORDERED: GABA-1171 PO (05:42)
[2020-09-21] MEDS ORDERED: FERR32TA PO (05:42)
[2020-09-21] MEDS ORDERED: AMIO200T3 PO (05:46)
[2020-09-21] MEDS ORDERED: MELA1TAB9 PO (05:46)
[2020-09-21] MEDS ORDERED: MORP-69 PO (05:46)
[2020-09-21] MEDS ORDERED: POTA10CA32 PO (05:46)
[2020-09-21] MEDS ORDERED: PERC5TAB12 PO (05:46)
[2020-09-21 05:48] LABS: CREATININE FOR GFR 1.04 MG/DL (0.55-1.30); GLOMERULAR FILTRATION RATE 54.6 (>39); POTASSIUM SERUM 5.2 MEQ/L (3.5-5.1)
--- NOTE | 2020-09-21 05:54 | REPVR ---
PROCEDURE INFORMATION: Exam: XR Right Ankle Exam date and time: 09/21/2020 5:03 AM Age: 80 years old Clinical indication: Pain; Ankle; Right; Additional info: R/O frx TECHNIQUE: Imaging protocol: XR Right ankle. Views: 1 or 2 views. COMPARISON: No relevant prior studies available. FINDINGS: Bones/joints: Bones are demineralized. Bones are intact and the ankle mortise is preserved. No acute fracture or dislocation. Old deformities of the 1st and 5th metatarsals with fixation hardware in place. Degenerative change involving the talonavicular joint. Small plantar calcaneal spur. Soft tissues: Soft tissues are unremarkable. IMPRESSION: No acute bony abnormality is identified. Electronically signed by: Andreas Chapman On 09/21/2020 05:55:10 AM
--- NOTE | 2020-09-21 06:03 | REPVR ---
PROCEDURE INFORMATION: Exam: XR Right Knee Exam date and time: 09/21/2020 5:03 AM Age: 80 years old Clinical indication: Pain; Knee; Right; Prior surgery; Surgery date: Post-operative (0-2 days); Additional info: R/O frx S/P fall TECHNIQUE: Imaging protocol: XR Right knee. Views: 4 or more views. COMPARISON: CR Knee, Ap, Lat 09/19/2020 1:42 PM FINDINGS: Bones/joints: Bones are demineralized. Postoperative change from recent total knee arthroplasty. There is an acute periprosthetic fracture which extends vertically through the medial femoral condyle with 8 mm of diastasis. No other fractures. No dislocation. Soft tissues: Generalized soft tissue swelling and small foci of soft tissue air, consistent with recent surgery. Anterior skin nathaniel. Joint effusion within the suprapatellar bursa. IMPRESSION: Postoperative change from recent right total knee arthroplasty. There is an acute mildly displaced periprosthetic fracture involving the medial femoral condyle. Electronically signed by: Andreas Chapman On 09/21/2020 06:03:11 AM
--- NOTE | 2020-09-21 06:51 | REPVR ---
PROCEDURE INFORMATION: Exam: XR Right Femur Exam date and time: 09/21/2020 6:05 AM Age: 80 years old Clinical indication: Pain; Thigh; Right; Prior surgery; Surgery date: Post-operative (0-2 days); Surgery type: Knee; Patient HX: PT fell; Additional info: R/O frx TECHNIQUE: Imaging protocol: XR Right femur. Views: 2 views. COMPARISON: MS Femur 06/08/2019 8:53 AM FINDINGS: Bones/joints: Bones are demineralized. Postoperative change from recent total knee arthroplasty. Acute periprosthetic fracture involving the medial condyle of the distal femur with 8 mm of diastasis. No other fractures. No dislocation. Soft tissues: Generalized soft tissue swelling about the knee with small foci of soft tissue air and anterior skin nathaniel, consistent with recent surgery. Knee joint effusion. IMPRESSION: Postoperative change from recent right total knee arthroplasty. Acute mildly displaced periprosthetic fracture involving the medial condyle of the distal femur. Electronically signed by: Andreas Chapman On 09/21/2020 06:51:10 AM
--- NOTE | 2020-09-21 07:32 | ED PDOC ---
Post-Departure Follow-Up 80 yo F with a history of fibromyalgia, multiple myeloma, and OA s/p L hip repla cement and R TKR presents with traumatic R knee pain. She reports that she had her R knee replaced on September [address] Fulton, and was discharged home yesterday afternoon. She has been ambulating with her walker, however when she got up to use the bathroom this morning she did not. Her knee gave out and she fell between her dresser and bed. She has R knee pain that she treated with Morphine 15mg PO and Percocet 5-325mg every 6 hours (5-6 hours prior to arrival). Her associated symptoms include bleeding (now controlled with pressure), and R foot numbness (since her surgery). She denies other symptoms/injuries. Her exam is notable for a surgical incision with very little blood oozing out. She has diffuse knee tenderness and edema that is worse in the medial anterior aspect. She also has mild R medial malleolar ttp. No limb-length discrepancy or abnormal lie. She has no other signs of trauma. She is hemodynamically stable, afebrile and nontoxic appearing. Her symptoms are concerning for a fracture vs dislocation. labs and imaging were obtained. Her work up was notable for a distal femur fracture. Upon reassessment, she continued to be clinically stable. I spoke with the on-call Orthopedist, Dr. Schrader, who accepted hte patient to his service. I discussed the findings and the plan for admission with the patient. She verbalized understanding and agreed with the plan. She remained clinically stable while under my care. JOLYNN BEARD MD Sep 21, 2020 07:32
[2020-09-21] MEDS ORDERED: MORPHINE 4 MG/ML 1ML VIAL/SYRINGE (J2270) IV ONE (08:00)
[2020-09-21] MEDS: HYDROMORPHONE HCL 0.5 MG/ 0.5 ML SYRINGE (J1170 PER 1) IV PRN ×3 (08:12→08:55)
[2020-09-21] MEDS ORDERED: NS 500 ML IV ONE (08:15)
[2020-09-21] MEDS: MAGNESIUM OXIDE 400 MG TAB (MAG-OX) PO SCH ×2 (09:00→21:01)
[2020-09-21] MEDS: FERROUS GLUCONATE 324 MG TAB PO SCH ×2 (09:00→21:01)
[2020-09-21] MEDS: APIXABAN 5 MG TAB (ELIQUIS) PO SCH ×2 (09:00→21:01)
[2020-09-21] MEDS: GABAPENTIN 100 MG CAP PO SCH ×3 (09:00→21:01)
[2020-09-21] MEDS: DULoxetine 30 MG CAP (CYMBALTA) PO SCH (09:00)
[2020-09-21] MEDS: AMIODARONE 200 MG TAB (PACERONE) PO SCH (09:00)
--- NOTE | 2020-09-21 11:14 | CR ---
ER CONSULTATION DATE: 09/21/2020 TIME: 7:00 A.M. CONSULTING SERVICE: Orthopedic Surgery. CONSULTING PHYSICIAN: Manpreet Schrader M.D. HISTORY OF PRESENT ILLNESS: This is a 80-year-old female who underwent a primary right total knee arthroplasty on Saturday, September 19, [address] Fulton. The patient was recovering at her assisted living facility and slipped off the couch hitting the medial aspect of her right knee against the floor. The patient sustained a medial condyle fracture. The patient came to the [facility] Emergency Department for further evaluation and treatment. Orthopedic Surgery was consulted and she was seen by Manperet Schrader M.D., the orthopedic surgeon on-call. PAST MEDICAL HISTORY: Hypertension, multiple myeloma, obesity, fibromyalgia. PAST SURGICAL HISTORY: Cardiovascular, surgery unknown. MEDICATION ALLERGIES: Denies. CURRENT MEDICATIONS: Please see Emergency Department list. SOCIAL HISTORY: Nonsmoker, nondrinker, non-IV drug user. REVIEW OF SYSTEMS: A 14 point review of systems was negative unless as otherwise described in the HPI above. PHYSICAL EXAMINATION: Patient is alert and oriented to person, time and place. Right lower extremity: Tenderness to palpation about the medial aspect of the right knee. The right lower extremity was otherwise neurovascularly intact. She had 5/5 motor strength of EHL, FHL, tibialis anterior, gastroc-soleus and peroneal musculature. She had sensation intact to light-touch of the deep and superficial peroneal, sural saphenous and tibial nerve distributions. She had a 2+ dorsalis pedis and posterior tibial arterial pulse. Her surgical incision appeared to be clean, dry and intact with nathaniel in place. She had range of motion about her right knee but was guarded secondary to pain. RADIOGRAPHS: Radiographs demonstrate a recent total knee arthroplasty which appeared to be secure and in place without any migration of the hardware. She did have a vertical split fracture consisting of approximately 30% of the medial condyle. This aspect of the medial condyle appeared to articulate minimally with the prosthesis. IMPRESSION: A 80-year-old female with an isolated vertical split of the medial condyle status post right total knee arthroplasty two days prior. PLAN: At this point in time given the fact that the patient did weight bear after the injury, I do believe that the distal femoral aspect of the total knee arthroplasty is likely stable and despite minimal medial condyle fracture, I do believe the implant remains stable and in place. Given the fact that she walked a short distance after the injury and had no migration of the implant, I do believe she would fair well with a trial of nonoperative treatment. She will be treated with the use of a walker and nonweightbearing to the right lower extremity for six weeks at which time she will undergo repeat radiographs and a trial of weightbearing. She will be range of motion as tolerated about the right knee during this time in order to facilitate range of motion of the right knee. The patient will be admitted for pain control and Physical Therapy in order to facilitate gait training and range of motion exercises to the right knee. She will follow-up with Dr. Fulton at [facility] in two weeks for postoperative wound check and possibly repeat radiographs at that time.
[2020-09-21 11:25] VITALS: BP 102/48
[2020-09-21] MEDS: OMEPRAZOLE 20 MG CAP PO SCH (12:34)
[2020-09-21] MEDS: DOCUSATE SODIUM 100MG CAPSULE PO SCH ×2 (12:34→21:01)
[2020-09-21] MEDS: LEVOTHYROXINE 112MCG TABLET (0.112MG) PO SCH (12:34)
--- NOTE | 2020-09-21 12:40 | HPEPDOC ---
General Date of Admission Sep 21, 2020 at 10:31 Date of Service: Sep 21, 2020 Attending Physician: FRANCO MAN DO Chief Complaint The patient is a 80-year-old female admitted with a reason for visit of Fracture Right Femur. Source: Patient, Family History of Present Illness Mrs. oSto is a 80-year-old female who recently had a right knee total a rthroplasty who is here after having a fall. When I saw the patient in the ED, she had received Dilaudid and was mildly confused. I spoke with the who says that this has happened before with anesthesia when she had her hip done. Most of the history was obtained from . On 09/19/2020, she had an elective right total knee arthroplasty by Dr. Fulton. She was discharged home on 09/20/2020. On the way home, has been noted that she was acting strange and was making strange comments. At baseline, she does have some forgetfulness, but these comments were different from normal. On 09/21/2020 at 3 AM, said she fell to her knees. He cannot get her back up and called for EMS. While in the ED, workup was significant for acute mildly displaced periprosthetic fracture involving the medial condyle of the distal femur. Orthopedic surgery was consulted. Recommended that we do a trial of nonoperative therapy. She will need to be nonweightbearing on the right. She may need rehabilitation. Otherwise I spoke with the patient, she denied loss of consciousness when she fell. She denied head strike as well. She denied any chest pain, shortness of breath, or abdominal pain. When I spoke with about CODE STATUS, he wanted more time to think about it. He is okay with her being full code at this time and understands that if her heart or lungs were to stop we would have to do chest compressions or intubate. Home Medications Scheduled Amiodarone HCl (Amiodarone HCl) 200 Mg Tablet, 200 MG PO DAILY, (Reported) Apixaban (Eliquis) 5 Mg Tab, 5 MG PO BID, (Reported) Docusate Sodium (Colace) 100 Mg Capsule, 100 MG PO BID, (Reported) Duloxetine Hcl (Duloxetine HCl) 60 Mg Cap, 60 MG PO DAILY, (Reported) Ferrous Gluconate (Ferrous Gluconate) 324 Mg Tablet, 324 MG PO BID, (Reported) Gabapentin (Gabapentin) 100 Mg Capsule, 100 MG PO TID, (Reported) Levothyroxine Sodium (Levoxyl) 112 Mcg Tab, 112 MCG PO DAILY, (Reported) Magnesium Oxide (Magnesium Oxide) 400 Mg Tab, 800 MG PO BID, (Reported) Melatonin (Melatonin) 5 Mg Tablet, 10 MG PO QHS, (Reported) Morphine Sulfate (Morphine Sulfate ER) 15 Mg Tablet.er, 15 MG PO BID, (Reported) Omeprazole Magnesium (Prilosec Otc) 20 Mg Tab, 20 MG PO DAILY, (Reported) Potassium Chloride (Potassium Chloride) 10 Meq Capsule.er, 20 MEQ PO DAILY, (Reported) Vitamin E Mixed (Vitamin E) 400 Unit Capsule, 400 UNIT PO QHS, (Reported) Scheduled PRN Acetaminophen (Tylenol) 325 Mg Tablet, 650 MG PO Q4H PRN for PAIN / FEVER, (Reported) Oxycodone HCl/Acetaminophen (Percocet 5-325 mg Tablet) 1 Each Tablet, 1 TAB PO Q4H PRN for PAIN, (Reported) CAN TAKE A SECOND TABLET PER DOSE Allergies Coded Allergies: thiopental (Unverified Allergy, Severe, anaphylaxis, 09/02/20) levofloxacin (Verified Adverse Reaction, Intermediate, muscle spasm, 09/02/20) propofol (Verified Adverse Reaction, Intermediate, irritable, 09/02/20) Past Medical History Medical History 1. A. fib 2. Multiple myeloma in remission 3. Fibromyalgia 4. Hypothyroidism 5. GERD 6. Short bowel syndrome 7. Valvular replacement Surgical History 1. Skin cancer removal 2. Foot surgery 3. Varicose vein stripping 4. Cholecystectomy 5. Partial hysterectomy 6. Cardiac valve replacement 7. Right total knee arthroplasty Family History Father: Bladder cancer Mother: Lupus Social History * Smoker: Denies Alcohol: Denies Drugs: denies A-FIB/CHADSVASC A-FIB History Current/History of A-Fib/PAF?: Yes Current PO Anticoag Therapy: Yes Review of Systems Constitutional: Denies: Chills, Fever ENT: Denies: Sore Throat Skin: Denies: Rash Pulmonary: Denies: Dyspnea, Cough Cardiovascular: Denies: Chest Pain Gastrointestinal: Denies: Nausea, Abdominal Pain, Diarrhea Genitourinary: Denies: Dysuria Musculoskeletal: Reports: Leg Pain Neurological: Reports: Other Symptoms (denies paresthesias); Denies: Numbness Psych: Reports: Memory Issues Physical Examination General Exam: Positive: Cooperative Eye Exam: Positive: EOMI; Negative: Sclera icteric ENT Exam: Positive: Atraumatic Neck Exam: Positive: Supple Chest Exam: Positive: Clear to auscultation Heart Exam: Positive: Rate Normal, Regular Rhythm Abdomen Exam: Positive: Normal bowel sounds, Soft; Negative: Tenderness Extremity Exam: Positive: Edema Skin Exam: Positive: Other skin issue (injury to right knee) Neuro Exam: Positive: Cranial Nerves 3-12 NL Psych Exam: Positive: Mood NL; Negative: Mental status NL (picking at bed sheets and lines) Vital Signs Vital Signs Date Time Temp Pulse Resp B/P (MAP) Pulse Ox O2 Delivery O2 Flow Rate FiO2 09/21/20 11:25 97.9 86 19 102/48 (66) 95 Room Air Laboratory Data Labs 24H Laboratory Tests 2 09/21/20 05:10: Immature Granulocyte % (Auto) 0.4, Neutrophils (%) (Auto) 76.9H, Lymphocytes (%) (Auto) 5.9L, Monocytes (%) (Auto) 16.0H, Eosinophils (%) (Auto) 0.5, Basophils (%) (Auto) 0.3, Neutrophils # (Auto) 7.6, Lymphocytes # (Auto) 0.6L, Monocytes # (Auto) 1.6H, Eosinophils # (Auto) 0.1, Basophils # (Auto) 0.0, Nucleated Red Blood Cells % (auto) 0.0, Anion Gap 7L, Glomerular Filtration Rate 54.6, Calcium Level 9.0, Coronavirus (COVID-19)(PCR) NEGATIVE CBC/BMP Laboratory Tests 09/21/20 05:10 Assessment/Plan Mrs. Soto is a 80-year-old female who recently had a right knee total arthroplasty who is here after having a fall with injury to her right total knee arthroplasty. Orthopedic surgery consulted, recommendations appreciated. Spoke with Dr. Fulton. Plan for trial of nonoperative therapy. Patient will be [id number] on the right leg. We'll have physical therapy evaluate once given the okay from orthopedic surgery. Will keep patient bed rest until seen by orthopedic surgery at this time Plan / VTE VTE Prophylaxis Ordered?: Yes Plan Plan 1. Acute mildly displaced periprosthetic fracture of right knee Recently had right total knee arthroplasty on 09/19/2020 Had a fall on 09/21/2020. Fall may be secondary to pain medications, she is sensitive to pain medication We'll try pain control with acetaminophen and tramadol. I've added on lidocaine patch. We will hold morphine and Percocet Orthopedic surgery following, recommendations appreciated Trial of nonoperative therapy. Nonweightbearing on right leg 2. Atrial fibrillation Rate controlled Continue with amiodarone and Eliquis 3. Fibromyalgia Continue duloxetine 4. Hypothyroidism Continue levothyroxine 5. Neuropathy Continue gabapentin 6. DVT prophylaxis SCDs and TEDs. On Eliquis as well Disposition: We'll need physical therapy to work with her as it is expected for her to be nonweightbearing. When given the okay by orthopedic surgery, we'll switch her from bedrest to activity as tolerated and order physical therapy. She may need rehabilitation. FRANCO MAN DO Sep 21, 2020 12:40
[2020-09-21] MEDS: LIDOCAINE 5% (LIDODERM) PATCH TD SCH (12:43)
[2020-09-21 14:00] VITALS: BP 98/58
[2020-09-21] MEDS: traMADol 50 MG TAB PO PRN (14:53)
--- NOTE | 2020-09-21 15:12 | CR ---
CONSULTATION DATE: 09/21/2020 CHIEF COMPLAINT: Right knee pain status post a fall. HISTORY: This is a 80-year-old woman who had a knee replacement done by myself two days ago and sustained a fall apparently at 3:00 a.m. She had a fall onto her knees, could not get back up although did bear weight on it briefly. She was seen by the hospitalist and Dr. Schrader and she has been admitted. She sustained a mildly displaced median supracondylar femur fracture just above her total knee. She denies any other injury. She is in some discomfort at this point. MEDICATIONS INCLUDE: - Amiodarone - Eliquis normally but she is currently on Xarelto instead - Colace - Duloxetine - Ferrous gluconate - Gabapentin - Levoxyl - Magnesium - Melatonin - Morphine - Prilosec - Potassium - Vitamin E - Tylenol ALLERGIES: PROPOFOL, LEVAQUIN, THIAPENTOL. PAST MEDICAL HISTORY INCLUDES: Multiple myeloma in remission, atrial fibrillation, fibromyalgia, hypothyroidism, gastroesophageal reflux disease (GERD), short bowel syndrome, valvular replacement, skin cancer removal, previous foot surgery, varicose vein surgery, cholecystectomy, partial hysterectomy, cardiac valve replacement, a knee replacement as well as hemorrhoidectomy. SOCIAL HISTORY: Former smoker. Occasionally consumes alcohol. REVIEW OF SYSTEMS: She denies any current chest pain, vomiting, nausea, diarrhea although has been a little bit confused on the pain medication. Denies any shortness of breath or cough, abdominal pain. PHYSICAL EXAMINATION: GENERAL: She is alert and oriented, no acute distress. CARDIAC: Regular rate and rhythm. PULMONARY: Nonlabored breathing. ABDOMEN: Soft, nontender, nondistended. EXTREMITIES: Right knee demonstrates a benign appearance to her incision. She has no calf tenderness or palpable cords. She moves her toes well. The overall alignment of her leg looks good. X-rays are reviewed and show a mildly displaced supracondylar femur fracture of the medial femoral condyle. Prosthesis looks well-seated. The alignment looks good. IMPRESSION: Status post recent knee replacement with a recent fall and a mildly displaced supracondylar femur fracture. RECOMMENDTIONS: We talked to her about the options in detail. I have also discussed this with two of my partners and Dr. Schrader. We talked about options of nonoperative versus surgical treatment which could include attempted percutaneous screw fixation or plate fixation versus nonoperative treatment. She wishes to go ahead with nonoperative treatment and that is our recommendation at this point although I think we do need to follow up carefully and make sure it does not displace. If we can get it to heal without surgery, I think the risks would be lower for her. She is in agreement. We are going to get her a hinge Alexander brace, keep her nonweightbearing. Hinges can be 0 to 90 degrees to be used when out of bed to chair. Ice, TEDs and sequentials, continue with Xarelto and periodically we will x-ray her knee to make sure there has been no further displacement. She did not appear to have any fractures of her ankle or hip on the films. She is aware of the nature of the injury and the risks of nonoperative treatment which include nonunion, further displacement, need for further surgery but overall I think the risks are lower with nonoperative treatment and as I can said if we can get this to heal, we can probably get her back functioning fairly well. I am concerned about operative treatment in the face of a recent surgery two days ago as it would be very difficult to get that wound completely sterilized preoperatively, and if we had to open that incision I would be concerned about a knee infection. So for now we will go with nonoperative treatment. She may need rehab.
[2020-09-21] MEDS ORDERED: OLANZapine INTRAMUSCULAR 10MG VIAL IM PRN (17:15)
[2020-09-21] MEDS: ACETAMINOPHEN TAB 650MG DOSE (2X325MG) PO PRN (18:39)
[2020-09-21] MEDS: **NOTE PATIENT COMMENT** MISC XX SCH (21:00)
[2020-09-21 22:00] VITALS: BP 104/60
[2020-09-22] MEDS: ACETAMINOPHEN TAB 650MG DOSE (2X325MG) PO PRN (02:40)
[2020-09-22] MEDS: LEVOTHYROXINE 112MCG TABLET (0.112MG) PO SCH (05:36)
[2020-09-22 06:00] VITALS: BP 101/56
[2020-09-22] MEDS: traMADol 50 MG TAB PO PRN ×3 (07:04→20:02)
[2020-09-22 07:08] LABS: HEMATOCRIT 29.2 % (36.0-47.0); HEMOGLOBIN 8.7 g/dl (12.0-15.5); MEAN CORPUSCULAR HEMOGLOBIN 30.5 pg (27.0-33.0); MEAN CORPUSCULAR HGB CONC 29.8 g/dl (32.0-36.5); MEAN CORPUSCULAR VOLUME 102.5 fl (80.0-96.0); RED BLOOD COUNT 2.85 10^6/uL (4.00-5.40); WHITE BLOOD COUNT 6.8 10^3/uL (4.0-10.0)
[2020-09-22 07:12] LABS: PLATELET COUNT, AUTOMATED 94 10^3/uL (150-450)
[2020-09-22 07:36] LABS: BLOOD UREA NITROGEN 16 MG/DL (7-18); CARBON DIOXIDE LEVEL 28 MEQ/L (21-32); CHLORIDE LEVEL 106 MEQ/L (98-107); CREATININE FOR GFR 0.74 MG/DL (0.55-1.30); GLOMERULAR FILTRATION RATE > 60.0 (>39); GLUCOSE, FASTING 94 MG/DL (70-100); POTASSIUM SERUM 4.4 MEQ/L (3.5-5.1); SODIUM LEVEL 137 MEQ/L (136-145)
[2020-09-22] MEDS: AMIODARONE 200 MG TAB (PACERONE) PO SCH (09:00)
[2020-09-22] MEDS: FERROUS GLUCONATE 324 MG TAB PO SCH ×2 (09:09→20:02)
[2020-09-22] MEDS: DOCUSATE SODIUM 100MG CAPSULE PO SCH ×2 (09:09→20:02)
[2020-09-22] MEDS: MIRALAX *UNIT DOSE* 17GM PACKET PO SCH (09:09)
[2020-09-22] MEDS: MAGNESIUM OXIDE 400 MG TAB (MAG-OX) PO SCH ×2 (09:09→20:01)
[2020-09-22] MEDS: DULoxetine 30 MG CAP (CYMBALTA) PO SCH (09:10)
[2020-09-22] MEDS: MOM 30ML SUSPENSION UDC PO SCH (09:10)
[2020-09-22] MEDS: APIXABAN 5 MG TAB (ELIQUIS) PO SCH ×2 (09:10→20:02)
[2020-09-22] MEDS: OMEPRAZOLE 20 MG CAP PO SCH (09:10)
[2020-09-22] MEDS: GABAPENTIN 100 MG CAP PO SCH ×3 (09:10→20:02)
[2020-09-22] MEDS: LIDOCAINE 5% (LIDODERM) PATCH TD SCH (09:11)
[2020-09-22 12:32] LABS: HEMATOCRIT 28.6 % (36.0-47.0); MEAN CORPUSCULAR HEMOGLOBIN 31.3 pg (27.0-33.0); MEAN CORPUSCULAR HGB CONC 31.5 g/dl (32.0-36.5); MEAN CORPUSCULAR VOLUME 99.3 fl (80.0-96.0); PLATELET COUNT, AUTOMATED 93 10^3/uL (150-450); RED BLOOD COUNT 2.88 10^6/uL (4.00-5.40); WHITE BLOOD COUNT 8.1 10^3/uL (4.0-10.0)
[2020-09-22 14:00] VITALS: BP 100/53
--- NOTE | 2020-09-22 14:27 | REP ---
INDICATION: left knee pain after fall at home COMPARISON: None. TECHNIQUE: AP, lateral, bilateral oblique views of the left knee. FINDINGS: Osteopenia and early advanced tricompartmental osteoarthritic changes are appreciated. Surrounding soft tissue swelling and suprapatellar effusion noted. No obvious acute fracture or dislocation identified. IMPRESSION: 1. Soft tissue swelling and suprapatellar effusion. 2. Osteopenia and degenerative changes. 3. No obvious acute fracture identified. <Electronically signed by Andreas Vann > 09/22/20 [id number]
[2020-09-22] MEDS: **NOTE PATIENT COMMENT** MISC XX SCH (20:02)
--- NOTE | 2020-09-22 21:02 | IPNPDOC ---
Subjective Date Seen The patient was seen on 09/22/20. Subjective Chief Complaint/HPI Mrs. Soto is a 80-year-old female who recently had a right knee total arthroplasty who is here after having a fall with fracture. This morning, she was complaining about pain in the left knee. Imaging demonstrated soft tissue swelling and suprapatellar effusion, but no obvious acute fracture. Otherwise, patient denies any fever, chest pain, or dyspnea. Objective Physical Examination General Exam: Positive: Cooperative Eye Exam: Positive: EOMI; Negative: Sclera icteric ENT Exam: Positive: Atraumatic Neck Exam: Positive: Supple Chest Exam: Positive: Clear to auscultation Heart Exam: Positive: Rate Normal, Regular Rhythm Abdomen Exam: Positive: Normal bowel sounds, Soft; Negative: Tenderness Extremity Exam: Positive: Edema Skin Exam: Positive: Other skin issue (injury to right knee) Neuro Exam: Positive: Cranial Nerves 3-12 NL Psych Exam: Positive: Mood NL; Negative: Mental status NL (picking at bed sheets and lines) Assessment /Plan Assessment Mrs. Soto is a 80-year-old female who recently had a right knee total arthroplasty who is here after having a fall with injury to her right total knee arthroplasty. Orthopedic surgery consulted, recommendations appreciated. Spoke with Dr. Fulton. Plan for trial of nonoperative therapy. Patient will be [id number]-cekojik on the right leg. Physical therapy recommending rehab. Orthopedics has placed for ARU admission screening Plan/VTE VTE Prophylaxis Ordered?: Yes Plan 1. Acute mildly displaced periprosthetic fracture of right knee Recently had right total knee arthroplasty on 09/19/2020 Had a fall on 09/21/2020. Fall may be secondary to pain medications, she is sensitive to pain medication We'll try pain control with acetaminophen and tramadol. I've added on lidocaine patch. We will hold morphine and Percocet Orthopedic surgery following, recommendations appreciated Trial of nonoperative therapy. Nonweightbearing on right leg -She will need rehab before going home 2. Atrial fibrillation Rate controlled Continue with amiodarone and Eliquis 3. Fibromyalgia Continue duloxetine 4. Hypothyroidism Continue levothyroxine 5. Neuropathy Continue gabapentin 6. DVT prophylaxis SCDs and TEDs. On Eliquis as well Disposition: Physical therapy recommends inpatient rehab before home. ARU screen in place VS, I&O, 24H, Frank Vital Signs/I&O Vital Signs Date Time Temp Pulse Resp B/P (MAP) Pulse Ox O2 Delivery O2 Flow Rate FiO2 09/22/20 20:02 18 Room Air 09/22/20 14:00 97.6 87 100/53 (69) 96 I&O- Last 24 Hours up to 6 AM 09/22/20 06:00 Intake Total 1100 ml Output Total 50 ml Balance 1050 ml Laboratory Data 24H LABS Laboratory Tests 2 09/22/20 06:48: Nucleated Red Blood Cells % (auto) 0.0, Immature Platelet Fraction 6.6, Anion Gap 3L, Glomerular Filtration Rate > 60.0, Calcium Level 9.0, Magnesium Level 2.0 09/22/20 12:24: Nucleated Red Blood Cells % (auto) 0.0, Iron Level 16L, Total Iron Binding Capacity 227L, Transferrin % Saturation 7.0L, Ferritin 535H, Lactate Dehydrogenase 238 CBC/BMP Laboratory Tests 09/22/20 06:48 09/22/20 12:24 FRANCO MAN DO Sep 22, 2020 21:02
[2020-09-22 22:00] VITALS: BP 106/55
[2020-09-23] MEDS: LEVOTHYROXINE 112MCG TABLET (0.112MG) PO SCH (05:44)
[2020-09-23 06:00] VITALS: BP 100/54
[2020-09-23 06:55] LABS: HEMATOCRIT 28.3 % (36.0-47.0); HEMOGLOBIN 8.7 g/dl (12.0-15.5); MEAN CORPUSCULAR HEMOGLOBIN 30.7 pg (27.0-33.0); MEAN CORPUSCULAR HGB CONC 30.7 g/dl (32.0-36.5); PLATELET COUNT, AUTOMATED 109 10^3/uL (150-450); RED BLOOD COUNT 2.83 10^6/uL (4.00-5.40)
[2020-09-23 07:14] LABS: BLOOD UREA NITROGEN 15 MG/DL (7-18); CALCIUM LEVEL 9.1 MG/DL (8.8-10.2); CARBON DIOXIDE LEVEL 26 MEQ/L (21-32); CHLORIDE LEVEL 104 MEQ/L (98-107); CREATININE FOR GFR 0.64 MG/DL (0.55-1.30); GLOMERULAR FILTRATION RATE > 60.0 (>39); GLUCOSE, FASTING 80 MG/DL (70-100); MAGNESIUM LEVEL 2.1 MG/DL (1.8-2.4); SODIUM LEVEL 135 MEQ/L (136-145)
[2020-09-23 08:09] VITALS: BP 99/58
[2020-09-23] MEDS: AMIODARONE 200 MG TAB (PACERONE) PO SCH (08:09)
[2020-09-23] MEDS: FERROUS GLUCONATE 324 MG TAB PO SCH ×2 (08:10→20:49)
[2020-09-23] MEDS: LIDOCAINE 5% (LIDODERM) PATCH TD SCH (08:10)
[2020-09-23] MEDS: DOCUSATE SODIUM 100MG CAPSULE PO SCH ×2 (08:10→20:49)
[2020-09-23] MEDS: MIRALAX *UNIT DOSE* 17GM PACKET PO SCH (08:10)
[2020-09-23] MEDS: APIXABAN 5 MG TAB (ELIQUIS) PO SCH ×2 (08:11→20:49)
[2020-09-23] MEDS: DULoxetine 30 MG CAP (CYMBALTA) PO SCH (08:11)
[2020-09-23] MEDS: MAGNESIUM OXIDE 400 MG TAB (MAG-OX) PO SCH ×2 (08:11→20:49)
[2020-09-23] MEDS: OMEPRAZOLE 20 MG CAP PO SCH (08:11)
[2020-09-23] MEDS: GABAPENTIN 100 MG CAP PO SCH ×3 (08:11→20:48)
[2020-09-23] MEDS: MOM 30ML SUSPENSION UDC PO SCH (08:12)
--- NOTE | 2020-09-23 11:36 | REP ---
INDICATION: AMS COMPARISON: 11/12/2019 TECHNIQUE: Axial noncontrast images from the skull base to the thoracic inlet with coronal reformations. This CT examination was performed using the following dose reduction techniques: Automated exposure control, adjustment of mA and/or kv according to the patient's size, and use of iterative reconstruction technique. FINDINGS: Age-related atrophy and microvascular ischemic changes are appreciated. The ventricles and sulci are symmetric. Jenkins-white differentiation is maintained. There is no evidence for acute intracranial hemorrhage, mass/mass effect, pathology or infarction. No extra-axial fluid collection. Calvarium is intact. Paranasal sinuses and mastoid air cells are clear. IMPRESSION: Age related atrophy and microvascular ischemic changes. No acute intracranial hemorrhage, infarction, or mass/mass effect. <Electronically signed by Andreas Vann > 09/23/20 1527
[2020-09-23 14:00] VITALS: BP 112/64
[2020-09-23] MEDS: traMADol 50 MG TAB PO PRN (14:56)
--- NOTE | 2020-09-23 17:48 | IPNPDOC ---
Subjective Date Seen The patient was seen on 09/23/20. Subjective Chief Complaint/HPI Mrs. Soto is a 80-year-old female who recently had a right knee total arthroplasty who is here after having a fall with fracture. Nurse reports that patient has periods where she is clear and when she is confused. Ordered UA which was unremarkable. Ordered CT head which demonstrated age related atrophy and microvascular ischemic changes. Otherwise, patient denies fever, chest pain, or dyspnea. Abdominal pain is chronic. Objective Physical Examination General Exam: Positive: Cooperative Eye Exam: Positive: EOMI; Negative: Sclera icteric ENT Exam: Positive: Atraumatic Neck Exam: Positive: Supple Chest Exam: Positive: Clear to auscultation Heart Exam: Positive: Rate Normal, Regular Rhythm Abdomen Exam: Positive: Normal bowel sounds, Soft; Negative: Tenderness Extremity Exam: Positive: Edema Skin Exam: Positive: Other skin issue (injury to right knee) Neuro Exam: Positive: Cranial Nerves 3-12 NL Psych Exam: Positive: Mood NL; Negative: Mental status NL (picking at bed sheets and lines) Assessment /Plan Assessment Mrs. Soto is a 80-year-old female who recently had a right knee total arthroplasty who is here after having a fall with injury to her right total knee arthroplasty. Orthopedic surgery consulted, recommendations appreciated. Spoke with Dr. Fulton. Plan for trial of nonoperative therapy. Patient will be no [id number]-dcemdav on the right leg. Physical therapy recommending rehab. Orthopedics has placed for ARU admission screening Plan/VTE VTE Prophylaxis Ordered?: Yes Plan 1. Acute mildly displaced periprosthetic fracture of right knee Recently had right total knee arthroplasty on 09/19/2020 Had a fall on 09/21/2020. Fall may be secondary to pain medications, she is sensitive to pain medication We'll try pain control with acetaminophen and tramadol. I've added on lidocaine patch. We will hold morphine and Percocet Orthopedic surgery following, recommendations appreciated Trial of nonoperative therapy. Nonweightbearing on right leg -She will need rehab before going home 2. Atrial fibrillation Rate controlled Continue with amiodarone and Eliquis 3. Fibromyalgia Continue duloxetine 4. Hypothyroidism Continue levothyroxine 5. Neuropathy Continue gabapentin 6. Intermittent delirium -Periods of lucency and confusion -UA unremarkable -Patient may have vascular dementia. CT head demonstrated microvascular ischemic changes -Delirium may be related to pain medication vs pain vs hospital psychosis in the setting of dementia -Try to control pain with the minimum amount of opioids -Reorientate and supportive care 7. DVT prophylaxis SCDs and TEDs. On Eliquis as well Disposition: Physical therapy recommends inpatient rehab before home. ARU screen in place. Pending placement VS, I&O, 24H, Fishbone Vital Signs/I&O Vital Signs Date Time Temp Pulse Resp B/P (MAP) Pulse Ox O2 Delivery O2 Flow Rate FiO2 09/23/20 15:26 18 09/23/20 14:00 98.0 80 112/64 (80) 98 Room Air I&O- Last 24 Hours up to 6 AM 09/23/20 06:00 Intake Total 550 ml Output Total 150 ml Balance 400 ml Laboratory Data 24H LABS Laboratory Tests 2 09/23/20 05:52: Nucleated Red Blood Cells % (auto) 0.0, Anion Gap 5L, Glomerular Filtration Rate > 60.0, Calcium Level 9.1, Magnesium Level 2.1 09/23/20 12:36: Urine Color YELLOW, Urine Appearance CLEAR, Urine pH 8.0, Urine Specific Ephraim 1.005, Urine Protein NEGATIVE, Urine Glucose (UA) NEGATIVE, Urine Ketones NEGATIVE, Urine Blood NEGATIVE, Urine Nitrite NEGATIVE, Urine Bilirubin NEGATIVE, Urine Urobilinogen 0.2, Urine Leukocyte Esterase NEGATIVE, Urine WBC (Auto) 0, Urine RBC (Auto) 1, Urine Hyaline Casts (Auto) 0, Urine Bacteria (Auto) NEGATIVE, Urine Squamous Epithelial Cells 1, Urine Sperm (Auto) CBC/BMP Laboratory Tests 09/23/20 05:52 FRANCO MAN DO Sep 23, 2020 17:48
[2020-09-23] MEDS: ACETAMINOPHEN TAB 650MG DOSE (2X325MG) PO PRN (20:48)
[2020-09-23] MEDS: **NOTE PATIENT COMMENT** MISC XX SCH (21:09)
[2020-09-23 22:00] VITALS: BP 100/62
[2020-09-24] MEDS: traMADol 50 MG TAB PO PRN ×2 (04:51→15:15)
[2020-09-24] MEDS: ACETAMINOPHEN TAB 650MG DOSE (2X325MG) PO PRN ×2 (05:39→20:48)
[2020-09-24] MEDS: LEVOTHYROXINE 112MCG TABLET (0.112MG) PO SCH (05:39)
[2020-09-24 06:00] VITALS: BP 105/57
[2020-09-24 06:52] LABS: HEMATOCRIT 29.5 % (36.0-47.0); HEMOGLOBIN 9.4 g/dl (12.0-15.5); MEAN CORPUSCULAR HEMOGLOBIN 31.1 pg (27.0-33.0); MEAN CORPUSCULAR HGB CONC 31.9 g/dl (32.0-36.5); MEAN CORPUSCULAR VOLUME 97.7 fl (80.0-96.0); PLATELET COUNT, AUTOMATED 133 10^3/uL (150-450); RED BLOOD COUNT 3.02 10^6/uL (4.00-5.40); WHITE BLOOD COUNT 5.1 10^3/uL (4.0-10.0)
[2020-09-24 07:11] LABS: BLOOD UREA NITROGEN 16 MG/DL (7-18); CALCIUM LEVEL 9.1 MG/DL (8.8-10.2); CARBON DIOXIDE LEVEL 25 MEQ/L (21-32); CHLORIDE LEVEL 105 MEQ/L (98-107); CREATININE FOR GFR 0.66 MG/DL (0.55-1.30); GLOMERULAR FILTRATION RATE > 60.0 (>39); GLUCOSE, FASTING 90 MG/DL (70-100); MAGNESIUM LEVEL 2.2 MG/DL (1.8-2.4); POTASSIUM SERUM 4.1 MEQ/L (3.5-5.1); SODIUM LEVEL 135 MEQ/L (136-145)
[2020-09-24] MEDS: APIXABAN 5 MG TAB (ELIQUIS) PO SCH ×2 (08:31→20:48)
[2020-09-24] MEDS: MOM 30ML SUSPENSION UDC PO SCH (08:32)
[2020-09-24] MEDS: AMIODARONE 200 MG TAB (PACERONE) PO SCH (08:32)
[2020-09-24] MEDS: MIRALAX *UNIT DOSE* 17GM PACKET PO SCH (08:32)
[2020-09-24] MEDS: GABAPENTIN 100 MG CAP PO SCH ×3 (08:32→20:48)
[2020-09-24] MEDS: DOCUSATE SODIUM 100MG CAPSULE PO SCH ×2 (08:32→20:48)
[2020-09-24] MEDS: FERROUS GLUCONATE 324 MG TAB PO SCH ×2 (08:32→20:48)
[2020-09-24] MEDS: OMEPRAZOLE 20 MG CAP PO SCH (08:32)
[2020-09-24] MEDS: MAGNESIUM OXIDE 400 MG TAB (MAG-OX) PO SCH ×2 (08:32→20:48)
[2020-09-24] MEDS: DULoxetine 30 MG CAP (CYMBALTA) PO SCH (08:32)
[2020-09-24] MEDS: LIDOCAINE 5% (LIDODERM) PATCH TD SCH (08:33)
--- NOTE | 2020-09-24 13:42 | IPNPDOC ---
Subjective Date Seen The patient was seen on 09/24/20. Subjective Chief Complaint/HPI Mrs. Soto is a 80-year-old female who recently had a right knee total arthroplasty who is here after having a fall with fracture. This morning, she was seen in bed. Reports constipation. Otherwise denies fever/chills, chest pain, or dyspnea. Objective Physical Examination General Exam: Positive: Cooperative Eye Exam: Positive: EOMI; Negative: Sclera icteric ENT Exam: Positive: Atraumatic Neck Exam: Positive: Supple Chest Exam: Positive: Clear to auscultation Heart Exam: Positive: Rate Normal, Regular Rhythm Abdomen Exam: Positive: Normal bowel sounds Extremity Exam: Positive: Edema Skin Exam: Positive: Other skin issue (injury to right knee) Neuro Exam: Positive: Cranial Nerves 3-12 NL Psych Exam: Positive: Mood NL; Negative: Mental status NL (picking at bed sheets and lines) Assessment /Plan Assessment Mrs. Soto is a 80-year-old female who recently had a right knee total arthroplasty who is here after having a fall with injury to her right total knee arthroplasty. Orthopedic surgery consulted, recommendations appreciated. Spoke with Dr. Fulton. Plan for trial of nonoperative therapy. Patient will be [id number]-xymcixs on the right leg. Physical therapy recommending rehab. Orthopedics has placed for ARU admission screening Plan/VTE VTE Prophylaxis Ordered?: Yes Plan 1. Acute mildly displaced periprosthetic fracture of right knee Recently had right total knee arthroplasty on 09/19/2020 Had a fall on 09/21/2020. Fall may be secondary to pain medications, she is sensitive to pain medication We'll try pain control with acetaminophen and tramadol. I've added on lidocaine patch. We will hold morphine and Percocet Orthopedic surgery following, recommendations appreciated Trial of nonoperative therapy. Nonweightbearing on right leg -She will need rehab before going home 2. Atrial fibrillation Rate controlled Continue with amiodarone and Eliquis 3. Fibromyalgia Continue duloxetine 4. Hypothyroidism Continue levothyroxine 5. Neuropathy Continue gabapentin 6. Intermittent delirium -Periods of lucency and confusion -UA unremarkable -Patient may have vascular dementia. CT head demonstrated microvascular ischemic changes -Delirium may be related to pain medication vs pain vs hospital psychosis in the setting of dementia -Try to control pain with the minimum amount of opioids -Reorientate and supportive care 7. DVT prophylaxis SCDs and TEDs. On Eliquis as well Disposition: Physical therapy recommends inpatient rehab before home. ARU screen in place. Pending placement VS, I&O, 24H, Fishbone Vital Signs/I&O Vital Signs Date Time Temp Pulse Resp B/P (MAP) Pulse Ox O2 Delivery O2 Flow Rate FiO2 09/24/20 06:00 98.3 77 20 105/57 (73) 97 Room Air I&O- Last 24 Hours up to 6 AM 09/24/20 06:00 Intake Total 1500 ml Balance 1500 ml Laboratory Data 24H LABS Laboratory Tests 2 09/24/20 06:08: Nucleated Red Blood Cells % (auto) 0.0, Anion Gap 5L, Glomerular Filtration Rate > 60.0, Calcium Level 9.1, Magnesium Level 2.2 CBC/BMP Laboratory Tests 09/24/20 06:08 FRANCO MAN DO Sep 24, 2020 13:42
[2020-09-24 14:00] VITALS: BP 114/64
[2020-09-24] MEDS: **NOTE PATIENT COMMENT** MISC XX SCH (20:48)
[2020-09-24 22:00] VITALS: BP 97/57
[2020-09-25] MEDS: ACETAMINOPHEN TAB 650MG DOSE (2X325MG) PO PRN ×2 (05:16→21:23)
[2020-09-25] MEDS: LEVOTHYROXINE 112MCG TABLET (0.112MG) PO SCH (05:16)
[2020-09-25 06:00] VITALS: BP 101/54
[2020-09-25 06:51] LABS: HEMATOCRIT 29.3 % (36.0-47.0); HEMOGLOBIN 8.9 g/dl (12.0-15.5); MEAN CORPUSCULAR HEMOGLOBIN 30.4 pg (27.0-33.0); MEAN CORPUSCULAR HGB CONC 30.4 g/dl (32.0-36.5); PLATELET COUNT, AUTOMATED 166 10^3/uL (150-450); RED BLOOD COUNT 2.93 10^6/uL (4.00-5.40); WHITE BLOOD COUNT 4.9 10^3/uL (4.0-10.0)
[2020-09-25 07:18] LABS: BLOOD UREA NITROGEN 20 MG/DL (7-18); CALCIUM LEVEL 9.1 MG/DL (8.8-10.2); CARBON DIOXIDE LEVEL 27 MEQ/L (21-32); CHLORIDE LEVEL 105 MEQ/L (98-107); CREATININE FOR GFR 0.73 MG/DL (0.55-1.30); GLOMERULAR FILTRATION RATE > 60.0 (>39); GLUCOSE, FASTING 103 MG/DL (70-100); MAGNESIUM LEVEL 2.3 MG/DL (1.8-2.4); SODIUM LEVEL 136 MEQ/L (136-145)
[2020-09-25] MEDS: MIRALAX *UNIT DOSE* 17GM PACKET PO SCH (08:12)
[2020-09-25] MEDS: MOM 30ML SUSPENSION UDC PO SCH (08:12)
[2020-09-25] MEDS: GABAPENTIN 100 MG CAP PO SCH ×3 (08:13→21:23)
[2020-09-25] MEDS: FERROUS GLUCONATE 324 MG TAB PO SCH ×2 (08:13→21:23)
[2020-09-25] MEDS: OMEPRAZOLE 20 MG CAP PO SCH (08:13)
[2020-09-25] MEDS: APIXABAN 5 MG TAB (ELIQUIS) PO SCH ×2 (08:13→21:23)
[2020-09-25] MEDS: DULoxetine 30 MG CAP (CYMBALTA) PO SCH (08:13)
[2020-09-25] MEDS: DOCUSATE SODIUM 100MG CAPSULE PO SCH ×2 (08:13→21:23)
[2020-09-25] MEDS: LIDOCAINE 5% (LIDODERM) PATCH TD SCH (08:13)
[2020-09-25] MEDS: MAGNESIUM CITRATE 300 ML BTL PO SCH ×2 (08:13→10:47)
[2020-09-25] MEDS: MAGNESIUM OXIDE 400 MG TAB (MAG-OX) PO SCH ×2 (08:14→21:22)
[2020-09-25] MEDS: AMIODARONE 200 MG TAB (PACERONE) PO SCH (08:14)
[2020-09-25] MEDS: traMADol 50 MG TAB PO PRN ×2 (08:22→17:03)
[2020-09-25 08:32] VITALS: BP 99/53
[2020-09-25 14:00] VITALS: BP 112/65
--- NOTE | 2020-09-25 20:53 | IPNPDOC ---
Subjective Date Seen The patient was seen on 09/25/20. Subjective Chief Complaint/HPI Mrs. Soto is a 80-year-old female who recently had a right knee total arthroplasty who is here after having a fall with fracture. This morning, she was seen in bed. Denies chest pain or dyspnea. Her leg pain is about the same. Objective Physical Examination General Exam: Positive: Cooperative Eye Exam: Positive: EOMI; Negative: Sclera icteric ENT Exam: Positive: Atraumatic Neck Exam: Positive: Supple Chest Exam: Positive: Clear to auscultation Heart Exam: Positive: Rate Normal, Regular Rhythm Abdomen Exam: Positive: Normal bowel sounds Extremity Exam: Positive: Edema Skin Exam: Positive: Other skin issue (injury to right knee) Neuro Exam: Positive: Cranial Nerves 3-12 NL Psych Exam: Positive: Mood NL; Negative: Mental status NL (picking at bed sheets and lines) Assessment /Plan Assessment Mrs. Soto is a 80-year-old female who recently had a right knee total arthroplasty who is here after having a fall with injury to her right total knee arthroplasty. Orthopedic surgery consulted, recommendations appreciated. Spoke with Dr. Fulton. Plan for trial of nonoperative therapy. Patient will be [id number]-htoqwxf on the right leg. Physical therapy recommending rehab. Orthopedics has placed for ARU admission screening Plan/VTE VTE Prophylaxis Ordered?: Yes Plan 1. Acute mildly displaced periprosthetic fracture of right knee Recently had right total knee arthroplasty on 09/19/2020 Had a fall on 09/21/2020. Fall may be secondary to pain medications, she is sen sitive to pain medication We'll try pain control with acetaminophen and tramadol. I've added on lidocaine patch. We will hold morphine and Percocet Orthopedic surgery following, recommendations appreciated Trial of nonoperative therapy. Nonweightbearing on right leg -She will need rehab before going home 2. Atrial fibrillation Rate controlled Continue with amiodarone and Eliquis 3. Fibromyalgia Continue duloxetine 4. Hypothyroidism Continue levothyroxine 5. Neuropathy Continue gabapentin 6. Intermittent delirium -Periods of lucency and confusion -UA unremarkable -Patient may have vascular dementia. CT head demonstrated microvascular ischemic changes -Delirium may be related to pain medication vs pain vs hospital psychosis in the setting of dementia -Try to control pain with the minimum amount of opioids -Reorientate and supportive care 7. DVT prophylaxis SCDs and TEDs. On Eliquis as well Disposition: Physical therapy recommends inpatient rehab before home. ARU screen in place. Pending placement VS, I&O, 24H, Fishbone Vital Signs/I&O Vital Signs Date Time Temp Pulse Resp B/P (MAP) Pulse Ox O2 Delivery O2 Flow Rate FiO2 09/25/20 17:33 16 09/25/20 14:00 97.7 81 112/65 (81) 94 09/25/20 08:32 Room Air I&O- Last 24 Hours up to 6 AM 09/25/20 06:00 Intake Total 2720 ml Balance 2720 ml Laboratory Data 24H LABS Laboratory Tests 2 09/25/20 06:25: Nucleated Red Blood Cells % (auto) 0.0, Anion Gap 4L, Glomerular Filtration Rate > 60.0, Calcium Level 9.1, Magnesium Level 2.3 CBC/BMP Laboratory Tests 09/25/20 06:25 FRANCO MAN DO Sep 25, 2020 20:53
[2020-09-25] MEDS: **NOTE PATIENT COMMENT** MISC XX SCH (21:23)
[2020-09-25 22:00] VITALS: BP 105/53
[2020-09-26] MEDS: LEVOTHYROXINE 112MCG TABLET (0.112MG) PO SCH (05:30)
[2020-09-26] MEDS: traMADol 50 MG TAB PO PRN (05:31)
[2020-09-26 05:56] LABS: HEMATOCRIT 28.7 % (36.0-47.0); HEMOGLOBIN 8.7 g/dl (12.0-15.5); MEAN CORPUSCULAR HEMOGLOBIN 30.3 pg (27.0-33.0); MEAN CORPUSCULAR HGB CONC 30.3 g/dl (32.0-36.5); PLATELET COUNT, AUTOMATED 198 10^3/uL (150-450); RED BLOOD COUNT 2.87 10^6/uL (4.00-5.40); WHITE BLOOD COUNT 4.7 10^3/uL (4.0-10.0)
[2020-09-26 06:00] VITALS: BP 99/57
[2020-09-26 06:23] LABS: BLOOD UREA NITROGEN 19 MG/DL (7-18); CALCIUM LEVEL 9.9 MG/DL (8.8-10.2); CARBON DIOXIDE LEVEL 29 MEQ/L (21-32); CHLORIDE LEVEL 103 MEQ/L (98-107); CREATININE FOR GFR 0.89 MG/DL (0.55-1.30); GLOMERULAR FILTRATION RATE > 60.0 (>39); GLUCOSE, FASTING 93 MG/DL (70-100); MAGNESIUM LEVEL 2.7 MG/DL (1.8-2.4); POTASSIUM SERUM 4.4 MEQ/L (3.5-5.1); SODIUM LEVEL 135 MEQ/L (136-145)
[2020-09-26] MEDS ORDERED: MAGNESIUM OXIDE 400 MG TAB (MAG-OX) PO SCH (09:00)
[2020-09-26] MEDS: APIXABAN 5 MG TAB (ELIQUIS) PO SCH (09:19)
[2020-09-26] MEDS: FERROUS GLUCONATE 324 MG TAB PO SCH (09:19)
[2020-09-26] MEDS: MOM 30ML SUSPENSION UDC PO SCH (09:19)
[2020-09-26] MEDS: MIRALAX *UNIT DOSE* 17GM PACKET PO SCH (09:19)
[2020-09-26] MEDS: GABAPENTIN 100 MG CAP PO SCH (09:19)
[2020-09-26] MEDS: DOCUSATE SODIUM 100MG CAPSULE PO SCH (09:19)
[2020-09-26] MEDS: LIDOCAINE 5% (LIDODERM) PATCH TD SCH (09:19)
[2020-09-26] MEDS: DULoxetine 30 MG CAP (CYMBALTA) PO SCH (09:20)
[2020-09-26] MEDS: OMEPRAZOLE 20 MG CAP PO SCH (09:20)
[2020-09-26] MEDS: AMIODARONE 200 MG TAB (PACERONE) PO SCH (09:20)
[2020-09-26] MEDS: ACETAMINOPHEN TAB 650MG DOSE (2X325MG) PO PRN (09:36)
[2020-09-26] MEDS ORDERED: OLANZapine 2.5MG TABLET PO PRN (10:15)
--- NOTE | 2020-09-26 10:46 | REP ---
INDICATION: follow up fx COMPARISON: 09/22/2020 TECHNIQUE: AP and cross-table lateral views. FINDINGS: Patient is noted to be status post joint replacement. There is a mildly displaced fracture involving the medial femoral condyle. IMPRESSION: Status post right knee replacement. Mildly displaced fracture of the medial femoral condyle noted. <Electronically signed by Andreas Vann > 09/26/20 1042
[2020-09-26] MEDS ORDERED: PEG1POW PO (11:01)
[2020-09-26] MEDS ORDERED: MOM30SS2 PO (11:01)
[2020-09-26] MEDS ORDERED: OLAN2.5T25 PO (11:01)
[2020-09-26] MEDS ORDERED: MAG400TA PO (11:01)
[2020-09-26] MEDS ORDERED: TRAM50TA2 PO (11:01)
--- NOTE | 2020-09-26 23:24 | DS.PDOC ---
Discharge Summary General Date of Admission Sep 21, 2020 at 10:31 Date of Discharge Sep 26, 2020 Attending Physician: FRANCO MAN DO Discharge Summary PROCEDURES PERFORMED DURING STAY: None ADMITTING DIAGNOSES: 1. Acute mildly displaced periprosthetic fracture of right knee 2. Atrial fibrillation 3. Fibromyalgia 4. Hypothyroidism 5. Neuropathy DISCHARGE DIAGNOSES: 1. Acute mildly displaced periprosthetic fracture of right knee 2. Atrial fibrillation 3. Fibromyalgia 4. Hypothyroidism 5. Neuropathy 6. Constipation COMPLICATIONS/CHIEF COMPLAINT: Fracture Right Femur. HISTORY OF PRESENT ILLNESS: Mrs. Soto is a 80-year-old female who recently had a right knee total arthroplasty who is here after having a fall. When I saw the patient in the ED, she had received Dilaudid and was mildly confused. I spoke with the who says that this has happened before with anesthesia when she had her hip done. Most of the history was obtained from . On 09/19/2020, she had an elective right total knee arthroplasty by Dr. Fulton. She was discharged home on 09/20/2020. On the way home, has been noted that she was acting strange and was making strange comments. At baseline, she does have some forgetfulness, but these comments were different from normal. On 09/21/2020 at 3 AM, said she fell to her knees. He cannot get her back up and called for EMS. While in the ED, workup was significant for acute mildly displaced periprosthetic fracture involving the medial condyle of the distal femur. Orthopedic surgery was consulted. Recommended that we do a trial of nonoperative therapy. She will need to be nonweightbearing on the right. She may need rehabilitation. Otherwise I spoke with the patient, she denied loss of consciousness when she fell. She denied head strike as well. She denied any chest pain, shortness of breath, or abdominal pain. When I spoke with about CODE STATUS, he wanted more time to think about it. He is okay with her being full code at this time and understands that if her heart or lungs were to stop we would have to do chest compressions or intubate. HOSPITAL COURSE: Orthopedic surgery evaluated the patient. Recommended that we do a course of non-operative management and follow up with orthopedic surgery outpatient. Otherwise, initially, patient had intermittent delirium and confusion during the first few days. She was switched to acetaminophen and Tramadol for pain control, and she was more clear with this regimen. She has struggled with constipation since admission until today. Otherwise, today, she was ready for ARU and transferred over to ARU. DISCHARGE MEDICATIONS: Please see below. ALLERGIES: Please see below. PHYSICAL EXAMINATION ON DISCHARGE: VITAL SIGNS: Please see below. GENERAL: Comfortable, no apparent distress HEENT: EOMI, sclera clear NECK: Supple CARDIOVASCULAR EXAMINATION: Regular rate and rhythm RESPIRATORY EXAMINATION: Lungs clear to auscultation bilaterally ABDOMINAL EXAMINATION: Soft, non-tender, normal bowel sounds EXTREMITIES: Mild bilateral pitting edema SKIN: Warm and dry NEUROLOGICAL EXAMINATION: CN 3-12 grossly intact PSYCHIATRIC EXAMINATION: Normal mood and affect LABORATORY DATA: Please see below. IMAGING: Xray right femur Postoperative change from recent right total knee arthroplasty. Acute mildly displaced periprosthetic fracture involving the medial condyle of the distal femur. PROGNOSIS: Good ACTIVITY: As tolerated. DIET: As tolerated DISCHARGE PLAN: Rehab at ARU DISPOSITION: 62 D/T Rehab Facility. DISCHARGE INSTRUCTIONS: 1. Follow up with your ARU physician 2. Follow up with orthopedic surgery outpatient DISCHARGE CONDITION: Stable. Total time spent on discharge planning, discharge summary, and medication reconciliation: 45 minutes Vital Signs/I&Os Vital Signs Date Time Temp Pulse Resp B/P (MAP) Pulse Ox O2 Delivery O2 Flow Rate FiO2 09/26/20 06:01 16 09/26/20 06:00 97.3 76 99/57 (71) 96 Room Air I&O- Last 24 Hours up to 6 AM 09/26/20 06:00 Intake Total 2080 ml Output Total 750 ml Balance 1330 ml Laboratory Data Labs 24H Laboratory Tests 2 09/26/20 05:25: Nucleated Red Blood Cells % (auto) 0.0, Anion Gap 3L, Glomerular Filtration Rate > 60.0, Calcium Level 9.9, Magnesium Level 2.7H CBC/BMP Laboratory Tests 09/26/20 05:25 Discharge Medications Scheduled Amiodarone HCl (Amiodarone HCl) 200 Mg Tablet, 200 MG PO DAILY, (Reported) Apixaban (Eliquis) 5 Mg Tab, 5 MG PO BID, (Reported) Docusate Sodium (Colace) 100 Mg Capsule, 100 MG PO BID, (Reported) Duloxetine Hcl (Duloxetine HCl) 60 Mg Cap, 60 MG PO DAILY, (Reported) Ferrous Gluconate (Ferrous Gluconate) 324 Mg Tablet, 324 MG PO BID, (Reported) Gabapentin (Gabapentin) 100 Mg Capsule, 100 MG PO TID, (Reported) Levothyroxine Sodium (Levoxyl) 112 Mcg Tab, 112 MCG PO DAILY, (Reported) Magnesium Hydroxide (Milk of Magnesia) 400 Mg/5 Ml Oral.susp, 30 ML PO DAILY Magnesium Oxide (Magnesium Oxide) 400 Mg Tablet, 400 MG PO BID Melatonin (Melatonin) 5 Mg Tablet, 10 MG PO QHS, (Reported) Omeprazole Magnesium (Prilosec Otc) 20 Mg Tab, 20 MG PO DAILY, (Reported) Polyethylene Glycol 3350 (Polyethylene Glycol 3350) 17 Gm Powd.pack, 1 PKT PO DAILY Vitamin E Mixed (Vitamin E) 400 Unit Capsule, 400 UNIT PO QHS, (Reported) Scheduled PRN Acetaminophen (Tylenol) 325 Mg Tablet, 650 MG PO Q4H PRN for PAIN / FEVER, (Reported) Olanzapine (Olanzapine) 2.5 Mg Tablet, 2.5 MG PO Q6HP PRN for AGITATION Tramadol HCl (Tramadol HCl) 50 Mg Tablet, 50 MG PO Q6HP PRN for MODERATE PAIN (PS 5-7) Allergies Coded Allergies: thiopental (Unverified Allergy, Severe, anaphylaxis, 09/02/20) levofloxacin (Verified Adverse Reaction, Intermediate, muscle spasm, 09/02/20) propofol (Verified Adverse Reaction, Intermediate, irritable, 09/02/20) FRANCO MAN DO Sep 26, 2020 23:20
== END 2020-09-26 13:05 | DRG 534 ==
LOC: M ED 03:46 → CMPBEDREQ 05:23 → M SDC 08:50 → M MS5PR 10:31
PROVIDERS: ADMIT Internal Medicine; ATTEND Internal Medicine
DX: S72.451A Displaced supracondylar fracture without intracondylar extension of lower end of right femur, initial encounter for closed fracture (principal); M97.11XA Periprosthetic fracture around internal prosthetic right knee joint, initial encounter; K91.2 Postsurgical malabsorption, not elsewhere classified; I48.91 Unspecified atrial fibrillation; F01.50 Vascular dementia, unspecified severity, without behavioral disturbance, psychotic disturbance, mood disturbance, and anxiety; E03.9 Hypothyroidism, unspecified; G62.9 Polyneuropathy, unspecified; M79.7 Fibromyalgia; K59.00 Constipation, unspecified; Z96.651 Presence of right artificial knee joint; Z79.899 Other long term (current) drug therapy; Z88.8 Allergy status to other drugs, medicaments and biological substances; K21.9 Gastro-esophageal reflux disease without esophagitis; Z87.891 Personal history of nicotine dependence; W18.30XA Fall on same level, unspecified, initial encounter; Y92.009 Unspecified place in unspecified non-institutional (private) residence as the place of occurrence of the external cause

== ENCOUNTER 2020-09-26 11:25 | Inpatient (IN) | payer MEDICARE ==
[~2020-09-26] VITALS: Ht 160 cm; Wt 90.1 kg
[~2020-09-26 11:25] MED LIST changes: +ACET-907 PO; -MAG400TA PO; +MAGN400T35 PO; +MELA1TAB9 PO; +MOM30SS2 PO; +MORP-69 PO; +OLAN2.5T25 PO; +POTA10CA32 PO; +[UNRECOGNIZED DRUG - OTHER] PO
[2020-09-26 13:10] VITALS: BP 104/57
[2020-09-26] MEDS ORDERED: OLANZapine 2.5MG TABLET PO PRN (15:15)
[2020-09-26] MEDS ORDERED: BISACODYL 10 MG SUPP PR PRN (15:15)
[2020-09-26] MEDS ORDERED: MOM 30ML SUSPENSION UDC PO PRN (15:15)
[2020-09-26] MEDS: GABAPENTIN 100 MG CAP PO SCH ×2 (16:37→20:15)
[2020-09-26] MEDS: ACETAMINOPHEN 500 MG TAB PO SCH ×2 (16:37→20:15)
[2020-09-26] MEDS: REMEDY PHYTOPLEX Z-GUARD PASTE 113GM TUBE (FROM STOREROOM PRODUCT) TOP SCH ×2 (16:37→20:16)
--- NOTE | 2020-09-26 17:41 | HPEPDOC ---
Manager Internal Note DATE OF ADMISSION: 09-26-20 DATE OF SERVICE: 09-27-20 TIME OF ADMISSION: Please refer to physician's admission order. SOURCE OF ADMISSION INFORMATION: [facility] record and patient CHIEF COMPLAINT: right femur fracture HISTORY OF PRESENT ILLNESS: 80F pmh Afib, multiple myeloma, Fibromyalgia, hypothyroidism, GERD, mitral valve replacement who underwent a right TKR after which she fell and presented to [facility] ED on 09-21-20 with right leg pain and difficulty walking. Xray revealed, Postoperative change from recent right total knee arthroplasty. Acute mildly displaced periprosthetic fracture involving the medial condyle of the distal femur. She was evaluated by orthopedics for her femur fracture and decision was made to do non-surgical intervention and remain NWB with brace. She had altered mental status on 09-23-20 for which CTH showed no acute intracranial hemorrhage or pathology and was thought to be due to vascular dementia vs hospital acquired delirium. She had post-op anemia and significant pain, was evaluated by therapy where she was noted to have impairments in mobility and ADLs and deemed medically appropriate for discharge to ARU on 09-26-20. REVIEW OF SYSTEMS: The following is a completed review of systems and has been reviewed. Review of systems otherwise unremarkable. PAIN: Patient self reports right knee pain EYES: No recent vision changes EARS, NOSE, & THROAT: No throat pain, or dysphagia, or rhinorrhea CARDIOVASCULAR: Denies chest pain or palpitations PULMONARY: Denies shortness of breath GASTROINTESTINAL: Denies constipation/diarrhea GENITOURINARY: denies dysuria MUSCULOSKELETAL: right LE pain, femur fracture NEUROLOGICAL:denies paresthesias HEMATOLOGICAL: denies easy bruising . SKIN: right TKR incision PSYCHIATRIC: Unremarkable All other review of systems found to be negative. PAST MEDICAL HISTORY: as per HPI PAST SURGICAL HISTORY: As per HPI and skin cancer removal, foot surgery, varicose vein stripping partial hysterectomy, cholecystectomy ALLERGIES: Please see below. MEDICATIONS: Please see below. FAMILY HISTORY: Bladder cancer, lupus SOCIAL HISTORY: No etoh/illicit drugs/smoking DIET: low salt PHYSICAL EXAMINATION: VITAL SIGNS: Please see below. GENERAL: Pleasant and cooperative. No acute distress. obese HEENT: PERRL. Extraocular movements intact. Clear conjunctiva CARDIOVASCULAR: Regular rate and rhythm. No murmurs, rubs, or gallops LUNGS: Clear to auscultation bilaterally. No wheezes. No rhonchi ABDOMEN: Soft, nontender, nondistended. Positive bowel sounds. Normal active bowel sounds NEUROLOGICAL: Alert and oriented times three. Cranial nerves II through XII grossly intact. Sensation grossly intact EXTREMITIES: 5\5 strength bilateral upper extremities. 5\5 strength right ankle DF/EHL and PF. 5-/5 strength in left lower extremity. SKIN: right TKA incision with optifoam (scant serous drainage, no periwound induration, mild swelling and ecchymosis) LABORATORY DATA: Please see below. IMAGING: Imaging documentation personally reviewed by record FUNCTIONAL STATUS: Premorbid: Independent with all activities of daily life as well as mobility On Admission: Min assist for functional transfers, ambulation, dressing, toileting GOALS: Mod-I for functional transfers, ambulation household distances, dressing, toileting, bathing ASSESSMENT:80-year-old F with past medical history of Afib, fibromyalgia who presents status post right femur fracture PLAN: 1.Rehab- PT/OT advance mobility and ADLs, stretch/strengthen/maintain ROM all 4limbs 2. Neuro- monitor for delirium and avoid delirum inducing meds -fibromyalgia contributing to overall functional impairments c/u gabapentin and cymbalta 3. Cardiac- hx of Afib and s/p mitral valve repair, c/u amiodarone, eliquis and coreg, no documented CHF, however will monitor for fluid overload 2g diet, and daily weights, will consider fluid restriction if clinically appropriate -HLD c/u statin, medicine consulted to assist in overall management 4. Resp- monitor for infection, encourage incentive spirometry 5. Ortho- s/p right femur fracture in setting of recent TKR, NWB, ortho consulted 6. Endo- pmh hypothyroidism c/u Synthroid 7. Pain- tramadol 25mg q4hr prn (monitor for delirium), tylenol 8. DVT ppx-on eliquis 9. GI ppx- omeprazole 10. Dispo- tbd POST ADMISSION PHYSICIAN EVALUATION: Medical and functional status: Description of medical status, medical assess ment: As above. Rehabilitation diagnosis and current and prior cold morbid medical conditions as above. Risk of complications and plans to mitigate them as above. Description of functional status current status is as above. Prior status as above. Status compared to preadmission: There are no clinically significant differences between the patient's current status and the information described on the preadmission screening document. Treatment plan anticipated: Treatment plan is as described above. Required disciplines including physical therapy, occupational therapy, others as noted ab ove Intensity of services: 3 hours a day, 6 days a week. Special considerations: There are no specific special or safety considerations that would likely preclude immediate implementation of an intensive r ehabilitation program or subsequently influence the plan of care. ATTESTATION: Considering all the information above, it is my best judgment that this patient requires intensive rehabilitation therapy as described above and an inpatient hospital environment due to the complexity of nursing, medical, and rehabilitation needs required by the patient. Furthermore, this patient can re asonably be expected to participate in an benefit from an inpatient rehabilitation stay with an interdisciplinary team approach to the delivery of rehabilitation care under the direction and supervision of rehabilitation physician PROGNOSIS: Excellent ESTIMATED LENGTH OF STAY:10-14 days. PROJECTED DISCHARGE DESTINATION: Home with family support and any durable medical equipment required to increase functional safety and mobility. TIME SPENT COUNSELING AND COORDINATING INITIAL CARE: Greater than 70 minutes. Vital Signs Vital Sign - Last 24 Hours 09/26/20 13:10 Temp 97.6 Pulse 82 Resp 20 B/P (MAP) 104/57 (73) Pulse Ox 100 O2 Delivery Room Air Home Medications Scheduled Amiodarone HCl (Amiodarone HCl) 200 Mg Tablet, 200 MG PO DAILY, (Reported) Apixaban (Eliquis) 5 Mg Tab, 5 MG PO BID, (Reported) Docusate Sodium (Colace) 100 Mg Capsule, 100 MG PO BID, (Reported) Duloxetine Hcl (Duloxetine HCl) 60 Mg Cap, 60 MG PO DAILY, (Reported) Ferrous Gluconate (Ferrous Gluconate) 324 Mg Tablet, 324 MG PO BID, (Reported) Gabapentin (Gabapentin) 100 Mg Capsule, 100 MG PO TID, (Reported) Levothyroxine Sodium (Levoxyl) 112 Mcg Tab, 112 MCG PO DAILY, (Reported) Magnesium Hydroxide (Milk of Magnesia) 400 Mg/5 Ml Oral.susp, 30 ML PO DAILY Magnesium Oxide (Magnesium Oxide) 400 Mg Tablet, 400 MG PO BID Melatonin (Melatonin) 5 Mg Tablet, 10 MG PO QHS, (Reported) Omeprazole Magnesium (Prilosec Otc) 20 Mg Tab, 20 MG PO DAILY, (Reported) Polyethylene Glycol 3350 (Polyethylene Glycol 3350) 17 Gm Powd.pack, 1 PKT PO DAILY Vitamin E Mixed (Vitamin E) 400 Unit Capsule, 400 UNIT PO QHS, (Reported) Scheduled PRN Acetaminophen (Tylenol) 325 Mg Tablet, 650 MG PO Q4H PRN for PAIN / FEVER, (Reported) Olanzapine (Olanzapine) 2.5 Mg Tablet, 2.5 MG PO Q6HP PRN for AGITATION Tramadol HCl (Tramadol HCl) 50 Mg Tablet, 50 MG PO Q6HP PRN for MODERATE PAIN (PS 5-7) Allergies Coded Allergies: thiopental (Unverified Allergy, Severe, anaphylaxis, 09/02/20) levofloxacin (Verified Adverse Reaction, Intermediate, muscle spasm, 09/02/20) propofol (Verified Adverse Reaction, Intermediate, irritable, 09/02/20) A-FIB/CHADSVASC A-FIB History Current/History of A-Fib/PAF?: Yes Current PO Anticoag Therapy: Yes SUNITA URRUTIA MD Sep 26, 2020 17:41
[2020-09-26] MEDS: FERROUS GLUCONATE 324 MG TAB PO SCH (20:14)
[2020-09-26] MEDS: APIXABAN 5 MG TAB (ELIQUIS) PO SCH (20:14)
[2020-09-26] MEDS: SENNA 8.6 MG TAB (SENOKOT) PO SCH (20:14)
[2020-09-26] MEDS: MAGNESIUM OXIDE 400MG TAB (MAG-OX) PO SCH (20:14)
[2020-09-26] MEDS: DOCUSATE SODIUM 100MG CAPSULE PO SCH (20:14)
[2020-09-26 20:15] VITALS: BP 101/53
[2020-09-26] MEDS: **NOTE PATIENT COMMENT** MISC XX SCH (20:16)
[2020-09-27 06:10] VITALS: BP 101/59
[2020-09-27] MEDS: LEVOTHYROXINE 112MCG TABLET (0.112MG) PO SCH (06:26)
[2020-09-27] MEDS: traMADol 50 MG TAB PO PRN ×2 (06:28→12:53)
[2020-09-27 06:50] LABS: BASO % 0.6 % (0.0-1.0); EOS # 0.1 10^3/uL (0.0-0.5); HEMATOCRIT 30.3 % (36.0-47.0); HEMOGLOBIN 9.5 g/dl (12.0-15.5); LYMPH # 0.6 10^3/uL (1.5-5.0); LYMPH % 11.1 % (24.0-44.0); MEAN CORPUSCULAR HEMOGLOBIN 31.4 pg (27.0-33.0); MEAN CORPUSCULAR HGB CONC 31.4 g/dl (32.0-36.5); MONO % 19.2 % (0.0-5.0); NEUTROPHILS # 3.6 10^3/uL (1.5-8.5); NEUTROPHILS % 66.2 % (36.0-66.0); PLATELET COUNT, AUTOMATED 256 10^3/uL (150-450); RED BLOOD COUNT 3.03 10^6/uL (4.00-5.40); WHITE BLOOD COUNT 5.4 10^3/uL (4.0-10.0)
[2020-09-27 07:17] LABS: ALBUMIN 2.7 GM/DL (3.2-5.2); ALT/SGPT 39 U/L (12-78); BLOOD UREA NITROGEN 23 MG/DL (7-18); CARBON DIOXIDE LEVEL 29 MEQ/L (21-32); CHLORIDE LEVEL 105 MEQ/L (98-107); CREATININE FOR GFR 0.79 MG/DL (0.55-1.30); GLOMERULAR FILTRATION RATE > 60.0 (>39); GLUCOSE, FASTING 97 MG/DL (70-100); POTASSIUM SERUM 4.4 MEQ/L (3.5-5.1); SODIUM LEVEL 137 MEQ/L (136-145); TOTAL PROTEIN 5.4 GM/DL (6.4-8.2)
--- NOTE | 2020-09-27 07:53 | HPEPDOC ---
[facility] Medical History & Physical Date of Admission Sep 27, 2020 Date of Service: Sep 27, 2020 History and Physical CHIEF COMPLAINT: Hospitalist consultation for medical co-management HISTORY OF PRESENT ILLNESS: 80F who recently had a right TKA, originally presented for pain after a fall. In the ED she was noted to be confused. On 09/19/2020, she had an elective right total knee arthroplasty by Dr. Fulton. She was discharged home on 09/20/2020. On the way home, has been noted that she was acting strange and was making strange comments. At baseline, she does have some forgetfulness, but these comments were different from normal. On 09/21/2020 at 3 AM, said she fell to her knees. He called for EMS. While in the ED, workup was significant for acute mildly displaced periprosthetic fracture involving the medial condyle of the distal femur. Orthopedic surgery was consulted. Recommended that we do a trial of nonoperative therapy. Patient denied loss of consciousness when she fell. She denied head trauma as well. She denied any chest pain, shortness of breath, or abdominal pain. Orthopedic surgery evaluated the patient. Recommended that we do a course of non-operative management and follow up with orthopedic surgery outpatient. Otherwise, initially, patient had intermittent delirium and confusion during the first few days. She was switched to acetaminophen and Tramadol for pain control, and her mentation significantly improved. She was discharged to ARU for further rehab. PAST MEDICAL HISTORY: 1. Acute mildly displaced periprosthetic fracture of right knee 2. Atrial fibrillation 3. Fibromyalgia 4. Hypothyroidism 5. Neuropathy 6. Constipation PAST SURGICAL HISTORY 1. Right TKA ALLERGIES: Please see below. REVIEW OF SYSTEMS: Negative except as per HPI. HOME MEDICATIONS: Please see below. PHYSICAL EXAMINATION: VITAL SIGNS: See below LABORATORY DATA: See below. MICROBIOLOGY: Please see below. A/P: #Acute mildly displaced periprosthetic fracture of right knee - medical therapy/pain control - continue with rehab as per ARU #Atrial fibrillation - rate controlled, amiodarone - a/c with DOAC #Fibromyalgia - continue home meds #Hypothyroidism - synthroid #Neuropathy - neurontin #DVT prophylaxis - as above, receiving DOAC therapy for afib Vital Signs Vital Signs Date Time Temp Pulse Resp B/P (MAP) Pulse Ox O2 Delivery O2 Flow Rate FiO2 09/27/20 06:28 18 Room Air 09/27/20 06:10 98.8 70 101/59 (73) 97 Laboratory Data Labs 24H Laboratory Tests 2 09/27/20 06:21: Immature Granulocyte % (Auto) 0.9, Neutrophils (%) (Auto) 66.2H, Lymphocytes (%) (Auto) 11.1L, Monocytes (%) (Auto) 19.2H, Eosinophils (%) (Auto) 2.0, Basophils (%) (Auto) 0.6, Neutrophils # (Auto) 3.6, Lymphocytes # (Auto) 0.6L, Monocytes # (Auto) 1.0H, Eosinophils # (Auto) 0.1, Basophils # (Auto) 0.0, Nucleated Red Blood Cells % (auto) 0.0, Anion Gap 3L, Glomerular Filtration Rate > 60.0, Calc ium Level 10.0, Total Bilirubin 1.0, Aspartate Amino Transf (AST/SGOT) 25, Alanine Aminotransferase (ALT/SGPT) 39, Alkaline Phosphatase 132H, Total Protein 5.4L, Albumin 2.7L, Albumin/Globulin Ratio 1.0L CBC/BMP Laboratory Tests 09/27/20 06:21 Home Medications Scheduled Amiodarone HCl (Amiodarone HCl) 200 Mg Tablet, 200 MG PO DAILY Apixaban (Eliquis) 5 Mg Tab, 5 MG PO BID Docusate Sodium (Colace) 100 Mg Capsule, 100 MG PO BID Duloxetine Hcl (Duloxetine HCl) 60 Mg Cap, 60 MG PO DAILY Ferrous Gluconate (Ferrous Gluconate) 324 Mg Tablet, 324 MG PO BID Gabapentin (Gabapentin) 100 Mg Capsule, 100 MG PO TID Levothyroxine Sodium (Levoxyl) 112 Mcg Tab, 112 MCG PO DAILY Magnesium Hydroxide (Milk of Magnesia) 400 Mg/5 Ml Oral.susp, 30 ML PO DAILY Magnesium Oxide (Magnesium Oxide) 400 Mg Tablet, 400 MG PO BID Melatonin (Melatonin) 5 Mg Tablet, 10 MG PO QHS Omeprazole Magnesium (Prilosec Otc) 20 Mg Tab, 20 MG PO DAILY Polyethylene Glycol 3350 (Polyethylene Glycol 3350) 17 Gm Powd.pack, 1 PKT PO DAILY Vitamin E Mixed (Vitamin E) 400 Unit Capsule, 400 UNIT PO QHS Scheduled PRN Acetaminophen (Tylenol) 325 Mg Tablet, 650 MG PO Q4H PRN for PAIN / FEVER Olanzapine (Olanzapine) 2.5 Mg Tablet, 2.5 MG PO Q6HP PRN for AGITATION Tramadol HCl (Tramadol HCl) 50 Mg Tablet, 50 MG PO Q6HP PRN for MODERATE PAIN (PS 5-7) Allergies Coded Allergies: thiopental (Unverified Allergy, Severe, anaphylaxis, 09/02/20) levofloxacin (Verified Adverse Reaction, Intermediate, muscle spasm, 09/02/20) propofol (Verified Adverse Reaction, Intermediate, irritable, 09/02/20) A-FIB/CHADSVASC A-FIB History Current/History of A-Fib/PAF?: Yes Current PO Anticoag Therapy: Yes JULIANN WOODRUFF MD Sep 27, 2020 07:53
[2020-09-27] MEDS: LIDOCAINE 5% (LIDODERM) PATCH TD SCH (09:23)
[2020-09-27] MEDS: DOCUSATE SODIUM 100MG CAPSULE PO SCH ×2 (09:24→21:21)
[2020-09-27] MEDS: AMIODARONE 200 MG TAB (PACERONE) PO SCH (09:24)
[2020-09-27] MEDS: MAGNESIUM OXIDE 400MG TAB (MAG-OX) PO SCH ×2 (09:24→21:21)
[2020-09-27] MEDS: ACETAMINOPHEN 500 MG TAB PO SCH ×3 (09:24→21:23)
[2020-09-27] MEDS: FERROUS GLUCONATE 324 MG TAB PO SCH ×2 (09:25→21:22)
[2020-09-27] MEDS: APIXABAN 5 MG TAB (ELIQUIS) PO SCH ×2 (09:25→21:21)
[2020-09-27] MEDS: OMEPRAZOLE 20 MG CAP PO SCH (09:25)
[2020-09-27] MEDS: DULoxetine 30 MG CAP (CYMBALTA) PO SCH (09:25)
[2020-09-27] MEDS: REMEDY PHYTOPLEX Z-GUARD PASTE 113GM TUBE (FROM STOREROOM PRODUCT) TOP SCH ×3 (09:25→21:24)
[2020-09-27] MEDS: GABAPENTIN 100 MG CAP PO SCH ×3 (09:25→21:22)
[2020-09-27 14:00] VITALS: BP 159/67
[2020-09-27] MEDS: NYSTATIN 100,000 UNITS/GM TOPICAL PWD 15 GM TOP SCH ×2 (16:31→21:23)
[2020-09-27] MEDS ORDERED: traMADol 50 MG TAB PO PRN (18:30)
[2020-09-27 20:14] VITALS: BP 100/56
[2020-09-27] MEDS: SENNA 8.6 MG TAB (SENOKOT) PO SCH (21:22)
[2020-09-27] MEDS: **NOTE PATIENT COMMENT** MISC XX SCH (21:24)
[2020-09-28] MEDS: LEVOTHYROXINE 112MCG TABLET (0.112MG) PO SCH (05:45)
[2020-09-28 05:52] VITALS: BP 111/55
[2020-09-28 07:32] LABS: BASO % 0.5 % (0.0-1.0); EOS # 0.1 10^3/uL (0.0-0.5); EOS % 1.8 % (0.0-3.0); HEMATOCRIT 32.3 % (36.0-47.0); HEMOGLOBIN 9.5 g/dl (12.0-15.5); LYMPH # 0.7 10^3/uL (1.5-5.0); LYMPH % 12.5 % (24.0-44.0); MEAN CORPUSCULAR HEMOGLOBIN 30.8 pg (27.0-33.0); MEAN CORPUSCULAR HGB CONC 29.4 g/dl (32.0-36.5); MEAN CORPUSCULAR VOLUME 104.9 fl (80.0-96.0); MONO % 17.3 % (0.0-5.0); NEUTROPHILS # 3.7 10^3/uL (1.5-8.5); NEUTROPHILS % 66.4 % (36.0-66.0); PLATELET COUNT, AUTOMATED 277 10^3/uL (150-450); RED BLOOD COUNT 3.08 10^6/uL (4.00-5.40); WHITE BLOOD COUNT 5.5 10^3/uL (4.0-10.0)
[2020-09-28] MEDS: ACETAMINOPHEN 500 MG TAB PO SCH ×3 (08:29→20:10)
[2020-09-28] MEDS: FERROUS GLUCONATE 324 MG TAB PO SCH ×2 (08:29→20:09)
[2020-09-28] MEDS: OMEPRAZOLE 20 MG CAP PO SCH (08:29)
[2020-09-28] MEDS: DOCUSATE SODIUM 100MG CAPSULE PO SCH ×2 (08:29→20:09)
[2020-09-28] MEDS: APIXABAN 5 MG TAB (ELIQUIS) PO SCH ×2 (08:29→20:09)
[2020-09-28] MEDS: DULoxetine 30 MG CAP (CYMBALTA) PO SCH (08:29)
[2020-09-28] MEDS: NYSTATIN 100,000 UNITS/GM TOPICAL PWD 15 GM TOP SCH ×2 (08:30→20:11)
[2020-09-28] MEDS: LIDOCAINE 5% (LIDODERM) PATCH TD SCH (08:30)
[2020-09-28] MEDS: GABAPENTIN 100 MG CAP PO SCH ×3 (08:30→20:09)
[2020-09-28] MEDS: AMIODARONE 200 MG TAB (PACERONE) PO SCH (08:30)
[2020-09-28] MEDS: MAGNESIUM OXIDE 400MG TAB (MAG-OX) PO SCH ×2 (08:30→20:09)
[2020-09-28] MEDS: REMEDY PHYTOPLEX Z-GUARD PASTE 113GM TUBE (FROM STOREROOM PRODUCT) TOP SCH ×3 (08:31→20:11)
[2020-09-28 08:34] LABS: BLOOD UREA NITROGEN 26 MG/DL (7-18); CALCIUM LEVEL 10.1 MG/DL (8.8-10.2); CARBON DIOXIDE LEVEL 25 MEQ/L (21-32); CHLORIDE LEVEL 108 MEQ/L (98-107); CREATININE FOR GFR 0.78 MG/DL (0.55-1.30); GLOMERULAR FILTRATION RATE > 60.0 (>39); GLUCOSE, FASTING 89 MG/DL (70-100); POTASSIUM SERUM 4.6 MEQ/L (3.5-5.1); SODIUM LEVEL 138 MEQ/L (136-145)
--- NOTE | 2020-09-28 11:58 | IPNPDOC ---
PM&R Progress Note DATE OF SERVICE: Sep 28, 2020 [employer] Hel[employer] Progress Note Subjective: Patient reports she was confused overnight and thinks it was due to the tramadol. She denies any dysuria fevers or chills. REVIEW OF SYSTEMS: The following is a completed review of systems and has been reviewed. Review of systems otherwise unremarkable. PAIN: Patient self reports right knee pain EYES: No recent vision changes EARS, NOSE, & THROAT: No throat pain, or dysphagia, or rhinorrhea CARDIOVASCULAR: Denies chest pain or palpitations PULMONARY: Denies shortness of breath GASTROINTESTINAL: Denies constipation/diarrhea GENITOURINARY: denies dysuria MUSCULOSKELETAL: right LE pain, femur fracture NEUROLOGICAL:denies paresthesias HEMATOLOGICAL: denies easy bruising . SKIN: right TKR incision PSYCHIATRIC: Unremarkable All other review of systems found to be negative. PHYSICAL EXAMINATION: VITAL SIGNS: Please see below. GENERAL: Pleasant and cooperative. No acute distress. obese HEENT: PERRL. Extraocular movements intact. Clear conjunctiva CARDIOVASCULAR: Regular rate and rhythm. No murmurs, rubs, or gallops LUNGS: Clear to auscultation bilaterally. No wheezes. No rhonchi ABDOMEN: Soft, nontender, nondistended. Positive bowel sounds. Normal active bowel sounds NEUROLOGICAL: Alert and oriented times three. Cranial nerves II through XII grossly intact. Sensation grossly intact EXTREMITIES: 5\5 strength bilateral upper extremities. 5\5 strength right ankle DF/EHL and PF. 5-/5 strength in left lower extremity. SKIN: right TKA incision with optifoam (scant serous drainage, no periwound induration, mild swelling and ecchymosis) ASSESSMENT:80-year-old F with past medical history of Afib, fibromyalgia who presents status post right femur fracture PLAN: 1.Rehab- PT/OT advance mobility and ADLs, stretch/strengthen/maintain ROM all 4limbs 2. Neuro- monitor for delirium and avoid delirium inducing meds -fibromyalgia contributing to overall functional impairments c/u gabapentin and cymbalta 3. Cardiac- hx of Afib and s/p mitral valve repair, c/u amiodarone, eliquis and coreg, no documented CHF, c/u to monitor for fluid overload 2g diet, and daily weights, will consider fluid restriction if clinically appropriate -HLD c/u statin, medicine consulted to assist in overall management 4. Resp- monitor for infection, encourage incentive spirometry 5. Ortho- s/p right femur fracture in setting of recent TKR, NWB, ortho consul lucie 6. Endo- pmh hypothyroidism c/u Synthroid 7. Pain- patient with overnight episdoe of delirium on tramadol 50mg, will change to oxycodone 2.5mg q4h prn and monitor for delirium, c/u tylenol 8. DVT ppx-on eliquis 9. GI ppx- omeprazole 10. Dispo- tbd Allergies Coded Allergies: thiopental (Unverified Allergy, Severe, anaphylaxis, 09/02/20) levofloxacin (Verified Adverse Reaction, Intermediate, muscle spasm, 09/02/20) propofol (Verified Adverse Reaction, Intermediate, irritable, 09/02/20) Vital Signs Vital Signs Date Time Temp Pulse Resp B/P (MAP) Pulse Ox O2 Delivery O2 Flow Rate FiO2 09/28/20 05:52 97.7 69 18 111/55 (73) 97 Room Air Laboratory Data CBC/BMP Laboratory Tests 09/28/20 06:41 Labs 24H Laboratory Tests 2 09/28/20 06:41: Immature Granulocyte % (Auto) 1.5, Neutrophils (%) (Auto) 66.4H, Lymphocytes (%) (Auto) 12.5L, Monocytes (%) (Auto) 17.3H, Eosinophils (%) (Auto) 1.8, Basophils (%) (Auto) 0.5, Neutrophils # (Auto) 3.7, Lymphocytes # (Auto) 0.7L, Monocytes # (Auto) 1.0H, Eosinophils # (Auto) 0.1, Basophils # (Auto) 0.0, Nucleated Red Blood Cells % (auto) 0.0, Anion Gap 5L, Glomerular Filtration Rate > 60.0, Calcium Level 10.1 Current Medications Current Medications Current Medications Medications (Trade) Dose Ordered Sig/Shira Route PRN Reason Start Time Stop Time Status Last Admin Dose Admin Acetaminophen (Tylenol Tab) 1,000 mg TID PO 09/26/20 16:00 09/28/20 08:29 Amiodarone HCl (Pacerone, Cordarone) 200 mg DAILY PO 09/27/20 09:00 09/28/20 08:30 Apixaban (Eliquis) 5 mg BID PO 09/26/20 21:00 09/28/20 08:29 Bisacodyl (Dulcolax Suppository) 10 mg DAILYPRN PRN [place] CONSTIPATION 09/26/20 15:15 Docusate Sodium (Colace) 100 mg BID PO 09/26/20 21:00 09/28/20 08:29 Duloxetine HCl (Cymbalta) 60 mg DAILY PO 09/27/20 09:00 09/28/20 08:29 Ferrous Gluconate (Fergon) 324 mg BID PO 09/26/20 21:00 09/28/20 08:29 Gabapentin (Neurontin) 100 mg TID PO 09/26/20 16:00 09/28/20 08:30 Levothyroxine Sodium (Synthroid) 112 mcg DAILY@06 PO 09/27/20 06:00 09/28/20 05:45 Lidocaine (Lidoderm Patch) 1 patch DAILY TD 09/27/20 09:00 09/28/20 08:30 Magnesium Hydroxide (Milk Of Magnesia) 30 ml DAILYPRN PRN PO CONSTIPATION 09/26/20 15:15 Magnesium Oxide (Mag-Ox) 400 mg BID PO 09/26/20 21:00 09/28/20 08:30 Non-Formulary Medication ( See Comment Field Below ) REMOVE LIDODERM PATCH DAILY@21 XX 09/26/20 21:00 09/27/20 21:24 Nystatin (Mycostatin Powder, Nystop) groin BID TOP 09/27/20 09:00 09/28/20 08:30 Olanzapine (ZyPREXA) 2.5 mg Q6HP PRN PO AGITATION 09/26/20 15:15 09/27/20 21:20 Omeprazole (PriLOSEC) 20 mg DAILY PO 09/27/20 09:00 09/28/20 08:29 Oxycodone HCl (Roxicodone, Oxyir) 2.5 mg Q4HP PRN PO PAIN 09/28/20 09:45 Senna (Senokot) 1 tab QHS PO 09/26/20 21:00 09/27/20 21:22 Tramadol HCl (Ultram) 25 mg Q4HP PRN PO MODERATE PAIN (PS 5-7) 09/26/20 15:15 09/27/20 18:21 DC 09/27/20 12:53 Tramadol HCl (Ultram) 50 mg Q4HP PRN PO MODERATE PAIN (PS 5-7) 09/27/20 18:30 09/28/20 09:35 DC 09/27/20 21:22 SUNITA URRUTIA MD Sep 28, 2020 11:58
[2020-09-28] MEDS: oxyCODONE 5MG TAB PO PRN (13:51)
[2020-09-28 14:00] VITALS: BP 120/60
[2020-09-28 20:00] VITALS: BP 104/56
[2020-09-28] MEDS: SENNA 8.6 MG TAB (SENOKOT) PO SCH (20:09)
[2020-09-28] MEDS: **NOTE PATIENT COMMENT** MISC XX SCH (20:12)
[2020-09-29] MEDS: LEVOTHYROXINE 112MCG TABLET (0.112MG) PO SCH (05:56)
[2020-09-29 06:00] VITALS: BP 101/55
--- NOTE | 2020-09-29 08:50 | IPNPDOC ---
PM&R Progress Note DATE OF SERVICE: Sep 29, 2020 [employer]ist Progress Note Subjective: Patient reports she feels well today and other than her right leg pain has no complaints. REVIEW OF SYSTEMS: The following is a completed review of systems and has been reviewed. Review of systems otherwise unremarkable. PAIN: Patient self reports right knee pain EYES: No recent vision changes EARS, NOSE, & THROAT: No throat pain, or dysphagia, or rhinorrhea CARDIOVASCULAR: Denies chest pain or palpitations PULMONARY: Denies shortness of breath GASTROINTESTINAL: Denies constipation/diarrhea GENITOURINARY: denies dysuria MUSCULOSKELETAL: right LE pain, femur fracture NEUROLOGICAL:denies paresthesias HEMATOLOGICAL: denies easy bruising . SKIN: right TKR incision PSYCHIATRIC: Unremarkable All other review of systems found to be negative. PHYSICAL EXAMINATION: VITAL SIGNS: Please see below. GENERAL: Pleasant and cooperative. No acute distress. obese HEENT: PERRL. Extraocular movements intact. Clear conjunctiva CARDIOVASCULAR: Regular rate and rhythm. No murmurs, rubs, or gallops LUNGS: Clear to auscultation bilaterally. No wheezes. No rhonchi ABDOMEN: Soft, nontender, nondistended. Positive bowel sounds. Normal active bowel sounds NEUROLOGICAL: Alert and oriented times three. Cranial nerves II through XII grossly intact. Sensation grossly intact EXTREMITIES: 5\5 strength bilateral upper extremities. 5\5 strength right ankle DF/EHL and PF. 5-/5 strength in left lower extremity. SKIN: right TKA incision with optifoam (scant serous drainage, no periwound induration, mild swelling and ecchymosis) ASSESSMENT:80-year-old F with past medical history of Afib, fibromyalgia who presents status post right femur fracture PLAN: 1.Rehab- PT/OT advance mobility and ADLs, stretch/strengthen/maintain ROM all 4limbs 2. Neuro- monitor for delirium and avoid delirium inducing meds -fibromyalgia contributing to overall functional impairments c/u gabapentin and cymbalta 3. Cardiac- hx of Afib and s/p mitral valve repair, c/u amiodarone, eliquis and coreg, no documented CHF, c/u to monitor for fluid overload 2g diet, and daily weights, will consider fluid restriction if clinically appropriate -HLD c/u statin, medicine consulted to assist in overall management 4. Resp- monitor for infection, encourage incentive spirometry 5. Ortho- s/p right femur fracture in setting of recent TKR, NWB, ortho consulted 6. Endo- pmh hypothyroidism c/u Synthroid 7. Pain- c/u oxycodone 2.5mg q4h prn and monitor for delirium, c/u tylenol -patient on cymbalta and gabapentin for fibromyalgia 8. DVT ppx-on eliquis 9. GI ppx- omeprazole 10. Dispo- tbd Allergies Coded Allergies: thiopental (Unverified Allergy, Severe, anaphylaxis, 09/02/20) levofloxacin (Verified Adverse Reaction, Intermediate, muscle spasm, 09/02/20) propofol (Verified Adverse Reaction, Intermediate, irritable, 09/02/20) Vital Signs Vital Signs Date Time Temp Pulse Resp B/P (MAP) Pulse Ox O2 Delivery O2 Flow Rate FiO2 09/29/20 06:00 97.5 67 18 101/55 (70) 97 Room Air Current Medications Current Medications Current Medications Medications (Trade) Dose Ordered Sig/Shira Route PRN Reason Start Time Stop Time Status Last Admin Dose Admin Acetaminophen (Tylenol Tab) 1,000 mg TID PO 09/26/20 16:00 09/28/20 20:10 Amiodarone HCl (Pacerone, Cordarone) 200 mg DAILY PO 09/27/20 09:00 09/28/20 08:30 Apixaban (Eliquis) 5 mg BID PO 09/26/20 21:00 09/28/20 20:09 Bisacodyl (Dulcolax Suppository) 10 mg DAILYPRN PRN [place] CONSTIPATION 09/26/20 15:15 Docusate Sodium (Colace) 100 mg BID PO 09/26/20 21:00 09/28/20 20:09 Duloxetine HCl (Cymbalta) 60 mg DAILY PO 09/27/20 09:00 09/28/20 08:29 Ferrous Gluconate (Fergon) 324 mg BID PO 09/26/20 21:00 09/28/20 20:09 Gabapentin (Neurontin) 100 mg TID PO 09/26/20 16:00 09/28/20 20:09 Levothyroxine Sodium (Synthroid) 112 mcg DAILY@06 PO 09/27/20 06:00 09/29/20 05:56 Lidocaine (Lidoderm Patch) 1 patch DAILY TD 09/27/20 09:00 09/28/20 08:30 Magnesium Hydroxide (Milk Of Magnesia) 30 ml DAILYPRN PRN PO CONSTIPATION 09/26/20 15:15 Magnesium Oxide (Mag-Ox) 400 mg BID PO 09/26/20 21:00 09/28/20 20:09 Non-Formulary Medication ( See Comment Field Below ) REMOVE LIDODERM PATCH DAILY@21 XX 09/26/20 21:00 09/28/20 20:12 Nystatin (Mycostatin Powder, Nystop) groin BID TOP 09/27/20 09:00 09/28/20 20:11 Olanzapine (ZyPREXA) 2.5 mg Q6HP PRN PO AGITATION 09/26/20 15:15 09/27/20 21:20 Omeprazole (PriLOSEC) 20 mg DAILY PO 09/27/20 09:00 09/28/20 08:29 Oxycodone HCl (Roxicodone, Oxyir) 2.5 mg Q4HP PRN PO PAIN 09/28/20 09:45 09/28/20 13:51 Senna (Senokot) 1 tab QHS PO 09/26/20 21:00 09/28/20 20:09 Tramadol HCl (Ultram) 25 mg Q4HP PRN PO MODERATE PAIN (PS 5-7) 09/26/20 15:15 09/27/20 18:21 DC 09/27/20 12:53 Tramadol HCl (Ultram) 50 mg Q4HP PRN PO MODERATE PAIN (PS 5-7) 09/27/20 18:30 09/28/20 09:35 DC 09/27/20 21:22 SUNITA URRUTIA MD Sep 29, 2020 08:50
[2020-09-29] MEDS: DOCUSATE SODIUM 100MG CAPSULE PO SCH ×2 (09:00→21:00)
[2020-09-29] MEDS: APIXABAN 5 MG TAB (ELIQUIS) PO SCH ×2 (09:40→21:34)
[2020-09-29] MEDS: FERROUS GLUCONATE 324 MG TAB PO SCH ×2 (09:40→21:34)
[2020-09-29] MEDS: AMIODARONE 200 MG TAB (PACERONE) PO SCH (09:40)
[2020-09-29] MEDS: OMEPRAZOLE 20 MG CAP PO SCH (09:40)
[2020-09-29] MEDS: GABAPENTIN 100 MG CAP PO SCH ×3 (09:40→21:34)
[2020-09-29] MEDS: ACETAMINOPHEN 500 MG TAB PO SCH ×3 (09:41→21:35)
[2020-09-29] MEDS: MAGNESIUM OXIDE 400MG TAB (MAG-OX) PO SCH ×2 (09:41→21:35)
[2020-09-29] MEDS: LIDOCAINE 5% (LIDODERM) PATCH TD SCH (09:41)
[2020-09-29] MEDS: DULoxetine 30 MG CAP (CYMBALTA) PO SCH (09:41)
[2020-09-29] MEDS: REMEDY PHYTOPLEX Z-GUARD PASTE 113GM TUBE (FROM STOREROOM PRODUCT) TOP SCH ×3 (09:42→21:35)
[2020-09-29] MEDS: NYSTATIN 100,000 UNITS/GM TOPICAL PWD 15 GM TOP SCH ×2 (09:42→21:37)
[2020-09-29 14:00] VITALS: BP 115/66
[2020-09-29] MEDS: oxyCODONE 5MG TAB PO PRN (14:09)
[2020-09-29 20:00] VITALS: BP 117/55
[2020-09-29] MEDS: SENNA 8.6 MG TAB (SENOKOT) PO SCH (21:00)
[2020-09-29] MEDS: **NOTE PATIENT COMMENT** MISC XX SCH (21:36)
[2020-09-30 05:29] VITALS: BP 118/65
[2020-09-30] MEDS: LEVOTHYROXINE 112MCG TABLET (0.112MG) PO SCH (05:47)
[2020-09-30 08:16] LABS: BASO % 0.5 % (0.0-1.0); EOS # 0.1 10^3/uL (0.0-0.5); EOS % 1.6 % (0.0-3.0); HEMATOCRIT 31.9 % (36.0-47.0); HEMOGLOBIN 9.9 g/dl (12.0-15.5); LYMPH # 0.8 10^3/uL (1.5-5.0); LYMPH % 12.6 % (24.0-44.0); MEAN CORPUSCULAR HEMOGLOBIN 32.1 pg (27.0-33.0); MEAN CORPUSCULAR VOLUME 103.6 fl (80.0-96.0); MONO # 0.8 10^3/uL (0.0-0.8); MONO % 12.3 % (0.0-5.0); NEUTROPHILS # 4.4 10^3/uL (1.5-8.5); NEUTROPHILS % 71.2 % (36.0-66.0); PLATELET COUNT, AUTOMATED 378 10^3/uL (150-450); RED BLOOD COUNT 3.08 10^6/uL (4.00-5.40); WHITE BLOOD COUNT 6.1 10^3/uL (4.0-10.0)
[2020-09-30 08:47] LABS: BLOOD UREA NITROGEN 25 MG/DL (7-18); CALCIUM LEVEL 9.6 MG/DL (8.8-10.2); CARBON DIOXIDE LEVEL 28 MEQ/L (21-32); CHLORIDE LEVEL 109 MEQ/L (98-107); GLOMERULAR FILTRATION RATE > 60.0 (>39); GLUCOSE, FASTING 94 MG/DL (70-100); POTASSIUM SERUM 4.6 MEQ/L (3.5-5.1); SODIUM LEVEL 140 MEQ/L (136-145)
[2020-09-30] MEDS: DOCUSATE SODIUM 100MG CAPSULE PO SCH ×2 (09:00→21:00)
[2020-09-30] MEDS: GABAPENTIN 100 MG CAP PO SCH ×3 (09:25→20:59)
[2020-09-30] MEDS: APIXABAN 5 MG TAB (ELIQUIS) PO SCH ×2 (09:25→20:59)
[2020-09-30] MEDS: MAGNESIUM OXIDE 400MG TAB (MAG-OX) PO SCH ×2 (09:25→20:59)
[2020-09-30] MEDS: FERROUS GLUCONATE 324 MG TAB PO SCH ×2 (09:25→20:59)
[2020-09-30] MEDS: AMIODARONE 200 MG TAB (PACERONE) PO SCH (09:25)
[2020-09-30] MEDS: OMEPRAZOLE 20 MG CAP PO SCH (09:26)
[2020-09-30] MEDS: LIDOCAINE 5% (LIDODERM) PATCH TD SCH ×2 (09:26→15:23)
[2020-09-30] MEDS: ACETAMINOPHEN 500 MG TAB PO SCH ×3 (09:26→20:59)
[2020-09-30] MEDS: DULoxetine 30 MG CAP (CYMBALTA) PO SCH (09:26)
[2020-09-30] MEDS: NYSTATIN 100,000 UNITS/GM TOPICAL PWD 15 GM TOP SCH ×2 (09:27→21:01)
[2020-09-30] MEDS: REMEDY PHYTOPLEX Z-GUARD PASTE 113GM TUBE (FROM STOREROOM PRODUCT) TOP SCH ×3 (09:27→21:00)
[2020-09-30] MEDS: oxyCODONE 5MG TAB PO PRN ×2 (09:34→20:59)
--- NOTE | 2020-09-30 13:48 | IPNPDOC ---
PM&R Progress Note DATE OF SERVICE: Sep 30, 2020 [employer]attle [employer]ocker Progress Note Subjective: Patient reports she is having more aching in her right calf and knee and that she she rolls over it hurts. REVIEW OF SYSTEMS: The following is a completed review of systems and has been reviewed. Review of systems otherwise unremarkable. PAIN: Patient self reports right knee pain EYES: No recent vision changes EARS, NOSE, & THROAT: No throat pain, or dysphagia, or rhinorrhea CARDIOVASCULAR: Denies chest pain or palpitations PULMONARY: Denies shortness of breath GASTROINTESTINAL: Denies constipation/diarrhea GENITOURINARY: denies dysuria MUSCULOSKELETAL: right LE pain, femur fracture NEUROLOGICAL:denies paresthesias HEMATOLOGICAL: denies easy bruising . SKIN: right TKR incision PSYCHIATRIC: Unremarkable All other review of systems found to be negative. PHYSICAL EXAMINATION: VITAL SIGNS: Please see below. GENERAL: Pleasant and cooperative. No acute distress. obese HEENT: PERRL. Extraocular movements intact. Clear conjunctiva CARDIOVASCULAR: Regular rate and rhythm. No murmurs, rubs, or gallops LUNGS: Clear to auscultation bilaterally. No wheezes. No rhonchi ABDOMEN: Soft, nontender, nondistended. Positive bowel sounds. Normal active b owel sounds NEUROLOGICAL: Alert and oriented times three. Cranial nerves II through XII grossly intact. Sensation grossly intact EXTREMITIES: 5\5 strength bilateral upper extremities. 5\5 strength right ankle DF/EHL and PF. 5-/5 strength in left lower extremity. SKIN: right TKA incision with nathaniel c/d/i, +ecchymosis of right calf and mild swelling, tender to palpation with gentle touch on several points of right calf ASSESSMENT:80-year-old F with past medical history of Afib, fibromyalgia who presents status post right femur fracture PLAN: 1.Rehab- PT/OT advance mobility and ADLs, stretch/strengthen/maintain ROM all 4limbs 2. Neuro- monitor for delirium and avoid delirium inducing meds -fibromyalgia contributing to overall functional impairments c/u gabapentin and cymbalta 3. Cardiac- hx of Afib and s/p mitral valve repair, c/u amiodarone, eliquis and coreg, no documented CHF, c/u to monitor for fluid overload 2g diet, and daily weights, will consider fluid restriction if clinically appropriate -HLD c/u statin, medicine consulted to assist in overall management 4. Resp- monitor for infection, encourage incentive spirometry 5. Ortho- s/p right femur fracture in setting of recent TKR, NWB, ortho consulted 6. Endo- pmh hypothyroidism c/u Synthroid 7. Pain- c/u oxycodone 2.5mg q4h prn and monitor for delirium, c/u tylenol -patient on cymbalta and gabapentin for fibromyalgia, will increase cymbalta dosing to 80mg to see if this helps with pain and add additional lidoderm patch to anterior tibia 8. DVT ppx-on eliquis 9. GI ppx- omeprazole 10. Dispo- tbd Allergies Coded Allergies: thiopental (Unverified Allergy, Severe, anaphylaxis, 09/02/20) levofloxacin (Verified Adverse Reaction, Intermediate, muscle spasm, 09/02/20) propofol (Verified Adverse Reaction, Intermediate, irritable, 09/02/20) Vital Signs Vital Signs Date Time Temp Pulse Resp B/P (MAP) Pulse Ox O2 Delivery O2 Flow Rate FiO2 09/30/20 10:04 17 09/30/20 05:29 97.9 67 118/65 (82) 96 Room Air Laboratory Data CBC/BMP Laboratory Tests 09/30/20 07:35 Labs 24H Laboratory Tests 2 09/30/20 07:35: Immature Granulocyte % (Auto) 1.8, Neutrophils (%) (Auto) 71.2H, Lymphocytes (%) (Auto) 12.6L, Monocytes (%) (Auto) 12.3H, Eosinophils (%) (Auto) 1.6, Basophils (%) (Auto) 0.5, Neutrophils # (Auto) 4.4, Lymphocytes # (Auto) 0.8L, Monocytes # (Auto) 0.8, Eosinophils # (Auto) 0.1, Basophils # (Auto) 0.0, Nucleated Red Blood Cells % (auto) 0.0, Anion Gap 3L, Glomerular Filtration Rate > 60.0, Calcium Level 9.6 Current Medications Current Medications Current Medications Medications (Trade) Dose Ordered Sig/Shira Route PRN Reason Start Time Stop Time Status Last Admin Dose Admin Acetaminophen (Tylenol Tab) 1,000 mg TID PO 09/26/20 16:00 09/30/20 09:26 Amiodarone HCl (Pacerone, Cordarone) 200 mg DAILY PO 09/27/20 09:00 09/30/20 09:25 Apixaban (Eliquis) 5 mg BID PO 09/26/20 21:00 09/30/20 09:25 Bisacodyl (Dulcolax Suppository) 10 mg DAILYPRN PRN [place] CONSTIPATION 09/26/20 15:15 Docusate Sodium (Colace) 100 mg BID PO 09/26/20 21:00 09/28/20 20:09 Duloxetine HCl (Cymbalta) 20 mg DAILY PO 10/01/20 09:00 Duloxetine HCl (Cymbalta) 60 mg DAILY PO 09/27/20 09:00 09/30/20 09:26 Ferrous Gluconate (Fergon) 324 mg BID PO 09/26/20 21:00 09/30/20 09:25 Gabapentin (Neurontin) 100 mg TID PO 09/26/20 16:00 09/30/20 09:25 Levothyroxine Sodium (Synthroid) 112 mcg DAILY@06 PO 09/27/20 06:00 09/30/20 05:47 Lidocaine (Lidoderm Patch) 1 patch DAILY TD 09/27/20 09:00 09/30/20 09:26 Magnesium Hydroxide (Milk Of Magnesia) 30 ml DAILYPRN PRN PO CONSTIPATION 09/26/20 15:15 Magnesium Oxide (Mag-Ox) 400 mg BID PO 09/26/20 21:00 09/30/20 09:25 Non-Formulary Medication ( See Comment Field Below ) REMOVE LIDODERM PATCH DAILY@21 XX 09/26/20 21:00 09/29/20 21:36 Nystatin (Mycostatin Powder, Nystop) groin BID TOP 09/27/20 09:00 09/30/20 09:27 Olanzapine (ZyPREXA) 2.5 mg Q6HP PRN PO AGITATION 09/26/20 15:15 09/27/20 21:20 Omeprazole (PriLOSEC) 20 mg DAILY PO 09/27/20 09:00 09/30/20 09:26 Oxycodone HCl (Roxicodone, Oxyir) 2.5 mg Q4HP PRN PO PAIN 09/28/20 09:45 09/30/20 09:34 Senna (Senokot) 1 tab QHS PO 09/26/20 21:00 09/28/20 20:09 Tramadol HCl (Ultram) 25 mg Q4HP PRN PO MODERATE PAIN (PS 5-7) 09/26/20 15:15 09/27/20 18:21 DC 09/27/20 12:53 Tramadol HCl (Ultram) 50 mg Q4HP PRN PO MODERATE PAIN (PS 5-7) 09/27/20 18:30 09/28/20 09:35 DC 09/27/20 21:22 SUNITA URRUTIA MD Sep 30, 2020 13:48
[2020-09-30 14:00] VITALS: BP 119/61
--- NOTE | 2020-09-30 15:01 | REP ---
INDICATION: immobility. COMPARISON: None. TECHNIQUE: Bilateral lower extremity duplex venous ultrasound. FINDINGS: The deep veins are anechoic and fully compressible from the groin to the popliteal fossa in the left and right lower extremity. Color flow imaging is homogeneous. Spectral Doppler interrogation demonstrates intact respiratory variation in flow and normal manual augmentation of flow. There is no evidence of deep vein thrombosis. IMPRESSION: Negative bilateral lower extremity duplex venous ultrasound. No evidence of deep vein thrombosis. <Electronically signed by Clarence Ha > 09/30/20 [id number]
[2020-09-30 20:37] VITALS: BP 107/60
[2020-09-30] MEDS: SENNA 8.6 MG TAB (SENOKOT) PO SCH (21:00)
[2020-09-30] MEDS: **NOTE PATIENT COMMENT** MISC XX SCH (21:00)
[2020-10-01] MEDS: oxyCODONE 5MG TAB PO PRN ×3 (03:44→21:13)
[2020-10-01] MEDS: LEVOTHYROXINE 112MCG TABLET (0.112MG) PO SCH (06:25)
[2020-10-01 06:29] VITALS: BP 101/51
[2020-10-01] MEDS: OMEPRAZOLE 20 MG CAP PO SCH (08:20)
[2020-10-01] MEDS: DOCUSATE SODIUM 100MG CAPSULE PO SCH ×2 (08:20→21:13)
[2020-10-01] MEDS: FERROUS GLUCONATE 324 MG TAB PO SCH ×2 (08:20→21:14)
[2020-10-01] MEDS: MAGNESIUM OXIDE 400MG TAB (MAG-OX) PO SCH ×2 (08:20→21:13)
[2020-10-01] MEDS: AMIODARONE 200 MG TAB (PACERONE) PO SCH (08:21)
[2020-10-01] MEDS: DULoxetine 30 MG CAP (CYMBALTA) PO SCH (08:21)
[2020-10-01] MEDS: DULoxetine 20 MG CAP (CYMBALTA) PO SCH (08:21)
[2020-10-01] MEDS: GABAPENTIN 100 MG CAP PO SCH ×3 (08:21→21:13)
[2020-10-01] MEDS: APIXABAN 5 MG TAB (ELIQUIS) PO SCH ×2 (08:21→21:14)
[2020-10-01] MEDS: ACETAMINOPHEN 500 MG TAB PO SCH ×3 (08:22→21:13)
[2020-10-01] MEDS: LIDOCAINE 5% (LIDODERM) PATCH TD SCH (08:23)
[2020-10-01] MEDS: NYSTATIN 100,000 UNITS/GM TOPICAL PWD 15 GM TOP SCH ×2 (08:23→21:14)
[2020-10-01] MEDS: REMEDY PHYTOPLEX Z-GUARD PASTE 113GM TUBE (FROM STOREROOM PRODUCT) TOP SCH ×3 (08:24→21:15)
[2020-10-01 14:00] VITALS: BP 100/55
[2020-10-01 21:00] VITALS: BP 110/57
[2020-10-01] MEDS: SENNA 8.6 MG TAB (SENOKOT) PO SCH (21:00)
[2020-10-01] MEDS: **NOTE PATIENT COMMENT** MISC XX SCH (21:15)
[2020-10-02 05:09] VITALS: BP 102/59
[2020-10-02] MEDS: oxyCODONE 5MG TAB PO PRN ×4 (05:33→21:29)
[2020-10-02] MEDS: LEVOTHYROXINE 112MCG TABLET (0.112MG) PO SCH (05:33)
[2020-10-02] MEDS: OMEPRAZOLE 20 MG CAP PO SCH (08:23)
[2020-10-02] MEDS: DULoxetine 30 MG CAP (CYMBALTA) PO SCH (08:23)
[2020-10-02] MEDS: DOCUSATE SODIUM 100MG CAPSULE PO SCH ×2 (08:24→21:27)
[2020-10-02] MEDS: GABAPENTIN 100 MG CAP PO SCH ×3 (08:24→21:27)
[2020-10-02] MEDS: DULoxetine 20 MG CAP (CYMBALTA) PO SCH (08:24)
[2020-10-02] MEDS: APIXABAN 5 MG TAB (ELIQUIS) PO SCH ×2 (08:24→21:28)
[2020-10-02] MEDS: MAGNESIUM OXIDE 400MG TAB (MAG-OX) PO SCH ×2 (08:24→21:28)
[2020-10-02] MEDS: NYSTATIN 100,000 UNITS/GM TOPICAL PWD 15 GM TOP SCH ×2 (08:25→21:30)
[2020-10-02] MEDS: FERROUS GLUCONATE 324 MG TAB PO SCH ×2 (08:25→21:27)
[2020-10-02] MEDS: ACETAMINOPHEN 500 MG TAB PO SCH ×3 (08:25→21:00)
[2020-10-02] MEDS: REMEDY PHYTOPLEX Z-GUARD PASTE 113GM TUBE (FROM STOREROOM PRODUCT) TOP SCH ×3 (08:26→21:30)
[2020-10-02] MEDS: LIDOCAINE 5% (LIDODERM) PATCH TD SCH (09:32)
[2020-10-02] MEDS: AMIODARONE 200 MG TAB (PACERONE) PO SCH (09:32)
[2020-10-02 14:00] VITALS: BP 113/64
[2020-10-02 20:00] VITALS: BP 107/60
[2020-10-02] MEDS: SENNA 8.6 MG TAB (SENOKOT) PO SCH (21:28)
[2020-10-02] MEDS: **NOTE PATIENT COMMENT** MISC XX SCH (21:30)
[2020-10-02] MEDS ORDERED: PILL CUTTER 1 EACH XX ONE (21:35)
[2020-10-02] MEDS ORDERED: PILL CUTTER 1 EACH XX PRN (21:45)
[2020-10-03] MEDS: LEVOTHYROXINE 112MCG TABLET (0.112MG) PO SCH (05:09)
[2020-10-03 05:51] VITALS: BP 105/57
[2020-10-03] MEDS: GABAPENTIN 100 MG CAP PO SCH ×3 (09:03→21:42)
[2020-10-03] MEDS: DULoxetine 30 MG CAP (CYMBALTA) PO SCH (09:03)
[2020-10-03] MEDS: MAGNESIUM OXIDE 400MG TAB (MAG-OX) PO SCH ×2 (09:04→21:43)
[2020-10-03] MEDS: OMEPRAZOLE 20 MG CAP PO SCH (09:04)
[2020-10-03] MEDS: APIXABAN 5 MG TAB (ELIQUIS) PO SCH ×2 (09:04→21:43)
[2020-10-03] MEDS: DOCUSATE SODIUM 100MG CAPSULE PO SCH ×2 (09:04→21:42)
[2020-10-03] MEDS: DULoxetine 20 MG CAP (CYMBALTA) PO SCH (09:04)
[2020-10-03] MEDS: FERROUS GLUCONATE 324 MG TAB PO SCH ×2 (09:04→21:43)
[2020-10-03] MEDS: AMIODARONE 200 MG TAB (PACERONE) PO SCH (09:04)
[2020-10-03] MEDS: NYSTATIN 100,000 UNITS/GM TOPICAL PWD 15 GM TOP SCH ×2 (09:06→21:44)
[2020-10-03] MEDS: ACETAMINOPHEN 500 MG TAB PO SCH ×3 (09:06→21:00)
[2020-10-03] MEDS: REMEDY PHYTOPLEX Z-GUARD PASTE 113GM TUBE (FROM STOREROOM PRODUCT) TOP SCH ×3 (09:07→21:44)
[2020-10-03] MEDS: LIDOCAINE 5% (LIDODERM) PATCH TD SCH (09:07)
[2020-10-03 09:09] LABS: BASO % 0.7 % (0.0-1.0); EOS # 0.1 10^3/uL (0.0-0.5); EOS % 1.8 % (0.0-3.0); HEMATOCRIT 31.9 % (36.0-47.0); HEMOGLOBIN 9.4 g/dl (12.0-15.5); LYMPH # 0.7 10^3/uL (1.5-5.0); MEAN CORPUSCULAR HGB CONC 29.5 g/dl (32.0-36.5); MEAN CORPUSCULAR VOLUME 105.3 fl (80.0-96.0); MONO # 0.6 10^3/uL (0.0-0.8); MONO % 11.4 % (0.0-5.0); NEUTROPHILS # 3.9 10^3/uL (1.5-8.5); NEUTROPHILS % 72.8 % (36.0-66.0); PLATELET COUNT, AUTOMATED 351 10^3/uL (150-450); RED BLOOD COUNT 3.03 10^6/uL (4.00-5.40); WHITE BLOOD COUNT 5.4 10^3/uL (4.0-10.0)
[2020-10-03] MEDS: oxyCODONE 5MG TAB PO PRN ×2 (09:16→21:44)
[2020-10-03 09:36] LABS: BLOOD UREA NITROGEN 22 MG/DL (7-18); CALCIUM LEVEL 9.8 MG/DL (8.8-10.2); CARBON DIOXIDE LEVEL 24 MEQ/L (21-32); CHLORIDE LEVEL 111 MEQ/L (98-107); CREATININE FOR GFR 0.88 MG/DL (0.55-1.30); GLOMERULAR FILTRATION RATE > 60.0 (>39); GLUCOSE, FASTING 98 MG/DL (70-100); POTASSIUM SERUM 4.3 MEQ/L (3.5-5.1); SODIUM LEVEL 141 MEQ/L (136-145)
--- NOTE | 2020-10-03 10:00 | IPNPDOC ---
PM&R Progress Note DATE OF SERVICE: Oct 03, 2020 [employer] Teacher Progress Note Subjective: Patient reports her right leg aching is better since increasing Cymbalta and states she was able to hop on her left leg int he parallel bars without any tro uble over the weekend. REVIEW OF SYSTEMS: The following is a completed review of systems and has been reviewed. Review of systems otherwise unremarkable. PAIN: Patient self reports right knee pain EYES: No recent vision changes EARS, NOSE, & THROAT: No throat pain, or dysphagia, or rhinorrhea CARDIOVASCULAR: Denies chest pain or palpitations PULMONARY: Denies shortness of breath GASTROINTESTINAL: Denies constipation/diarrhea GENITOURINARY: denies dysuria MUSCULOSKELETAL: right LE pain, femur fracture NEUROLOGICAL:denies paresthesias HEMATOLOGICAL: denies easy bruising . SKIN: right TKR incision PSYCHIATRIC: Unremarkable All other review of systems found to be negative. PHYSICAL EXAMINATION: VITAL SIGNS: Please see below. GENERAL: Pleasant and cooperative. No acute distress. obese HEENT: PERRL. Extraocular movements intact. Clear conjunctiva CARDIOVASCULAR: Regular rate and rhythm. No murmurs, rubs, or gallops LUNGS: Clear to auscultation bilaterally. No wheezes. No rhonchi ABDOMEN: Soft, nontender, nondistended. Positive bowel sounds. Normal active bowel sounds NEUROLOGICAL: Alert and oriented times three. Cranial nerves II through XII grossly intact. Sensation grossly intact EXTREMITIES: 5\5 strength bilateral upper extremities. 5\5 strength right ankle DF/EHL and PF. 5-/5 strength in left lower extremity. SKIN: right TKA incision with nathaniel c/d/i, +ecchymosis of right calf and mild swelling, tender to palpation with gentle touch on several points of right calf ASSESSMENT:80-year-old F with past medical history of Afib, fibromyalgia who presents status post right femur fracture PLAN: 1.Rehab- PT/OT advance mobility and ADLs, stretch/strengthen/maintain ROM all 4limbs 2. Neuro- monitor for delirium and avoid delirium inducing meds -fibromyalgia contributing to overall functional impairments c/u gabapentin and cymbalta 3. Cardiac- hx of Afib and s/p mitral valve repair, c/u amiodarone, eliquis and coreg, no documented CHF, c/u to monitor for fluid overload 2g diet, and daily weights, will consider fluid restriction if clinically appropriate-stable thus far -HLD c/u statin, medicine consulted to assist in overall management 4. Resp- monitor for infection, encourage incentive spirometry 5. Ortho- s/p right femur fracture in setting of recent TKR, NWB, ortho consulted 6. Endo- pmh hypothyroidism c/u Synthroid 7. Pain- c/u oxycodone 2.5mg q4h prn and monitor for delirium, c/u tylenol -patient on cymbalta and gabapentin for fibromyalgia, overall pain improved since increasing Cymbalta dosing to 80mgm c/u additional lidoderm patch to anterior tibia 8. DVT ppx-on eliquis 9. GI ppx- omeprazole 10. Dispo- tbd Allergies Coded Allergies: thiopental (Unverified Allergy, Severe, anaphylaxis, 09/02/20) levofloxacin (Verified Adverse Reaction, Intermediate, muscle spasm, 09/02/20) propofol (Verified Adverse Reaction, Intermediate, irritable, 09/02/20) Vital Signs Vital Signs Date Time Temp Pulse Resp B/P (MAP) Pulse Ox O2 Delivery O2 Flow Rate FiO2 10/03/20 09:16 20 Room Air 10/03/20 05:51 98.3 72 105/57 (73) 96 Laboratory Data CBC/BMP Laboratory Tests 10/03/20 07:47 Labs 24H Laboratory Tests 2 10/03/20 07:47: Immature Granulocyte % (Auto) 1.3, Neutrophils (%) (Auto) 72.8H, Lymphocytes (%) (Auto) 12.0L, Monocytes (%) (Auto) 11.4H, Eosinophils (%) (Auto) 1.8, Basophils (%) (Auto) 0.7, Neutrophils # (Auto) 3.9, Lymphocytes # (Auto) 0.7L, Monocytes # (Auto) 0.6, Eosinophils # (Auto) 0.1, Basophils # (Auto) 0.0, Nucleated Red Blood Cells % (auto) 0.0, Anion Gap 6L, Glomerular Filtration Rate > 60.0, Calcium Level 9.8 Current Medications Current Medications Current Medications Medications (Trade) Dose Ordered Sig/Shira Route PRN Reason Start Time Stop Time Status Last Admin Dose Admin Acetaminophen (Tylenol Tab) 1,000 mg TID PO 09/26/20 16:00 10/03/20 09:06 Amiodarone HCl (Pacerone, Cordarone) 200 mg DAILY PO 09/27/20 09:00 10/03/20 09:04 Apixaban (Eliquis) 5 mg BID PO 09/26/20 21:00 10/03/20 09:04 Bisacodyl (Dulcolax Suppository) 10 mg DAILYPRN PRN [place] CONSTIPATION 09/26/20 15:15 Docusate Sodium (Colace) 100 mg BID PO 09/26/20 21:00 10/03/20 09:04 Duloxetine HCl (Cymbalta) 20 mg DAILY PO 10/01/20 09:00 10/03/20 09:04 Duloxetine HCl (Cymbalta) 60 mg DAILY PO 09/27/20 09:00 10/03/20 09:03 Ferrous Gluconate (Fergon) 324 mg BID PO 09/26/20 21:00 10/03/20 09:04 Gabapentin (Neurontin) 100 mg TID PO 09/26/20 16:00 10/03/20 09:03 Levothyroxine Sodium (Synthroid) 112 mcg DAILY@06 PO 09/27/20 06:00 10/03/20 05:09 Lidocaine (Lidoderm Patch) 1 patch DAILY TD 09/27/20 09:00 09/30/20 13:44 DC 09/30/20 09:26 Lidocaine (Lidoderm Patch) 2 patch DAILY TD 09/30/20 09:00 10/03/20 09:07 Magnesium Hydroxide (Milk Of Magnesia) 30 ml DAILYPRN PRN PO CONSTIPATION 09/26/20 15:15 Magnesium Oxide (Mag-Ox) 400 mg BID PO 09/26/20 21:00 10/03/20 09:04 Miscellaneous (Unresolved Clarification Entry) SEE LABEL COMMENTS DAILY XX 10/03/20 09:00 10/03/20 08:22 DC Non-Formulary Medication ( See Comment Field Below ) REMOVE LIDODERM PATCH DAILY@ XX 09/26/20 21:00 10/02/20 21:30 Nystatin (Mycostatin Powder, Nystop) groin BID TOP 09/27/20 09:00 10/03/20 09:06 Olanzapine (ZyPREXA) 2.5 mg Q6HP PRN PO AGITATION 09/26/20 15:15 09/27/20 21:20 Omeprazole (PriLOSEC) 20 mg DAILY PO 09/27/20 09:00 10/03/20 09:04 Oxycodone HCl (Roxicodone, Oxyir) 2.5 mg Q4HP PRN PO PAIN 09/28/20 09:45 10/03/20 09:16 Senna (Senokot) 1 tab QHS PO 09/26/20 21:00 10/02/20 21:28 Tramadol HCl (Ultram) 25 mg Q4HP PRN PO MODERATE PAIN (PS 5-7) 09/26/20 15:15 09/27/20 18:21 DC 09/27/20 12:53 Tramadol HCl (Ultram) 50 mg Q4HP PRN PO MODERATE PAIN (PS 5-7) 09/27/20 18:30 09/28/20 09:35 DC 09/27/20 21:22 SUNITA URRUTIA MD Oct 03, 2020 10:00
[2020-10-03 14:00] VITALS: BP 100/55
[2020-10-03 20:00] VITALS: BP 105/59
[2020-10-03] MEDS: **NOTE PATIENT COMMENT** MISC XX SCH (21:00)
[2020-10-03] MEDS: SENNA 8.6 MG TAB (SENOKOT) PO SCH (21:42)
[2020-10-04] MEDS: LEVOTHYROXINE 112MCG TABLET (0.112MG) PO SCH (05:52)
[2020-10-04 06:00] VITALS: BP 103/58
[2020-10-04] MEDS: REMEDY PHYTOPLEX Z-GUARD PASTE 113GM TUBE (FROM STOREROOM PRODUCT) TOP SCH ×3 (08:43→20:26)
[2020-10-04] MEDS: NYSTATIN 100,000 UNITS/GM TOPICAL PWD 15 GM TOP SCH ×2 (08:43→20:26)
[2020-10-04] MEDS: oxyCODONE 5MG TAB PO PRN ×2 (08:44→17:39)
[2020-10-04] MEDS: APIXABAN 5 MG TAB (ELIQUIS) PO SCH ×2 (08:45→20:24)
[2020-10-04] MEDS: DOCUSATE SODIUM 100MG CAPSULE PO SCH ×2 (08:45→20:24)
[2020-10-04] MEDS: MAGNESIUM OXIDE 400MG TAB (MAG-OX) PO SCH ×2 (08:45→20:24)
[2020-10-04] MEDS: OMEPRAZOLE 20 MG CAP PO SCH (08:45)
[2020-10-04] MEDS: DULoxetine 20 MG CAP (CYMBALTA) PO SCH (08:45)
[2020-10-04] MEDS: GABAPENTIN 100 MG CAP PO SCH ×3 (08:45→20:24)
[2020-10-04] MEDS: FERROUS GLUCONATE 324 MG TAB PO SCH ×2 (08:45→20:24)
[2020-10-04] MEDS: DULoxetine 30 MG CAP (CYMBALTA) PO SCH (08:46)
[2020-10-04] MEDS: ACETAMINOPHEN 500 MG TAB PO SCH ×3 (08:46→20:25)
[2020-10-04] MEDS: AMIODARONE 200 MG TAB (PACERONE) PO SCH (08:47)
[2020-10-04] MEDS: LIDOCAINE 5% (LIDODERM) PATCH TD SCH ×2 (08:48→20:25)
--- NOTE | 2020-10-04 10:16 | IPNPDOC ---
PM&R Progress Note DATE OF SERVICE: Oct 04, 2020 [employer] Progress Note Subjective: Patient reports her right leg ache responded well to changing lidoderm patch to at night, stating it helped her to sleep better. REVIEW OF SYSTEMS: The following is a completed review of systems and has been reviewed. Review of systems otherwise unremarkable. PAIN: Patient self reports right knee pain EYES: No recent vision changes EARS, NOSE, & THROAT: No throat pain, or dysphagia, or rhinorrhea CARDIOVASCULAR: Denies chest pain or palpitations PULMONARY: Denies shortness of breath GASTROINTESTINAL: Denies constipation/diarrhea GENITOURINARY: denies dysuria MUSCULOSKELETAL: right LE pain, femur fracture NEUROLOGICAL:denies paresthesias HEMATOLOGICAL: denies easy bruising . SKIN: right TKR incision PSYCHIATRIC: Unremarkable All other review of systems found to be negative. PHYSICAL EXAMINATION: VITAL SIGNS: Please see below. GENERAL: Pleasant and cooperative. No acute distress. obese HEENT: PERRL. Extraocular movements intact. Clear conjunctiva CARDIOVASCULAR: Regular rate and rhythm. No murmurs, rubs, or gallops LUNGS: Clear to auscultation bilaterally. No wheezes. No rhonchi ABDOMEN: Soft, nontender, nondistended. Positive bowel sounds. Normal active bowel sounds NEUROLOGICAL: Alert and oriented times three. Cranial nerves II through XII grossly intact. Sensation grossly intact EXTREMITIES: 5\5 strength bilateral upper extremities. 5\5 strength right ankle DF/EHL and PF. 5-/5 strength in left lower extremity. SKIN: right TKA incision with nathaniel c/d/i, +ecchymosis of right calf and mild swelling, tender to palpation with gentle touch on several points of right calf ASSESSMENT:80-year-old F with past medical history of Afib, fibromyalgia who presents status post right femur fracture PLAN: 1.Rehab- PT/OT advance mobility and ADLs, stretch/strengthen/maintain ROM all 4limbs 2. Neuro- monitor for delirium and avoid delirium inducing meds -fibromyalgia contributing to overall functional impairments c/u gabapentin and cymbalta 3. Cardiac- hx of Afib and s/p mitral valve repair, c/u amiodarone, eliquis and coreg, no documented CHF, c/u to monitor for fluid overload 2g diet, and daily weights, will consider fluid restriction if clinically appropriate-stable thus far -HLD c/u statin, medicine consulted to assist in overall management 4. Resp- monitor for infection, encourage incentive spirometry 5. Ortho- s/p right femur fracture in setting of recent TKR, NWB, ok for PWB for transfers only- cleared with ortho, ortho consulted 6. Endo- pmh hypothyroidism c/u Synthroid 7. Pain- c/u oxycodone 2.5mg q4h prn and monitor for delirium, c/u tylenol -patient on cymbalta and gabapentin for fibromyalgia, overall pain improved sin ce increasing Cymbalta dosing to 80mgm c/u additional lidoderm patch to anterior tibia 8. DVT ppx-on eliquis 9. GI ppx- omeprazole 10. Dispo- tbd Allergies Coded Allergies: thiopental (Unverified Allergy, Severe, anaphylaxis, 09/02/20) levofloxacin (Verified Adverse Reaction, Intermediate, muscle spasm, 09/02/20) propofol (Verified Adverse Reaction, Intermediate, irritable, 09/02/20) Vital Signs Vital Signs Date Time Temp Pulse Resp B/P (MAP) Pulse Ox O2 Delivery O2 Flow Rate FiO2 10/04/20 08:44 18 Room Air 10/04/20 06:00 98.3 67 103/58 (73) 98 Current Medications Current Medications Current Medications Medications (Trade) Dose Ordered Sig/Shira Route PRN Reason Start Time Stop Time Status Last Admin Dose Admin Acetaminophen (Tylenol Tab) 1,000 mg TID PO 09/26/20 16:00 10/04/20 08:46 Amiodarone HCl (Pacerone, Cordarone) 200 mg DAILY PO 09/27/20 09:00 10/04/20 08:47 Apixaban (Eliquis) 5 mg BID PO 09/26/20 21:00 10/04/20 08:45 Bisacodyl (Dulcolax Suppository) 10 mg DAILYPRN PRN [place] CONSTIPATION 09/26/20 15:15 Docusate Sodium (Colace) 100 mg BID PO 09/26/20 21:00 10/04/20 08:45 Duloxetine HCl (Cymbalta) 20 mg DAILY PO 10/01/20 09:00 10/04/20 08:45 Duloxetine HCl (Cymbalta) 60 mg DAILY PO 09/27/20 09:00 10/04/20 08:46 Ferrous Gluconate (Fergon) 324 mg BID PO 09/26/20 21:00 10/04/20 08:45 Gabapentin (Neurontin) 100 mg TID PO 09/26/20 16:00 10/04/20 08:45 Levothyroxine Sodium (Synthroid) 112 mcg DAILY@06 PO 09/27/20 06:00 10/04/20 05:52 Lidocaine (Lidoderm Patch) 1 patch DAILY TD 09/27/20 09:00 09/30/20 13:44 DC 09/30/20 09:26 Lidocaine (Lidoderm Patch) 2 patch DAILY TD 09/30/20 09:00 10/04/20 09:16 DC 10/03/20 09:07 Lidocaine (Lidoderm Patch) 2 patch QHS TD 10/04/20 21:00 Magnesium Hydroxide (Milk Of Magnesia) 30 ml DAILYPRN PRN PO CONSTIPATION 09/26/20 15:15 Magnesium Oxide (Mag-Ox) 400 mg BID PO 09/26/20 21:00 10/04/20 08:45 Miscellaneous (Unresolved Clarification Entry) SEE LABEL COMMENTS DAILY XX 10/03/20 09:00 10/03/20 08:22 DC Non-Formulary Medication ( See Comment Field Below ) REMOVE LIDODERM PATCH DAILY@ XX 09/26/20 21:00 10/02/20 21:30 Nystatin (Mycostatin Powder, Nystop) groin BID TOP 09/27/20 09:00 10/04/20 08:43 Olanzapine (ZyPREXA) 2.5 mg Q6HP PRN PO AGITATION 09/26/20 15:15 09/27/20 21:20 Omeprazole (PriLOSEC) 20 mg DAILY PO 09/27/20 09:00 10/04/20 08:45 Oxycodone HCl (Roxicodone, Oxyir) 2.5 mg Q4HP PRN PO PAIN 09/28/20 09:45 10/04/20 08:44 Senna (Senokot) 1 tab QHS PO 09/26/20 21:00 10/03/20 21:42 Tramadol HCl (Ultram) 25 mg Q4HP PRN PO MODERATE PAIN (PS 5-7) 09/26/20 15:15 09/27/20 18:21 DC 09/27/20 12:53 Tramadol HCl (Ultram) 50 mg Q4HP PRN PO MODERATE PAIN (PS 5-7) 09/27/20 18:30 09/28/20 09:35 DC 09/27/20 21:22 SUNITA URRUTIA MD Oct 04, 2020 10:16
[2020-10-04 14:00] VITALS: BP 114/58
[2020-10-04 20:00] VITALS: BP 83/47
[2020-10-04 20:05] VITALS: BP 86/58
[2020-10-04] MEDS: SENNA 8.6 MG TAB (SENOKOT) PO SCH (20:24)
[2020-10-04] MEDS: **NOTE PATIENT COMMENT** MISC XX SCH (20:26)
--- NOTE | 2020-10-04 20:36 | IPNPDOC ---
Date Seen The patient was seen on 10/04/20. Progress Note SUBJECTIVE: Patient was seen on routine follow up. No new events since last evaluated by medicine, no acute complaints. Denies chest pain, shortness of breath, n/v/d. OBJECTIVE: PHYSICAL EXAMINATION: VITAL SIGNS: See below GENERAL: NAD, resting in bed. AAox 3 HEENT: PERRL. Extraocular movements intact. Clear conjunctiva CARDIOVASCULAR: S1S2 +, no M/R/G LUNGS: CTAB, no W/R/R ABDOMEN: obese, soft, nontender, nondistended. Positive bowel sounds. BS + in 4 quad NEUROLOGICAL: Cranial nerves 2-12 intact. No focal deficits EXTREMITIES: 5\5 strength bilateral upper extremities. 5/5 strength in left lower extremity. PSYCH: mood and affect appropriate LABORATORY DATA: See below. MICROBIOLOGY: Please see below. A/P: #Acute mildly displaced periprosthetic fracture of right knee - medical therapy/pain control - PT/OT, plan per ARU #Atrial fibrillation - rate controlled, amiodarone - C/w eliquis #Fibromyalgia - continue home meds #Hypothyroidism - synthroid #Neuropathy - neurontin #DVT prophylaxis - Eliquis VS, I&O, 24H, Fishbone Vital Signs/I&O Vital Signs Date Time Temp Pulse Resp B/P (MAP) Pulse Ox O2 Delivery O2 Flow Rate FiO2 10/04/20 18:15 20 Room Air 10/04/20 14:00 98.6 86 114/58 (76) 98 I&O- Last 24 Hours up to 6 AM 10/04/20 06:00 Intake Total 710 ml Balance 710 ml Current Medications Current Medications Medications (Trade) Dose Ordered Sig/Shira Route PRN Reason Start Time Stop Time Status Last Admin Dose Admin Acetaminophen (Tylenol Tab) 1,000 mg TID PO 09/26/20 16:00 10/04/20 20:25 Amiodarone HCl (Pacerone, Cordarone) 200 mg DAILY PO 09/27/20 09:00 10/04/20 08:47 Apixaban (Eliquis) 5 mg BID PO 09/26/20 21:00 10/04/20 20:24 Bisacodyl (Dulcolax Suppository) 10 mg DAILYPRN PRN [place] CONSTIPATION 09/26/20 15:15 Docusate Sodium (Colace) 100 mg BID PO 09/26/20 21:00 10/04/20 20:24 Duloxetine HCl (Cymbalta) 20 mg DAILY PO 10/01/20 09:00 10/04/20 08:45 Duloxetine HCl (Cymbalta) 60 mg DAILY PO 09/27/20 09:00 10/04/20 08:46 Ferrous Gluconate (Fergon) 324 mg BID PO 09/26/20 21:00 10/04/20 20:24 Gabapentin (Neurontin) 100 mg TID PO 09/26/20 16:00 10/04/20 20:24 Levothyroxine Sodium (Synthroid) 112 mcg DAILY@06 PO 09/27/20 06:00 10/04/20 05:52 Lidocaine (Lidoderm Patch) 1 patch DAILY TD 09/27/20 09:00 09/30/20 13:44 DC 09/30/20 09:26 Lidocaine (Lidoderm Patch) 2 patch DAILY TD 09/30/20 09:00 10/04/20 09:16 DC 10/03/20 09:07 Lidocaine (Lidoderm Patch) 2 patch QHS TD 10/04/20 21:00 10/04/20 20:25 Magnesium Hydroxide (Milk Of Magnesia) 30 ml DAILYPRN PRN PO CONSTIPATION 09/26/20 15:15 Magnesium Oxide (Mag-Ox) 400 mg BID PO 09/26/20 21:00 10/04/20 20:24 Miscellaneous (Unresolved Clarification Entry) SEE LABEL COMMENTS DAILY XX 10/03/20 09:00 10/03/20 08:22 DC Non-Formulary Medication ( See Comment Field Below ) REMOVE LIDODERM PATCH DAILY@ XX 09/26/20 21:00 10/02/20 21:30 Nystatin (Mycostatin Powder, Nystop) groin BID TOP 09/27/20 09:00 10/04/20 20:26 Olanzapine (ZyPREXA) 2.5 mg Q6HP PRN PO AGITATION 09/26/20 15:15 09/27/20 21:20 Omeprazole (PriLOSEC) 20 mg DAILY PO 09/27/20 09:00 10/04/20 08:45 Oxycodone HCl (Roxicodone, Oxyir) 2.5 mg Q4HP PRN PO PAIN 09/28/20 09:45 10/04/20 17:39 Senna (Senokot) 1 tab QHS PO 09/26/20 21:00 10/04/20 20:24 Tramadol HCl (Ultram) 25 mg Q4HP PRN PO MODERATE PAIN (PS 5-7) 09/26/20 15:15 09/27/20 18:21 DC 09/27/20 12:53 Tramadol HCl (Ultram) 50 mg Q4HP PRN PO MODERATE PAIN (PS 5-7) 09/27/20 18:30 09/28/20 09:35 DC 09/27/20 21:22 Allergies Coded Allergies: thiopental (Unverified Allergy, Severe, anaphylaxis, 09/02/20) levofloxacin (Verified Adverse Reaction, Intermediate, muscle spasm, 09/02/20) propofol (Verified Adverse Reaction, Intermediate, irritable, 09/02/20) Zahira Sue MD Oct 04, 2020 20:36
[2020-10-04 22:00] VITALS: BP 94/56
[2020-10-05] MEDS: LEVOTHYROXINE 112MCG TABLET (0.112MG) PO SCH (05:22)
[2020-10-05 05:36] VITALS: BP 99/54
[2020-10-05 08:29] LABS: BASO % 0.8 % (0.0-1.0); EOS # 0.1 10^3/uL (0.0-0.5); HEMATOCRIT 31.7 % (36.0-47.0); HEMOGLOBIN 9.7 g/dl (12.0-15.5); LYMPH # 0.5 10^3/uL (1.5-5.0); LYMPH % 10.3 % (24.0-44.0); MEAN CORPUSCULAR HEMOGLOBIN 32.1 pg (27.0-33.0); MEAN CORPUSCULAR HGB CONC 30.6 g/dl (32.0-36.5); MONO # 0.6 10^3/uL (0.0-0.8); MONO % 12.9 % (0.0-5.0); NEUTROPHILS # 3.6 10^3/uL (1.5-8.5); NEUTROPHILS % 73.4 % (36.0-66.0); PLATELET COUNT, AUTOMATED 295 10^3/uL (150-450); RED BLOOD COUNT 3.02 10^6/uL (4.00-5.40)
[2020-10-05 09:08] LABS: BLOOD UREA NITROGEN 19 MG/DL (7-18); CALCIUM LEVEL 9.5 MG/DL (8.8-10.2); CARBON DIOXIDE LEVEL 23 MEQ/L (21-32); CHLORIDE LEVEL 112 MEQ/L (98-107); CREATININE FOR GFR 0.84 MG/DL (0.55-1.30); GLOMERULAR FILTRATION RATE > 60.0 (>39); GLUCOSE, FASTING 89 MG/DL (70-100); POTASSIUM SERUM 3.9 MEQ/L (3.5-5.1); SODIUM LEVEL 142 MEQ/L (136-145)
[2020-10-05] MEDS: DULoxetine 20 MG CAP (CYMBALTA) PO SCH (09:51)
[2020-10-05] MEDS: OMEPRAZOLE 20 MG CAP PO SCH (09:52)
[2020-10-05] MEDS: GABAPENTIN 100 MG CAP PO SCH ×3 (09:52→20:21)
[2020-10-05] MEDS: APIXABAN 5 MG TAB (ELIQUIS) PO SCH ×2 (09:52→20:21)
[2020-10-05] MEDS: DULoxetine 30 MG CAP (CYMBALTA) PO SCH (09:52)
[2020-10-05] MEDS: AMIODARONE 200 MG TAB (PACERONE) PO SCH (09:52)
[2020-10-05] MEDS: ACETAMINOPHEN 500 MG TAB PO SCH ×3 (09:52→20:20)
[2020-10-05] MEDS: MAGNESIUM OXIDE 400MG TAB (MAG-OX) PO SCH ×2 (09:52→20:21)
[2020-10-05] MEDS: FERROUS GLUCONATE 324 MG TAB PO SCH ×2 (09:52→20:21)
[2020-10-05] MEDS: oxyCODONE 5MG TAB PO PRN ×3 (09:53→21:14)
[2020-10-05] MEDS: DOCUSATE SODIUM 100MG CAPSULE PO SCH ×2 (09:53→20:21)
[2020-10-05] MEDS: REMEDY PHYTOPLEX Z-GUARD PASTE 113GM TUBE (FROM STOREROOM PRODUCT) TOP SCH ×3 (09:55→20:21)
[2020-10-05] MEDS: NYSTATIN 100,000 UNITS/GM TOPICAL PWD 15 GM TOP SCH ×2 (09:55→20:22)
--- NOTE | 2020-10-05 12:41 | IPNPDOC ---
PM&R Progress Note DATE OF SERVICE: Oct 05, 2020 [employer] Progress Note Subjective: Patient reporting her leg aches when she sits for too long and was encouraged to alternate between bed and chair to take pressure off of her leg. REVIEW OF SYSTEMS: The following is a completed review of systems and has been reviewed. Review of systems otherwise unremarkable. PAIN: Patient self reports right knee pain EYES: No recent vision changes EARS, NOSE, & THROAT: No throat pain, or dysphagia, or rhinorrhea CARDIOVASCULAR: Denies chest pain or palpitations PULMONARY: Denies shortness of breath GASTROINTESTINAL: Denies constipation/diarrhea GENITOURINARY: denies dysuria MUSCULOSKELETAL: right LE pain, femur fracture NEUROLOGICAL:denies paresthesias HEMATOLOGICAL: denies easy bruising . SKIN: right TKR incision PSYCHIATRIC: Unremarkable All other review of systems found to be negative. PHYSICAL EXAMINATION: VITAL SIGNS: Please see below. GENERAL: Pleasant and cooperative. No acute distress. obese HEENT: PERRL. Extraocular movements intact. Clear conjunctiva CARDIOVASCULAR: Regular rate and rhythm. No murmurs, rubs, or gallops LUNGS: Clear to auscultation bilaterally. No wheezes. No rhonchi ABDOMEN: Soft, nontender, nondistended. Positive bowel sounds. Normal active bowel sounds NEUROLOGICAL: Alert and oriented times three. Cranial nerves II through XII grossly intact. Sensation grossly intact EXTREMITIES: 5\5 strength bilateral upper extremities. 5\5 strength right ankle DF/EHL and PF. 5-/5 strength in left lower extremity. SKIN: right TKA incision with nathaniel c/d/i, +ecchymosis of right calf and mild swelling, tender to palpation with gentle touch on several points of right calf ASSESSMENT:80-year-old F with past medical history of Afib, fibromyalgia who presents status post right femur fracture PLAN: 1.Rehab- PT/OT advance mobility and ADLs, stretch/strengthen/maintain ROM all 4limbs, able to hop in parallel bars 2. Neuro- monitor for delirium and avoid delirium inducing meds -fibromyalgia contributing to overall functional impairments c/u gabapentin and cymbalta 3. Cardiac- hx of Afib and s/p mitral valve repair, c/u amiodarone, eliquis and coreg, no documented CHF, c/u to monitor for fluid overload 2g diet, and daily weights, will consider fluid restriction if clinically appropriate-stable thus far -D c/u statin, medicine consulted to assist in overall management 4. Resp- monitor for infection, encourage incentive spirometry 5. Ortho- s/p right femur fracture in setting of recent TKR, NWB, ok for PWB for transfers only- cleared with ortho, ortho consulted 6. Endo- pmh hypothyroidism c/u Synthroid 7. Pain- c/u oxycodone 2.5mg q4h prn and monitor for delirium, c/u tylenol -patient on cymbalta and gabapentin for fibromyalgia, overall pain improved since increasing Cymbalta dosing to 80mgm c/u additional lidoderm patch to anterior tibia 8. DVT ppx-on eliquis 9. GI ppx- omeprazole 10. Dispo- 10-11-20 to home, progressing towards goals Allergies Coded Allergies: thiopental (Unverified Allergy, Severe, anaphylaxis, 09/02/20) levofloxacin (Verified Adverse Reaction, Intermediate, muscle spasm, 09/02/20) propofol (Verified Adverse Reaction, Intermediate, irritable, 09/02/20) Vital Signs Vital Signs Date Time Temp Pulse Resp B/P (MAP) Pulse Ox O2 Delivery O2 Flow Rate FiO2 10/05/20 10:23 18 10/05/20 05:36 99.4 67 99/54 (69) 97 Room Air Laboratory Data CBC/BMP Laboratory Tests 10/05/20 08:17 Labs 24H Laboratory Tests 2 10/05/20 08:17: Immature Granulocyte % (Auto) 0.6, Neutrophils (%) (Auto) 73.4H, Lymphocytes (%) (Auto) 10.3L, Monocytes (%) (Auto) 12.9H, Eosinophils (%) (Auto) 2.0, Basophils (%) (Auto) 0.8, Neutrophils # (Auto) 3.6, Lymphocytes # (Auto) 0.5L, Monocytes # (Auto) 0.6, Eosinophils # (Auto) 0.1, Basophils # (Auto) 0.0, Nucleated Red Blood Cells % (auto) 0.0, Anion Gap 7L, Glomerular Filtration Rate > 60.0, Calcium Level 9.5 Current Medications Current Medications Current Medications Medications (Trade) Dose Ordered Sig/Shira Route PRN Reason Start Time Stop Time Status Last Admin Dose Admin Acetaminophen (Tylenol Tab) 1,000 mg TID PO 09/26/20 16:00 10/05/20 09:52 Amiodarone HCl (Pacerone, Cordarone) 200 mg DAILY PO 09/27/20 09:00 10/05/20 09:52 Apixaban (Eliquis) 5 mg BID PO 09/26/20 21:00 10/05/20 09:52 Bisacodyl (Dulcolax Suppository) 10 mg DAILYPRN PRN [place] CONSTIPATION 09/26/20 15:15 Docusate Sodium (Colace) 100 mg BID PO 09/26/20 21:00 10/05/20 09:53 Duloxetine HCl (Cymbalta) 20 mg DAILY PO 10/01/20 09:00 10/05/20 09:51 Duloxetine HCl (Cymbalta) 60 mg DAILY PO 09/27/20 09:00 10/05/20 09:52 Ferrous Gluconate (Fergon) 324 mg BID PO 09/26/20 21:00 10/05/20 09:52 Gabapentin (Neurontin) 100 mg TID PO 09/26/20 16:00 10/05/20 09:52 Levothyroxine Sodium (Synthroid) 112 mcg DAILY@06 PO 09/27/20 06:00 10/05/20 05:22 Lidocaine (Lidoderm Patch) 1 patch DAILY TD 09/27/20 09:00 09/30/20 13:44 DC 09/30/20 09:26 Lidocaine (Lidoderm Patch) 2 patch DAILY TD 09/30/20 09:00 10/04/20 09:16 DC 10/03/20 09:07 Lidocaine (Lidoderm Patch) 2 patch QHS TD 10/04/20 21:00 10/04/20 20:25 Magnesium Hydroxide (Milk Of Magnesia) 30 ml DAILYPRN PRN PO CONSTIPATION 09/26/20 15:15 Magnesium Oxide (Mag-Ox) 400 mg BID PO 09/26/20 21:00 10/05/20 09:52 Miscellaneous (Unresolved Clarification Entry) SEE LABEL COMMENTS DAILY XX 10/03/20 09:00 10/03/20 08:22 DC Non-Formulary Medication ( See Comment Field Below ) REMOVE LIDODERM PATCH DAILY@ XX 09/26/20 21:00 10/02/20 21:30 Nystatin (Mycostatin Powder, Nystop) groin BID TOP 09/27/20 09:00 10/05/20 09:55 Olanzapine (ZyPREXA) 2.5 mg Q6HP PRN PO AGITATION 09/26/20 15:15 09/27/20 21:20 Omeprazole (PriLOSEC) 20 mg DAILY PO 09/27/20 09:00 10/05/20 09:52 Oxycodone HCl (Roxicodone, Oxyir) 2.5 mg Q4HP PRN PO PAIN 09/28/20 09:45 10/05/20 09:53 Senna (Senokot) 1 tab QHS PO 09/26/20 21:00 10/04/20 20:24 Tramadol HCl (Ultram) 25 mg Q4HP PRN PO MODERATE PAIN (PS 5-7) 09/26/20 15:15 09/27/20 18:21 DC 09/27/20 12:53 Tramadol HCl (Ultram) 50 mg Q4HP PRN PO MODERATE PAIN (PS 5-7) 09/27/20 18:30 09/28/20 09:35 DC 09/27/20 21:22 SUNITA URRUTIA MD Oct 05, 2020 12:41
[2020-10-05 14:00] VITALS: BP 110/59
[2020-10-05 20:00] VITALS: BP 103/51
[2020-10-05] MEDS: LIDOCAINE 5% (LIDODERM) PATCH TD SCH (20:20)
[2020-10-05] MEDS: SENNA 8.6 MG TAB (SENOKOT) PO SCH (20:21)
[2020-10-05] MEDS: **NOTE PATIENT COMMENT** MISC XX SCH (20:23)
[2020-10-06] MEDS: LEVOTHYROXINE 112MCG TABLET (0.112MG) PO SCH (05:15)
[2020-10-06 05:16] VITALS: BP 113/59
[2020-10-06] MEDS: DULoxetine 20 MG CAP (CYMBALTA) PO SCH (08:30)
[2020-10-06] MEDS: GABAPENTIN 100 MG CAP PO SCH ×3 (08:30→20:18)
[2020-10-06] MEDS: APIXABAN 5 MG TAB (ELIQUIS) PO SCH ×2 (08:31→20:18)
[2020-10-06] MEDS: FERROUS GLUCONATE 324 MG TAB PO SCH ×2 (08:31→20:17)
[2020-10-06] MEDS: DULoxetine 30 MG CAP (CYMBALTA) PO SCH (08:31)
[2020-10-06] MEDS: DOCUSATE SODIUM 100MG CAPSULE PO SCH ×2 (08:31→20:18)
[2020-10-06] MEDS: MAGNESIUM OXIDE 400MG TAB (MAG-OX) PO SCH ×2 (08:32→20:18)
[2020-10-06] MEDS: ACETAMINOPHEN 500 MG TAB PO SCH ×3 (08:32→20:18)
[2020-10-06] MEDS: OMEPRAZOLE 20 MG CAP PO SCH (08:32)
[2020-10-06] MEDS: oxyCODONE 5MG TAB PO PRN ×2 (08:39→20:28)
[2020-10-06] MEDS: AMIODARONE 200 MG TAB (PACERONE) PO SCH (08:40)
[2020-10-06] MEDS: REMEDY PHYTOPLEX Z-GUARD PASTE 113GM TUBE (FROM STOREROOM PRODUCT) TOP SCH ×3 (08:43→20:20)
[2020-10-06] MEDS: NYSTATIN 100,000 UNITS/GM TOPICAL PWD 15 GM TOP SCH ×2 (08:46→20:20)
--- NOTE | 2020-10-06 11:09 | IPNPDOC ---
PM&R Progress Note DATE OF SERVICE: Oct 06, 2020 Assistant Professor Of History Progress Note Subjective: Patient reporting she feels well today and has no complaints except a soreness in her leg that is not getting any worse. REVIEW OF SYSTEMS: The following is a completed review of systems and has been reviewed. Review of systems otherwise unremarkable. PAIN: Patient self reports right knee pain EYES: No recent vision changes EARS, NOSE, & THROAT: No throat pain, or dysphagia, or rhinorrhea CARDIOVASCULAR: Denies chest pain or palpitations PULMONARY: Denies shortness of breath GASTROINTESTINAL: Denies constipation/diarrhea GENITOURINARY: denies dysuria MUSCULOSKELETAL: right LE pain, femur fracture NEUROLOGICAL:denies paresthesias HEMATOLOGICAL: denies easy bruising . SKIN: right TKR incision PSYCHIATRIC: Unremarkable All other review of systems found to be negative. PHYSICAL EXAMINATION: VITAL SIGNS: Please see below. GENERAL: Pleasant and cooperative. No acute distress. obese HEENT: PERRL. Extraocular movements intact. Clear conjunctiva CARDIOVASCULAR: Regular rate and rhythm. No murmurs, rubs, or gallops LUNGS: Clear to auscultation bilaterally. No wheezes. No rhonchi ABDOMEN: Soft, nontender, nondistended. Positive bowel sounds. Normal active bowel sounds NEUROLOGICAL: Alert and oriented times three. Cranial nerves II through XII grossly intact. Sensation grossly intact EXTREMITIES: 5\5 strength bilateral upper extremities. 5\5 strength right ankle DF/EHL and PF. 5-/5 strength in left lower extremity. SKIN: right TKA incision with nathaniel c/d/i, +ecchymosis of right calf and mild swelling, tender to palpation with gentle touch on several points of right calf ASSESSMENT:80-year-old F with past medical history of Afib, fibromyalgia who presents status post right femur fracture PLAN: 1.Rehab- PT/OT advance mobility and ADLs, stretch/strengthen/maintain ROM all 4limbs, able to hop in parallel bars 2. Neuro- monitor for delirium and avoid delirium inducing meds -fibromyalgia contributing to overall functional impairments c/u gabapentin and cymbalta 3. Cardiac- hx of Afib and s/p mitral valve repair, c/u amiodarone, eliquis and coreg, no documented CHF, c/u to monitor for fluid overload 2g diet, and daily weights, will consider fluid restriction if clinically appropriate-stable thus far -HLD c/u statin, medicine consulted to assist in overall management 4. Resp- monitor for infection, encourage incentive spirometry 5. Ortho- s/p right femur fracture in setting of recent TKR, NWB, ok for PWB for transfers only- cleared with ortho, ortho consulted- f/u Xray rodered today 6. Endo- pmh hypothyroidism c/u Synthroid 7. Pain- c/u oxycodone 2.5mg q4h prn and monitor for delirium, c/u tylenol -patient on cymbalta and gabapentin for fibromyalgia, overall pain improved since increasing Cymbalta dosing to 80mgm c/u additional lidoderm patch to anterior tibia 8. DVT ppx-on eliquis 9. GI ppx- omeprazole 10. Dispo- 10-11-20 to home, progressing towards goals, family training in pro cess today Allergies Coded Allergies: thiopental (Unverified Allergy, Severe, anaphylaxis, 09/02/20) levofloxacin (Verified Adverse Reaction, Intermediate, muscle spasm, 09/02/20) propofol (Verified Adverse Reaction, Intermediate, irritable, 09/02/20) Vital Signs Vital Signs Date Time Temp Pulse Resp B/P (MAP) Pulse Ox O2 Delivery O2 Flow Rate FiO2 10/06/20 09:09 18 10/06/20 05:16 98.4 70 113/59 (77) 97 Room Air Current Medications Current Medications Current Medications Medications (Trade) Dose Ordered Sig/Shira Route PRN Reason Start Time Stop Time Status Last Admin Dose Admin Acetaminophen (Tylenol Tab) 1,000 mg TID PO 09/26/20 16:00 10/06/20 08:32 Amiodarone HCl (Pacerone, Cordarone) 200 mg DAILY PO 09/27/20 09:00 10/06/20 08:40 Apixaban (Eliquis) 5 mg BID PO 09/26/20 21:00 10/06/20 08:31 Bisacodyl (Dulcolax Suppository) 10 mg DAILYPRN PRN [place] CONSTIPATION 09/26/20 15:15 Docusate Sodium (Colace) 100 mg BID PO 09/26/20 21:00 10/06/20 08:31 Duloxetine HCl (Cymbalta) 20 mg DAILY PO 10/01/20 09:00 10/06/20 08:30 Duloxetine HCl (Cymbalta) 60 mg DAILY PO 09/27/20 09:00 10/06/20 08:31 Ferrous Gluconate (Fergon) 324 mg BID PO 09/26/20 21:00 10/06/20 08:31 Gabapentin (Neurontin) 100 mg TID PO 09/26/20 16:00 10/06/20 08:30 Levothyroxine Sodium (Synthroid) 112 mcg DAILY@06 PO 09/27/20 06:00 10/06/20 05:15 Lidocaine (Lidoderm Patch) 1 patch DAILY TD 09/27/20 09:00 09/30/20 13:44 DC 09/30/20 09:26 Lidocaine (Lidoderm Patch) 2 patch DAILY TD 09/30/20 09:00 10/04/20 09:16 DC 10/03/20 09:07 Lidocaine (Lidoderm Patch) 2 patch QHS TD 10/04/20 21:00 10/05/20 20:20 Magnesium Hydroxide (Milk Of Magnesia) 30 ml DAILYPRN PRN PO CONSTIPATION 09/26/20 15:15 Magnesium Oxide (Mag-Ox) 400 mg BID PO 09/26/20 21:00 10/06/20 08:32 Miscellaneous (Unresolved Clarification Entry) SEE LABEL COMMENTS DAILY XX 10/03/20 09:00 10/03/20 08:22 DC Non-Formulary Medication ( See Comment Field Below ) REMOVE LIDODERM PATCH DAILY@21 XX 09/26/20 21:00 10/02/20 21:30 Nystatin (Mycostatin Powder, Nystop) groin BID TOP 09/27/20 09:00 10/06/20 08:46 Olanzapine (ZyPREXA) 2.5 mg Q6HP PRN PO AGITATION 09/26/20 15:15 09/27/20 21:20 Omeprazole (PriLOSEC) 20 mg DAILY PO 09/27/20 09:00 10/06/20 08:32 Oxycodone HCl (Roxicodone, Oxyir) 2.5 mg Q4HP PRN PO PAIN 09/28/20 09:45 10/06/20 08:39 Senna (Senokot) 1 tab QHS PO 09/26/20 21:00 10/05/20 20:21 Tramadol HCl (Ultram) 25 mg Q4HP PRN PO MODERATE PAIN (PS 5-7) 09/26/20 15:15 09/27/20 18:21 DC 09/27/20 12:53 Tramadol HCl (Ultram) 50 mg Q4HP PRN PO MODERATE PAIN (PS 5-7) 09/27/20 18:30 09/28/20 09:35 DC 09/27/20 21:22 SUNITA URRUTIA MD Oct 06, 2020 11:09
--- NOTE | 2020-10-06 11:44 | REP ---
INDICATION: FOLLOW UP COMPARISON: [facility]. TECHNIQUE: AP and lateral views right knee. FINDINGS: Total knee arthroplasty is noted. There are anterior surgical nathaniel in the skin. The fracture of the medial femoral condyle is mildly displaced and unchanged in position. IMPRESSION: Stable exam. <Electronically signed by Gianni Jenkins > 10/06/20 2540
[2020-10-06 14:00] VITALS: BP 101/52
[2020-10-06 20:15] VITALS: BP 94/54
[2020-10-06] MEDS: LIDOCAINE 5% (LIDODERM) PATCH TD SCH (20:17)
[2020-10-06] MEDS: SENNA 8.6 MG TAB (SENOKOT) PO SCH (20:18)
[2020-10-06 20:28] VITALS: BP 112/62
[2020-10-06] MEDS: **NOTE PATIENT COMMENT** MISC XX SCH (21:00)
[2020-10-07] MEDS: LEVOTHYROXINE 112MCG TABLET (0.112MG) PO SCH (05:22)
[2020-10-07 06:20] VITALS: BP 101/56
[2020-10-07 08:19] LABS: BASO % 0.6 % (0.0-1.0); EOS # 0.1 10^3/uL (0.0-0.5); EOS % 2.8 % (0.0-3.0); HEMATOCRIT 32.6 % (36.0-47.0); HEMOGLOBIN 9.7 g/dl (12.0-15.5); LYMPH # 0.5 10^3/uL (1.5-5.0); LYMPH % 14.6 % (24.0-44.0); MEAN CORPUSCULAR HEMOGLOBIN 31.6 pg (27.0-33.0); MEAN CORPUSCULAR HGB CONC 29.8 g/dl (32.0-36.5); MEAN CORPUSCULAR VOLUME 106.2 fl (80.0-96.0); MONO # 0.5 10^3/uL (0.0-0.8); MONO % 13.2 % (0.0-5.0); NEUTROPHILS # 2.5 10^3/uL (1.5-8.5); NEUTROPHILS % 68.5 % (36.0-66.0); PLATELET COUNT, AUTOMATED 259 10^3/uL (150-450); RED BLOOD COUNT 3.07 10^6/uL (4.00-5.40); WHITE BLOOD COUNT 3.6 10^3/uL (4.0-10.0)
[2020-10-07 08:46] LABS: BLOOD UREA NITROGEN 17 MG/DL (7-18); CALCIUM LEVEL 9.1 MG/DL (8.8-10.2); CARBON DIOXIDE LEVEL 25 MEQ/L (21-32); CHLORIDE LEVEL 112 MEQ/L (98-107); CREATININE FOR GFR 0.75 MG/DL (0.55-1.30); GLOMERULAR FILTRATION RATE > 60.0 (>39); GLUCOSE, FASTING 94 MG/DL (70-100); SODIUM LEVEL 144 MEQ/L (136-145)
[2020-10-07] MEDS: MAGNESIUM OXIDE 400MG TAB (MAG-OX) PO SCH ×2 (09:23→21:31)
[2020-10-07] MEDS: DOCUSATE SODIUM 100MG CAPSULE PO SCH ×2 (09:23→21:31)
[2020-10-07] MEDS: DULoxetine 30 MG CAP (CYMBALTA) PO SCH (09:24)
[2020-10-07] MEDS: FERROUS GLUCONATE 324 MG TAB PO SCH ×2 (09:24→21:31)
[2020-10-07] MEDS: GABAPENTIN 100 MG CAP PO SCH ×3 (09:24→21:31)
[2020-10-07] MEDS: AMIODARONE 200 MG TAB (PACERONE) PO SCH (09:25)
[2020-10-07] MEDS: APIXABAN 5 MG TAB (ELIQUIS) PO SCH ×2 (09:25→21:31)
[2020-10-07] MEDS: REMEDY PHYTOPLEX Z-GUARD PASTE 113GM TUBE (FROM STOREROOM PRODUCT) TOP SCH ×3 (09:26→21:32)
[2020-10-07] MEDS: ACETAMINOPHEN 500 MG TAB PO SCH ×3 (09:26→21:00)
[2020-10-07] MEDS: NYSTATIN 100,000 UNITS/GM TOPICAL PWD 15 GM TOP SCH ×2 (09:27→21:32)
[2020-10-07] MEDS: OMEPRAZOLE 20 MG CAP PO SCH (09:33)
[2020-10-07] MEDS: DULoxetine 20 MG CAP (CYMBALTA) PO SCH (13:30)
[2020-10-07 14:00] VITALS: BP 116/59
[2020-10-07] MEDS: oxyCODONE 5MG TAB PO PRN ×2 (17:39→21:32)
[2020-10-07 20:00] VITALS: BP 110/51
[2020-10-07] MEDS: **NOTE PATIENT COMMENT** MISC XX SCH (21:00)
[2020-10-07] MEDS: LIDOCAINE 5% (LIDODERM) PATCH TD SCH (21:30)
[2020-10-07] MEDS: SENNA 8.6 MG TAB (SENOKOT) PO SCH (21:31)
[2020-10-08 05:36] VITALS: BP 90/51
[2020-10-08] MEDS: LEVOTHYROXINE 112MCG TABLET (0.112MG) PO SCH (05:57)
[2020-10-08 06:06] VITALS: BP 88/50
[2020-10-08] MEDS: APIXABAN 5 MG TAB (ELIQUIS) PO SCH ×2 (09:29→20:26)
[2020-10-08] MEDS: FERROUS GLUCONATE 324 MG TAB PO SCH ×2 (09:29→20:26)
[2020-10-08] MEDS: OMEPRAZOLE 20 MG CAP PO SCH (09:29)
[2020-10-08] MEDS: DOCUSATE SODIUM 100MG CAPSULE PO SCH ×2 (09:29→20:26)
[2020-10-08] MEDS: MAGNESIUM OXIDE 400MG TAB (MAG-OX) PO SCH ×2 (09:29→20:26)
[2020-10-08] MEDS: GABAPENTIN 100 MG CAP PO SCH ×3 (09:30→20:26)
[2020-10-08] MEDS: DULoxetine 20 MG CAP (CYMBALTA) PO SCH (09:30)
[2020-10-08] MEDS: AMIODARONE 200 MG TAB (PACERONE) PO SCH (09:30)
[2020-10-08] MEDS: DULoxetine 30 MG CAP (CYMBALTA) PO SCH (09:30)
[2020-10-08] MEDS: REMEDY PHYTOPLEX Z-GUARD PASTE 113GM TUBE (FROM STOREROOM PRODUCT) TOP SCH ×3 (09:31→20:27)
[2020-10-08] MEDS: ACETAMINOPHEN 500 MG TAB PO SCH ×3 (09:31→20:26)
[2020-10-08] MEDS: NYSTATIN 100,000 UNITS/GM TOPICAL PWD 15 GM TOP SCH ×2 (09:32→20:27)
[2020-10-08 14:00] VITALS: BP 107/58
[2020-10-08] MEDS: SENNA 8.6 MG TAB (SENOKOT) PO SCH (20:26)
[2020-10-08] MEDS: LIDOCAINE 5% (LIDODERM) PATCH TD SCH (20:26)
[2020-10-08] MEDS: **NOTE PATIENT COMMENT** MISC XX SCH (20:27)
[2020-10-08 20:33] VITALS: BP 105/67
[2020-10-09] MEDS: LEVOTHYROXINE 112MCG TABLET (0.112MG) PO SCH (05:39)
[2020-10-09 06:27] VITALS: BP 117/65
[2020-10-09] MEDS: NYSTATIN 100,000 UNITS/GM TOPICAL PWD 15 GM TOP SCH ×2 (09:00→20:54)
[2020-10-09] MEDS: APIXABAN 5 MG TAB (ELIQUIS) PO SCH ×2 (10:23→20:54)
[2020-10-09] MEDS: OMEPRAZOLE 20 MG CAP PO SCH (10:23)
[2020-10-09] MEDS: AMIODARONE 200 MG TAB (PACERONE) PO SCH (10:23)
[2020-10-09] MEDS: FERROUS GLUCONATE 324 MG TAB PO SCH ×2 (10:23→20:53)
[2020-10-09] MEDS: DULoxetine 20 MG CAP (CYMBALTA) PO SCH (10:23)
[2020-10-09] MEDS: GABAPENTIN 100 MG CAP PO SCH ×3 (10:23→20:53)
[2020-10-09] MEDS: DULoxetine 30 MG CAP (CYMBALTA) PO SCH (10:23)
[2020-10-09] MEDS: DOCUSATE SODIUM 100MG CAPSULE PO SCH ×2 (10:23→20:53)
[2020-10-09] MEDS: MAGNESIUM OXIDE 400MG TAB (MAG-OX) PO SCH ×2 (10:24→20:54)
[2020-10-09] MEDS: ACETAMINOPHEN 500 MG TAB PO SCH ×3 (10:25→20:53)
[2020-10-09] MEDS: REMEDY PHYTOPLEX Z-GUARD PASTE 113GM TUBE (FROM STOREROOM PRODUCT) TOP SCH ×3 (10:25→20:54)
[2020-10-09] MEDS: oxyCODONE 5MG TAB PO PRN (10:38)
[2020-10-09 14:15] VITALS: BP 105/59
[2020-10-09] MEDS: SENNA 8.6 MG TAB (SENOKOT) PO SCH (20:53)
[2020-10-09] MEDS: LIDOCAINE 5% (LIDODERM) PATCH TD SCH (20:53)
[2020-10-09] MEDS: **NOTE PATIENT COMMENT** MISC XX SCH (20:55)
[2020-10-09 21:00] VITALS: BP 110/62
[2020-10-10 06:00] VITALS: BP 125/60
[2020-10-10] MEDS: LEVOTHYROXINE 112MCG TABLET (0.112MG) PO SCH (06:10)
[2020-10-10 08:03] LABS: BASO % 1.3 % (0.0-1.0); EOS # 0.1 10^3/uL (0.0-0.5); EOS % 1.6 % (0.0-3.0); HEMATOCRIT 34.5 % (36.0-47.0); HEMOGLOBIN 10.3 g/dl (12.0-15.5); LYMPH # 0.7 10^3/uL (1.5-5.0); LYMPH % 20.5 % (24.0-44.0); MEAN CORPUSCULAR HEMOGLOBIN 31.3 pg (27.0-33.0); MEAN CORPUSCULAR HGB CONC 29.9 g/dl (32.0-36.5); MEAN CORPUSCULAR VOLUME 104.9 fl (80.0-96.0); MONO # 0.4 10^3/uL (0.0-0.8); NEUTROPHILS % 64.3 % (36.0-66.0); PLATELET COUNT, AUTOMATED 250 10^3/uL (150-450); RED BLOOD COUNT 3.29 10^6/uL (4.00-5.40); WHITE BLOOD COUNT 3.2 10^3/uL (4.0-10.0)
[2020-10-10 08:28] LABS: BLOOD UREA NITROGEN 17 MG/DL (7-18); CALCIUM LEVEL 9.9 MG/DL (8.8-10.2); CARBON DIOXIDE LEVEL 24 MEQ/L (21-32); CHLORIDE LEVEL 113 MEQ/L (98-107); CREATININE FOR GFR 0.74 MG/DL (0.55-1.30); GLOMERULAR FILTRATION RATE > 60.0 (>39); GLUCOSE, FASTING 91 MG/DL (70-100); POTASSIUM SERUM 3.9 MEQ/L (3.5-5.1); SODIUM LEVEL 142 MEQ/L (136-145)
[2020-10-10] MEDS: **NOTE PATIENT COMMENT** MISC XX SCH (09:00)
[2020-10-10] MEDS ORDERED: ELIQ5TAB PO (09:18)
[2020-10-10] MEDS ORDERED: LEVO112T25 PO (09:18)
[2020-10-10] MEDS ORDERED: PRIL20TA2 PO (09:18)
[2020-10-10] MEDS ORDERED: GABA-1171 PO (09:18)
[2020-10-10] MEDS ORDERED: AMIO200T3 PO (09:18)
[2020-10-10] MEDS ORDERED: OXYC-517 PO (09:19)
[2020-10-10] MEDS ORDERED: DULO-34 PO (09:19)
[2020-10-10 09:47] LABS: MAGNESIUM LEVEL 1.9 MG/DL (1.8-2.4)
[2020-10-10] MEDS: FERROUS GLUCONATE 324 MG TAB PO SCH ×2 (09:50→20:42)
[2020-10-10] MEDS: DULoxetine 30 MG CAP (CYMBALTA) PO SCH (09:50)
[2020-10-10] MEDS: AMIODARONE 200 MG TAB (PACERONE) PO SCH (09:50)
[2020-10-10] MEDS: MAGNESIUM OXIDE 400MG TAB (MAG-OX) PO SCH ×2 (09:50→20:45)
[2020-10-10] MEDS: GABAPENTIN 100 MG CAP PO SCH ×3 (09:50→20:45)
[2020-10-10] MEDS: ACETAMINOPHEN 500 MG TAB PO SCH ×3 (09:51→20:46)
[2020-10-10] MEDS: DULoxetine 20 MG CAP (CYMBALTA) PO SCH (09:51)
[2020-10-10] MEDS: DOCUSATE SODIUM 100MG CAPSULE PO SCH ×2 (09:51→20:45)
[2020-10-10] MEDS: APIXABAN 5 MG TAB (ELIQUIS) PO SCH ×2 (09:51→20:42)
[2020-10-10] MEDS: oxyCODONE 5MG TAB PO PRN ×2 (09:52→20:45)
[2020-10-10] MEDS: NYSTATIN 100,000 UNITS/GM TOPICAL PWD 15 GM TOP SCH ×2 (09:52→20:47)
[2020-10-10] MEDS: REMEDY PHYTOPLEX Z-GUARD PASTE 113GM TUBE (FROM STOREROOM PRODUCT) TOP SCH ×3 (09:52→20:47)
[2020-10-10] MEDS: OMEPRAZOLE 20 MG CAP PO SCH (09:53)
[2020-10-10 09:56] VITALS: BP 121/57
[2020-10-10 14:00] VITALS: BP 106/57
[2020-10-10 20:15] VITALS: BP 121/57
[2020-10-10] MEDS: LIDOCAINE 5% (LIDODERM) PATCH TD SCH (20:42)
[2020-10-10] MEDS: SENNA 8.6 MG TAB (SENOKOT) PO SCH (20:42)
[2020-10-11 05:07] VITALS: BP 107/57
[2020-10-11] MEDS: LEVOTHYROXINE 112MCG TABLET (0.112MG) PO SCH (05:52)
[2020-10-11] MEDS ORDERED: CEPHALEXIN 500 MG CAP PO SCH (07:30)
[2020-10-11] MEDS ORDERED: CEPH500C PO (07:39)
[2020-10-11] MEDS: APIXABAN 5 MG TAB (ELIQUIS) PO SCH (08:49)
[2020-10-11] MEDS: OMEPRAZOLE 20 MG CAP PO SCH (08:49)
[2020-10-11] MEDS: DOCUSATE SODIUM 100MG CAPSULE PO SCH (08:50)
[2020-10-11] MEDS: AMIODARONE 200 MG TAB (PACERONE) PO SCH (08:50)
[2020-10-11] MEDS: DULoxetine 30 MG CAP (CYMBALTA) PO SCH (08:50)
[2020-10-11] MEDS: FERROUS GLUCONATE 324 MG TAB PO SCH (08:50)
[2020-10-11] MEDS: DULoxetine 20 MG CAP (CYMBALTA) PO SCH (08:50)
[2020-10-11] MEDS: GABAPENTIN 100 MG CAP PO SCH (08:50)
[2020-10-11] MEDS: MAGNESIUM OXIDE 400MG TAB (MAG-OX) PO SCH (08:50)
[2020-10-11] MEDS: ACETAMINOPHEN 500 MG TAB PO SCH (08:51)
[2020-10-11] MEDS: CEPHALEXIN 500 MG CAP PO SCH ×2 (08:51→12:50)
[2020-10-11] MEDS: NYSTATIN 100,000 UNITS/GM TOPICAL PWD 15 GM TOP SCH (08:51)
[2020-10-11] MEDS: **NOTE PATIENT COMMENT** MISC XX SCH (08:52)
[2020-10-11] MEDS: REMEDY PHYTOPLEX Z-GUARD PASTE 113GM TUBE (FROM STOREROOM PRODUCT) TOP SCH (08:53)
[2020-10-11] MEDS ORDERED: CYMB1CAP5 PO (09:53)
--- NOTE | 2020-10-14 08:52 | IPNPDOC ---
PM&R Progress Note DATE OF SERVICE: Oct 08, 2020 Operations Research Scientist Progress Note Subjective: Patient reporting she feels stronger, is sleeping well, and that her pain is well controlled. REVIEW OF SYSTEMS: The following is a completed review of systems and has been reviewed. Review of systems otherwise unremarkable. PAIN: Patient self reports right knee pain EYES: No recent vision changes EARS, NOSE, & THROAT: No throat pain, or dysphagia, or rhinorrhea CARDIOVASCULAR: Denies chest pain or palpitations PULMONARY: Denies shortness of breath GASTROINTESTINAL: Denies constipation/diarrhea GENITOURINARY: denies dysuria MUSCULOSKELETAL: right LE pain, femur fracture NEUROLOGICAL:denies paresthesias HEMATOLOGICAL: denies easy bruising . SKIN: right TKR incision PSYCHIATRIC: Unremarkable All other review of systems found to be negative. PHYSICAL EXAMINATION: VITAL SIGNS: Please see below. GENERAL: Pleasant and cooperative. No acute distress. obese HEENT: PERRL. Extraocular movements intact. Clear conjunctiva CARDIOVASCULAR: Regular rate and rhythm. No murmurs, rubs, or gallops LUNGS: Clear to auscultation bilaterally. No wheezes. No rhonchi ABDOMEN: Soft, nontender, nondistended. Positive bowel sounds. Normal active bowel sounds NEUROLOGICAL: Alert and oriented times three. Cranial nerves II through XII grossly intact. Sensation grossly intact EXTREMITIES: 5\5 strength bilateral upper extremities. 5\5 strength right ankle DF/EHL and PF. 5-/5 strength in left lower extremity. SKIN: right TKA incision with nathaniel c/d/i, +ecchymosis of right calf and mild swelling, tender to palpation with gentle touch on several points of right calf ASSESSMENT:80-year-old F with past medical history of Afib, fibromyalgia who presents status post right femur fracture PLAN: 1.Rehab- PT/OT advance mobility and ADLs, stretch/strengthen/maintain ROM all 4 limbs, able to hop in parallel bars 2. Neuro- monitor for delirium and avoid delirium inducing meds -fibromyalgia contributing to overall functional impairments c/u gabapentin and cymbalta 3. Cardiac- hx of Afib and s/p mitral valve repair, c/u amiodarone, eliquis and coreg, no documented CHF, c/u to monitor for fluid overload 2g diet, and daily weights, will consider fluid restriction if clinically appropriate-stable thus far -HLD c/u statin, medicine consulted to assist in overall management 4. Resp- monitor for infection, encourage incentive spirometry 5. Ortho- s/p right femur fracture in setting of recent TKR, NWB, ok for PWB for transfers only- cleared with ortho, ortho consulted- f/u Xray rodered today 6. Endo- pmh hypothyroidism c/u Synthroid 7. Pain- c/u oxycodone 2.5mg q4h prn and monitor for delirium, c/u tylenol -patient on cymbalta and gabapentin for fibromyalgia, overall pain improved since increasing Cymbalta dosing to 80mgm c/u additional lidoderm patch to anterior tibia 8. DVT ppx-on eliquis 9. GI ppx- omeprazole 10. Dispo- 10-11-20 to home, progressing towards goals Allergies Coded Allergies: thiopental (Unverified Allergy, Severe, anaphylaxis, 09/02/20) levofloxacin (Verified Adverse Reaction, Intermediate, muscle spasm, 09/02/20) propofol (Verified Adverse Reaction, Intermediate, irritable, 09/02/20) Vital Signs Vital Signs Date Time Temp Pulse Resp B/P (MAP) Pulse Ox O2 Delivery O2 Flow Rate FiO2 10/11/20 05:07 97.1 68 18 107/57 (74) 99 Room Air Current Medications Current Medications Current Medications Medications (Trade) Dose Ordered Sig/Shira Route PRN Reason Start Time Stop Time Status Last Admin Dose Admin Acetaminophen (Tylenol Tab) 1,000 mg TID PO 09/26/20 16:00 10/11/20 14:31 DC 10/11/20 08:51 Amiodarone HCl (Pacerone, Cordarone) 200 mg DAILY PO 09/27/20 09:00 10/11/20 14:31 DC 10/11/20 08:50 Apixaban (Eliquis) 5 mg BID PO 09/26/20 21:00 10/11/20 14:31 DC 10/11/20 08:49 Bisacodyl (Dulcolax Suppository) 10 mg DAILYPRN PRN [place] CONSTIPATION 09/26/20 15:15 10/11/20 14:31 DC Cephalexin Monohydrate (Keflex) 500 mg Q6H PO 10/11/20 07:30 10/11/20 07:46 DC Cephalexin Monohydrate (Keflex) 500 mg QID PO 10/11/20 09:00 10/11/20 14:31 DC 10/11/20 12:50 Docusate Sodium (Colace) 100 mg BID PO 09/26/20 21:00 10/11/20 14:31 DC 10/11/20 08:50 Duloxetine HCl (Cymbalta) 20 mg DAILY PO 10/01/20 09:00 10/11/20 14:31 DC 10/11/20 08:50 Duloxetine HCl (Cymbalta) 60 mg DAILY PO 09/27/20 09:00 10/11/20 14:31 DC 10/11/20 08:50 Ferrous Gluconate (Fergon) 324 mg BID PO 09/26/20 21:00 10/11/20 14:31 DC 10/11/20 08:50 Gabapentin (Neurontin) 100 mg TID PO 09/26/20 16:00 10/11/20 14:31 DC 10/11/20 08:50 Levothyroxine Sodium (Synthroid) 112 mcg DAILY@06 PO 09/27/20 06:00 10/11/20 14:31 DC 10/11/20 05:52 Lidocaine (Lidoderm Patch) 1 patch DAILY TD 09/27/20 09:00 09/30/20 13:44 DC 09/30/20 09:26 Lidocaine (Lidoderm Patch) 2 patch DAILY TD 09/30/20 09:00 10/04/20 09:16 DC 10/03/20 09:07 Lidocaine (Lidoderm Patch) 2 patch QHS TD 10/04/20 21:00 10/11/20 14:31 DC 10/10/20 20:42 Magnesium Hydroxide (Milk Of Magnesia) 30 ml DAILYPRN PRN PO CONSTIPATION 09/26/20 15:15 10/11/20 14:31 DC Magnesium Oxide (Mag-Ox) 400 mg BID PO 09/26/20 21:00 10/11/20 14:31 DC 10/11/20 08:50 Miscellaneous (Unresolved Clarification Entry) SEE LABEL COMMENTS DAILY XX 10/03/20 09:00 10/03/20 08:22 DC Miscellaneous (Unresolved Clarification Entry) SEE LABEL COMMENTS DAILY XX 10/09/20 09:00 10/09/20 17:19 DC Non-Formulary Medication ( See Comment Field Below ) REMOVE LIDODERM PATCH DAILY@0900 XX 10/10/20 09:00 10/11/20 14:31 DC 10/11/20 08:52 Non-Formulary Medication ( See Comment Field Below ) REMOVE LIDODERM PATCH DAILY@21 XX 09/26/20 21:00 10/10/20 06:06 DC 10/02/20 21:30 Nystatin (Mycostatin Powder, Nystop) groin BID TOP 09/27/20 09:00 10/11/20 14:31 DC 10/11/20 08:51 Olanzapine (ZyPREXA) 2.5 mg Q6HP PRN PO AGITATION 09/26/20 15:15 10/11/20 14:31 DC 09/27/20 21:20 Omeprazole (PriLOSEC) 20 mg DAILY PO 09/27/20 09:00 10/11/20 14:31 DC 10/11/20 08:49 Oxycodone HCl (Roxicodone, Oxyir) 2.5 mg Q4HP PRN PO PAIN 09/28/20 09:45 10/11/20 14:31 DC 10/10/20 20:45 Senna (Senokot) 1 tab QHS PO 09/26/20 21:00 10/11/20 14:31 DC 10/10/20 20:42 Tramadol HCl (Ultram) 25 mg Q4HP PRN PO MODERATE PAIN (PS 5-7) 09/26/20 15:15 09/27/20 18:21 DC 09/27/20 12:53 Tramadol HCl (Ultram) 50 mg Q4HP PRN PO MODERATE PAIN (PS 5-7) 09/27/20 18:30 09/28/20 09:35 DC 09/27/20 21:22 SUNITA URRUTIA MD Oct 14, 2020 08:52
--- NOTE | 2020-10-14 09:19 | PMRDS ---
NAME: JULIO CHILDERS [facility] WT ID#: [id number] JOB: [id number] LINDY: 10/11/2020 ACCT: [id number] DOCTOR: SUNITA URRUTIA MD PMR DISCHARGE SUMMARY DATE OF ADMISSION: 09/26/2020 DATE OF DISCHARGE: 10/11/2020 CHIEF COMPLAINT/DISCHARGE DIAGNOSIS: Right femur fracture. HISTORY OF PRESENT ILLNESS: This is a 80-year-old female with a past medical history of atrial fibrillation, multiple myeloma, fibromyalgia, hypothyroidism, gastroesophageal reflux disease (GERD), mitral valve replacement, who underwent a right total knee replacement (TKR), after which she fell and presented to [facility] ([facility]) Emergency Department (ED) on 09/21/2020 with right leg pain and difficulty walking. X-ray revealed "postoperative change from recent right total knee arthroplasty. Acute mildly displaced periprosthetic fracture involving the medial condyle of the distal femur." She was evaluated by orthopaedics for her femur fracture and decision was made to do non-surgical intervention and remain non-weightbearing with brace. She had altered mental status on 09/23/[address] head showed no acute intracranial hemorrhage or pathology and was thought to be due to vascular dementia versus hospital-acquired delirium. She had postoperative anemia and significant pain, was evaluated by therapy where she was noted to have impairments in her mobility and activities of daily living (ADLs) and deemed medically appropriate for discharge to acute rehabilitation unit (ARU) on 09/26/2020. PAST MEDICAL HISTORY: As per history of present illness (HPI). HOSPITAL COURSE: Patient was admitted and enrolled in a comprehensive physical therapy/occupational therapy (PT/OT) program. She received 24 hour nursing supervision and weekly team meetings were held to discuss her progress. Patient's pain was managed with low dose oxycodone 2.5 mg every 4 hours as needed and Tylenol, in addition to her Cymbalta which the dose was increased from 60 mg to 80 mg with modest improvements in her overall pain. Patient had no further episodes of delirium during her hospital course and remained hemodynamically stable with no further medical complications. She made steady gains in therapy and was deemed medically and functionally stable to return home on 10/11/2020. DISCHARGE MEDICATIONS: As per instructions. FUNCTIONAL HISTORY ON DISCHARGE: Patient was contact guard for functional transfers and modified independent from a wheelchair level. Thank you for this referral.
== END 2020-10-11 12:55 | disposition home health service (06) | DRG 560 ==
LOC: M PM&R 13:10
PROVIDERS: ADMIT Physical Medicine & Rehabilitation; ATTEND Physical Medicine & Rehabilitation
DX: M97.11XD Periprosthetic fracture around internal prosthetic right knee joint, subsequent encounter (principal); C90.00 Multiple myeloma not having achieved remission; M79.7 Fibromyalgia; K21.9 Gastro-esophageal reflux disease without esophagitis; Z95.1 Presence of aortocoronary bypass graft; Z96.651 Presence of right artificial knee joint; D64.9 Anemia, unspecified; Z74.09 Other reduced mobility; Z74.1 Need for assistance with personal care; Z79.01 Long term (current) use of anticoagulants; Z79.899 Other long term (current) drug therapy; Z88.1 Allergy status to other antibiotic agents; Z88.8 Allergy status to other drugs, medicaments and biological substances; E03.9 Hypothyroidism, unspecified; E11.40 Type 2 diabetes mellitus with diabetic neuropathy, unspecified; K59.00 Constipation, unspecified

== ENCOUNTER → 2021-09-18 | Outpatient (REF) | payer MEDICARE ==
[~2021-09-18] MED LIST changes: +ACET1TAB16 PO; +ACYC1TAB PO; -ACYC400T PO; -AMIO200T3 PO; +AMIO200T49 PO; -CALC1TAB8 PO; +CALC600T67 PO; +CEPH500C PO; -CVS5CHW2 PO; +CYMB1CAP5 PO; +DULO-34 PO; +GABA-283; +GABA-283 PO; -GABA-845; -GABA-845 PO; +GNP45TAB2 PO; -KLOR20TA42; -KLOR20TA42 PO; +LIDO1CRE42 TOP; -LIDO2.5C15 TOP; +MAGN400C PO; +MELA5TAB47 PO; +MIRA3350 PO; +OXYC-517 PO; -PEG1POW PO; +POLY17PO18 PO; +POMA4CAP PO; +POTA-141; +POTA-141 PO; -PROC10TA4 PO; +PROC10TA5 PO
== END ==
LOC: M LAB REF 17:53
PROVIDERS: ATTEND Nurse Practitioner Family
DX: E83.42 Hypomagnesemia (principal)

== ENCOUNTER → 2021-09-25 | Outpatient (CLI) | payer MEDICARE ==
[~2021-09-25] MED LIST changes: +AMIO200T3 PO; -AMIO200T49 PO; +CALC1TAB8 PO; -CALC600T67 PO; +LIDOCAINE 1% MDV 20ML VIAL As Ordered ONE; -POMA4CAP PO; +PROC10TA4 PO; -PROC10TA5 PO
[2021-09-25 09:54] LABS: BASO % 0.4 % (0.0-1.0); EOS # 0.1 10^3/uL (0.0-0.5); EOS % 0.7 % (0.0-3.0); HEMATOCRIT 40.8 % (36.0-47.0); HEMOGLOBIN 12.7 g/dl (12.0-15.5); LYMPH # 0.5 10^3/uL (1.5-5.0); LYMPH % 6.9 % (24.0-44.0); MEAN CORPUSCULAR HGB CONC 31.1 g/dl (32.0-36.5); MONO # 0.8 10^3/uL (0.0-0.8); MONO % 9.9 % (2.0-8.0); NEUTROPHILS # 6.3 10^3/uL (1.5-8.5); NEUTROPHILS % 81.7 % (36.0-66.0); PLATELET COUNT, AUTOMATED 118 10^3/uL (150-450); RED BLOOD COUNT 3.85 10^6/uL (4.00-5.40); WHITE BLOOD COUNT 7.7 10^3/uL (4.0-10.0)
[2021-09-25 11:37] VITALS: BP 110/58
--- NOTE | 2021-09-25 12:23 | REP ---
INDICATION: MULTIPLE MYELOMA. COMPARISON: None. TECHNIQUE: The procedure is performed by ROSALIE Anton, under the direct supervision of Dr. Jenkins. The risks and benefits of the procedure were explained to the patient and informed consent was obtained both orally and written. Directly prior to the start of the procedure, a formal timeout was done in the exam room. The right iliac crest was localized using CT guidance. Skin was prepped and draped in the usual sterile fashion. Seventeen ml of 1% lidocaine was used as a local anesthetic. FINDINGS: Using CT guidance an 11 gauge bone biopsy system was inserted. Approximately 7 mL of marrow fluid was obtained, as well as 1 core of bone. Patient tolerated the procedure well and there were no immediate complications. After the appropriate amount of monitored convalescence the patient was discharged from the department. IMPRESSION: CT-guided bone marrow aspiration and core bone biopsy. <Electronically signed by Julissa Gillis > 09/25/21 1124 <Electronically signed by Gianni Jenkins > 09/25/21 1225
== END ==
LOC: M IRPRO 09:16
PROVIDERS: ATTEND Internal Medicine Medical Oncology
DX: C90.00 Multiple myeloma not having achieved remission (principal); D64.9 Anemia, unspecified

== ENCOUNTER → 2022-04-03 | Outpatient (CLI) | payer MEDICARE ==
[~2022-04-03] VITALS: Ht 165.1 cm; Wt 94.0 kg
[~2022-04-03] MED LIST changes: -ACET1TAB16 PO; +ACET300T48 PO; -AMIO200T3 PO; +AMIO200T49 PO; -CALC1TAB8 PO; +CALC600T67 PO; -LIDOCAINE 1% MDV 20ML VIAL As Ordered ONE; +NEUR100C PO; +OXYC1TAB23 PO; +POMA2CAP PO; +POMA4CAP PO; -PROC10TA4 PO; +PROC10TA5 PO
[2022-04-03 10:20] VITALS: BP 115/78
== END ==
LOC: M PAL 10:00
PROVIDERS: ATTEND Nurse Practitioner Adult Health
DX: C90.00 Multiple myeloma not having achieved remission (principal); K59.00 Constipation, unspecified; M54.9 Dorsalgia, unspecified; G89.29 Other chronic pain; M25.0 Hemarthrosis; M81.0 Age-related osteoporosis without current pathological fracture; Z79.01 Long term (current) use of anticoagulants; Z79.891 Long term (current) use of opiate analgesic; Z79.899 Other long term (current) drug therapy; Z87.81 Personal history of (healed) traumatic fracture; Z87.891 Personal history of nicotine dependence; Z80.0 Family history of malignant neoplasm of digestive organs; Z88.1 Allergy status to other antibiotic agents; Z88.4 Allergy status to anesthetic agent; Z88.8 Allergy status to other drugs, medicaments and biological substances; Z92.22 Personal history of monoclonal drug therapy; Z95.4 Presence of other heart-valve replacement; Z96.651 Presence of right artificial knee joint

== ENCOUNTER → 2022-05-17 | Outpatient (CLI) | payer MEDICARE ==
[~2022-05-17] VITALS: Ht 162.6 cm; Wt 99.0 kg
[~2022-05-17] MED LIST changes: +ACET-683 PO; +HYDR4TAB; +METH10CO PO; +METH5TA PO; +SENN-80 PO
[2022-05-17 10:12] VITALS: BP 129/87
== END ==
LOC: M PAL 09:51
PROVIDERS: ATTEND Nurse Practitioner Adult Health
DX: C90.00 Multiple myeloma not having achieved remission (principal); E85.81 Light chain (AL) amyloidosis; G89.29 Other chronic pain; M54.50 Low back pain, unspecified; M25.552 Pain in left hip; M79.672 Pain in left foot; M79.2 Neuralgia and neuritis, unspecified; Z96.651 Presence of right artificial knee joint; M81.0 Age-related osteoporosis without current pathological fracture; Z80.0 Family history of malignant neoplasm of digestive organs; K59.00 Constipation, unspecified; R26.81 Unsteadiness on feet; Z87.891 Personal history of nicotine dependence; Z88.8 Allergy status to other drugs, medicaments and biological substances; Z79.899 Other long term (current) drug therapy; Z79.01 Long term (current) use of anticoagulants; Z51.5 Encounter for palliative care; Z79.890 Hormone replacement therapy; Z88.1 Allergy status to other antibiotic agents; Z88.4 Allergy status to anesthetic agent; Z90.49 Acquired absence of other specified parts of digestive tract; Z95.4 Presence of other heart-valve replacement; Z85.828 Personal history of other malignant neoplasm of skin; Z90.710 Acquired absence of both cervix and uterus

== ENCOUNTER → 2022-05-22 | Outpatient (CLI) | payer MEDICARE | LOC: M PAL 10:09 | PROVIDERS: ATTEND Nurse Practitioner Adult Health | DX: C90.02 Multiple myeloma in relapse (principal); E85.81 Light chain (AL) amyloidosis; K59.00 Constipation, unspecified; R26.81 Unsteadiness on feet; Z79.891 Long term (current) use of opiate analgesic; Z88.1 Allergy status to other antibiotic agents; Z88.4 Allergy status to anesthetic agent; Z80.0 Family history of malignant neoplasm of digestive organs; Z51.5 Encounter for palliative care; Z87.81 Personal history of (healed) traumatic fracture; Z95.4 Presence of other heart-valve replacement; Z90.79 Acquired absence of other genital organ(s); Z87.891 Personal history of nicotine dependence; Z79.890 Hormone replacement therapy; Z79.01 Long term (current) use of anticoagulants; M81.0 Age-related osteoporosis without current pathological fracture; Z85.828 Personal history of other malignant neoplasm of skin; Z90.49 Acquired absence of other specified parts of digestive tract; M54.6 Pain in thoracic spine; M25.561 Pain in right knee; M25.562 Pain in left knee; M25.551 Pain in right hip; M25.552 Pain in left hip; M79.604 Pain in right leg; M79.605 Pain in left leg ==

== ENCOUNTER → 2022-06-07 | Outpatient (CLI) | payer MEDICARE ==
[~2022-06-07] MED LIST changes: +ISOS1TAB35; +MORP15TA2 PO
== END ==
LOC: M PAL 08:00
PROVIDERS: ATTEND Nurse Practitioner Adult Health
DX: C90.02 Multiple myeloma in relapse (principal); E85.81 Light chain (AL) amyloidosis; K59.00 Constipation, unspecified; R26.81 Unsteadiness on feet; Z79.891 Long term (current) use of opiate analgesic; Z88.1 Allergy status to other antibiotic agents; Z88.4 Allergy status to anesthetic agent; Z80.0 Family history of malignant neoplasm of digestive organs; Z51.5 Encounter for palliative care; Z87.81 Personal history of (healed) traumatic fracture; Z95.4 Presence of other heart-valve replacement; Z87.891 Personal history of nicotine dependence; Z79.890 Hormone replacement therapy; Z79.899 Other long term (current) drug therapy; Z79.01 Long term (current) use of anticoagulants; Z85.828 Personal history of other malignant neoplasm of skin; Z90.49 Acquired absence of other specified parts of digestive tract; M54.6 Pain in thoracic spine; M25.561 Pain in right knee; M25.562 Pain in left knee; M25.551 Pain in right hip; M25.552 Pain in left hip; M79.604 Pain in right leg; M79.605 Pain in left leg

== ENCOUNTER → 2022-06-19 | Outpatient (CLI) | payer MEDICARE ==
[~2022-06-19] MED LIST changes: +DICL1GEL3 TOP
== END ==
LOC: M PAL 08:10
PROVIDERS: ATTEND Nurse Practitioner Family
DX: C90.02 Multiple myeloma in relapse (principal); Z92.21 Personal history of antineoplastic chemotherapy; M79.7 Fibromyalgia; M54.9 Dorsalgia, unspecified; M25.551 Pain in right hip; M25.552 Pain in left hip; Z51.5 Encounter for palliative care; Z88.1 Allergy status to other antibiotic agents; Z88.8 Allergy status to other drugs, medicaments and biological substances; Z79.891 Long term (current) use of opiate analgesic; Z79.899 Other long term (current) drug therapy; Z79.890 Hormone replacement therapy

== ENCOUNTER → 2022-07-12 | Outpatient (CLI) | payer MEDICARE | LOC: M RAD 11:05 | PROVIDERS: ATTEND Nurse Practitioner | DX: M25.551 Pain in right hip (principal); M25.552 Pain in left hip ==

== ENCOUNTER → 2022-07-24 | Outpatient (CLI) | payer MEDICARE ==
[~2022-07-24] VITALS: Ht 157.5 cm; Wt 101.5 kg
[~2022-07-24] MED LIST changes: +GABA-282 PO; +VITA-148 PO; -VITA-298 PO
[2022-07-24 10:36] VITALS: BP 106/68
== END ==
LOC: M PAL 09:09
PROVIDERS: ATTEND Nurse Practitioner Adult Health
DX: C90.02 Multiple myeloma in relapse (principal); Z92.21 Personal history of antineoplastic chemotherapy; Z51.5 Encounter for palliative care; M79.7 Fibromyalgia; M54.50 Low back pain, unspecified; M25.551 Pain in right hip; M25.552 Pain in left hip; M79.661 Pain in right lower leg; M79.662 Pain in left lower leg; K59.00 Constipation, unspecified; R26.81 Unsteadiness on feet; M81.0 Age-related osteoporosis without current pathological fracture; Z87.891 Personal history of nicotine dependence

== ENCOUNTER → 2022-08-30 | Outpatient (CLI) | payer MEDICARE ==
[~2022-08-30] VITALS: Ht 165.1 cm; Wt 100.0 kg
[~2022-08-30] MED LIST changes: +CBD OIL; -POTA10CA32 PO; +POTA10CA33 PO
[2022-08-30 10:40] VITALS: BP 92/57
== END ==
LOC: M PAL 10:23
PROVIDERS: ATTEND Nurse Practitioner Adult Health
DX: C90.02 Multiple myeloma in relapse (principal); Z92.21 Personal history of antineoplastic chemotherapy; Z51.5 Encounter for palliative care; M54.50 Low back pain, unspecified; M25.551 Pain in right hip; M25.552 Pain in left hip; Z87.891 Personal history of nicotine dependence; M81.0 Age-related osteoporosis without current pathological fracture; R26.81 Unsteadiness on feet; Z88.8 Allergy status to other drugs, medicaments and biological substances; Z79.899 Other long term (current) drug therapy; Z79.890 Hormone replacement therapy

== ENCOUNTER 2022-09-12 11:02 | Inpatient (IN) | payer MEDICARE ==
[~2022-09-12] VITALS: Ht 167.6 cm; Wt 100.3 kg
[2022-09-12] MEDS ORDERED: NS 500 ML IV ONE (11:45)
[2022-09-12 12:03] LABS: BASO % 0.2 % (0.0-1.0); EOS % 0.3 % (0.0-3.0); HEMATOCRIT 32.9 % (36.0-47.0); HEMOGLOBIN 10.1 g/dl (12.0-15.5); LYMPH # 0.5 10^3/uL (1.5-5.0); LYMPH % 8.6 % (24.0-44.0); MEAN CORPUSCULAR HEMOGLOBIN 32.5 pg (27.0-33.0); MEAN CORPUSCULAR HGB CONC 30.7 g/dl (32.0-36.5); MEAN CORPUSCULAR VOLUME 105.8 fl (80.0-96.0); MONO % 16.3 % (2.0-8.0); NEUTROPHILS # 4.4 10^3/uL (1.5-8.5); NEUTROPHILS % 74.3 % (36.0-66.0); RED BLOOD COUNT 3.11 10^6/uL (4.00-5.40); WHITE BLOOD COUNT 5.9 10^3/uL (4.0-10.0)
[2022-09-12 12:07] LABS: PLATELET COUNT, AUTOMATED 80 10^3/uL (150-450)
[2022-09-12 12:18] LABS: INR 1.23; PROTHROMBIN TIME 15.8 SECONDS (12.5-14.5)
[2022-09-12 12:19] LABS: PARTIAL THROMBOPLASTIN TIME 31.6 SECONDS (24.8-34.2)
[2022-09-12 12:25] LABS: BLOOD UREA NITROGEN 14 MG/DL (9-23); CALCIUM LEVEL 9.5 MG/DL (8.3-10.6); CARBON DIOXIDE LEVEL 25 MMOL/L (20-31); CHLORIDE LEVEL 108 MMOL/L (98-107); CK-MB VALUE MASS < 1.0 NG/ML (<3.6); CREATININE FOR GFR 0.83 MG/DL (0.55-1.30); GLOMERULAR FILTRATION RATE > 60.0 (>32); GLUCOSE, FASTING 85 MG/DL (74-106); POTASSIUM SERUM 4.3 MMOL/L (3.5-5.1); SODIUM LEVEL 140 MMOL/L (136-145)
[2022-09-12] MEDS ORDERED: LIDOCAINE W/EPINEPHRINE 1% 20ML VIAL SC ONE (12:25)
[2022-09-12 12:27] LABS: FREE T4 1.37 NG/DL (0.89-1.76); THYROID STIMULATING HORMONE 3.349 uIU/ML (0.55-4.78)
[2022-09-12 12:41] LABS: CPK CREATINE PHOSPHOKINASE 60 U/L (34-145); MB/CK RELATIVE INDEX 1.66 (< OR =4)
[2022-09-12] MEDS ORDERED: MIDODRINE 5 MG TAB PO STA (13:28)
[2022-09-12 14:14] LABS: RSV AMPLIFICATION NEGATIVE (NEGATIVE)
[2022-09-12] MEDS ORDERED: OMEP-173 PO (14:42)
[2022-09-12] MEDS ORDERED: SYNT112T2 PO (14:42)
[2022-09-12] MEDS ORDERED: ACYC1TAB PO (14:42)
[2022-09-12] MEDS ORDERED: MORP15TA2 PO (14:42)
[2022-09-12] MEDS ORDERED: AMIO200T49 PO (14:42)
[2022-09-12] MEDS ORDERED: ISOS1TAB35 PO (14:42)
[2022-09-12] MEDS ORDERED: ELIQ5TAB PO (14:42)
[2022-09-12] MEDS ORDERED: MAGN400T35 PO (14:42)
[2022-09-12] MEDS ORDERED: MIRA3350 PO (14:42)
[2022-09-12] MEDS ORDERED: [UNRECOGNIZED DRUG - REMARK] PO (14:42)
[2022-09-12] MEDS ORDERED: GABA-1171 PO (14:42)
[2022-09-12] MEDS ORDERED: ACET500T15 PO (14:42)
[2022-09-12] MEDS ORDERED: HOME MED LIST COMPLETE! XX SCH (14:45)
[2022-09-12 17:51] VITALS: BP_SYST 116; BP_SYST 120; BP_SYST 130; BP_DIAS 61; BP_DIAS 65; BP_DIAS 66
[2022-09-12] MEDS ORDERED: ACETAMINOPHEN 500 MG TAB PO SCH (18:00)
[2022-09-12] MEDS ORDERED: NS 1,000 ML IV SCH (18:35)
[2022-09-12 20:00] VITALS: BP_SYST 90; BP_SYST 96; BP_SYST 99; BP_DIAS 52; BP_DIAS 53; BP_DIAS 54
[2022-09-12] MEDS ORDERED: cefTRIAXone SOD 1 GM in D5W MINI-BAG PLUS 50 ML IV SCH (20:00)
[2022-09-12] MEDS ORDERED: POTASSIUM CHLORIDE 10MEQ SR TABLET PO SCH (21:00)
[2022-09-12] MEDS ORDERED: K-PHOS ORIGINAL (POT.ACID PHOSPHATE) 500MG TAB PO SCH (21:00)
[2022-09-12] MEDS: GABAPENTIN 300 MG CAP PO SCH (21:06)
[2022-09-12] MEDS: APIXABAN 5 MG TAB (ELIQUIS) PO SCH (21:06)
[2022-09-12] MEDS: MAGNESIUM OXIDE 400MG TAB (MAG-OX) PO SCH (21:07)
[2022-09-12] MEDS: ACETAMINOPHEN 500 MG TAB PO SCH ×2 (21:51→23:00)
[2022-09-13] VITALS (8 sets, daily range): BP systolic 79–129; BP diastolic 47–73
[2022-09-13] MEDS: ACETAMINOPHEN 500 MG TAB PO SCH ×3 (03:00→11:00)
[2022-09-13] MEDS ORDERED: LEVOTHYROXINE 112MCG TABLET (0.112MG) PO SCH (06:00)
[2022-09-13 06:02] LABS: HEMATOCRIT 31.4 % (36.0-47.0); HEMOGLOBIN 9.9 g/dl (12.0-15.5); MEAN CORPUSCULAR HGB CONC 31.5 g/dl (32.0-36.5); MEAN CORPUSCULAR VOLUME 104.7 fl (80.0-96.0); WHITE BLOOD COUNT 3.5 10^3/uL (4.0-10.0)
[2022-09-13 06:21] LABS: PLATELET COUNT, AUTOMATED 86 10^3/uL (150-450)
[2022-09-13 06:25] LABS: BLOOD UREA NITROGEN 14 MG/DL (9-23); CALCIUM LEVEL 9.2 MG/DL (8.3-10.6); CARBON DIOXIDE LEVEL 28 MMOL/L (20-31); CHLORIDE LEVEL 108 MMOL/L (98-107); CK-MB VALUE MASS < 1.0 NG/ML (<3.6); CPK CREATINE PHOSPHOKINASE 49 U/L (34-145); CREATININE FOR GFR 0.82 MG/DL (0.55-1.30); GLOMERULAR FILTRATION RATE > 60.0 (>32); GLUCOSE, FASTING 77 MG/DL (74-106); MB/CK RELATIVE INDEX 2.04 (< OR =4); POTASSIUM SERUM 4.3 MMOL/L (3.5-5.1); SODIUM LEVEL 141 MMOL/L (136-145)
[2022-09-13] MEDS ORDERED: LACTOBACILLUS ACIDOPHILUS CAP (BACID) PO SCH (08:00)
[2022-09-13] MEDS: GABAPENTIN 300 MG CAP PO SCH (08:56)
[2022-09-13] MEDS: MIDODRINE 5 MG TAB PO SCH ×2 (08:56→12:15)
[2022-09-13] MEDS: APIXABAN 5 MG TAB (ELIQUIS) PO SCH (08:57)
[2022-09-13] MEDS: MAGNESIUM OXIDE 400MG TAB (MAG-OX) PO SCH (08:57)
[2022-09-13] MEDS ORDERED: OMEPRAZOLE 20MG CAP PO SCH (09:00)
[2022-09-13] MEDS ORDERED: AMIODARONE 200 MG TAB (PACERONE) PO SCH (09:00)
[2022-09-13] MEDS ORDERED: MIRALAX *UNIT DOSE* 17GM PACKET PO SCH (09:00)
[2022-09-13] MEDS ORDERED: DULoxetine 30MG CAPSULE (CYMBALTA) PO SCH (09:00)
[2022-09-13] MEDS ORDERED: ISOSORBIDE MON. (IMDUR) 30MG XR TAB PO SCH (09:00)
[2022-09-13] MEDS ORDERED: NS 1,000 ML IV ONE ×2 (09:55→12:20)
[2022-09-13] MEDS ORDERED: COSYNTROPIN 0.25 MG/ML 1ML VIAL IV ONE (09:55)
[2022-09-13] MEDS ORDERED: GABA-282 PO (16:13)
[2022-09-13] MEDS ORDERED: SELF1KIT MC (16:22)
[2022-09-13] MEDS ORDERED: MIDO5TA PO (16:22)
== END 2022-09-13 17:29 | disposition home health service (06) | DRG 312 ==
LOC: EDBD 11:02 → M ED 11:02 → M ED INP 13:25 → M PCU 16:40
PROVIDERS: ADMIT General Practice; ATTEND General Practice
PROC: B246ZZZ Ultrasonography of Right and Left Heart (ICD-10-PCS; principal; 2022-09-13)
DX: I95.2 Hypotension due to drugs (principal); C90.00 Multiple myeloma not having achieved remission; I48.20 Chronic atrial fibrillation, unspecified; K91.2 Postsurgical malabsorption, not elsewhere classified; N39.0 Urinary tract infection, site not specified; Z79.01 Long term (current) use of anticoagulants; M79.7 Fibromyalgia; E03.9 Hypothyroidism, unspecified; K21.9 Gastro-esophageal reflux disease without esophagitis; Z95.2 Presence of prosthetic heart valve; Z90.49 Acquired absence of other specified parts of digestive tract; Z90.79 Acquired absence of other genital organ(s); Z96.651 Presence of right artificial knee joint; B96.20 Unspecified Escherichia coli [E. coli] as the cause of diseases classified elsewhere; S01.111A Laceration without foreign body of right eyelid and periocular area, initial encounter; W01.0XXA Fall on same level from slipping, tripping and stumbling without subsequent striking against object, initial encounter; Y92.009 Unspecified place in unspecified non-institutional (private) residence as the place of occurrence of the external cause; Z79.890 Hormone replacement therapy; E66.9 Obesity, unspecified; Z68.35 Body mass index [BMI] 35.0-35.9, adult; R29.6 Repeated falls; R26.89 Other abnormalities of gait and mobility; Z20.822 Contact with and (suspected) exposure to COVID-19; Z79.891 Long term (current) use of opiate analgesic; Z79.899 Other long term (current) drug therapy; Z88.1 Allergy status to other antibiotic agents; Z88.8 Allergy status to other drugs, medicaments and biological substances

== ENCOUNTER → 2022-10-02 | Outpatient (CLI) | payer MEDICARE ==
[~2022-10-02] VITALS: Ht 165.1 cm; Wt 96.2 kg
[~2022-10-02] MED LIST changes: +ACET500T15 PO; +ISOS1TAB35 PO; +MIDO5TA PO; +OMEP-173 PO; +SELF1KIT MC; +SENN-85 PO; +SYNT112T2 PO; +[UNRECOGNIZED DRUG - REMARK] PO
[2022-10-02 09:30] VITALS: BP 102/71
== END ==
LOC: M PAL 09:05
PROVIDERS: ATTEND Nurse Practitioner Adult Health
DX: C90.02 Multiple myeloma in relapse (principal); Z51.5 Encounter for palliative care; Z92.21 Personal history of antineoplastic chemotherapy; Z87.891 Personal history of nicotine dependence; Z80.0 Family history of malignant neoplasm of digestive organs; M81.0 Age-related osteoporosis without current pathological fracture; M54.9 Dorsalgia, unspecified; M25.551 Pain in right hip; M25.552 Pain in left hip; M25.569 Pain in unspecified knee; Z79.891 Long term (current) use of opiate analgesic; Z79.899 Other long term (current) drug therapy; K59.00 Constipation, unspecified; R26.81 Unsteadiness on feet

== ENCOUNTER → 2022-10-05 | Outpatient (REF) | payer MEDICARE | LOC: M LAB REF 16:45 | PROVIDERS: ATTEND Nurse Practitioner Family | DX: N39.0 Urinary tract infection, site not specified (principal) ==

== ENCOUNTER 2022-10-27 08:55 | Emergency (ER) | payer MEDICARE ==
[2022-10-27] MEDS ORDERED: LIDOCAINE 5% (LIDODERM) PATCH TD ONE (10:55)
[2022-10-27] MEDS ORDERED: ACETAMINOPHEN TAB 650MG DOSE (2X325MG) PO ONE (11:20)
[2022-10-27 12:26] VITALS: BP 117/74
== END 2022-10-27 12:27 | disposition home or self-care (01) ==
LOC: M ED 08:55 → EDBD 08:55 → M ED 12:27
DX: S39.012A Strain of muscle, fascia and tendon of lower back, initial encounter (principal); S80.01XA Contusion of right knee, initial encounter; S80.02XA Contusion of left knee, initial encounter; W01.0XXA Fall on same level from slipping, tripping and stumbling without subsequent striking against object, initial encounter; Y92.009 Unspecified place in unspecified non-institutional (private) residence as the place of occurrence of the external cause; M51.36 Other intervertebral disc degeneration, lumbar region; M51.37 Other intervertebral disc degeneration, lumbosacral region; I48.91 Unspecified atrial fibrillation; M79.7 Fibromyalgia; C90.00 Multiple myeloma not having achieved remission; E03.9 Hypothyroidism, unspecified; Z88.1 Allergy status to other antibiotic agents; Z88.8 Allergy status to other drugs, medicaments and biological substances; Z79.01 Long term (current) use of anticoagulants; Z79.899 Other long term (current) drug therapy; Z79.890 Hormone replacement therapy

== ENCOUNTER 2022-11-13 16:36 | Inpatient (IN) | payer MEDICARE ==
[~2022-11-13] VITALS: Ht 165.1 cm; Wt 93.2 kg
[2022-11-13] MEDS ORDERED: NS 1,000 ML IV SCH (17:20)
[2022-11-13] MEDS ORDERED: ACETAMINOPHEN TAB 650MG DOSE (2X325MG) PO ONE (17:20)
[2022-11-13] MEDS ORDERED: LIDOCAINE 2% 5ML JELLY UROJET TOP ONE (17:20)
[2022-11-13 17:39] LABS: BASO % 0.1 % (0.0-1.0); EOS % 0.3 % (0.0-3.0); HEMOGLOBIN 11.2 g/dl (12.0-15.5); LYMPH # 0.2 10^3/uL (1.5-5.0); LYMPH % 2.9 % (24.0-44.0); MEAN CORPUSCULAR HEMOGLOBIN 32.3 pg (27.0-33.0); MEAN CORPUSCULAR VOLUME 100.9 fl (80.0-96.0); MONO # 1.3 10^3/uL (0.0-0.8); MONO % 18.4 % (2.0-8.0); NEUTROPHILS # 5.3 10^3/uL (1.5-8.5); NEUTROPHILS % 77.7 % (36.0-66.0); RED BLOOD COUNT 3.47 10^6/uL (4.00-5.40); WHITE BLOOD COUNT 6.8 10^3/uL (4.0-10.0)
[2022-11-13] MEDS ORDERED: NS 1,000 ML IV ONE ×2 (17:40→20:50)
[2022-11-13 18:08] LABS: PLATELET COUNT, AUTOMATED 39 10^3/uL (150-450)
[2022-11-13] MEDS ORDERED: cefTRIAXone SOD 1 GM in D5W MINI-BAG PLUS 50 ML IV ONE (18:45)
[2022-11-13 18:50] LABS: CK-MB VALUE MASS < 1.0 NG/ML (<3.6)
[2022-11-13 18:54] LABS: THYROID STIMULATING HORMONE 1.277 uIU/ML (0.55-4.78)
[2022-11-13 19:03] LABS: ALBUMIN 2.9 G/DL (3.2-5.2); ALKALINE PHOSPHATASE 94 U/L (46-116); ALT/SGPT 14 U/L (7.0-40); AST/SGOT 20 U/L (<34); BILIRUBIN,DIRECT 0.4 MG/DL (<0.4); BLOOD UREA NITROGEN 17 MG/DL (9-23); CALCIUM LEVEL 8.9 MG/DL (8.3-10.6); CARBON DIOXIDE LEVEL 22 MMOL/L (20-31); CHLORIDE LEVEL 110 MMOL/L (98-107); CPK CREATINE PHOSPHOKINASE 17 U/L (34-145); GLUCOSE, FASTING 91 MG/DL (74-106); MB/CK RELATIVE INDEX 5.88 (< OR =4); POTASSIUM SERUM 3.6 MMOL/L (3.5-5.1); SODIUM LEVEL 141 MMOL/L (136-145)
[2022-11-13 19:18] LABS: RSV AMPLIFICATION NEGATIVE (NEGATIVE)
[2022-11-13 19:51] LABS: CREATININE FOR GFR 0.78 MG/DL (0.55-1.30); GLOMERULAR FILTRATION RATE > 60.0 (>32)
[2022-11-13] MEDS ORDERED: MIDO10TA PO (21:02)
[2022-11-13] MEDS ORDERED: HOME MED LIST COMPLETE! XX SCH (21:05)
[2022-11-13] MEDS ORDERED: ACETAMINOPHEN TAB 650MG DOSE (2X325MG) PO PRN (21:40)
[2022-11-13] MEDS ORDERED: MOM 30ML SUSPENSION UDC PO PRN (21:40)
[2022-11-13 22:24] LABS: ABG BASE EXCESS -5.6 (-2.0-2.0); ABG HCO3 18.2 MEQ/L (22.0-26.0); ABG O2 SATURATION 92.3 % (95.0-99.0); ABG PARTIAL PRESSURE CO2 29.9 mmHg (35.0-45.0); ABG PARTIAL PRESSURE O2 123.3 mmHg (75.0-100.0); ABG STANDARD HCO3 19.7 MEQ/L (22.0-26.0); ABG TOTAL CO2 19.1 MEQ/L (23.0-31.0); ABG pH (ARTERIAL) 7.403 UNITS (7.350-7.450)
[2022-11-13 22:38] LABS: EOS % 0.1 % (0.0-3.0); HEMATOCRIT 30.5 % (36.0-47.0); HEMOGLOBIN 9.7 g/dl (12.0-15.5); LYMPH # 0.3 10^3/uL (1.5-5.0); LYMPH % 4.8 % (24.0-44.0); MEAN CORPUSCULAR HEMOGLOBIN 31.8 pg (27.0-33.0); MEAN CORPUSCULAR HGB CONC 31.8 g/dl (32.0-36.5); MONO # 1.3 10^3/uL (0.0-0.8); MONO % 19.8 % (2.0-8.0); NEUTROPHILS % 74.9 % (36.0-66.0); RED BLOOD COUNT 3.05 10^6/uL (4.00-5.40); WHITE BLOOD COUNT 6.7 10^3/uL (4.0-10.0)
[2022-11-13 22:40] LABS: PLATELET COUNT, AUTOMATED 35 10^3/uL (150-450)
[2022-11-13 23:31] VITALS: BP 105/55
[2022-11-14] VITALS (8 sets, daily range): BP systolic 82–122; BP diastolic 55–76
[2022-11-14] MEDS: NS 1,000 ML IV SCH ×2 (00:10→04:58)
[2022-11-14] MEDS ORDERED: MIRALAX *UNIT DOSE* 17GM PACKET PO PRN (01:30)
[2022-11-14] MEDS ORDERED: SENNA 8.6 MG TAB (SENOKOT) PO PRN (01:30)
[2022-11-14] MEDS: POTASSIUM CHLORIDE 10MEQ SR TABLET PO SCH ×2 (02:57→20:27)
[2022-11-14] MEDS: GABAPENTIN 300 MG CAP PO SCH ×4 (02:57→20:28)
[2022-11-14] MEDS: APIXABAN 5 MG TAB (ELIQUIS) PO SCH ×3 (02:57→20:26)
[2022-11-14] MEDS: K-PHOS ORIGINAL (POT.ACID PHOSPHATE) 500MG TAB PO SCH ×2 (02:57→20:29)
[2022-11-14] MEDS: ACYCLOVIR 200 MG CAPSULE PO SCH ×3 (03:05→20:27)
[2022-11-14] MEDS: LEVOTHYROXINE 112MCG TABLET (0.112MG) PO SCH (05:31)
[2022-11-14 05:51] LABS: BASO % 0.2 % (0.0-1.0); EOS % 0.2 % (0.0-3.0); HEMATOCRIT 32.4 % (36.0-47.0); HEMOGLOBIN 10.4 g/dl (12.0-15.5); LYMPH # 0.7 10^3/uL (1.5-5.0); LYMPH % 11.4 % (24.0-44.0); MEAN CORPUSCULAR HEMOGLOBIN 31.9 pg (27.0-33.0); MEAN CORPUSCULAR HGB CONC 32.1 g/dl (32.0-36.5); MEAN CORPUSCULAR VOLUME 99.4 fl (80.0-96.0); MONO # 1.3 10^3/uL (0.0-0.8); MONO % 23.1 % (2.0-8.0); NEUTROPHILS # 3.7 10^3/uL (1.5-8.5); NEUTROPHILS % 64.6 % (36.0-66.0); RED BLOOD COUNT 3.26 10^6/uL (4.00-5.40); WHITE BLOOD COUNT 5.7 10^3/uL (4.0-10.0)
[2022-11-14 06:05] LABS: PLATELET COUNT, AUTOMATED 39 10^3/uL (150-450)
[2022-11-14 06:16] LABS: BLOOD UREA NITROGEN 14 MG/DL (9-23); CALCIUM LEVEL 8.4 MG/DL (8.3-10.6); CARBON DIOXIDE LEVEL 23 MMOL/L (20-31); CHLORIDE LEVEL 110 MMOL/L (98-107); CREATININE FOR GFR 0.75 MG/DL (0.55-1.30); GLOMERULAR FILTRATION RATE > 60.0 (>32); GLUCOSE, FASTING 92 MG/DL (74-106); MAGNESIUM LEVEL 1.6 MG/DL (1.8-2.4); POTASSIUM SERUM 3.4 MMOL/L (3.5-5.1); SODIUM LEVEL 139 MMOL/L (136-145)
[2022-11-14] MEDS ORDERED: POTASSIUM CHLORIDE 10MEQ SR TABLET PO ONE (08:00)
[2022-11-14] MEDS ORDERED: MAG SULF 1GM/100ML (MAG RUN) 1 GM in IV 1 EA IV ONE (08:00)
[2022-11-14] MEDS: DULoxetine 30MG CAPSULE (CYMBALTA) PO SCH (08:48)
[2022-11-14] MEDS: MAGNESIUM OXIDE 400MG TAB (MAG-OX) PO SCH ×2 (08:48→20:27)
[2022-11-14] MEDS: MIDODRINE 5 MG TAB PO SCH ×3 (08:49→17:59)
[2022-11-14] MEDS: DOCUSATE SODIUM 100MG CAPSULE PO SCH ×2 (08:49→20:26)
[2022-11-14] MEDS: AMIODARONE 200 MG TAB (PACERONE) PO SCH (08:49)
[2022-11-14] MEDS: OMEPRAZOLE 20MG CAP PO SCH (08:49)
[2022-11-14] MEDS ORDERED: cefTRIAXone SOD 1 GM in D5W MINI-BAG PLUS 50 ML IV SCH (20:00)
[2022-11-15 06:06] VITALS: BP_SYST 111; BP_SYST 117; BP_SYST 83; BP_DIAS 64; BP_DIAS 65; BP_DIAS 68
[2022-11-15] MEDS: LEVOTHYROXINE 112MCG TABLET (0.112MG) PO SCH (06:07)
[2022-11-15] MEDS: AMIODARONE 200 MG TAB (PACERONE) PO SCH (08:48)
[2022-11-15] MEDS: DOCUSATE SODIUM 100MG CAPSULE PO SCH (08:48)
[2022-11-15] MEDS: APIXABAN 5 MG TAB (ELIQUIS) PO SCH (08:48)
[2022-11-15] MEDS: OMEPRAZOLE 20MG CAP PO SCH (08:48)
[2022-11-15] MEDS: DULoxetine 30MG CAPSULE (CYMBALTA) PO SCH (08:48)
[2022-11-15] MEDS: ACYCLOVIR 200 MG CAPSULE PO SCH (08:49)
[2022-11-15] MEDS ORDERED: PROBCAP14 PO (08:49)
[2022-11-15] MEDS ORDERED: CEFD300C41 PO (08:49)
[2022-11-15] MEDS: MAGNESIUM OXIDE 400MG TAB (MAG-OX) PO SCH (08:49)
[2022-11-15] MEDS: GABAPENTIN 300 MG CAP PO SCH (08:49)
[2022-11-15] MEDS: MIDODRINE 5 MG TAB PO SCH (08:49)
[2022-11-15 09:45] LABS: BLOOD UREA NITROGEN 14 MG/DL (9-23); CALCIUM LEVEL 9.5 MG/DL (8.3-10.6); CARBON DIOXIDE LEVEL 27 MMOL/L (20-31); CHLORIDE LEVEL 109 MMOL/L (98-107); GLOMERULAR FILTRATION RATE > 60.0 (>32); GLUCOSE, FASTING 79 MG/DL (74-106); MAGNESIUM LEVEL 1.8 MG/DL (1.8-2.4); SODIUM LEVEL 140 MMOL/L (136-145)
[2022-11-15] MEDS ORDERED: CEFU50TA PO (10:54)
[2022-11-15] MEDS ORDERED: cefTRIAXone SOD 1 GM in D5W MINI-BAG PLUS 50 ML IV SCH (14:00)
== END 2022-11-15 11:19 | disposition home health service (06) | DRG 690 ==
LOC: M ED 16:36 → EDBD 16:36 → M ED INP 22:07 → M MSPAV 23:55
PROVIDERS: ADMIT Family Medicine; ATTEND Internal Medicine Nephrology
DX: N39.0 Urinary tract infection, site not specified (principal); C90.00 Multiple myeloma not having achieved remission; K91.2 Postsurgical malabsorption, not elsewhere classified; R29.6 Repeated falls; I48.91 Unspecified atrial fibrillation; E03.9 Hypothyroidism, unspecified; M79.7 Fibromyalgia; K21.9 Gastro-esophageal reflux disease without esophagitis; E66.9 Obesity, unspecified; D69.6 Thrombocytopenia, unspecified; I95.1 Orthostatic hypotension; R26.89 Other abnormalities of gait and mobility; B96.20 Unspecified Escherichia coli [E. coli] as the cause of diseases classified elsewhere; Z85.828 Personal history of other malignant neoplasm of skin; Z90.49 Acquired absence of other specified parts of digestive tract; Z90.79 Acquired absence of other genital organ(s); Z96.651 Presence of right artificial knee joint; Z79.01 Long term (current) use of anticoagulants; Z79.890 Hormone replacement therapy; Z98.84 Bariatric surgery status; Z79.899 Other long term (current) drug therapy; Z88.1 Allergy status to other antibiotic agents; Z88.8 Allergy status to other drugs, medicaments and biological substances; Z95.2 Presence of prosthetic heart valve; Z68.34 Body mass index [BMI] 34.0-34.9, adult

== ENCOUNTER → 2023-08-14 | Outpatient (CLI) | payer MEDICARE ==
[~2023-08-14] MED LIST changes: +ACET-716 PO; +BACT800T5 PO; +CEFD300C42 PO; +CEFU50TA PO; +DICL100G10 TOP; -DICL1GEL3 TOP; -GABA-283; -GABA-283 PO; +GABA-284; +GABA-284 PO; +KPHOS50TA; -LIDO1CRE42 TOP; +LIDO30CR18 TOP; +MIDO10TA PO; -POTA10CA33 PO; +POTA10CA60 PO; +PROBCAP14 PO; +SENN-186 PO; -SENN-80 PO
== END ==
LOC: M RAD 12:20
PROVIDERS: ATTEND Nurse Practitioner
DX: C90.00 Multiple myeloma not having achieved remission (principal); M54.9 Dorsalgia, unspecified

== ENCOUNTER → 2023-09-05 | Outpatient (CLI) | payer MEDICARE ==
[~2023-09-05] VITALS: Ht 167.6 cm; Wt 99.0 kg
[~2023-09-05] MED LIST changes: +CEFD1CAP9 PO; -CEFD300C42 PO; +CEPH500C; +DICL1PAT6 TD
[2023-09-05 10:30] VITALS: BP 118/86; O2SAT 96
== END ==
LOC: M PAL 09:55
PROVIDERS: ATTEND Nurse Practitioner Adult Health
DX: M54.9 Dorsalgia, unspecified (principal); M25.579 Pain in unspecified ankle and joints of unspecified foot; M25.551 Pain in right hip; M25.552 Pain in left hip; M25.562 Pain in left knee; M79.604 Pain in right leg; M79.605 Pain in left leg; M81.0 Age-related osteoporosis without current pathological fracture; R26.81 Unsteadiness on feet; C90.01 Multiple myeloma in remission; Z51.5 Encounter for palliative care; Z79.01 Long term (current) use of anticoagulants; Z79.620 Long term (current) use of immunosuppressive biologic; Z79.890 Hormone replacement therapy; Z79.891 Long term (current) use of opiate analgesic; Z79.899 Other long term (current) drug therapy; Z80.0 Family history of malignant neoplasm of digestive organs; Z85.828 Personal history of other malignant neoplasm of skin; Z87.891 Personal history of nicotine dependence; Z90.49 Acquired absence of other specified parts of digestive tract; Z90.710 Acquired absence of both cervix and uterus; R29.6 Repeated falls; Z96.651 Presence of right artificial knee joint; Z96.642 Presence of left artificial hip joint

== ENCOUNTER → 2023-10-15 | Outpatient (CLI) | payer MEDICARE ==
[~2023-10-15] VITALS: Ht 165.1 cm; Wt 100.0 kg
[~2023-10-15] MED LIST changes: +DILA2TAB6 PO
[2023-10-15 14:05] VITALS: BP 126/87; O2SAT 95
== END ==
LOC: M PAL 13:22
PROVIDERS: ATTEND Nurse Practitioner Adult Health
DX: G89.29 Other chronic pain (principal); C90.01 Multiple myeloma in remission; M54.59 Other low back pain; M25.579 Pain in unspecified ankle and joints of unspecified foot; M25.551 Pain in right hip; M25.552 Pain in left hip; M25.562 Pain in left knee; M79.604 Pain in right leg; M79.605 Pain in left leg; M81.0 Age-related osteoporosis without current pathological fracture; R26.81 Unsteadiness on feet; Z51.5 Encounter for palliative care; Z79.01 Long term (current) use of anticoagulants; Z79.620 Long term (current) use of immunosuppressive biologic; Z79.890 Hormone replacement therapy; Z79.891 Long term (current) use of opiate analgesic; Z79.899 Other long term (current) drug therapy; Z80.0 Family history of malignant neoplasm of digestive organs; Z88.1 Allergy status to other antibiotic agents; Z88.8 Allergy status to other drugs, medicaments and biological substances; Z85.828 Personal history of other malignant neoplasm of skin; Z90.710 Acquired absence of both cervix and uterus; Z87.891 Personal history of nicotine dependence; Z90.49 Acquired absence of other specified parts of digestive tract; Z96.651 Presence of right artificial knee joint; Z96.642 Presence of left artificial hip joint

== ENCOUNTER → 2023-12-05 | Outpatient (CLI) | payer MEDICARE ==
[~2023-12-05] VITALS: Ht 165.1 cm; Wt 98.7 kg
[~2023-12-05] MED LIST changes: -MELA1TAB9 PO; +MELA5TAB58 PO
[2023-12-05 13:22] VITALS: BP 104/79; O2SAT 96
== END ==
LOC: M PAL 11:30
PROVIDERS: ATTEND Nurse Practitioner Adult Health
DX: G89.29 Other chronic pain (principal); C90.01 Multiple myeloma in remission; M54.59 Other low back pain; M25.579 Pain in unspecified ankle and joints of unspecified foot; M25.551 Pain in right hip; M25.552 Pain in left hip; M25.562 Pain in left knee; M79.604 Pain in right leg; M79.605 Pain in left leg; R26.81 Unsteadiness on feet; Z51.5 Encounter for palliative care; Z63.79 Other stressful life events affecting family and household; Z79.01 Long term (current) use of anticoagulants; Z79.620 Long term (current) use of immunosuppressive biologic; Z79.890 Hormone replacement therapy; Z79.891 Long term (current) use of opiate analgesic; Z79.899 Other long term (current) drug therapy; Z80.0 Family history of malignant neoplasm of digestive organs; Z85.828 Personal history of other malignant neoplasm of skin; Z87.891 Personal history of nicotine dependence; Z88.1 Allergy status to other antibiotic agents; Z88.8 Allergy status to other drugs, medicaments and biological substances; Z90.711 Acquired absence of uterus with remaining cervical stump; Z90.49 Acquired absence of other specified parts of digestive tract; Z96.651 Presence of right artificial knee joint; Z96.642 Presence of left artificial hip joint

== ENCOUNTER → 2024-01-06 | Outpatient (CLI) | payer MEDICARE ==
[~2024-01-06] VITALS: Ht 162.6 cm; Wt 98.5 kg
[2024-01-06 09:26] VITALS: BP 120/82; O2SAT 95
== END ==
LOC: M PAL 09:17
PROVIDERS: ATTEND Nurse Practitioner Adult Health
DX: G89.29 Other chronic pain (principal); C90.01 Multiple myeloma in remission; M54.59 Other low back pain; M25.579 Pain in unspecified ankle and joints of unspecified foot; M25.551 Pain in right hip; M25.561 Pain in right knee; M79.604 Pain in right leg; M79.605 Pain in left leg; R26.81 Unsteadiness on feet; R41.3 Other amnesia; Z51.5 Encounter for palliative care; Z63.79 Other stressful life events affecting family and household; Z79.01 Long term (current) use of anticoagulants; Z79.620 Long term (current) use of immunosuppressive biologic; Z79.890 Hormone replacement therapy; Z79.891 Long term (current) use of opiate analgesic; Z79.899 Other long term (current) drug therapy; Z80.0 Family history of malignant neoplasm of digestive organs; Z85.828 Personal history of other malignant neoplasm of skin; Z87.891 Personal history of nicotine dependence; Z88.1 Allergy status to other antibiotic agents; Z88.8 Allergy status to other drugs, medicaments and biological substances; Z90.711 Acquired absence of uterus with remaining cervical stump; Z90.49 Acquired absence of other specified parts of digestive tract; Z95.4 Presence of other heart-valve replacement; Z96.651 Presence of right artificial knee joint; Z96.642 Presence of left artificial hip joint

== ENCOUNTER → 2024-02-18 | Outpatient (CLI) | payer MEDICARE ==
[~2024-02-18] VITALS: Ht 167.6 cm; Wt 98.5 kg
[~2024-02-18] MED LIST changes: +NAPR-849 PO; -POTA10CA60 PO; +POTA10CA70 PO
[2024-02-18 09:18] VITALS: BP 112/78; O2SAT 96
== END ==
LOC: M PAL 09:02
PROVIDERS: ATTEND Nurse Practitioner Adult Health
DX: G89.29 Other chronic pain (principal); C90.01 Multiple myeloma in remission; M54.59 Other low back pain; M25.579 Pain in unspecified ankle and joints of unspecified foot; M25.551 Pain in right hip; M25.552 Pain in left hip; M25.561 Pain in right knee; M79.604 Pain in right leg; M79.605 Pain in left leg; M79.641 Pain in right hand; M79.642 Pain in left hand; R26.81 Unsteadiness on feet; R41.3 Other amnesia; Z51.5 Encounter for palliative care; Z63.79 Other stressful life events affecting family and household; Z80.0 Family history of malignant neoplasm of digestive organs; Z85.828 Personal history of other malignant neoplasm of skin; Z90.711 Acquired absence of uterus with remaining cervical stump; Z90.49 Acquired absence of other specified parts of digestive tract; Z95.4 Presence of other heart-valve replacement; Z96.651 Presence of right artificial knee joint; Z96.642 Presence of left artificial hip joint; Z79.01 Long term (current) use of anticoagulants; Z79.620 Long term (current) use of immunosuppressive biologic; Z79.890 Hormone replacement therapy; Z79.891 Long term (current) use of opiate analgesic; Z79.899 Other long term (current) drug therapy; Z87.440 Personal history of urinary (tract) infections; Z88.8 Allergy status to other drugs, medicaments and biological substances; Z88.1 Allergy status to other antibiotic agents; Z87.891 Personal history of nicotine dependence

== ENCOUNTER → 2024-04-15 | Outpatient (CLI) | payer MEDICARE ==
[~2024-04-15] MED LIST changes: +GNP250TA9 PO; +MEMA7CAP; +MYRB25TA; +NAPR275T83; +NAPR275T83 PO; +NITR0.4S14 SL
== END ==
LOC: M PAL 09:57
PROVIDERS: ATTEND Nurse Practitioner Family
DX: G89.29 Other chronic pain (principal); M54.9 Dorsalgia, unspecified; C90.01 Multiple myeloma in remission; Z63.4 Disappearance and death of family member; F43.21 Adjustment disorder with depressed mood; Z87.891 Personal history of nicotine dependence; Z51.5 Encounter for palliative care; Z79.891 Long term (current) use of opiate analgesic; Z79.1 Long term (current) use of non-steroidal anti-inflammatories (NSAID); Z79.01 Long term (current) use of anticoagulants; Z79.890 Hormone replacement therapy; Z79.899 Other long term (current) drug therapy; Z80.0 Family history of malignant neoplasm of digestive organs; Z85.828 Personal history of other malignant neoplasm of skin; Z88.1 Allergy status to other antibiotic agents; Z88.8 Allergy status to other drugs, medicaments and biological substances; Z90.711 Acquired absence of uterus with remaining cervical stump; Z90.49 Acquired absence of other specified parts of digestive tract; Z95.4 Presence of other heart-valve replacement

== ENCOUNTER → 2024-05-28 | Outpatient (CLI) | payer MEDICAID, MEDICARE ==
[~2024-05-28] VITALS: Ht 165.1 cm; Wt 94.6 kg
[2024-05-28 12:55] VITALS: O2SAT 100
== END ==
LOC: M PAL 12:46
PROVIDERS: ATTEND Nurse Practitioner Adult Health
DX: G89.29 Other chronic pain (principal); M54.9 Dorsalgia, unspecified; C90.01 Multiple myeloma in remission; Z63.4 Disappearance and death of family member; Z87.891 Personal history of nicotine dependence; Z66 Do not resuscitate; Z51.5 Encounter for palliative care; Z79.891 Long term (current) use of opiate analgesic; Z79.1 Long term (current) use of non-steroidal anti-inflammatories (NSAID); Z79.01 Long term (current) use of anticoagulants; Z79.890 Hormone replacement therapy; Z79.899 Other long term (current) drug therapy; Z80.0 Family history of malignant neoplasm of digestive organs; Z85.828 Personal history of other malignant neoplasm of skin; Z88.1 Allergy status to other antibiotic agents; Z88.8 Allergy status to other drugs, medicaments and biological substances; Z90.711 Acquired absence of uterus with remaining cervical stump; Z90.49 Acquired absence of other specified parts of digestive tract; Z95.4 Presence of other heart-valve replacement

== ENCOUNTER → 2024-07-08 | Outpatient (CLI) | payer MEDICARE ==
[~2024-07-08] MED LIST changes: +GABA-1172 PO; -GABA-282 PO; -OLAN2.5T25 PO; +OLAN2.5T53 PO
== END ==
LOC: M PAL 10:00
PROVIDERS: ATTEND Nurse Practitioner Adult Health
DX: G89.29 Other chronic pain (principal); M54.9 Dorsalgia, unspecified; C90.01 Multiple myeloma in remission; Z63.4 Disappearance and death of family member; Z87.891 Personal history of nicotine dependence; Z66 Do not resuscitate; Z51.5 Encounter for palliative care; Z79.891 Long term (current) use of opiate analgesic; Z79.1 Long term (current) use of non-steroidal anti-inflammatories (NSAID); Z79.01 Long term (current) use of anticoagulants; Z79.620 Long term (current) use of immunosuppressive biologic; Z79.890 Hormone replacement therapy; Z79.899 Other long term (current) drug therapy; Z80.0 Family history of malignant neoplasm of digestive organs; Z85.828 Personal history of other malignant neoplasm of skin; Z86.16 Personal history of COVID-19; Z88.1 Allergy status to other antibiotic agents; Z88.8 Allergy status to other drugs, medicaments and biological substances; Z90.711 Acquired absence of uterus with remaining cervical stump; Z90.49 Acquired absence of other specified parts of digestive tract; Z95.4 Presence of other heart-valve replacement

== ENCOUNTER → 2024-10-12 | Outpatient (CLI) | payer MEDICARE, MEDICAID ==
[~2024-10-12] MED LIST changes: +CEPH250T PO; +MEMA14CA; -MIDO10TA PO; +MIDO10TA3 PO; +MUCI600T31 PO; +MYRB50TA PO; +NEUR300C PO
== END ==
LOC: M WHC 12:33
PROVIDERS: ATTEND Internal Medicine Medical Oncology
DX: C90.00 Multiple myeloma not having achieved remission (principal); M85.89 Other specified disorders of bone density and structure, multiple sites

== ENCOUNTER → 2024-11-04 | Outpatient (CLI) | payer MEDICARE ==
[~2024-11-04] VITALS: Ht 162.6 cm; Wt 89.4 kg
[~2024-11-04] MED LIST changes: +VIBE75TA
[2024-11-04 13:23] VITALS: BP 106/75; O2SAT 96
== END ==
LOC: M PAL 12:49
PROVIDERS: ATTEND Family Medicine
DX: C90.00 Multiple myeloma not having achieved remission (principal); G89.29 Other chronic pain; M81.0 Age-related osteoporosis without current pathological fracture; M79.7 Fibromyalgia; F41.3 Other mixed anxiety disorders; Z79.01 Long term (current) use of anticoagulants; Z79.1 Long term (current) use of non-steroidal anti-inflammatories (NSAID); Z79.899 Other long term (current) drug therapy; Z79.83 Long term (current) use of bisphosphonates; Z63.4 Disappearance and death of family member; Z88.4 Allergy status to anesthetic agent; Z88.8 Allergy status to other drugs, medicaments and biological substances

== ENCOUNTER → 2024-12-29 | Outpatient (CLI) | payer MEDICARE ==
[~2024-12-29] VITALS: Ht 165.1 cm; Wt 90.6 kg
[~2024-12-29] MED LIST changes: +ACET-897 PO; +METH-1164 PO
[2024-12-29 10:33] VITALS: BP 107/74; O2SAT 96
== END ==
LOC: M PAL 10:28
PROVIDERS: ATTEND Physician Assistant
DX: Z51.5 Encounter for palliative care (principal); Z66 Do not resuscitate; C90.02 Multiple myeloma in relapse; M81.0 Age-related osteoporosis without current pathological fracture; G89.29 Other chronic pain; Z87.891 Personal history of nicotine dependence; Z88.8 Allergy status to other drugs, medicaments and biological substances; Z88.6 Allergy status to analgesic agent; Z79.899 Other long term (current) drug therapy

== ENCOUNTER → 2025-02-02 | Outpatient (CLI) | payer MEDICARE ==
[~2025-02-02] VITALS: Ht 165.1 cm; Wt 92.5 kg
[~2025-02-02] MED LIST changes: +MAG30ORA18 PO; +MORP-138 PO; -MORP15TASA PO; -MYLASSUD PO
[2025-02-02 13:26] VITALS: O2SAT 98
[2025-02-02 14:17] VITALS: BP 98/56
== END ==
LOC: M PAL 13:15
PROVIDERS: ATTEND Physician Assistant
DX: Z51.5 Encounter for palliative care (principal); Z66 Do not resuscitate; C90.00 Multiple myeloma not having achieved remission; G89.29 Other chronic pain; M85.80 Other specified disorders of bone density and structure, unspecified site; Z79.891 Long term (current) use of opiate analgesic; Z88.8 Allergy status to other drugs, medicaments and biological substances; Z88.5 Allergy status to narcotic agent; Z79.899 Other long term (current) drug therapy

== ENCOUNTER → 2025-05-26 | Outpatient (CLI) | payer MEDICARE, MEDICAID ==
[~2025-05-26] MED LIST changes: +ACYC-438 PO; -ACYC1TAB PO; -AMIO200T49 PO; +AMIO200T54 PO; +LEVO100T5; -MEMA14CA; +MEMA14CA PO; +METH-855 PO; +NYST0.1C; +VIBE75TA PO
== END ==
LOC: M PAL 10:01
PROVIDERS: ATTEND Physician Assistant
DX: Z51.5 Encounter for palliative care (principal); Z66 Do not resuscitate; C90.00 Multiple myeloma not having achieved remission; M79.7 Fibromyalgia; G89.4 Chronic pain syndrome; M81.0 Age-related osteoporosis without current pathological fracture; M85.80 Other specified disorders of bone density and structure, unspecified site; Z87.891 Personal history of nicotine dependence; Z79.891 Long term (current) use of opiate analgesic; Z79.899 Other long term (current) drug therapy; Z88.6 Allergy status to analgesic agent; Z88.8 Allergy status to other drugs, medicaments and biological substances; Z88.5 Allergy status to narcotic agent; Z79.83 Long term (current) use of bisphosphonates

== ENCOUNTER 2025-08-10 07:40 | Outpatient (CLI) | payer MEDICARE, MEDICAID ==
[~2025-08-10] VITALS: Ht 165.1 cm; Wt 92.3 kg
[~2025-08-10 07:40] MED LIST changes: +ALBUTEROL SULFATE 2.5 MG/0.5 ML INH CONCENTRATE NEB SOLN INH PRN; +EPINEPHrine INJ 1 MG/ML 1ML AMP IM PRN; +METH-1100 PO; -METH-855 PO; +NS (Normal Saline) 0.9% 1,000 ML IV SCH; -PROC5TAB57 PO; +PROC5TAB81 PO; +SULF400T14; +diphenhydrAMINE 50 MG/ML VIAL IV PRN
[2025-08-10 08:17] VITALS: BP 133/70; O2SAT 97
[2025-08-10] MEDS: ACETAMINOPHEN 650MG PO PRIOR TO INFUSION PO ONE (08:36)
[2025-08-10] MEDS: diphenhydrAMINE 25MG PO PRIOR TO INFUSION PO ONE (08:36)
[2025-08-10] MEDS: IMMUNE GLOBULIN 10% 20 GM in IV 1 EA IV ONE (09:09)
[2025-08-10 09:45] VITALS: BP 122/71; O2SAT 98
[2025-08-10 10:15] VITALS: BP 119/58; O2SAT 97
[2025-08-10 10:45] VITALS: BP 108/59; O2SAT 96
[2025-08-10] MEDS: HEPARIN LOCK FLUSH 100 UNITS/ML 3 ML SYRINGE IV PRN (11:30)
[2025-08-10] MEDS: SODIUM CHLORIDE 0.9% INJ 10 ML SYR IV PRN (11:30)
[2025-08-10 11:40] VITALS: BP 120/66; O2SAT 97
== END 2025-08-10 11:40 | disposition home or self-care (01) ==
LOC: M INFU 07:40
PROVIDERS: ATTEND Internal Medicine Medical Oncology
DX: D80.1 Nonfamilial hypogammaglobulinemia (principal); Z88.8 Allergy status to other drugs, medicaments and biological substances
CPT/HCPCS: 96365; 96366; 96375; J1459; J1642